=== PATIENT | female | born 1950 | race Asian ===

== ENCOUNTER 2016-05-30 18:19 | Inpatient (IN) | payer OTHER, MEDICAID, MEDICARE ==
[~2016-05-30] VITALS: Ht 149.9 cm; Wt 52.8 kg
[~2016-05-30 18:19] MED LIST: ASPI-147 PO; BUTA1CAP PO; CARI350T20 PO; CELE100C PO; DIAZ10TA PO; FLUO40CA PO; FLUT50SP EACH NARE; LEVA750T PO; LISI-515 PO; LYRI75CA PO; METHI10 PO; METO25TA3 PO; OMEP20TA PO; REME15TA PO; SYMB160A INH; TRAZ100T4 PO; VENTAER INH; ZETI10TA5 PO
[2016-05-30 18:24] VITALS: BP 133/74; PULSE 91; RESP 16; TEMP 98; O2SAT 97
[2016-05-30] MEDS ORDERED: ACETAMINOPHEN 325 MG TAB PO PRN (19:45)
[2016-05-30] MEDS ORDERED: LORazepam 0.5 MG TAB age > 65 yrs PO PRN (19:45)
[2016-05-30] MEDS ORDERED: ALUMINUM/MAGNESIUM/SIMETH 30 ML CUP PO PRN (19:45)
[2016-05-30] MEDS ORDERED: LORazepam 2 MG/ML VIAL - age > 65 yrs IM PRN (19:45)
[2016-05-30] MEDS ORDERED: MAGNESIUM HYDROXIDE SUSP 30 ML CUP PO PRN (19:45)
[2016-05-30 20:00] VITALS: BP 153/98; PULSE 74; RESP 20; TEMP 97.2; O2SAT 96
--- NOTE | 2016-05-30 20:14 | HHI.PYPN ---
Subjective Remarks Patient seen for reevaluation, case was extensively discussed with primary team physician, she was found standing in the middle of the door "On duty, waiting for the president", she says she needs to be vigilant because bad people could come and hurt her. she is visibly paranoid, internally preoccupied, guarded, emotionally disturbed. No aggressive behavior or agitation observed, she denies SI/HI/VH/AH. She is fully oriented X3. No attention deficit, fluctuation of consciousness or gross cognitive impairment observed. Review of Systems Other No significant changes since 05/27/2016 Objective Alert: Yes Semmes: Person, Place, Date, Situation Mood: Angry Affect: Restricted Memory Intact: Immediate, Recent, Remote Hallucinations: Other (She denies) Delusions: Yes Delusion Type: Paranoid Suicidal: Ideation (She denies) Homicidal: Ideation (She denies) Insight/Judgement poor Vitals/IOs Vital Signs Date Time Temp Pulse Resp B/P Pulse Ox O2 Delivery O2 Flow Rate FiO2 05/30/16 20:00 97.2 74 20 153/98 96 Assessment & Plan Problem List: (1) Unspecified psychosis Assessment & Plan: Patient continues to be acutely psychotic, she is now fully medically worked up and clear, she needs psychiatric admission for stabilization. Will increased Olanzapine to 2.5 am and 5 mg pm. ICD Code: F29 Assessment & Plan Estimated LOS: days Justification for Cont. Inpt. Patient is acutely psychosis and needs stabilization and medication adjustment. Rui Camacho MD May 30, 2016 20:14
[2016-05-31 05:44] VITALS: BP 154/82; PULSE 93; RESP 18; TEMP 98.6; O2SAT 99
[2016-05-31] MEDS ORDERED: CARISOPRODOL 350 MG TAB PO PRN (07:30)
[2016-05-31 08:03] LABS: ANION GAP 12 MEQ/L (5-15); BICARBONATE 21.6 MEQ/L (21.0-32.0); BLOOD UREA NITROGEN 20 MG/DL (7-18); CHLORIDE 103 MEQ/L (98-107); GLOMERULAR FILTRATION RATE 58 ML/MIN (>89); SODIUM (NA) 137 MEQ/L (136-145)
[2016-05-31 08:05] LABS: HDL CHOLESTEROL 122.7 MG/DL (40.0-60.0); LDL CHOLESTEROL 100 MG/DL (0-99)
[2016-05-31] MEDS: FLUTICASONE PROPIONATE 50 MCG/ACT 16 GM NASAL SPRAY EACH NARE SCH ×2 (09:00→21:47)
[2016-05-31] MEDS ORDERED: LISINOPRIL 20 MG TAB PO SCH (09:00)
[2016-05-31] MEDS: BUDESONIDE-FORMOTEROL 160/4.5 MCG INHALER INH SCH ×2 (09:00→21:47)
[2016-05-31] MEDS: REMOVE OLD NICOTINE PATCH T-DERMAL SCH (09:00)
--- NOTE | 2016-05-31 10:46 | PD.CONS ---
HPI Service [facility] Consult Requested By Dr Jin psychiatry Reason for Consult medical management Primary Care Physician Kb Miller MD Diagnoses: History of Present Illness 66 year old female with a history of COPD, SLE, RA who presented to the emergency department initially on 05/25/2016 with shortness of breath. Patient was actually discharged from [facility] on 05/24/2016 in the morning after COPD treatments. Prior to discharge, patient was doing very well and walk test did not indicate any need for home O2. Patient denies any fever, chills, chest pain. Denies any changes in bladder or bowel habits. Patient says she has headache and is asking for tylenol. She also feels anxious and tense. No sob, she is sattign well on room air. Says she gets sob at times but thinks is because of anxiety. She also complaints of joint pain and says she has RA. Review of Systems Constitutional: DENIES: Fever, Chills, Change in appetite Endocrine: DENIES: Heat/cold intolerance Eyes: DENIES: Blurred vision, Eye pain Ears, nose, mouth, throat: DENIES: Tinnitus, Hearing loss, Vertigo, Nasal discharge, Oral lesions, Throat pain, Hoarseness, Ear Pain, Running Nose, Epistaxis, Sinus Pain, Toothache, Odynophagia Respiratory: DENIES: Apneas, Cough, Snoring, Wheezing, Hemoptysis, Sputum production, Shortness of breath Cardiovascular: DENIES: Chest pain, Palpitations, Syncope, Dyspnea on Exertion , PND, Lower Extremity Edema, Orthopnea, Claudication Gastrointestinal: DENIES: Abdominal pain, Black stools, Bloody stools, Constipation, Diarrhea, Nausea, Vomiting, Difficulty Swallowing, Anorexia Genitourinary: DENIES: Abnormal vaginal bleeding, Dysmenorrhea, Dyspareunia, Sexual dysfunction, Urinary frequency, Urinary incontinence, Urgency, Hematuria , Dysuria, Nocturia, Vaginal discharge Integumentary: DENIES: Rash Neurologic: DENIES: Abnormal gait, Headache, Localized weakness, Paresthesias, Seizures, Speech Problems, Tremor, Poor Balance Psychiatric: COMPLAINS OF: Mood changes, Delusions Past Family Social History Allergies: Coded Allergies: No Known Allergies (Unverified , 05/24/16) Past Medical History SLE, RA, Fibromyalgia, Hyperlipidemia, COPD. Past Surgical History C. Section Cholecystectomy Reported Medications Reported Meds & Active Scripts Active Methimazole 10 Mg Tab 10 Mg PO DAILY Zetia (Ezetimibe) 10 Mg Tab 10 Mg PO DAILY Remeron (Mirtazapine) 15 Mg Tab 15 Mg PO HS Fioricet (Rldcqhhrdp-Ltxcsxtaxoxvn-Qsfoupvi) 50-300-40 Mg Cap 1-2 Cap PO Q6H PRN Ventolin Hfa 18 GM Inh (Albuterol Sulfate) 90 Mcg/Act Aer 1 Puff INH Q6HR PRN Trazodone (Trazodone HCl) 100 Mg Tab 100 Mg PO HS Lyrica (Pregabalin) 75 Mg Cap 75 Mg PO TID Fluticasone Nasal [place] 50 Mcg/Act Naspr 50 Mcg EACH NARE BID 50 mcg/spray Metoprolol Tartrate 25 Mg Tab 12.5 Mg PO BID Symbicort Inh (Budesonide/Formoterol Fumarate) 160-4.5 Mcg/Act Aero 2 Puff INH Q12HR Fluoxetine (Fluoxetine HCl) 40 Mg Cap 40 Cap PO DAILY Omeprazole 20 Mg Tab 20 Mg PO BID Reported Ecotrin Low Strength (Aspirin) 81 Mg Tabdr 81 Mg PO DAILY Celebrex (Celecoxib) 100 Mg Cap 100 Mg PO DAILY Family History No known family history. Social History Uses E-Cigarettes, drinks occasionally, uses marijuana occasionally as well. Physical Exam Vital Signs Vital Signs Date Time Temp Pulse Resp B/P Pulse Ox O2 Delivery O2 Flow Rate FiO2 05/31/16 05:44 98.6 93 18 154/82 99 05/30/16 20:00 97.2 74 20 153/98 96 05/30/16 18:24 98.0 91 16 133/74 97 Physical Exam GENERAL: This is a well-nourished, well-developed patient, in no apparent distress. SKIN: No rashes, ecchymoses or lesions. Cool and dry. HEAD: Atraumatic. Normocephalic. No temporal or scalp tenderness. EYES: Pupils equal round and reactive. Extraocular motions intact. No scleral icterus. No injection or drainage. ENT: Nose without bleeding, purulent drainage or septal hematoma. Throat without erythema, tonsillar hypertrophy or exudate. Uvula midline. Airway patent. NECK: Trachea midline. No JVD or lymphadenopathy. Supple, nontender, no meningeal signs. CARDIOVASCULAR: Regular rate and rhythm without murmurs, gallops, or rubs. RESPIRATORY: Clear to auscultation. Breath sounds equal bilaterally. No wheezes , rales, or rhonchi. GASTROINTESTINAL: Abdomen soft, non-tender, nondistended. No hepato-splenomegaly , or palpable masses. No guarding. MUSCULOSKELETAL: Extremities without clubbing, cyanosis, or edema. No joint tenderness, effusion, or edema noted. No calf tenderness. Negative Homans sign bilaterally. NEUROLOGICAL: Awake and alert. Cranial nerves II through XII intact. Motor and sensory grossly within normal limits. Five out of 5 muscle strength in all muscle groups. Normal speech. Laboratory Laboratory Tests Test 05/31/16 06:44 Sodium Level 137 Potassium Level 4.0 Chloride Level 103 Carbon Dioxide Level 21.6 Anion Gap 12 Blood Urea Nitrogen 20 Creatinine 0.97 Estimat Glomerular Filtration 58 Rate Random Glucose 82 Calcium Level 9.0 Triglycerides Level 160 Cholesterol Level 255 LDL Cholesterol 100 HDL Cholesterol 122.7 Cholesterol/HDL Ratio 2.07 Result Diagram: 05/31/16 0644 Assessment and Plan Assessment and Plan Aysha Reed returned to the hospital within a few hours of discharge due to shortness of breath. - Acute respiratory distress - resolved. - COPD exacerbation - resolved. Stable on room air. -Continue DuoNeb's when necessary. -Chronic dyspnea - referred to pulmonology by her PCP Dr. Miller. - Hallucinations with paranoid ideation - history of depression - no previous history of psychiatric hospitalizations. I agree with Dr. 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 The patient so far has declined neurologic workup including brain MRI and head CT citing claustrophobia however she agrees to head CT if given Ativan so we will attempt to arrange that this afternoon. AMANDA screen is positive and the titer is pending. RPR is negative. B-12 level is within normal limits. Sedimentation rate is only 4. Neurology consultation requested. - Acute kidney injury - worsening - probably due to poor PO intake and the Lasix that she received in the emergency department- cr increased to 1.8->2.3, will increase normal saline to 125 mL per hour. Will check a renal ultrasound. - Hyponatremia - Na 128. Appears to be a chronic issue, stable. continue NS IVF. - Possible (?) acute CHF exacerbation, diastolic. - Echo from 12/02/2015 shows EF 55-60% but PA pressure was 58. - Pulmonary hypertension is probably playing a role in this patient's dyspnea , which appears to be chronic. -Would avoid any further diuresis given the acute kidney injury and the chronic nature of her dyspnea. She does warrant outpatient pulmonology workup. -Poss Overdose with (Benzodiazepines?) - while hallucinating [employer], patient managed to grab a vial of pills that she had hidden among her belongings and took the pills before the PACKAGE P[employer] couldn't call for help. It was not clear what type of medication they were however the patient told the nurse that it was Xanax. The vial was small could not have more than 10-15 pills. Patient has been observed overnight in the ICU without adverse effect. Poison control had been contacted with no further recommendations. -Hyperthyroidism - cont tapazole 5 mg PO TID (increased from 10 mg daily). TSH still suppressed, but improving since 05/26. DVT px - Lovenox. Discussed with the patient, nurse. Code Status full Discussed Condition With pt, nurse Tiara Powers MD May 31, 2016 10:46
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
[2016-05-31] MEDS: METOPROLOL TARTRATE 25 MG TAB PO SCH ×2 (12:54→21:46)
[2016-05-31] MEDS: NICOTINE 21 MG/24 HR PATCH T-DERMAL SCH (12:54)
[2016-05-31] MEDS: ASPIRIN EC 81 MG TABEC PO SCH (12:55)
[2016-05-31] MEDS: EZETIMIBE 10 MG TAB PO SCH (12:55)
[2016-05-31] MEDS: PANTOPRAZOLE SOD 20 MG DELAYED RELEASE TAB PO SCH ×2 (12:55→21:46)
[2016-05-31] MEDS: PREGABALIN 75 MG CAP PO SCH ×3 (12:55→21:48)
[2016-05-31] MEDS: ACETAMINOPHEN 325 MG TAB PO PRN (12:56)
[2016-05-31 13:00] VITALS: BP 153/84
[2016-05-31 15:38] LABS: HEMOGLOBIN A1a 0.6 %; HEMOGLOBIN Ao 85.1 %; HEMOGLOBIN P3 5.5 %
[2016-05-31] MEDS: CELECOXIB 100 MG CAP PO SCH (18:44)
[2016-05-31] MEDS: METHIMAZOLE 10 MG TAB PO SCH (18:45)
[2016-05-31] MEDS: MIRTAZAPINE 15 MG TAB PO SCH (21:46)
[2016-06-01 06:22] VITALS: BP 136/66; PULSE 71; RESP 17; TEMP 98.9; O2SAT 96
[2016-06-01] MEDS: BUDESONIDE-FORMOTEROL 160/4.5 MCG INHALER INH SCH ×2 (08:38→21:46)
[2016-06-01] MEDS: PREGABALIN 75 MG CAP PO SCH ×3 (08:39→17:45)
[2016-06-01] MEDS: OLANZapine 5 MG TAB PO SCH ×2 (08:39→21:47)
[2016-06-01] MEDS: PANTOPRAZOLE SOD 20 MG DELAYED RELEASE TAB PO SCH ×2 (08:39→21:00)
[2016-06-01] MEDS: FLUTICASONE PROPIONATE 50 MCG/ACT 16 GM NASAL SPRAY EACH NARE SCH ×2 (08:39→21:47)
[2016-06-01] MEDS: CELECOXIB 100 MG CAP PO SCH (08:39)
[2016-06-01] MEDS: ASPIRIN EC 81 MG TABEC PO SCH (08:39)
[2016-06-01] MEDS: EZETIMIBE 10 MG TAB PO SCH (08:39)
[2016-06-01] MEDS: METOPROLOL TARTRATE 25 MG TAB PO SCH ×2 (08:40→21:48)
[2016-06-01] MEDS: METHIMAZOLE 10 MG TAB PO SCH (08:40)
[2016-06-01] MEDS: NICOTINE 21 MG/24 HR PATCH T-DERMAL SCH (09:00)
[2016-06-01] MEDS ORDERED: OLANZapine 5 MG TAB PO SCH (09:00)
[2016-06-01] MEDS: REMOVE OLD NICOTINE PATCH T-DERMAL SCH (09:00)
--- NOTE | 2016-06-01 10:32 | PD.CONS ---
[facility] Service Family Medicine Consult Requested By Psychiatry Reason for Consult Medical Management Primary Care Physician Kb Miller MD History of Present Illness Patient of Dr. Miller This is a 66 year old female with a past medical history significant for COPD, SLE, RA, and hyperthyroidism. She was recently hospitalized on 05/25/16 for shortness of breath due to COPD exacerbation subsequently discharged home. She did not require home oxygen at that time. On 05/31/16 she reports her significant other that she wanted to kill herself and she attempted to overdose on a vial of pills. She reported that she was having visual and auditory hallucinations prior to taking those pills. When evaluated today 06/01/16 she reported no longer having auditory or visual hallucinations. She said that she was feeling back to her baseline. She denied any shortness of breath or chest pain stating that her COPD exacerbation has improved. She feels like she wants to go home at this point, politely informed her that psychiatry will have to determine when she can leave, and that we are being consulted for medical management of her chronic illnesses. Review of Systems Other Endorses: None Denies: Fever, chills, nausea, vomiting, shortness of breath, chest pain, headache, abdominal pain, calf pain, auditory and visual hallucinations Past Family Social History Past Medical History Systemic Lupus Hyperlipidemia Depression COPD Fibromyalgia Genital Herpes Cholelithiasis Hypertension Past Surgical History Caesarian Section x2 Colonoscopy: ordered 05/2012 Mammogram: done 01/2012 (normal) Pap smear: done 05/2012 Pneumonia shot received 2010 Reported Medications Reported Meds & Active Scripts Active Methimazole 10 Mg Tab 10 Mg PO DAILY Zetia (Ezetimibe) 10 Mg Tab 10 Mg PO DAILY Remeron (Mirtazapine) 15 Mg Tab 15 Mg PO HS Fioricet (Nsnhmbdyge-Hgxyufkxgatcl-Auyvsdho) 50-300-40 Mg Cap 1-2 Cap PO Q6H PRN Ventolin Hfa 18 GM Inh (Albuterol Sulfate) 90 Mcg/Act Aer 1 Puff INH Q6HR PRN Trazodone (Trazodone HCl) 100 Mg Tab 100 Mg PO HS Lyrica (Pregabalin) 75 Mg Cap 75 Mg PO TID Fluticasone Nasal [place] 50 Mcg/Act Naspr 50 Mcg EACH NARE BID 50 mcg/spray Metoprolol Tartrate 25 Mg Tab 12.5 Mg PO BID Symbicort Inh (Budesonide/Formoterol Fumarate) 160-4.5 Mcg/Act Aero 2 Puff INH Q12HR Fluoxetine (Fluoxetine HCl) 40 Mg Cap 40 Cap PO DAILY Omeprazole 20 Mg Tab 20 Mg PO BID Reported Ecotrin Low Strength (Aspirin) 81 Mg Tabdr 81 Mg PO DAILY Celebrex (Celecoxib) 100 Mg Cap 100 Mg PO DAILY Allergies: Coded Allergies: No Known Allergies (Unverified , 05/24/16) Active Ordered Medications Current Medications Medications (Trade) Dose Ordered Sig/Indra Route Start Time Stop Time Status Last Admin (Ativan) 0.5 mg Q12H PRN PO 05/30/16 19:45 Hold (Ativan Inj) 0.5 mg Q12H PRN IM 05/30/16 19:45 Hold (Desyrel) 50 mg HS PRN PO 05/30/16 19:45 (Milk Of Magnesia Liq) 30 ml DAILY PRN PO 05/30/16 19:45 (Mag-Al Plus Susp Liq) 30 ml Q6H PRN PO 05/30/16 19:45 (Habitrol 21 Mg Patch.24 Hr) 1 patch DAILY T-DERMAL 05/31/16 09:00 05/31/16 12:54 Miscellaneous Information 1 DAILY T-DERMAL 05/31/16 09:00 (Proair Hfa Inh) 1 puff Q6HR PRN INH 05/31/16 07:30 (Ecotrin Ec) 81 mg DAILY PO 05/31/16 09:00 06/01/16 08:39 (Symbicort 160-4.5 Inh) 2 puff Q12HR INH 05/31/16 09:00 06/01/16 08:38 (CeleBREX) 100 mg DAILY PO 05/31/16 09:00 06/01/16 08:39 (Zetia) 10 mg DAILY PO 05/31/16 09:00 06/01/16 08:39 (Flonase [place]ar Spr) 2 spray BID EACH NARE 05/31/16 09:00 06/01/16 08:39 (Tapazole) 10 mg DAILY PO 05/31/16 09:00 06/01/16 08:40 (Lopressor) 12.5 mg BID PO 05/31/16 09:00 06/01/16 08:40 (Protonix) 20 mg BID PO 05/31/16 09:00 12/24/16 08:39 (Lyrica) 75 mg TID PO 05/31/16 09:00 06/01/16 08:39 (Fioricet 325-50-40) 1 tab Q6H PRN PO 05/31/16 07:45 (Remeron) 15 mg HS PO 05/31/16 21:00 05/31/16 21:46 (ZyPREXA) 5 mg BID PO 06/01/16 09:00 06/01/16 08:39 (Tylenol) 650 mg Q6H PRN PO 05/31/16 12:00 05/31/16 12:56 Family History Father: unknown Mother: unknown Siblings: 4 brothers, 1 sister - unknown health Children: 2 children, both health Social History Marrital Status: single, engaged Living Situation: lives with fiancee Education: high school Work history: disability - lupus, depression, copd Tobacco: 1/2 ppd (60 - 80 pack year history) - former 3 ppd smoker Alcohol: Occasional - 1-2 drinks every 3-4 months Illicit drug use: Marijuana occasionally Physical Exam Vital Signs Vital Signs Date Time Temp Pulse Resp B/P Pulse Ox O2 Delivery O2 Flow Rate FiO2 06/01/16 06:22 98.9 71 17 136/66 96 05/31/16 13:00 153/84 Physical Exam GENERAL: This is a well-nourished, well-developed patient, in no apparent distress. SKIN: No rashes, ecchymoses or lesions. Cool and dry. HEAD: Atraumatic. Normocephalic. No temporal or scalp tenderness. EYES: Pupils equal round and reactive. Extraocular motions intact. No scleral icterus. No injection or drainage. ENT: Nose without bleeding, purulent drainage. Throat without erythema, tonsillar hypertrophy or exudate. Airway patent. NECK: Trachea midline. No JVD or lymphadenopathy. Supple, nontender, no meningeal signs. CARDIOVASCULAR: Regular rate and rhythm without murmurs, gallops, or rubs. RESPIRATORY: Clear to auscultation. Breath sounds equal bilaterally. No wheezes , rales, or rhonchi. GASTROINTESTINAL: Abdomen soft, non-tender, nondistended. No hepato-splenomegaly , or palpable masses. No guarding. MUSCULOSKELETAL: Extremities without clubbing, cyanosis, or edema. No joint tenderness, effusion, or edema noted. No calf tenderness. Negative Homans sign bilaterally. NEUROLOGICAL: Awake, alert and oriented x3. Cranial nerves II through XII intact. Motor and sensory grossly within normal limits. Five out of 5 muscle strength in all muscle groups. Normal speech. Result Diagram: 05/31/16 0644 Assessment and Plan Assessment and Plan This is a 66 year old female with a past medical history significant for COPD, SLE, RA, and hyperthyroidism admitted for psychosis and attempted suicide. Monitoring her chronic illnesses at this time Code Status Full code Discussed Condition With WDW: Dr. Miller Problem List: (1) Psychosis Status: Acute Plan: Patient attempted suicide or taking a pill bottle with multiple pills uncertain as to what she took. Was having auditory and visual hallucinations at time of hospitalization. At this time denies any auditory or visual hallucinations. Psychosis to be worked up by psychiatrist. * Psychiatric recommendations appreciated * Remeron * Olanzapine 5 mg by mouth twice a day (2) Chronic obstructive pulmonary disease Status: Chronic Plan: History of chronic COPD. Recent hospitalization for exacerbation. Currently back to baseline. * Duo nebs as needed * Albuterol every 6 hours when necessary shortness of breath * Symbicort 2 puffs every 12 hours (3) Hyperthyroidism Status: Acute Plan: Family have no thyroid mass. Concern for hyperthyroidism. Most recent workup showed thyroid level to be normal in results of mass workup within normal limits. Spoke with PCP methimazole has been held. * Holding methimazole (4) Lupus (systemic lupus erythematosus) Status: Chronic Plan: Patient has long-standing history of lupus. She is chronically on low- dose steroids. Her steroids were held after tapering for COPD exacerbation. After discussion with PCP he recommended continuing a low dose steroid. Due to concern that the psychosis is caused by steroids will continue to hold at this time. * HOLDING Prednisone 5 mg daily (5) Depression with anxiety Status: Acute Plan: See psychosis plan above (6) History of cerebrovascular accident (CVA) with residual deficit Status: Acute Plan: History of CVA * Continue aspirin 81 mg by mouth daily (7) Overdose of benzodiazepine Status: Acute Plan: Unclear as to what was taken for possible overdose with benzodiazepine while hallucinating. Grabbed a bottle of pills that she had hidden and took them all at once. Unclear what she took though in her psychotic state she claimed it was Xanax. Status post observation for adverse effects, patient did not have any. Poison control was contacted with no further recommendations. Vasile Lindo MD R2 Jun 01, 2016 10:32
--- NOTE | 2016-06-01 16:08 | HHI.PYPN ---
Subjective Remarks Patient seen in [place] with nurse Christina, patient continues to isolate though she denies suicidality and denies auditory hallucinations she appears to be responding to internal stimuli marked delays in her responses. Patient compliant medications Review of Systems Other No somatic complaints today Objective Alert: Yes [place]: Person, Place, Date, Situation Mood: Angry Affect: Restricted Memory Intact: Immediate, Recent, Remote Hallucinations: Other (She denies) Delusions: Yes Delusion Type: Paranoid Suicidal: Ideation (She denies) Homicidal: Ideation (She denies) Insight/Judgement Very poor Vitals/IOs Vital Signs Date Time Temp Pulse Resp B/P Pulse Ox O2 Delivery O2 Flow Rate FiO2 06/01/16 06:22 98.9 71 17 136/66 96 Assessment & Plan Problem List: (1) Unspecified psychosis ICD Code: F29 Assessment & Plan Estimated LOS: days patient continue psychotic quite vigilant, though compliant with medications. For now continue treatment no change Justification for Cont. Inpt. This time patient will decompensate rapidly if placed in a lower level of care Discharge Planning To be determined Jj Ramachandran MD Jun 01, 2016 16:08
[2016-06-01 18:14] LABS: BLOOD, URINE NEG (NEG); COMMENT (UR) CULTURE INDICATED; CULTURE IF INDICATED CULTURE INDICATED; GLUCOSE,URINE NEG (NEG); KETONE, URINE NEG (NEG); NITRITE,URINE NEG (NEG); SQUAMOUS EPITHELIAL CELL URINE 1 /hpf (0-5); URINE COLOR YELLOW (YELLW/STRAW)
[2016-06-01 18:27] VITALS: BP 116/66; PULSE 69; RESP 18; TEMP 98.8; O2SAT 100
[2016-06-01 18:29] LABS: AMPHETAMINE, URINE NEG (NEG); BARBITURATES, URINE NEG (NEG); COCAINE, URINE NEG (NEG)
[2016-06-01] MEDS: MIRTAZAPINE 15 MG TAB PO SCH (21:47)
[2016-06-01] MEDS: ACETAMINOPHEN 325 MG TAB PO PRN (21:48)
[2016-06-02 06:22] VITALS: BP 145/88; PULSE 76; RESP 16; TEMP 98; O2SAT 100
[2016-06-02] MEDS: BUDESONIDE-FORMOTEROL 160/4.5 MCG INHALER INH SCH ×2 (09:00→20:34)
[2016-06-02] MEDS: REMOVE OLD NICOTINE PATCH T-DERMAL SCH (09:00)
[2016-06-02] MEDS ORDERED: predniSONE 5 MG TAB PO SCH (09:00)
[2016-06-02] MEDS: NICOTINE 21 MG/24 HR PATCH T-DERMAL SCH (09:59)
[2016-06-02] MEDS: FLUTICASONE PROPIONATE 50 MCG/ACT 16 GM NASAL SPRAY EACH NARE SCH ×2 (09:59→20:34)
[2016-06-02] MEDS: OLANZapine 5 MG TAB PO SCH ×2 (10:00→20:35)
[2016-06-02] MEDS: EZETIMIBE 10 MG TAB PO SCH (10:00)
[2016-06-02] MEDS: METOPROLOL TARTRATE 25 MG TAB PO SCH ×2 (10:00→20:35)
[2016-06-02] MEDS: PREGABALIN 75 MG CAP PO SCH ×4 (10:00→18:09)
[2016-06-02] MEDS: ASPIRIN EC 81 MG TABEC PO SCH (10:01)
[2016-06-02] MEDS: PANTOPRAZOLE SOD 20 MG DELAYED RELEASE TAB PO SCH ×2 (10:01→20:35)
[2016-06-02] MEDS: CELECOXIB 100 MG CAP PO SCH (10:01)
--- NOTE | 2016-06-02 12:27 | PD.CONS ---
[facility] Service Family Medicine Consult Requested By Primary Care Physician Kb Miller MD History of Present Illness Patient of Dr. Miller Ms Monteiro is a 66 year old female with a past medical history significant for COPD, SLE, RA, and hyperthyroidism. She was recently hospitalized on for shortness of breath due to COPD exacerbation subsequently discharged home. She did not require home oxygen at that time. On 05/31/16 she reports her significant other that she wanted to kill herself and she attempted to overdose on a vial of pills. She reported that she was having visual and auditory hallucinations prior to taking those pills. When evaluated 06/01/[address] Lindo, she reported no longer having auditory or visual hallucinations. She said that she was feeling back to her baseline. She denied any shortness of breath or chest pain stating that her COPD exacerbation has improved. She believes she is here because of her COPD. She feels like she wants to go home at this point, politely informed her that psychiatry will have to determine when she can leave, and that we are being consulted for medical management of her chronic illnesses. She also complains of sinus congestion and "runny nose" but has had her nasal spray earlier today. Review of Systems ROS Limitations: Poor Historian Constitutional: DENIES: Diaphoretic episodes Eyes: DENIES: Blurred vision, Vision loss Ears, nose, mouth, throat: COMPLAINS OF: Nasal discharge, Running Nose, DENIES : Epistaxis, Sinus Pain Respiratory: DENIES: Cough, Hemoptysis, Shortness of breath Cardiovascular: DENIES: Dyspnea on Exertion Gastrointestinal: DENIES: Abdominal pain, Difficulty Swallowing Musculoskeletal: COMPLAINS OF: Muscle aches, Stiffness, DENIES: Joint pain Integumentary: COMPLAINS OF: Rash Hematologic/lymphatic: COMPLAINS OF: Bruising Immunologic/allergic: DENIES: Urticaria Neurologic: DENIES: Abnormal gait, Headache, Localized weakness, Seizures, Speech Problems Psychiatric: COMPLAINS OF: Confusion, Hallucinations, DENIES: Anxiety, Agitation Other Endorses: None Denies: Fever, chills, nausea, vomiting, shortness of breath, chest pain, headache, abdominal pain, calf pain, auditory and visual hallucinations Past Family Social History Past Medical History Systemic Lupus Hyperlipidemia Depression COPD Fibromyalgia Genital Herpes Cholelithiasis Hypertension Past Surgical History Caesarian Section x2 Colonoscopy: ordered 05/2012 Mammogram: done 01/2012 (normal) Pap smear: done 05/2012 Pneumonia shot received 2010 Allergies: Coded Allergies: No Known Allergies (Unverified , 05/24/16) Family History Father: unknown Mother: unknown Siblings: 4 brothers, 1 sister - unknown health she reports being estranged from the family she was born into and has not seen or talked to them since she was 19 years old Children: 2 children, both healthy Social History Marrital Status: single, engaged Living Situation: lives with fiancee Education: high school Work history: disability - lupus, depression, copd Tobacco: 1/2 ppd (60 - 80 pack year history) - former 3 ppd smoker Alcohol: Occasional - 1-2 drinks every 3-4 months Illicit drug use: Marijuana occasionally Physical Exam Vital Signs Vital Signs Date Time Temp Pulse Resp B/P Pulse Ox O2 Delivery O2 Flow Rate FiO2 06/02/16 06:22 98.0 76 16 145/88 100 06/01/16 18:27 98.8 69 18 116/66 100 Physical Exam GENERAL: This is a well-nourished, well-developed patient, in no apparent distress. ambulating well without any problems or SOB. speaking and answering questions well SKIN: few ecchymoses no lesions. Cool and dry. HEAD: Atraumatic. Normocephalic. very slight flattening of nasolabial fold on the left compared to right which pt reports is chronic since she had a CVA EYES: Pupils equal round and reactive. Extraocular motions intact. No scleral icterus. No injection or drainage. ENT: Nose without bleeding, purulent drainage. Throat without erythema, tonsillar hypertrophy or exudate. Airway patent. NECK: Trachea midline. No JVD or lymphadenopathy. Supple, nontender, no meningeal signs. CARDIOVASCULAR: Regular rate and rhythm without murmurs, gallops, or rubs. RESPIRATORY: Clear to auscultation. Breath sounds equal bilaterally. No wheezes , rales, or rhonchi. GASTROINTESTINAL: Abdomen soft, non-tender, nondistended. No hepato-splenomegaly , or palpable masses. No guarding. MUSCULOSKELETAL: Extremities without clubbing, cyanosis, or edema. No joint tenderness, effusion, or edema noted. No calf tenderness. Negative Homans sign bilaterally. NEUROLOGICAL: Awake, alert and oriented x3. Cranial nerves II through XII intact. Motor and sensory grossly within normal limits. Five out of 5 muscle strength in all muscle groups. Normal speech. Laboratory Laboratory Tests Test 06/01/16 17:20 Urine Color YELLOW Urine Turbidity CLEAR Urine pH 6.0 Urine Specific [place] 1.007 Urine Protein NEG Urine Glucose (UA) NEG Urine Ketones NEG Urine Occult Blood NEG Urine Nitrite NEG Urine Bilirubin NEG Urine Urobilinogen LESS THAN 2.0 Urine Leukocyte Esterase MOD Urine RBC 1 Urine WBC 8 Urine Squamous Epithelial 1 Cells Microscopic Urinalysis Comment CULTURE INDICATED Urine Opiates Screen NEG Urine Barbiturates Screen NEG Urine Amphetamines Screen NEG Urine Benzodiazepines Screen POS Urine Cocaine Screen NEG Urine Cannabinoids Screen NEG Date/Time Procedure Status Source Growth 06/01/16 17:20 Urine Culture Received Urine Clean Catch Pending Result Diagram: 05/31/16 0644 Assessment and Plan Assessment and Plan This is a 66 year old female with a past medical history significant for COPD, SLE, RA, and hyperthyroidism admitted for psychosis and attempted suicide. Monitoring her chronic illnesses at this time Problem List: (1) Psychosis Status: Acute Plan: Patient attempted suicide or taking a pill bottle with multiple pills uncertain as to what she took. Was having auditory and visual hallucinations at time of hospitalization. At this time denies any auditory or visual hallucinations. Psychosis to be worked up by psychiatrist. Unsure of etiology but depression with psychosis is not uncommon in the elderly. steroids can cause psychosis or other causes are possible. * Psychiatric recommendations appreciated * Remeron * Olanzapine 5 mg by mouth twice a day (2) Chronic obstructive pulmonary disease Status: Chronic Plan: History of chronic COPD. Recent hospitalization for exacerbation. Currently back to baseline. She is ambulating well without oxygen * Duo nebs as needed * Albuterol every 6 hours when necessary shortness of breath * Symbicort 2 puffs every 12 hours (3) Hyperthyroidism Status: Acute Plan: Family have no thyroid mass. Concern for hyperthyroidism. Most recent workup showed thyroid level to be normal in results of mass workup within normal limits. Dr Lindo spoke with PCP- methimazole has been held. * Holding methimazole (4) Lupus (systemic lupus erythematosus) Status: Chronic Plan: Patient has long-standing history of lupus. She is chronically on low- dose steroids. Her steroids were held after tapering for COPD exacerbation. After discussion with PCP he recommended continuing a low dose steroid. Due to concern that the psychosis is caused by steroids will continue to hold at this time. 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 Per review of D/C from COPD exacerbation as well as clinic notes, it does not appear she was on termite renewal inspector steroids (5) Depression with anxiety Status: Acute Plan: See psychosis plan above (6) History of cerebrovascular accident (CVA) with residual deficit Status: Resolved Plan: History of CVA * Continue aspirin 81 mg by mouth daily (7) Overdose of benzodiazepine Status: Acute Plan: Unclear as to what was taken for possible overdose with benzodiazepine while hallucinating. Grabbed a bottle of pills that she had hidden and took them all at once. Unclear what she took though in her psychotic state she claimed it was Xanax. Status post observation for adverse effects, patient did not have any. Poison control was contacted with no further recommendations. Problem Qualifiers (1) Psychosis: Qualified Code: F29 - Psychosis, unspecified psychosis type (2) Chronic obstructive pulmonary disease: Qualified Code: J44.9 - Chronic obstructive pulmonary disease, unspecified COPD type (3) Lupus (systemic lupus erythematosus): Qualified Code: M32.8 - Other forms of systemic lupus erythematosus, unspecified organ involvement status (4) Overdose of benzodiazepine: Qualified Code: T42.4X2A - Overdose of benzodiazepine, intentional self-harm, initial encounter Meliza Price MD Jun 02, 2016 12:27
--- NOTE | 2016-06-02 15:22 | HHI.PYPN ---
Subjective Remarks Patient was seen and case discussed with nursing. Patient has very poor insight. She does not believe she is in a psychiatric wing of the hospital and refuses to admit that she try to overdose. Largely sits in her room by herself. Denies suicidal ideations thought or plan Objective Alert: Yes [place]: Person, Place, Date, Situation Mood: Angry Affect: Restricted Memory Intact: Immediate, Recent, Remote Hallucinations: Other (She denies) Delusions: Yes Delusion Type: Paranoid Suicidal: Ideation (She denies) Homicidal: Ideation (She denies) Insight/Judgement Poor Labs Test 06/01/16 17:20 Urine Color YELLOW Urine Turbidity CLEAR Urine pH 6.0 Urine Specific [place] 1.007 Urine Protein NEG mg/dL Urine Glucose (UA) NEG mg/dL Urine Ketones NEG mg/dL Urine Occult Blood NEG Urine Nitrite NEG Urine Bilirubin NEG Urine Urobilinogen LESS THAN 2.0 MG/DL Urine Leukocyte Esterase MOD Urine RBC 1 /hpf Urine WBC 8 /hpf Urine Squamous Epithelial 1 /hpf Cells Microscopic Urinalysis Comment CULTURE INDICATED Urine Opiates Screen NEG Urine Barbiturates Screen NEG Urine Amphetamines Screen NEG Urine Benzodiazepines Screen POS Urine Cocaine Screen NEG Urine Cannabinoids Screen NEG Date/Time Procedure Status Source Growth 06/01/16 17:20 Urine Culture - Preliminary Resulted Urine Clean Catch IMMATURE GROWTH - REINCUBATE Vitals/IOs Vital Signs Date Time Temp Pulse Resp B/P Pulse Ox O2 Delivery O2 Flow Rate FiO2 06/02/16 06:22 98.0 76 16 145/88 100 Assessment & Plan Problem List: (1) Unspecified psychosis ICD Code: F29 Assessment & Plan Continue current treatment plan Justification for Cont. Inpt. Patient will decompensate in a less restrictive setting Matheus Pereira DO Jun 02, 2016 15:22
[2016-06-02] MEDS: ALBUTEROL SULFATE 90 MCG/ACT HFA 8 GM INHALER INH PRN ×2 (18:29→18:34)
[2016-06-02] MEDS: MIRTAZAPINE 15 MG TAB PO SCH (20:34)
[2016-06-02] MEDS: traZODone HCL 50 MG TAB PO PRN (21:58)
[2016-06-02 22:25] VITALS: BP 123/62; PULSE 68; RESP 16; TEMP 98.4
[2016-06-03 06:39] VITALS: BP 131/76; PULSE 68; RESP 18; TEMP 97.7; O2SAT 100
[2016-06-03] MEDS: REMOVE OLD NICOTINE PATCH T-DERMAL SCH (09:00)
[2016-06-03] MEDS: FLUTICASONE PROPIONATE 50 MCG/ACT 16 GM NASAL SPRAY EACH NARE SCH ×2 (09:00→21:02)
[2016-06-03] MEDS: BUDESONIDE-FORMOTEROL 160/4.5 MCG INHALER INH SCH ×2 (09:00→21:02)
[2016-06-03] MEDS: METOPROLOL TARTRATE 25 MG TAB PO SCH ×2 (09:00→21:02)
[2016-06-03] MEDS: NICOTINE 21 MG/24 HR PATCH T-DERMAL SCH (09:18)
[2016-06-03] MEDS: OLANZapine 5 MG TAB PO SCH ×2 (09:18→21:02)
[2016-06-03] MEDS: ASPIRIN EC 81 MG TABEC PO SCH (09:18)
[2016-06-03] MEDS: CELECOXIB 100 MG CAP PO SCH (09:18)
[2016-06-03] MEDS: PANTOPRAZOLE SOD 20 MG DELAYED RELEASE TAB PO SCH ×2 (09:18→21:02)
[2016-06-03] MEDS: EZETIMIBE 10 MG TAB PO SCH (09:18)
--- NOTE | 2016-06-03 11:19 | HHI.PYPN ---
Subjective Remarks Patient seen in coverage for Dr. Gonzalez. Patient seen and examined with nurse, Christina. Chart reviewed. Case discussed with nursing staff. I was informed by the probate paralegal for the Department this morning that the patient's [place] act over the weekend without having been addressed. On my examination today, the patient denies any suicidal ideation. Patient maintains that she did not take an overdose of pills but was rather taking a vitamin supplement. She appears to be in fair spirits. No psychotic symptoms in evidence. I have had a mary discussion with her regarding the fact that her [place]man act has . I have emphasized that she is therefore under no obligation to remain on the inpatient psychiatric unit unless she should wish to do so. After a discussion of the risks and benefits of remaining on the unit voluntarily, she has agreed to sign into the hospital voluntarily to continue to work on her issues. She denies side effects from medications. Review of Systems Other Complains of some chronic left shoulder pain. No other physical complaints. Objective Alert: Yes [place]: Person, Place, Date Mood: Calm Affect: Blunted Memory Intact: Comment (intact on clinical exam) Hallucinations: Other (no AVH) Delusions: No Delusion Type: Other (no evident delusions) Suicidal: Ideation (denies SI) Homicidal: Ideation (no HI) Insight/Judgement Fair Remarks Thought process linear. Speech within normal limits for rate, tone and volume. No abnormal motor movements noted. Labs Date/Time Procedure Status Source Growth 06/01/16 17:20 Urine Culture - Preliminary Resulted Urine Clean Catch Gram Negative Andrea Labs reviewed. Vitals/IOs Vital Signs Date Time Temp Pulse Resp B/P Pulse Ox O2 Delivery O2 Flow Rate FiO2 06/03/16 06:39 97.7 68 18 131/76 100 Assessment & Plan Problem List: (1) Unspecified psychosis Assessment & Plan: Possibly delirium, now resolved ICD Code: F29 Assessment & Plan Patient appears to be clear thinking today. I wonder if she had a delirium on the medical floor and this was what was leading to her odd behavior. Her [place]man act over the weekend, but happily she has agreed to remain on the inpatient psychiatric unit for further observation after discussion of the risks and benefits of so doing. Continue current psychotropics as ordered. Appreciate hospitalist instructional consultant input. Continue other medications and care as ordered. Justification for Cont. Inpt. Observation for impairments in safety Discharge Planning Per Dr. Gonzalez Request HC Surrog/Guard Advoc?: No Esa Fagan MD Jun 03, 2016 11:19
--- NOTE | 2016-06-03 11:26 | HHI.FPPN ---
Subjective Remarks Patient seen and examined this morning in psychiatry. Medically, patient has been doing well, and has no complaints. Vitals have been normal and stable. Patient has no questions or concerns today. Objective Vitals Vital Signs Date Time Temp Pulse Resp B/P Pulse Ox O2 Delivery O2 Flow Rate FiO2 06/03/16 06:39 97.7 68 18 131/76 100 06/02/16 22:25 98.4 68 16 123/62 Result Diagram: 05/31/16 0644 Objective Remarks GENERAL: This is a well-nourished, well-developed patient, in no apparent distress. Ambulating well without any problems or SOB. Speaking and answering questions well CARDIOVASCULAR: Regular rate and rhythm without murmurs, gallops, or rubs. RESPIRATORY: Clear to auscultation. GASTROINTESTINAL: Abdomen soft, non-tender, nondistended. MUSCULOSKELETAL: Extremities without clubbing, cyanosis, or edema. NEUROLOGICAL: Awake, alert. Motor and sensory grossly within normal limits. Normal speech. A/P Assessment and Plan This is a 66 year old female with a past medical history significant for COPD, SLE, RA, and hyperthyroidism admitted for psychosis and attempted suicide. Psychosis was suspected to be steroid induced, and have discontinued home steroids. Family Medicine was consulted for medical management of her chronic illnesses Discharge Planning Family medicine will sign off, as patient is stable with regard to her chronic medical conditions. Please re-consult if needed. DW Dr. Price Problem List: (1) Psychosis Status: Acute Plan: Patient attempted suicide or taking a pill bottle with multiple pills uncertain as to what she took. Was having auditory and visual hallucinations at time of hospitalization. At this time denies any auditory or visual hallucinations. Psychosis to be worked up by psychiatrist. Unsure of etiology but depression with psychosis is not uncommon in the elderly. steroids can cause psychosis or other causes are possible. * Psychiatric recommendations appreciated * Remeron * Olanzapine 5 mg by mouth twice a day (2) Abnormal urinalysis Status: Resolved Plan: UA with leukocyte esterase. Urine culture with gram negative rods, 10-50,000, probably contaminant. Patient asymptomatic. -No treatment planned as patient is asymptomatic (3) Chronic obstructive pulmonary disease Status: Chronic Plan: History of chronic COPD. Recent hospitalization for exacerbation. Currently back to baseline. She is ambulating well without oxygen * Duo nebs as needed * Albuterol every 6 hours when necessary shortness of breath * Symbicort 2 puffs every 12 hours (4) Hyperthyroidism Status: Acute Plan: Family have no thyroid mass. Concern for hyperthyroidism. Most recent workup showed thyroid level to be normal in results of mass workup within normal limits. Dr Lindo spoke with PCP- methimazole has been held. * Holding methimazole (5) Lupus (systemic lupus erythematosus) Status: Chronic Plan: Patient has long-standing history of lupus. She is chronically on low-dose steroids. Her steroids were held after tapering for COPD exacerbation. After discussion with PCP he recommended continuing a low dose steroid. Due to concern that the psychosis is caused by steroids will continue to hold at this time. * HOLDING Prednisone 5 mg daily * Unclear if she was on computer terminal operator steroids, if so, there is a chance of low BPs and adrenal insufficiency however she is ambulating normally now. Per review of D/C from COPD exacerbation as well as clinic notes, it does not appear she was on computer terminal operator steroids (6) Depression with anxiety Status: Acute Plan: See psychosis plan above (7) History of cerebrovascular accident (CVA) with residual deficit Status: Resolved Plan: History of CVA * Continue aspirin 81 mg by mouth daily (8) Overdose of benzodiazepine Status: Acute Plan: Unclear as to what was taken for possible overdose with benzodiazepine while hallucinating. Grabbed a bottle of pills that she had hidden and took them all at once. Unclear what she took though in her psychotic state she claimed it was Xanax. Status post observation for adverse effects, patient did not have any. Poison control was contacted with no further recommendations. Problem Qualifiers (1) Psychosis: Qualified Code: F29 - Psychosis, unspecified psychosis type (2) Chronic obstructive pulmonary disease: Qualified Code: J44.9 - Chronic obstructive pulmonary disease, unspecified COPD type (3) Lupus (systemic lupus erythematosus): Qualified Code: M32.8 - Other forms of systemic lupus erythematosus, unspecified organ involvement status (4) Overdose of benzodiazepine: Qualified Code: T42.4X2A - Overdose of benzodiazepine, intentional self-harm, initial encounter Julia Stewart MD Jun 03, 2016 11:26
[2016-06-03] MEDS: PREGABALIN 75 MG CAP PO SCH (18:00)
[2016-06-03 18:27] VITALS: BP 143/84; PULSE 84; RESP 18; TEMP 98.2; O2SAT 98
[2016-06-03] MEDS: MIRTAZAPINE 15 MG TAB PO SCH (21:02)
[2016-06-03] MEDS: traZODone HCL 50 MG TAB PO PRN (21:03)
[2016-06-03] MEDS: ACETAMIN 325 MG/BUTALBITAL 50 MG/CAFFEINE 40 MG TAB PO PRN (21:30)
[2016-06-04 06:32] VITALS: BP 131/65; PULSE 72; RESP 18; TEMP 97.5; O2SAT 98
[2016-06-04] MEDS: BUDESONIDE-FORMOTEROL 160/4.5 MCG INHALER INH SCH ×2 (08:46→21:21)
[2016-06-04] MEDS: FLUTICASONE PROPIONATE 50 MCG/ACT 16 GM NASAL SPRAY EACH NARE SCH ×2 (08:46→21:21)
[2016-06-04] MEDS: OLANZapine 5 MG TAB PO SCH ×2 (08:46→21:21)
[2016-06-04] MEDS: CELECOXIB 100 MG CAP PO SCH (08:47)
[2016-06-04] MEDS: EZETIMIBE 10 MG TAB PO SCH (08:47)
[2016-06-04] MEDS: PANTOPRAZOLE SOD 20 MG DELAYED RELEASE TAB PO SCH ×2 (08:47→21:22)
[2016-06-04] MEDS: METOPROLOL TARTRATE 25 MG TAB PO SCH ×2 (08:47→21:22)
[2016-06-04] MEDS: PREGABALIN 75 MG CAP PO SCH ×3 (08:47→17:32)
[2016-06-04] MEDS: ASPIRIN EC 81 MG TABEC PO SCH (08:47)
[2016-06-04] MEDS: REMOVE OLD NICOTINE PATCH T-DERMAL SCH (09:00)
[2016-06-04] MEDS: NICOTINE 21 MG/24 HR PATCH T-DERMAL SCH (09:00)
[2016-06-04 18:41] VITALS: BP 147/70; PULSE 68; RESP 18; TEMP 98; O2SAT 99
--- NOTE | 2016-06-04 19:08 | HHI.PYPN ---
Subjective Remarks Patient seen, chart reviewed, case discussed with staff Patient has been on phone with her son. When i spoke to the son he reports to me that Karina significant other does not want her to return home and other discharge plans need to be made. Fernandez phone number is [phone] Patients mood is improved. She is up, attending some activities and groups Compliant with care, tolerating meds without side effects, no SI, no AH Review of Systems Psychiatric: COMPLAINS OF: Anxiety, Mood changes, Depression Other otherwise 10 point ROS is negative Objective Alert: Yes [place]: Person, Place, Date Mood: Calm Affect: Blunted Memory Intact: Comment (intact on clinical exam) Hallucinations: Other (no AVH) Delusions: No Delusion Type: Other (no evident delusions) Suicidal: Ideation (denies SI) Homicidal: Ideation (no HI) Insight/Judgement poor Labs Date/Time Procedure Status Source Growth 06/01/16 17:20 Urine Culture - Final Complete Urine Clean Catch Escherichia Coli Vitals/IOs Vital Signs Date Time Temp Pulse Resp B/P Pulse Ox O2 Delivery O2 Flow Rate FiO2 06/04/16 18:41 98.0 68 18 147/70 99 Assessment & Plan Problem List: (1) Major depressive disorder, recurrent, severe with psychotic features Assessment & Plan: patient appears improved, possibly this information from the son, indicating that significant other does not want [place] back partly explains her affect when she arrived. ICD Code: F33.3 Assessment & Plan Estimated LOS: days Justification for Cont. Inpt. risk of deterioration Request HC Surrog/Guard Advoc?: No Melody Gonzalez MD Jun 04, 2016 19:08
[2016-06-04] MEDS: MIRTAZAPINE 15 MG TAB PO SCH (21:21)
[2016-06-04] MEDS: traZODone HCL 50 MG TAB PO PRN (21:47)
[2016-06-05 06:12] VITALS: BP 127/62; PULSE 73; RESP 16; TEMP 97.8; O2SAT 96
[2016-06-05] MEDS: FLUTICASONE PROPIONATE 50 MCG/ACT 16 GM NASAL SPRAY EACH NARE SCH ×2 (08:58→21:17)
[2016-06-05] MEDS: REMOVE OLD NICOTINE PATCH T-DERMAL SCH (09:00)
[2016-06-05] MEDS: BUDESONIDE-FORMOTEROL 160/4.5 MCG INHALER INH SCH ×2 (09:00→21:02)
[2016-06-05] MEDS: NICOTINE 21 MG/24 HR PATCH T-DERMAL SCH (09:00)
[2016-06-05] MEDS: CELECOXIB 100 MG CAP PO SCH (09:02)
[2016-06-05] MEDS: ASPIRIN EC 81 MG TABEC PO SCH (09:03)
[2016-06-05] MEDS: PREGABALIN 75 MG CAP PO SCH ×3 (09:04→18:00)
[2016-06-05] MEDS: EZETIMIBE 10 MG TAB PO SCH (09:05)
[2016-06-05] MEDS: PANTOPRAZOLE SOD 20 MG DELAYED RELEASE TAB PO SCH ×2 (09:07→21:00)
[2016-06-05] MEDS: OLANZapine 5 MG TAB PO SCH ×2 (09:08→21:06)
[2016-06-05] MEDS: METOPROLOL TARTRATE 25 MG TAB PO SCH ×2 (09:36→21:05)
--- NOTE | 2016-06-05 17:29 | HHI.PYPN ---
Subjective Remarks Patient seen, chart reviewed, case discussed with staff Issues have arisen as to whether patient can return to previous living situation at time of discharge. This change is creating some shock and disruption for the patient and discharge planning. Patient has been more withdrawn today, less social, although she has been up for meals. She has been anxious and less verbal, answering questions with a nod or by shaking her head rather than the full description and smile she was giving yesterday. She is not smiling today. The patient continues to be cooperative with care and she is taking her medications. Review of Systems Psychiatric: COMPLAINS OF: Anxiety, Confusion, Depression Other otherwise 10 point ROS is negative Objective Alert: Yes [place]: Person, Place, Date Mood: Anxious Affect: Blunted Memory Intact: Comment (intact on clinical exam) Hallucinations: Other (no AVH) Delusions: No Delusion Type: Other (no evident delusions) Suicidal: Ideation (denies SI) Homicidal: Ideation (no HI) Insight/Judgement poor Remarks Labs Date/Time Procedure Status Source Growth 06/01/16 17:20 Urine Culture - Final Complete Urine Clean Catch Escherichia Coli Vitals/IOs Vital Signs Date Time Temp Pulse Resp B/P Pulse Ox O2 Delivery O2 Flow Rate FiO2 06/05/16 06:12 97.8 73 16 127/62 96 Assessment & Plan Problem List: (1) Major depressive disorder, recurrent, severe with psychotic features Assessment & Plan: The improvement noted yesterday is not evident today, and we will have to work a little harder to bring it back. We are continuing with meds, activities, groups and vigorously with discharge plans to determine if we can work out suitable discharge plans. ICD Code: F33.3 Assessment & Plan Estimated LOS: days Justification for Cont. Inpt. risk of decompensation Request HC Surrog/Guard Advoc?: No Melody Gonzalez MD Jun 05, 2016 17:29
[2016-06-05 19:47] VITALS: BP 135/74; PULSE 66; RESP 16; TEMP 98.2
[2016-06-05] MEDS: MIRTAZAPINE 15 MG TAB PO SCH (21:06)
[2016-06-05] MEDS: ACETAMINOPHEN 325 MG TAB PO PRN (21:22)
[2016-06-06 06:14] VITALS: BP 111/59; PULSE 67; RESP 18; TEMP 98.7
[2016-06-06] MEDS: PREGABALIN 75 MG CAP PO SCH ×3 (08:33→17:06)
[2016-06-06] MEDS: BUDESONIDE-FORMOTEROL 160/4.5 MCG INHALER INH SCH ×2 (08:33→21:37)
[2016-06-06] MEDS: CELECOXIB 100 MG CAP PO SCH (08:33)
[2016-06-06] MEDS: METOPROLOL TARTRATE 25 MG TAB PO SCH ×2 (08:33→21:37)
[2016-06-06] MEDS: ASPIRIN EC 81 MG TABEC PO SCH (08:33)
[2016-06-06] MEDS: FLUTICASONE PROPIONATE 50 MCG/ACT 16 GM NASAL SPRAY EACH NARE SCH ×2 (08:33→21:37)
[2016-06-06] MEDS: PANTOPRAZOLE SOD 20 MG DELAYED RELEASE TAB PO SCH ×2 (08:33→21:37)
[2016-06-06] MEDS: EZETIMIBE 10 MG TAB PO SCH (08:33)
[2016-06-06] MEDS: OLANZapine 5 MG TAB PO SCH ×2 (08:34→21:37)
[2016-06-06] MEDS: NICOTINE 21 MG/24 HR PATCH T-DERMAL SCH (08:34)
[2016-06-06] MEDS: REMOVE OLD NICOTINE PATCH T-DERMAL SCH (08:34)
--- NOTE | 2016-06-06 11:58 | HHI.PYPN ---
Subjective Remarks Patient was seen and discussed with the medical staff coordinator. Patient reported that she has been feeling better. But she was somewhat concerned and worried about her boyfriend spending money and wanted to talk to him. No behavior or management problem reported. Patient claimed that she has been sleeping fairly well compliant in taking medication and feeling back to her normal self. Continue with the same treatment Review of Systems Psychiatric: COMPLAINS OF: Mood changes, Depression Other Review of systems same as that of 05/31/16 Objective Alert: Yes [place]: Person, Place, Date, Situation Mood: Anxious, Other (worried about her money) Affect: Blunted Memory Intact: Comment (intact on clinical exam) Hallucinations: Other (no AVH) Delusions: No Delusion Type: Other (no evident delusions) Suicidal: Ideation (denies SI) Homicidal: Ideation (no HI) Insight/Judgement Fair to limited Labs Date/Time Procedure Status Source Growth 06/01/16 17:20 Urine Culture - Final Complete Urine Clean Catch Escherichia Coli Vitals/IOs Vital Signs Date Time Temp Pulse Resp B/P Pulse Ox O2 Delivery O2 Flow Rate FiO2 06/06/16 06:14 98.7 67 18 111/59 06/05/16 06:12 96 Assessment & Plan Problem List: (1) Major depressive disorder, recurrent, severe with psychotic features ICD Code: F33.3 Assessment & Plan Estimated LOS: days Justification for Cont. Inpt. Monitoring and titrating of the medication to control and stabilize her symptoms Request HC Surrog/Guard Advoc?: No Emmanuel Roach MD Jun 06, 2016 11:58
[2016-06-06 18:20] VITALS: BP 145/80; PULSE 66; RESP 18; TEMP 98.6
[2016-06-06] MEDS: MIRTAZAPINE 15 MG TAB PO SCH (21:37)
[2016-06-06] MEDS: traZODone HCL 50 MG TAB PO PRN (21:38)
[2016-06-07 05:25] VITALS: BP 119/73; PULSE 71; RESP 16; TEMP 98.2; O2SAT 96
[2016-06-07] MEDS: PREGABALIN 75 MG CAP PO SCH ×3 (09:00→18:00)
[2016-06-07] MEDS: CELECOXIB 100 MG CAP PO SCH (09:00)
[2016-06-07] MEDS: FLUTICASONE PROPIONATE 50 MCG/ACT 16 GM NASAL SPRAY EACH NARE SCH (09:00)
[2016-06-07] MEDS: REMOVE OLD NICOTINE PATCH T-DERMAL SCH (09:00)
[2016-06-07] MEDS: EZETIMIBE 10 MG TAB PO SCH (09:37)
[2016-06-07] MEDS: NICOTINE 21 MG/24 HR PATCH T-DERMAL SCH (09:37)
[2016-06-07] MEDS: ASPIRIN EC 81 MG TABEC PO SCH (09:38)
[2016-06-07] MEDS: OLANZapine 5 MG TAB PO SCH ×2 (09:38→21:23)
[2016-06-07] MEDS: BUDESONIDE-FORMOTEROL 160/4.5 MCG INHALER INH SCH ×2 (09:38→21:23)
[2016-06-07] MEDS: METOPROLOL TARTRATE 25 MG TAB PO SCH ×2 (09:38→21:23)
[2016-06-07] MEDS: PANTOPRAZOLE SOD 20 MG DELAYED RELEASE TAB PO SCH ×2 (09:38→21:23)
--- NOTE | 2016-06-07 15:34 | HHI.PYPN ---
Subjective Remarks Pt seen in coverage for Dr. Gonzalez. Chart reviewed. Case d/w RN. On my examination today, pt reports that she is waiting for long-term, hopes to be ready to go by Friday. Reports that she is sleeping well with current psychotropics. Denies SI/HI/AVH. Denies side effects from medications. Does have some somatic complaints as detailed below. Review of Systems Other C/o chronic neck, shoulder pain. C/o L ear pain without drainage or fullness. Some ringing in the L ear. Objective Alert: Yes [place]: Person, Place, Date Mood: Calm Affect: Euthymic Memory Intact: Comment (Intact) Hallucinations: Other (Denies AVH) Delusions: No Delusion Type: Other (No delusions) Suicidal: Ideation (Denies SI) Homicidal: Ideation (Denies HI) Insight/Judgement Fair Remarks No motoric abnormalities noted. TP seems logical, linear. Speech wnl. Labs Labs reviewed. Vitals/IOs Vital Signs Date Time Temp Pulse Resp B/P Pulse Ox O2 Delivery O2 Flow Rate FiO2 06/07/16 05:25 98.2 71 16 119/73 96 Assessment & Plan Problem List: (1) Major depressive disorder, recurrent, severe with psychotic features Assessment & Plan: No psychosis that I can detect at this point. ICD Code: F33.3 Assessment & Plan Continue current medications and care as ordered. I will ask the hospitalists to return to address patient's somatic complaints. Justification for Cont. Inpt. Risk for decompensation Discharge Planning Per Dr. Gonzalez. Request HC Surrog/Guard Advoc?: No Esa Fagan MD Jun 07, 2016 15:34
[2016-06-07 19:34] VITALS: BP 156/74; PULSE 83; RESP 18; TEMP 98; O2SAT 99
--- NOTE | 2016-06-07 20:00 | HHI.FPPN ---
Subjective Remarks 66-year-old female, with a past medical history of systemic lupus erythematous, COPD, fibromyalgia, hypertension, and TIA, she was admitted on 05/30/2016, after having unspecified psychosis with auditory hallucinations. He was initially seen by Dr. Stewart, and Dr. Price. The medical team was re-consulted for left ear pain for the past month. History of present illness: The patient has been having left ear pain for the past month, that is a 0-1/10 dull and achy pain, that feels like someone is "smacking her ear and ringing." She denies any vertigo. She denies any jaw claudication with mastication. She denies visual changes. She also has been having headaches, approximately for "all of her life." She has been experiencing left-sided neck stiffness, and cramping. Sometimes she gets numbness down into her left arm and fingers. This is associated with the left sided ear pain. She denies fevers or chills, ear discharge, hearing loss. Objective Vitals Vital Signs Date Time Temp Pulse Resp B/P Pulse Ox O2 Delivery O2 Flow Rate FiO2 06/07/16 19:34 98.0 83 18 156/74 99 06/07/16 05:25 98.2 71 16 119/73 96 Imaging Vital Signs Date Time Temp Pulse Resp B/P Pulse Ox O2 Delivery O2 Flow Rate FiO2 06/07/16 19:34 98.0 83 18 156/74 99 Objective Remarks GENERAL: This is a well-nourished, well-developed patient, in no apparent distress. Ambulating well without any problems or SOB. Speaking and answering questions well CARDIOVASCULAR: Regular rate and rhythm without murmurs, gallops, or rubs. RESPIRATORY: Clear to auscultation. GASTROINTESTINAL: Abdomen soft, non-tender, nondistended. MUSCULOSKELETAL: Extremities without clubbing, cyanosis, or edema. NEUROLOGICAL: Awake, alert. Motor and sensory grossly within normal limits. Normal speech. A/P Assessment and Plan This is a 66 year old female with a past medical history significant for COPD, SLE, RA, and hyperthyroidism admitted for psychosis and attempted suicide. Family Medicine was consulted for medical management of her chronic illnesses and more specifically left-sided ear pain. Discharge Planning Family medicine will sign off, as patient is stable with regard to her chronic medical conditions. Please re-consult if needed. DW Dr. Price Problem List: (1) Muscle spasm Status: Acute Plan: Patient's left-sided neck pain, and ear pain, is most likely related to a paraspinal muscles strain versus muscle spasm. Her tympanic membranes were clear bilaterally (clear light reflex, no fluid, no erythema, no excessive cerumen). She has not been febrile. There is point tenderness over the mastoid process and neck muscles. In addition her ear pain and fullness, may be related to upper sinus irritation secondary to allergies. Treat as follows: -Nasal corticosteroid spray twice a day -Tylenol 650 mg by mouth every 6 hours when necessary ear/neck pain -Flexeril 5 mg daily at bedtime -Warm compresses, as well as stretching exercises (2) Psychosis Status: Acute Plan: Patient attempted suicide or taking a pill bottle with multiple pills uncertain as to what she took. Was having auditory and visual hallucinations at time of hospitalization. At this time denies any auditory or visual hallucinations. Psychosis to be worked up by psychiatrist. Unsure of etiology but depression with psychosis is not uncommon in the elderly. steroids can cause psychosis or other causes are possible. * Continue with olanzapine 5 mg twice a day, as well as mirtazapine 15 mg at bedtime. (3) Abnormal urinalysis Status: Resolved Plan: UA with leukocyte esterase. Urine culture with gram negative rods, 10-50,000, probably contaminant. Patient denies any symptoms, however underlying mental status changes may be related to underlying UTI. We'll treat with Macrobid 100 mg twice a day for 7 days, sensitivity is < 32 FELIX. (4) Chronic obstructive pulmonary disease Status: Chronic Plan: Hallucinations are clear on exam, she is satting well on oxygen. No respiratory distress. History of chronic COPD. Recent hospitalization for exacerbation. Currently back to baseline. She is ambulating well without oxygen * Duo nebs as needed * Albuterol every 6 hours when necessary shortness of breath * Symbicort 2 puffs every 12 hours (5) Hyperthyroidism Status: Acute Plan: Concern for hyperthyroidism. Most recent workup showed thyroid level to be normal in results of mass workup within normal limits. Dr Lindo spoke with PCP - methimazole has been held. Lab studies: TSH 0.009, free T4 normal at 0.92, free T3 low at 1.79. * Holding methimazole. * Be followed as an outpatient. Likely not contributing to her underlying mental status changes. (6) Lupus (systemic lupus erythematosus) Status: Chronic Plan: Patient has long-standing history of lupus. She is chronically on low-dose steroids. Her steroids were held after tapering for COPD exacerbation. After discussion with PCP he recommended continuing a low dose steroid. Due to concern that the psychosis is caused by steroids will continue to hold at this time. * HOLDING Prednisone 5 mg daily * Unclear if she was on [facility] steroids, if so, there is a chance of low BPs and adrenal insufficiency however she is ambulating normally now. Per review of D/C from COPD exacerbation as well as clinic notes, it does not appear she was on [facility] steroids (7) Depression with anxiety Status: Acute Plan: See psychosis plan above (8) History of cerebrovascular accident (CVA) with residual deficit Status: Resolved Plan: History of CVA * Continue aspirin 81 mg by mouth daily Problem Qualifiers (1) Psychosis: Qualified Code: F29 - Psychosis, unspecified psychosis type (2) Chronic obstructive pulmonary disease: Qualified Code: J44.9 - Chronic obstructive pulmonary disease, unspecified COPD type (3) Lupus (systemic lupus erythematosus): Qualified Code: M32.8 - Other forms of systemic lupus erythematosus, unspecified organ involvement status Bernardino Gillis MD R2 Jun 07, 2016 20:00
[2016-06-07] MEDS ORDERED: PILL SPLITTER OTHER PRN (20:45)
[2016-06-07] MEDS: FLUTICASONE PROPIONATE 50 MCG/ACT 16 GM NASAL SPRAY NASAL SCH (21:00)
[2016-06-07] MEDS: MIRTAZAPINE 15 MG TAB PO SCH (21:23)
[2016-06-07] MEDS: CYCLOBENZAPRINE HCL 10 MG TAB PO SCH (21:40)
[2016-06-07] MEDS: traZODone HCL 50 MG TAB PO PRN (21:40)
[2016-06-08 06:24] VITALS: BP 117/70; PULSE 70; RESP 16; TEMP 98.3; O2SAT 97
[2016-06-08] MEDS: REMOVE OLD NICOTINE PATCH T-DERMAL SCH (09:00)
[2016-06-08] MEDS: FLUTICASONE PROPIONATE 50 MCG/ACT 16 GM NASAL SPRAY NASAL SCH ×2 (09:00→21:00)
[2016-06-08] MEDS: NITROFURANTOIN MONOHYD MACROCR 100 MG CAP PO SCH ×2 (09:00→18:20)
[2016-06-08] MEDS: BUDESONIDE-FORMOTEROL 160/4.5 MCG INHALER INH SCH ×2 (09:11→22:16)
[2016-06-08] MEDS: EZETIMIBE 10 MG TAB PO SCH (09:12)
[2016-06-08] MEDS: ASPIRIN EC 81 MG TABEC PO SCH (09:12)
[2016-06-08] MEDS: CELECOXIB 100 MG CAP PO SCH (09:12)
[2016-06-08] MEDS: PANTOPRAZOLE SOD 20 MG DELAYED RELEASE TAB PO SCH ×2 (09:12→22:22)
[2016-06-08] MEDS: OLANZapine 5 MG TAB PO SCH ×2 (09:12→22:20)
[2016-06-08] MEDS: METOPROLOL TARTRATE 25 MG TAB PO SCH ×2 (09:12→22:22)
[2016-06-08] MEDS: PREGABALIN 75 MG CAP PO SCH ×3 (09:13→18:20)
[2016-06-08] MEDS: NICOTINE 21 MG/24 HR PATCH T-DERMAL SCH (09:13)
[2016-06-08] MEDS: CYCLOBENZAPRINE HCL 10 MG TAB PO SCH (09:13)
--- NOTE | 2016-06-08 11:02 | HHI.FPPN ---
Subjective Remarks Ms Monteiro feels fine today except for some bilateral neck/upper shoulder pain. She has been up and walking around and participating in activities except a brief time of resting today. She reports sleeping well. Her ear pain is minimal and nearly gone today. She took flexeril without problems. No heating pads are available for the patients in Psychiatry as they are prohibited. She has some rhinorrhea but has been getting flonase and is doing much better than the last time I saw her. She has little if any congestion but does have a history of allergies. Objective Vitals Vital Signs Date Time Temp Pulse Resp B/P Pulse Ox O2 Delivery O2 Flow Rate FiO2 06/08/16 06:24 98.3 70 16 117/70 97 06/07/16 19:34 98.0 83 18 156/74 99 Objective Remarks GENERAL: This is a well-nourished, well-developed patient, in no apparent distress. Ambulating well without any problems or SOB. Speaking and answering questions well. ENT: no pain, erythema or edema of her external ears. no pain pushing on tragus or moving her ear. no rhinorrhea apparent today CARDIOVASCULAR: Regular rate and rhythm without murmurs, gallops, or rubs. RESPIRATORY: Clear to auscultation. no wheezes or rhonchi or rales GASTROINTESTINAL: Abdomen soft, non-tender, nondistended. MUSCULOSKELETAL: Extremities without clubbing, cyanosis, or edema. some muscle tightness bilateral shoulders into neck where she points to as the area of her pain NEUROLOGICAL: Awake, alert. Motor and sensory grossly within normal limits. Normal speech. Urinary Catheter: No Vascular Central Line Catheter: No A/P Assessment and Plan This is a 66 year old female with a past medical history significant for COPD, SLE, RA, and hyperthyroidism admitted for psychosis and attempted suicide. Family Medicine was consulted for medical management of her chronic illnesses and more specifically left-sided ear pain at this time. Discharge Planning patient is stable with regard to her chronic medical conditions as her COPD is well controlled. evaluating her for bilateral shoulder/neck pain as well as ear pain on the left Problem List: (1) Muscle spasm Status: Acute Plan: Patient's left-sided neck pain, and ear pain, is most likely related to a paraspinal muscles strain versus muscle spasm. Her tympanic membranes were clear bilaterally (clear light reflex, no fluid, no erythema, no excessive cerumen). She has not been febrile. There is point tenderness over the mastoid process and neck muscles. In addition her ear pain and fullness, may be related to upper sinus irritation secondary to allergies. Treat as follows: -Nasal corticosteroid spray twice a day, has been on flonase 2 sprays daily now is BID, can consider afrin type nasal spray just for a few days if she is not better -Tylenol 650 mg by mouth every 6 hours when necessary ear/neck pain -Flexeril 5 mg daily at bedtime made this prn as she is on many Psych meds, however, her muscle pain is better now. wish she could have a massage -Warm compresses, as well as stretching exercises -allergy med, Claritin prn (2) Psychosis Status: Acute Plan: Patient attempted suicide by taking a pill bottle with multiple pills uncertain as to what she took. Was having auditory and visual hallucinations at time of hospitalization. At this time denies any auditory or visual hallucinations. Psychosis to being evaluated and treated by psychiatrist. Unsure of etiology but depression with psychosis is not uncommon in the elderly. steroids can cause psychosis or other causes are possible. (3) Abnormal urinalysis Status: Resolved Plan: UA with leukocyte esterase. Urine culture with gram negative rods, 10-50,000, probably contaminant. Patient denies any symptoms, however underlying mental status changes may be related to underlying UTI. We'll treat with Macrobid 100 mg twice a day for 7 days, sensitivity is < 32 EFLIX. (4) Chronic obstructive pulmonary disease Status: Chronic Plan: Her lungs are clear on exam, she is satting well on oxygen. No respiratory distress. History of chronic COPD. Recent hospitalization for exacerbation. Currently back to baseline. She is ambulating well without oxygen * Duo nebs as needed * Albuterol every 6 hours when necessary shortness of breath * Symbicort 2 puffs every 12 hours (5) Hyperthyroidism Status: Acute Plan: Concern for hyperthyroidism. Most recent workup showed thyroid level to be normal in results of mass workup within normal limits. Dr Lindo spoke with PCP - methimazole has been held. Lab studies: TSH 0.009, free T4 normal at 0.92, free T3 low at 1.79. * Holding methimazole. * Be followed as an outpatient. Likely not contributing to her underlying mental status changes. (6) Lupus (systemic lupus erythematosus) Status: Chronic Plan: Patient has long-standing history of lupus. She is chronically on low-dose steroids. Her steroids were held after tapering for COPD exacerbation. After discussion with PCP he recommended continuing a low dose steroid. Due to concern that the psychosis is caused by steroids will continue to hold at this time. * HOLDING Prednisone 5 mg daily * Unclear if she was on market development executive steroids, if so, there is a chance of low BPs and adrenal insufficiency however she is ambulating normally now. Per review of D/C from COPD exacerbation as well as clinic notes, it does not appear she was on market development executive steroids * her respiratory status has been great on just inhaled steroids (7) Depression with anxiety Status: Acute Plan: See psychosis plan above (8) History of cerebrovascular accident (CVA) with residual deficit Status: Resolved Plan: History of CVA * Continue aspirin 81 mg by mouth daily * consider a statin residential if indicated Problem Qualifiers (1) Psychosis: Qualified Code: F29 - Psychosis, unspecified psychosis type (2) Chronic obstructive pulmonary disease: Qualified Code: J44.9 - Chronic obstructive pulmonary disease, unspecified COPD type (3) Lupus (systemic lupus erythematosus): Qualified Code: M32.8 - Other forms of systemic lupus erythematosus, unspecified organ involvement status Meliza Price MD Jun 08, 2016 11:02
[2016-06-08] MEDS ORDERED: LORATADINE 10 MG TAB PO PRN (11:15)
--- NOTE | 2016-06-08 13:29 | HHI.PYPN ---
Subjective Remarks Patient seen and examined with nursing staff. Chart reviewed. Case discussed with nursing staff reports patient has been no behavioral problem. On my examination today, patient reports that she is sleeping and eating well. She denies any SI or AVH. She reports that her musculoskeletal pain is decreased somewhat since she was seen in her medications were changed by the hospitalist. Denies side effects from medications. Review of Systems Other Musculoskeletal pain improved. Otherwise no physical complaints today. Objective Alert: Yes [place]: Person, Place, Date Mood: Calm Affect: Euthymic (remains euthymic) Memory Intact: Comment (Intact) Hallucinations: Other (no AVH) Delusions: No Delusion Type: Other (no delusional material) Suicidal: Ideation (Denies SI) Homicidal: Ideation (no HI) Insight/Judgement Fair Remarks No motoric abnormalities noted. Steady gait and station Labs Labs reviewed. No new labs. Vitals/IOs Vital Signs Date Time Temp Pulse Resp B/P Pulse Ox O2 Delivery O2 Flow Rate FiO2 06/08/16 06:24 98.3 70 16 117/70 97 Assessment & Plan Problem List: (1) Major depressive disorder ICD Code: F32.9 Assessment & Plan Continue current psychotropics as ordered. Appreciate hospitalist franchise field consultant input. Continue other medications and care as ordered. Justification for Cont. Inpt. Risk for decompensation Discharge Planning Per Dr. Gonzalez Request HC Surrog/Guard Advoc?: No Problem Qualifiers (1) Major depressive disorder: Qualified Code: F33.41 - Recurrent major depressive disorder, in partial remission Esa Fagan MD Jun 08, 2016 13:29
[2016-06-08] MEDS: CYCLOBENZAPRINE HCL 10 MG TAB PO PRN (13:33)
[2016-06-08] MEDS: ACETAMIN 325 MG/BUTALBITAL 50 MG/CAFFEINE 40 MG TAB PO PRN ×2 (14:25→22:21)
[2016-06-08 18:00] VITALS: BP 113/60; PULSE 77; RESP 16; TEMP 98.4; O2SAT 99
[2016-06-08] MEDS: MIRTAZAPINE 15 MG TAB PO SCH (22:20)
[2016-06-08] MEDS: traZODone HCL 50 MG TAB PO PRN (22:22)
[2016-06-09 06:38] VITALS: BP 124/75; PULSE 74; RESP 17; TEMP 98.1; O2SAT 97
[2016-06-09] MEDS: EZETIMIBE 10 MG TAB PO SCH (08:40)
[2016-06-09] MEDS: BUDESONIDE-FORMOTEROL 160/4.5 MCG INHALER INH SCH ×2 (08:40→21:10)
[2016-06-09] MEDS: PANTOPRAZOLE SOD 20 MG DELAYED RELEASE TAB PO SCH ×2 (08:40→21:11)
[2016-06-09] MEDS: OLANZapine 5 MG TAB PO SCH ×2 (08:41→21:11)
[2016-06-09] MEDS: CELECOXIB 100 MG CAP PO SCH (08:41)
[2016-06-09] MEDS: NITROFURANTOIN MONOHYD MACROCR 100 MG CAP PO SCH ×2 (08:41→17:45)
[2016-06-09] MEDS: ASPIRIN EC 81 MG TABEC PO SCH (08:41)
[2016-06-09] MEDS: PREGABALIN 75 MG CAP PO SCH ×3 (08:41→17:45)
[2016-06-09] MEDS: METOPROLOL TARTRATE 25 MG TAB PO SCH ×2 (08:41→21:12)
[2016-06-09] MEDS: REMOVE OLD NICOTINE PATCH T-DERMAL SCH (08:44)
[2016-06-09] MEDS: NICOTINE 21 MG/24 HR PATCH T-DERMAL SCH (08:45)
[2016-06-09] MEDS: FLUTICASONE PROPIONATE 50 MCG/ACT 16 GM NASAL SPRAY NASAL SCH ×2 (09:00→21:00)
[2016-06-09] MEDS: ACETAMIN 325 MG/BUTALBITAL 50 MG/CAFFEINE 40 MG TAB PO PRN (09:31)
[2016-06-09] MEDS: ACETAMINOPHEN 325 MG TAB PO PRN (15:25)
--- NOTE | 2016-06-09 15:50 | HHI.PYPN ---
Subjective Remarks Patient seen and examined with nursing staff. Chart reviewed. Case discussed with nursing staff. On my examination today, patient is anxious and fretful about discharge. She says "I don't think I should be discharged yet. I still hear things and see things. I had a dream last night the people were going to put me in the electric chair." Denies side effects from medications. Review of Systems Other No physical complaints Objective Alert: Yes [place]: Person, Place, Date Mood: Anxious Affect: Blunted Memory Intact: Comment (Intact) Hallucinations: Other (see above) Delusions: No Delusion Type: Other (no delusions) Suicidal: Ideation (no SI voiced) Homicidal: Ideation (no HI voiced) Insight/Judgement Fair Remarks Patient does not appear internally stimulated. No abnormal motor movements noted. Thought process linear. Labs Labs reviewed. No new labs. Vitals/IOs Vital Signs Date Time Temp Pulse Resp B/P Pulse Ox O2 Delivery O2 Flow Rate FiO2 06/09/16 06:38 98.1 74 17 124/75 97 Assessment & Plan Problem List: (1) Major depressive disorder ICD Code: F32.9 Assessment & Plan I suspect patient's presentation today is more related to anticipatory anxiety about possible transfer to a facility then to [facility] psychiatric symptoms. I think the risk-benefit profile therefore favors no change in medications at this time. Continue current psychotropics as ordered. Continue other medications and care as ordered. Justification for Cont. Inpt. Risk for decompensation Discharge Planning Per Dr. Gonzalez Request HC Surrog/Guard Advoc?: No Problem Qualifiers (1) Major depressive disorder: Qualified Code: F33.41 - Recurrent major depressive disorder, in partial remission Esa Fagan MD Jun 09, 2016 15:50
[2016-06-09] MEDS: CYCLOBENZAPRINE HCL 10 MG TAB PO PRN (21:11)
[2016-06-09] MEDS: traZODone HCL 50 MG TAB PO PRN (21:11)
[2016-06-09] MEDS: MIRTAZAPINE 15 MG TAB PO SCH (21:18)
[2016-06-10 05:35] VITALS: BP 137/71; PULSE 71; RESP 18; TEMP 98.7; O2SAT 98
[2016-06-10] MEDS: FLUTICASONE PROPIONATE 50 MCG/ACT 16 GM NASAL SPRAY NASAL SCH ×2 (09:00→21:00)
[2016-06-10] MEDS: REMOVE OLD NICOTINE PATCH T-DERMAL SCH (09:00)
[2016-06-10] MEDS: CELECOXIB 100 MG CAP PO SCH (09:25)
[2016-06-10] MEDS: ASPIRIN EC 81 MG TABEC PO SCH (09:25)
[2016-06-10] MEDS: PREGABALIN 75 MG CAP PO SCH ×3 (09:26→18:04)
[2016-06-10] MEDS: NITROFURANTOIN MONOHYD MACROCR 100 MG CAP PO SCH ×2 (09:26→18:04)
[2016-06-10] MEDS: EZETIMIBE 10 MG TAB PO SCH (09:26)
[2016-06-10] MEDS: PANTOPRAZOLE SOD 20 MG DELAYED RELEASE TAB PO SCH ×2 (09:26→20:49)
[2016-06-10] MEDS: METOPROLOL TARTRATE 25 MG TAB PO SCH ×2 (09:26→20:51)
[2016-06-10] MEDS: OLANZapine 5 MG TAB PO SCH ×2 (09:26→20:49)
[2016-06-10] MEDS: BUDESONIDE-FORMOTEROL 160/4.5 MCG INHALER INH SCH ×2 (09:27→20:49)
[2016-06-10] MEDS: ALBUTEROL SULFATE 90 MCG/ACT HFA 8 GM INHALER INH PRN (09:27)
[2016-06-10] MEDS: NICOTINE 21 MG/24 HR PATCH T-DERMAL SCH (09:28)
--- NOTE | 2016-06-10 14:41 | HHI.PYPN ---
Subjective Remarks Patient seen, chart reviewed, case discussed with staff Patient reports continuous improvement in mood energy and enjoyment. She is able to discuss discharge planning with social work and is forward thinking. She is up for meals, meds activities and groups. She is responding less to internal stimuli Review of Systems Psychiatric: COMPLAINS OF: Anxiety, Confusion, Mood changes, Depression Objective Alert: Yes [place]: Person, Place, Date Mood: Anxious Affect: Blunted Memory Intact: Comment (Intact) Hallucinations: Other (see above) Delusions: No Delusion Type: Other (no delusions) Suicidal: Ideation (no SI voiced) Homicidal: Ideation (no HI voiced) Insight/Judgement poor Vitals/IOs Vital Signs Date Time Temp Pulse Resp B/P Pulse Ox O2 Delivery O2 Flow Rate FiO2 06/10/16 05:35 98.7 71 18 137/71 98 Assessment & Plan Problem List: (1) Major depressive disorder Assessment & Plan: patient is improving in specific symptoms associated with depression and is able to plan for the future with less fear. ICD Code: F32.9 Assessment & Plan Estimated LOS: days Justification for Cont. Inpt. risk of decompensation Request HC Surrog/Guard Advoc?: No Problem Qualifiers (1) Major depressive disorder: Qualified Code: F33.41 - Recurrent major depressive disorder, in partial remission Melody Gonzalez MD Jun 10, 2016 14:41
[2016-06-10] MEDS: MIRTAZAPINE 15 MG TAB PO SCH (20:49)
[2016-06-10] MEDS: traZODone HCL 50 MG TAB PO PRN (21:04)
[2016-06-10] MEDS: ACETAMINOPHEN 325 MG TAB PO PRN (21:04)
[2016-06-10 21:42] VITALS: BP 138/64; PULSE 71; RESP 18; TEMP 98; O2SAT 95
[2016-06-11 06:05] VITALS: BP 108/67; PULSE 66; RESP 18; TEMP 98.3; O2SAT 99
[2016-06-11] MEDS: ACETAMINOPHEN 325 MG TAB PO PRN ×2 (06:45→14:42)
[2016-06-11] MEDS: PREGABALIN 75 MG CAP PO SCH ×3 (08:38→17:29)
[2016-06-11] MEDS: BUDESONIDE-FORMOTEROL 160/4.5 MCG INHALER INH SCH ×2 (08:38→18:01)
[2016-06-11] MEDS: PANTOPRAZOLE SOD 20 MG DELAYED RELEASE TAB PO SCH ×2 (08:38→20:42)
[2016-06-11] MEDS: EZETIMIBE 10 MG TAB PO SCH (08:38)
[2016-06-11] MEDS: OLANZapine 5 MG TAB PO SCH ×2 (08:38→20:42)
[2016-06-11] MEDS: CELECOXIB 100 MG CAP PO SCH (08:38)
[2016-06-11] MEDS: NITROFURANTOIN MONOHYD MACROCR 100 MG CAP PO SCH ×2 (08:38→17:29)
[2016-06-11] MEDS: ASPIRIN EC 81 MG TABEC PO SCH (08:38)
[2016-06-11] MEDS: NICOTINE 21 MG/24 HR PATCH T-DERMAL SCH (08:39)
[2016-06-11] MEDS: REMOVE OLD NICOTINE PATCH T-DERMAL SCH (08:40)
[2016-06-11] MEDS: METOPROLOL TARTRATE 25 MG TAB PO SCH ×2 (09:00→20:42)
[2016-06-11] MEDS: FLUTICASONE PROPIONATE 50 MCG/ACT 16 GM NASAL SPRAY NASAL SCH ×2 (09:00→20:42)
--- NOTE | 2016-06-11 15:06 | HHI.PYPN ---
Subjective Remarks Patient seen and examined with nursing staff. Chart reviewed. Case discussed with nursing staff as well as with counselor. On my examination today, patient presents with a bright affect. She denies any AVH. No SI or HI. She is more enthusiastic about the possibility of placement. Denies side effects from medications. Review of Systems Other No physical complaints today Objective Alert: Yes [place]: Person, Place, Date Mood: Calm Affect: Euthymic Memory Intact: Comment (remains intact) Hallucinations: Other (no AVH) Delusions: No Delusion Type: Other (no delusional material) Suicidal: Ideation (no SI) Homicidal: Ideation (no HI) Insight/Judgement Poor Remarks No abnormal motor movements noted Labs Labs reviewed. No new labs. Vitals/IOs Vital Signs Date Time Temp Pulse Resp B/P Pulse Ox O2 Delivery O2 Flow Rate FiO2 06/11/16 06:05 98.3 66 18 108/67 99 Assessment & Plan Problem List: (1) Major depressive disorder ICD Code: F32.9 Assessment & Plan Continue current psychotropics as ordered. Continue other medications and care as ordered. Patient seems to be doing well today. I will ask the hospitalist to medically clear the patient for discharge and provide final discharge recommendations. Plan will be for placement, hopefully before the end of the week. Justification for Cont. Inpt. Risk for decompensation Discharge Planning Placement Request HC Surrog/Guard Advoc?: No Problem Qualifiers (1) Major depressive disorder: Qualified Code: F33.41 - Recurrent major depressive disorder, in partial remission Esa Fagan MD Jun 11, 2016 15:06
[2016-06-11] MEDS: ALBUTEROL SULFATE 90 MCG/ACT HFA 8 GM INHALER INH PRN (18:03)
[2016-06-11 20:00] VITALS: BP 160/72; PULSE 78; RESP 18; TEMP 98.5
[2016-06-11] MEDS: traZODone HCL 50 MG TAB PO PRN (20:42)
[2016-06-11] MEDS: MIRTAZAPINE 15 MG TAB PO SCH (20:42)
[2016-06-11] MEDS: CYCLOBENZAPRINE HCL 10 MG TAB PO PRN (21:00)
[2016-06-11] MEDS: oxyCODONE/ACETAMINOPHEN 5 MG/325 MG TAB PO PRN (21:01)
[2016-06-12 05:48] VITALS: BP 116/63; PULSE 70; RESP 16; TEMP 97.9; O2SAT 97
[2016-06-12] MEDS: oxyCODONE/ACETAMINOPHEN 5 MG/325 MG TAB PO PRN (06:21)
[2016-06-12] MEDS: BUDESONIDE-FORMOTEROL 160/4.5 MCG INHALER INH SCH ×2 (08:19→20:36)
[2016-06-12] MEDS: PANTOPRAZOLE SOD 20 MG DELAYED RELEASE TAB PO SCH ×2 (08:20→20:36)
[2016-06-12] MEDS: PREGABALIN 75 MG CAP PO SCH ×3 (08:20→18:58)
[2016-06-12] MEDS: CELECOXIB 100 MG CAP PO SCH (08:20)
[2016-06-12] MEDS: NITROFURANTOIN MONOHYD MACROCR 100 MG CAP PO SCH (08:20)
[2016-06-12] MEDS: EZETIMIBE 10 MG TAB PO SCH (08:20)
[2016-06-12] MEDS: FLUTICASONE PROPIONATE 50 MCG/ACT 16 GM NASAL SPRAY NASAL SCH ×2 (08:20→20:36)
[2016-06-12] MEDS: METOPROLOL TARTRATE 25 MG TAB PO SCH ×2 (08:20→20:36)
[2016-06-12] MEDS: ASPIRIN EC 81 MG TABEC PO SCH (08:21)
[2016-06-12] MEDS: OLANZapine 5 MG TAB PO SCH ×2 (08:21→20:36)
[2016-06-12] MEDS: NICOTINE 21 MG/24 HR PATCH T-DERMAL SCH (08:22)
[2016-06-12] MEDS: REMOVE OLD NICOTINE PATCH T-DERMAL SCH (08:23)
[2016-06-12] MEDS ORDERED: TRAZ50TA12 PO (12:14)
[2016-06-12] MEDS ORDERED: VENTAER INH ×2 (12:14→12:18)
[2016-06-12] MEDS ORDERED: OLAN5TAB PO (12:14)
[2016-06-12] MEDS ORDERED: OXYC1TAB63 PO (12:14)
[2016-06-12] MEDS ORDERED: FLUT50SP EACH NARE ×2 (12:14→12:18)
[2016-06-12] MEDS ORDERED: CYCL1TAB29 PO ×2 (12:14→12:18)
[2016-06-12] MEDS ORDERED: ASPI-147 PO ×2 (12:14→12:18)
[2016-06-12] MEDS ORDERED: SYMB160A INH ×2 (12:14→12:18)
--- NOTE | 2016-06-12 12:37 | HHI.FPPN ---
Objective Vitals Vital Signs Date Time Temp Pulse Resp B/P Pulse Ox O2 Delivery O2 Flow Rate FiO2 06/12/16 05:48 97.9 70 16 116/63 97 06/11/16 20:00 98.5 78 18 160/72 Objective Remarks GENERAL: This is a well-nourished, well-developed patient, in no apparent distress. Ambulating well without any problems or SOB. Speaking and answering questions well. ENT: no pain, erythema or edema of her external ears. no pain pushing on tragus or moving her ear. no rhinorrhea apparent today CARDIOVASCULAR: Regular rate and rhythm without murmurs, gallops, or rubs. RESPIRATORY: Clear to auscultation. no wheezes or rhonchi or rales GASTROINTESTINAL: Abdomen soft, non-tender, nondistended. MUSCULOSKELETAL: Extremities without clubbing, cyanosis, or edema. some muscle tightness bilateral shoulders into neck where she points to as the area of her pain NEUROLOGICAL: Awake, alert. Motor and sensory grossly within normal limits. Normal speech. A/P Assessment and Plan This is a 66 year old female with a past medical history significant for COPD, SLE, RA, and hyperthyroidism admitted for psychosis and attempted suicide. Family Medicine was consulted for medical management of her chronic illnesses and more specifically left-sided ear pain at this time. Discharge Planning patient is stable with regard to her chronic medical conditions as her COPD is well controlled. evaluating her for bilateral shoulder/neck pain as well as ear pain on the left Problem List: (1) Muscle spasm Status: Acute Plan: Patient's left-sided neck pain, and ear pain, is most likely related to a paraspinal muscles strain versus muscle spasm. Her tympanic membranes were clear bilaterally (clear light reflex, no fluid, no erythema, no excessive cerumen). She has not been febrile. There is point tenderness over the mastoid process and neck muscles. In addition her ear pain and fullness, may be related to upper sinus irritation secondary to allergies. Treat as follows: -Nasal corticosteroid spray twice a day, has been on flonase 2 sprays daily now is BID, can consider afrin type nasal spray just for a few days if she is not better -Tylenol 650 mg by mouth every 6 hours when necessary ear/neck pain -Flexeril 5 mg daily at bedtime made this prn as she is on many Psych meds, however, her muscle pain is better now. wish she could have a massage -Warm compresses, as well as stretching exercises -allergy med, Claritin prn (2) Psychosis Status: Acute Plan: Patient attempted suicide by taking a pill bottle with multiple pills uncertain as to what she took. Was having auditory and visual hallucinations at time of hospitalization. At this time denies any auditory or visual hallucinations. Psychosis to being evaluated and treated by psychiatrist. Unsure of etiology but depression with psychosis is not uncommon in the elderly. steroids can cause psychosis or other causes are possible. (3) Abnormal urinalysis Status: Resolved Plan: UA with leukocyte esterase. Urine culture with gram negative rods, 10-50,000, probably contaminant. Patient denies any symptoms, however underlying mental status changes may be related to underlying UTI. We'll treat with Macrobid 100 mg twice a day for 7 days, sensitivity is < 32 FELIX. (4) Chronic obstructive pulmonary disease Status: Chronic Plan: Her lungs are clear on exam, she is satting well on oxygen. No respiratory distress. History of chronic COPD. Recent hospitalization for exacerbation. Currently back to baseline. She is ambulating well without oxygen * Duo nebs as needed * Albuterol every 6 hours when necessary shortness of breath * Symbicort 2 puffs every 12 hours (5) Hyperthyroidism Status: Acute Plan: Concern for hyperthyroidism. Most recent workup showed thyroid level to be normal in results of mass workup within normal limits. Dr Lindo spoke with PCP - methimazole has been held. Lab studies: TSH 0.009, free T4 normal at 0.92, free T3 low at 1.79. * Holding methimazole. * Be followed as an outpatient. Likely not contributing to her underlying mental status changes. (6) Lupus (systemic lupus erythematosus) Status: Chronic Plan: Patient has long-standing history of lupus. She is chronically on low-dose steroids. Her steroids were held after tapering for COPD exacerbation. After discussion with PCP he recommended continuing a low dose steroid. Due to concern that the psychosis is caused by steroids will continue to hold at this time. * HOLDING Prednisone 5 mg daily * Unclear if she was on usp steroids, if so, there is a chance of low BPs and adrenal insufficiency however she is ambulating normally now. Per review of D/C from COPD exacerbation as well as clinic notes, it does not appear she was on usp steroids * her respiratory status has been great on just inhaled steroids (7) Depression with anxiety Status: Acute Plan: See psychosis plan above (8) History of cerebrovascular accident (CVA) with residual deficit Status: Resolved Plan: History of CVA * Continue aspirin 81 mg by mouth daily * consider a statin usp if indicated Problem Qualifiers (1) Psychosis: Qualified Code: F29 - Psychosis, unspecified psychosis type (2) Chronic obstructive pulmonary disease: Qualified Code: J44.9 - Chronic obstructive pulmonary disease, unspecified COPD type (3) Lupus (systemic lupus erythematosus): Qualified Code: M32.8 - Other forms of systemic lupus erythematosus, unspecified organ involvement status Meliza Price MD Jun 12, 2016 12:37
[2016-06-12] MEDS: AMOXICILLIN/CLAVULANATE K 875 MG TAB PO SCH ×2 (12:45→20:39)
[2016-06-12] MEDS ORDERED: AUGM875T PO ×2 (12:48→12:49)
--- NOTE | 2016-06-12 13:26 | HHI.FPPN ---
Subjective Remarks Ms Monteiro has been doing very well and discharge is planned for the next day or so. Her medical problems have been stable. She is doing very well with her nasal sprays and inhalers. Her COPD and allergies have been well controlled. her other medical problems have been fine as well. Objective Vitals Vital Signs Date Time Temp Pulse Resp B/P Pulse Ox O2 Delivery O2 Flow Rate FiO2 06/12/16 05:48 97.9 70 16 116/63 97 06/11/16 20:00 98.5 78 18 160/72 Objective Remarks GENERAL: This is a well-nourished, well-developed patient, in no apparent distress. Ambulating well without any problems or SOB. Speaking and answering questions well. ENT: no pain, erythema or edema of her external ears. no pain pushing on tragus or moving her ear. no rhinorrhea apparent today CARDIOVASCULAR: Regular rate and rhythm without murmurs, gallops, or rubs. RESPIRATORY: Clear to auscultation. no wheezes or rhonchi or rales GASTROINTESTINAL: Abdomen soft, non-tender, nondistended. MUSCULOSKELETAL: Extremities without clubbing, cyanosis, or edema. some muscle tightness bilateral shoulders into neck where she points to as the area of her pain NEUROLOGICAL: Awake, alert. Motor and sensory grossly within normal limits. Normal speech. A/P Assessment and Plan This is a 66 year old female with a past medical history significant for COPD, SLE, RA, and hyperthyroidism admitted for psychosis and attempted suicide. Family Medicine was consulted for medical management of her chronic illnesses and more specifically left-sided ear pain. Discharge Planning patient is stable with regard to her chronic medical conditions as her COPD is well controlled. she will see Dr Miller, her primary Dr, about a week after D/C or sooner if needed her scripts were refilled today in anticipation of her going home soon she is medically clear for discharge Problem List: (1) Chronic obstructive pulmonary disease Status: Chronic Plan: Her lungs are clear on exam, she is sating well on oxygen. No respiratory distress. History of chronic COPD. Recent hospitalization for exacerbation. Currently back to baseline. She is ambulating well without oxygen * Duo nebs as needed * Albuterol every 6 hours when necessary shortness of breath * Symbicort 2 puffs every 12 hours (2) Muscle spasm Status: Acute Plan: Patient's left-sided neck pain, and ear pain, is related to a paraspinal muscles strain versus muscle spasm. Her tympanic membranes were clear bilaterally (clear light reflex, no fluid, no erythema, no excessive cerumen). She has not been febrile. There is point tenderness over the mastoid process and neck muscles. In addition her ear pain and fullness, may be related to upper sinus irritation secondary to allergies. Treat as follows: -Nasal corticosteroid spray twice a day, has been on flonase 2 sprays daily now is BID, can consider afrin type nasal spray just for a few days if she is not better -Tylenol 650 mg by mouth every 6 hours when necessary ear/neck pain -Flexeril 5 mg daily at bedtime made this prn as she is on many Psych meds, however, her muscle pain is better now. she still asks for her "muscle relaxer" though she seems improved since last visit -Warm compresses, as well as stretching exercises -allergy med, Claritin prn (3) Psychosis Status: Acute Plan: Patient attempted suicide by taking a pill bottle with multiple pills uncertain as to what she took. Was having auditory and visual hallucinations at time of hospitalization. At this time denies any auditory or visual hallucinations. Psychosis is being evaluated and treated by psychiatrist. Unsure of etiology but depression with psychosis is not uncommon in the elderly. steroids can cause psychosis or other causes are possible. (4) Abnormal urinalysis Status: Resolved Plan: UA with leukocyte esterase. Urine culture with gram negative rods, 10-50,000, probably contaminant. Patient denies any symptoms, however underlying mental status changes may be related to underlying UTI. We'll treat with Macrobid 100 mg twice a day for 7 days, sensitivity is < 32 FELIX. (5) Hyperthyroidism Status: Acute Plan: Concern for hyperthyroidism. Most recent workup showed thyroid level to be normal in results of mass workup within normal limits. Dr Lindo spoke with PCP - methimazole has been held. Lab studies: TSH 0.009, free T4 normal at 0.92, free T3 low at 1.79. * Holding methimazole. * Be followed as an outpatient. Likely not contributing to her underlying mental status changes. (6) Lupus (systemic lupus erythematosus) Status: Chronic Plan: Patient has long-standing history of lupus. She is chronically on low-dose steroids. Her steroids were held after tapering for COPD exacerbation. After discussion with PCP he recommended continuing a low dose steroid. Due to concern that the psychosis is caused by steroids will continue to hold at this time. On Celebrex chronically. * HOLDING Prednisone 5 mg daily * Unclear if she was on mcc steroids, if so, there is a chance of low BPs and adrenal insufficiency however she is ambulating normally now. Per review of D/C from COPD exacerbation as well as clinic notes, it does not appear she was on mcc steroids * her respiratory status has been great on just inhaled steroids (7) Depression with anxiety Status: Acute Plan: See psychosis plan above (8) History of cerebrovascular accident (CVA) with residual deficit Status: Resolved Plan: History of CVA * Continue aspirin 81 mg by mouth daily * consider a statin tank terminal gauger if indicated Problem Qualifiers (1) Chronic obstructive pulmonary disease: Qualified Code: J44.9 - Chronic obstructive pulmonary disease, unspecified COPD type (2) Psychosis: Qualified Code: F29 - Psychosis, unspecified psychosis type (3) Lupus (systemic lupus erythematosus): Qualified Code: M32.8 - Other forms of systemic lupus erythematosus, unspecified organ involvement status Meliza Price MD Jun 12, 2016 13:26
--- NOTE | 2016-06-12 14:34 | HHI.PYPN ---
Subjective Remarks Patient seen and examined. Chart reviewed. Case discussed with nursing staff. No behavioral issues to report. On my examination today, the patient is in good spirits. No SI, HI or AVH. Denies side effects from medications. Hopeful for discharge to assisted living setting tomorrow. No other issues noted. Review of Systems Other No reported physical complaints Objective Alert: Yes [place]: Person, Place, Date Mood: Calm Affect: Euthymic (remains euthymic) Memory Intact: Comment (intact) Hallucinations: Other (none) Delusions: No Delusion Type: Other (no delusions) Suicidal: Ideation (no SI) Homicidal: Ideation (no HI) Insight/Judgement Poor Remarks No abnormal motor movements noted Labs Labs reviewed Vitals/IOs Vital Signs Date Time Temp Pulse Resp B/P Pulse Ox O2 Delivery O2 Flow Rate FiO2 06/12/16 05:48 97.9 70 16 116/63 97 Assessment & Plan Problem List: (1) Major depressive disorder ICD Code: F32.9 Assessment & Plan Continue current psychotropics as ordered. Continue other medications and care as ordered. Hospitalist consult input noted and appreciated. Patient has been medically cleared by the hospitalist for discharge. Justification for Cont. Inpt. Risk for decompensation Discharge Planning Per counselor, patient will be able to be discharged to facility tomorrow. Request HC Surrog/Guard Advoc?: No Problem Qualifiers (1) Major depressive disorder: Qualified Code: F33.41 - Recurrent major depressive disorder, in partial remission Esa Fagan MD Jun 12, 2016 14:34
[2016-06-12 19:03] VITALS: BP 110/55; PULSE 75; RESP 15; TEMP 98.2; O2SAT 100
[2016-06-12] MEDS: MIRTAZAPINE 15 MG TAB PO SCH (20:36)
[2016-06-13 05:47] VITALS: BP 133/67; PULSE 73; RESP 17; TEMP 98.8; O2SAT 98
--- NOTE | 2016-06-13 08:29 | HHI.PYPN ---
Subjective Remarks Patient seen and examined. Chart reviewed. Case discussed with nursing staff. Case discussed with counselor who reports that the assisted living facility that was supposed to accept the patient today called at the last minute yesterday and canceled the placement for unclear reasons. On my examination today, patient is understandably disappointed but does not verbalize any SI or HI. She denies side effects from medications. She is hopeful that she can be placed at an alternative facility, and the counselor is actively working on this Review of Systems Other No physical complaints today. Objective Alert: Yes [place]: Person, Place, Date Mood: Calm Affect: Other (Full and reactive) Memory Intact: Comment (intact) Hallucinations: Other (No AVH) Delusions: No Delusion Type: Other (No evident delusional material) Suicidal: Ideation (no SI) Homicidal: Ideation (no HI) Insight/Judgement Poor Remarks TP linear Labs Labs reviewed. No new labs. Vitals/IOs Vital Signs Date Time Temp Pulse Resp B/P Pulse Ox O2 Delivery O2 Flow Rate FiO2 06/13/16 05:47 98.8 73 17 133/67 98 Assessment & Plan Problem List: (1) Major depressive disorder ICD Code: F32.9 Assessment & Plan Continue current psychotropics as ordered. Continue other medications and care as ordered. Justification for Cont. Inpt. Risk for decompensation until safe discharge plan can be arranged Discharge Planning Counselor is confident that he can have placement for patient no later than tomorrow, Friday. Request HC Surrog/Guard Advoc?: No Problem Qualifiers (1) Major depressive disorder: Qualified Code: F33.41 - Recurrent major depressive disorder, in partial remission Esa Fagan MD Jun 13, 2016 08:29
[2016-06-13] MEDS: CELECOXIB 100 MG CAP PO SCH (08:47)
[2016-06-13] MEDS: EZETIMIBE 10 MG TAB PO SCH (08:47)
[2016-06-13] MEDS: AMOXICILLIN/CLAVULANATE K 875 MG TAB PO SCH ×2 (08:47→20:37)
[2016-06-13] MEDS: OLANZapine 5 MG TAB PO SCH ×2 (08:47→20:37)
[2016-06-13] MEDS: BUDESONIDE-FORMOTEROL 160/4.5 MCG INHALER INH SCH ×2 (08:47→20:37)
[2016-06-13] MEDS: PANTOPRAZOLE SOD 20 MG DELAYED RELEASE TAB PO SCH ×2 (08:48→20:37)
[2016-06-13] MEDS: ASPIRIN EC 81 MG TABEC PO SCH (08:48)
[2016-06-13] MEDS: PREGABALIN 75 MG CAP PO SCH ×3 (08:48→17:08)
[2016-06-13] MEDS: FLUTICASONE PROPIONATE 50 MCG/ACT 16 GM NASAL SPRAY NASAL SCH ×2 (08:48→20:35)
[2016-06-13] MEDS: METOPROLOL TARTRATE 25 MG TAB PO SCH ×2 (08:48→20:37)
[2016-06-13] MEDS: REMOVE OLD NICOTINE PATCH T-DERMAL SCH (09:00)
[2016-06-13] MEDS: NICOTINE 21 MG/24 HR PATCH T-DERMAL SCH (09:00)
--- NOTE | 2016-06-13 10:29 | HHI.FPPN ---
Subjective Remarks Patient seen and examined this morning. She has no medical complaints. States she feels well today and is looking forward to leaving the hospital. She understands plan for follow-up with her primary care doctor, Dr. Miller, about one week after discharge. Objective Vitals Vital Signs Date Time Temp Pulse Resp B/P Pulse Ox O2 Delivery O2 Flow Rate FiO2 06/13/16 05:47 98.8 73 17 133/67 98 06/12/16 19:03 98.2 75 15 110/55 100 Objective Remarks GENERAL: This is a well-nourished, well-developed patient, in no apparent distress. Ambulating well without any problems or SOB. Speaking and answering questions well. ENT: no pain, erythema or edema of her external ears. no pain pushing on tragus or moving her ear. no rhinorrhea apparent CARDIOVASCULAR: Regular rate and rhythm without murmurs, gallops, or rubs. RESPIRATORY: Clear to auscultation. no wheezes or rhonchi or rales GASTROINTESTINAL: Abdomen soft, non-tender, nondistended. MUSCULOSKELETAL: Extremities without clubbing, cyanosis, or edema. Some muscle tightness bilateral shoulders into neck NEUROLOGICAL: Awake, alert. Motor and sensory grossly within normal limits. Normal speech. A/P Assessment and Plan This is a 66 year old female with a past medical history significant for COPD, SLE, RA, and hyperthyroidism admitted for psychosis and attempted suicide. Family Medicine was consulted for medical management of her chronic illnesses and more specifically left-sided ear pain. Discharge Planning Patient is stable with regard to her chronic medical conditions as her COPD is well controlled. Scripts refilled today in anticipation of her going home soon. Follow up with Dr Miller, her PCP, about a week after D/C or sooner if needed She is medically clear for discharge. Discussed with Dr. Fagan, psychiatrist, today and medicine team will sign off. Plan was for discharge back to her [facility] today, but they did not accepted patient. Discharge is pending placement. Problem List: (1) Chronic obstructive pulmonary disease Status: Chronic Plan: Her lungs are clear on exam, she is sating well on oxygen. No respiratory distress. History of chronic COPD. Recent hospitalization for exacerbation. Currently back to baseline. She is ambulating well without oxygen * Duo nebs as needed * Albuterol every 6 hours when necessary shortness of breath * Symbicort 2 puffs every 12 hours (2) Muscle spasm Status: Acute Plan: Patient's left-sided neck pain, and ear pain, is related to a paraspinal muscles strain versus muscle spasm. Her tympanic membranes were clear bilaterally (clear light reflex, no fluid, no erythema, no excessive cerumen). She has not been febrile. There is point tenderness over the mastoid process and neck muscles. In addition her ear pain and fullness, may be related to upper sinus irritation secondary to allergies. Treat as follows: -Nasal corticosteroid spray twice a day, has been on flonase 2 sprays daily now is BID, can consider afrin type nasal spray just for a few days if she is not better -Tylenol 650 mg by mouth every 6 hours when necessary ear/neck pain -Flexeril 5 mg daily at bedtime made this prn as she is on many Psych meds, however, her muscle pain is better now. she still asks for her "muscle relaxer" though she seems improved since last visit -Warm compresses, as well as stretching exercises -allergy med, Claritin prn (3) Psychosis Status: Acute Plan: Patient attempted suicide by taking a pill bottle with multiple pills uncertain as to what she took. Was having auditory and visual hallucinations at time of hospitalization. At this time denies any auditory or visual hallucinations. Psychosis is being evaluated and treated by psychiatrist. Unsure of etiology but depression with psychosis is not uncommon in the elderly. steroids can cause psychosis or other causes are possible. (4) Abnormal urinalysis Status: Resolved Plan: UA with leukocyte esterase. Urine culture with gram negative rods, 10-50,000, probably contaminant. Patient denies any symptoms, however underlying mental status changes may be related to underlying UTI. We'll treat with Macrobid 100 mg twice a day for 7 days, sensitivity is < 32 FELIX. (5) Hyperthyroidism Status: Acute Plan: Concern for hyperthyroidism. Most recent workup showed thyroid level to be normal in results of mass workup within normal limits. Dr Lindo spoke with PCP - methimazole has been held. Lab studies: TSH 0.009, free T4 normal at 0.92, free T3 low at 1.79. * Holding methimazole. * Be followed as an outpatient. Likely not contributing to her underlying mental status changes. (6) Lupus (systemic lupus erythematosus) Status: Chronic Plan: Patient has long-standing history of lupus. She is chronically on low-dose steroids. Her steroids were held after tapering for COPD exacerbation. After discussion with PCP he recommended continuing a low dose steroid. Due to concern that the psychosis is caused by steroids will continue to hold at this time. On Celebrex chronically. * HOLDING Prednisone 5 mg daily * Unclear if she was on halfway steroids, if so, there is a chance of low BPs and adrenal insufficiency however she is ambulating normally now. Per review of D/C from COPD exacerbation as well as clinic notes, it does not appear she was on halfway steroids * her respiratory status has been great on just inhaled steroids (7) Depression with anxiety Status: Acute Plan: See psychosis plan above (8) History of cerebrovascular accident (CVA) with residual deficit Status: Resolved Plan: History of CVA * Continue aspirin 81 mg by mouth daily * consider a statin halfway if indicated Problem Qualifiers (1) Chronic obstructive pulmonary disease: Qualified Code: J44.9 - Chronic obstructive pulmonary disease, unspecified COPD type (2) Psychosis: Qualified Code: F29 - Psychosis, unspecified psychosis type (3) Lupus (systemic lupus erythematosus): Qualified Code: M32.8 - Other forms of systemic lupus erythematosus, unspecified organ involvement status Julia Stewart MD Jun 13, 2016 10:29
[2016-06-13] MEDS: ACETAMINOPHEN 325 MG TAB PO PRN (12:51)
[2016-06-13 19:46] VITALS: BP 166/71; PULSE 70; RESP 17; TEMP 98.6; O2SAT 99
[2016-06-13] MEDS: MIRTAZAPINE 15 MG TAB PO SCH (20:37)
[2016-06-14 06:16] VITALS: BP 116/62; PULSE 73; RESP 18; TEMP 98.1; O2SAT 94
[2016-06-14] MEDS: NICOTINE 21 MG/24 HR PATCH T-DERMAL SCH (09:00)
[2016-06-14] MEDS: REMOVE OLD NICOTINE PATCH T-DERMAL SCH (09:00)
[2016-06-14] MEDS: FLUTICASONE PROPIONATE 50 MCG/ACT 16 GM NASAL SPRAY NASAL SCH (09:00)
[2016-06-14] MEDS: OLANZapine 5 MG TAB PO SCH (09:19)
[2016-06-14] MEDS: METOPROLOL TARTRATE 25 MG TAB PO SCH (09:19)
[2016-06-14] MEDS: ASPIRIN EC 81 MG TABEC PO SCH (09:19)
[2016-06-14] MEDS: PANTOPRAZOLE SOD 20 MG DELAYED RELEASE TAB PO SCH (09:19)
[2016-06-14] MEDS: PREGABALIN 75 MG CAP PO SCH ×2 (09:19→12:04)
[2016-06-14] MEDS: EZETIMIBE 10 MG TAB PO SCH (09:19)
[2016-06-14] MEDS: CELECOXIB 100 MG CAP PO SCH (09:19)
[2016-06-14] MEDS: AMOXICILLIN/CLAVULANATE K 875 MG TAB PO SCH (09:19)
[2016-06-14] MEDS: BUDESONIDE-FORMOTEROL 160/4.5 MCG INHALER INH SCH (09:20)
[2016-06-14] MEDS ORDERED: MIRTA15 PO (12:07)
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
[2016-07-19] MEDS ORDERED: OMEP20TA PO (15:17)
[2016-07-24] MEDS ORDERED: CELE100C PO (10:07)
[2016-07-24] MEDS ORDERED: DIAZ10TA PO (10:07)
[2016-07-24] MEDS ORDERED: SYMB160A INH (10:07)
[2016-08-08] MEDS ORDERED: ALBU0.08 NEB (16:57)
[2016-08-19] MEDS ORDERED: AZIT500T2 PO (16:59)
[2016-08-20] MEDS ORDERED: REME15TA PO (15:32)
[2016-09-02] MEDS ORDERED: OXYC1TAB63 PO (11:34)
[2016-09-11] MEDS ORDERED: OXYC1TAB63 PO (12:03)
[2016-09-18] MEDS ORDERED: OXYC1TAB63 PO (12:13)
[2016-09-19] MEDS ORDERED: DIAZ10TA PO (11:40)
[2016-10-09] MEDS ORDERED: FLUT50SP EACH NARE (16:13)
[2016-10-10] MEDS ORDERED: FLUT50SP EACH NARE (09:22)
[2016-11-18] MEDS ORDERED: MIRTA15 PO (16:02)
== END 2016-06-14 15:30 | DRG 885 ==
LOC: H260 18:19
PROVIDERS: ADMIT Psychiatry & Neurology Psychiatry; ATTEND Psychiatry & Neurology Psychiatry
DX: F33.3 Major depressive disorder, recurrent, severe with psychotic symptoms (principal); N17.9 Acute kidney failure, unspecified; M32.9 Systemic lupus erythematosus, unspecified; I27.2 Other secondary pulmonary hypertension; E87.1 Hypo-osmolality and hyponatremia; J44.1 Chronic obstructive pulmonary disease with (acute) exacerbation; N39.0 Urinary tract infection, site not specified; F23 Brief psychotic disorder; T42.4X2A Poisoning by benzodiazepines, intentional self-harm, initial encounter; T38.0X5A Adverse effect of glucocorticoids and synthetic analogues, initial encounter; F43.12 Post-traumatic stress disorder, chronic; I69.30 Unspecified sequelae of cerebral infarction; E05.90 Thyrotoxicosis, unspecified without thyrotoxic crisis or storm; F51.5 Nightmare disorder; M06.9 Rheumatoid arthritis, unspecified; M79.7 Fibromyalgia; E78.5 Hyperlipidemia, unspecified; I10 Essential (primary) hypertension; F12.90 Cannabis use, unspecified, uncomplicated; F41.9 Anxiety disorder, unspecified; Z62.810 Personal history of physical and sexual abuse in childhood; Z79.82 Long term (current) use of aspirin; Z87.891 Personal history of nicotine dependence
CPT/HCPCS: 80048; 80061; 80301; 81001; 83036; 87077; 87086; 87186; G0479

== ENCOUNTER 2016-10-22 21:35 | Emergency (ER) | payer MEDICARE, MEDICAID, OTHER ==
[~2016-10-22] VITALS: Ht 149.9 cm; Wt 51.0 kg
[~2016-10-22 21:35] MED LIST changes: +ALBU0.08 NEB; +AZIT500T2 PO; -CARI350T20 PO; -FLUO40CA PO; -LEVA750T PO; -LISI-515 PO; -METHI10 PO; +MIRTA15 PO; +OLAN5TAB PO; +OXYC1TAB63 PO; -TRAZ100T4 PO; +TRAZ50TA12 PO
[2016-10-22 21:40] VITALS: BP 163/82; PULSE 112; RESP 14; TEMP 98.9; O2SAT 98
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
[2016-10-22 22:30] LABS: AUTOMATED NEUTROPHIL # 3.4 TH/MM3 (1.8-7.7); BASOPHIL # 0.1 TH/MM3 (0-0.2); BASOPHIL % 0.9 % (0.0-2.0); EOSINOPHIL # 0.2 TH/MM3 (0-0.4); EOSINOPHIL % 3.7 % (0.0-4.0); HEMATOCRIT 39.6 % (35.0-46.0); HEMO FLAGS DIFF FINAL; LYMPH % 30.1 % (9.0-44.0); LYMPHOCYTE # 1.9 TH/MM3 (1.0-4.8); MEAN CELL VOLUME 78.4 FL (80.0-100.0); MEAN CORPUSCULAR HEMOGLOBIN 26.5 PG (27.0-34.0); MEAN CORPUSCULAR HGB CONC 33.8 % (32.0-36.0); MONO % 10.4 % (0.0-8.0); NEUT % 54.9 % (16.0-70.0); PLATELET COUNT 383 TH/MM3 (150-450); RED BLOOD COUNT 5.05 MIL/MM3 (4.00-5.30); RED CELL DISTRIBUTION WIDTH 14.3 % (11.6-17.2); WHITE BLOOD COUNT 6.2 TH/MM3 (4.0-11.0)
[2016-10-22 22:43] LABS: ALT (GPT) 21 U/L (10-53); ANION GAP 12 MEQ/L (5-15); AST (GOT) 19 U/L (15-37); BICARBONATE 18.7 MEQ/L (21.0-32.0); BLOOD UREA NITROGEN 16 MG/DL (7-18); CHLORIDE 103 MEQ/L (98-107); GLOMERULAR FILTRATION RATE 55 ML/MIN (>89); POTASSIUM 3.8 MEQ/L (3.5-5.1); SODIUM (NA) 134 MEQ/L (136-145)
[2016-10-22 22:45] LABS: ALKALINE PHOSPHATASE 190 U/L (45-117); TOTAL BILIRUBIN ADULT 0.4 MG/DL (0.2-1.0)
[2016-10-23 07:30] VITALS: BP 137/63; PULSE 94; RESP 16; TEMP 98.2; O2SAT 96
[2016-10-23 07:51] LABS: AMPHETAMINE, URINE NEG (NEG); BARBITURATES, URINE NEG (NEG); COCAINE, URINE NEG (NEG)
--- NOTE | 2016-10-23 09:46 | PD ---
History of Present Illness Chief Complaint: Psychiatric Symptoms Time Seen by Provider: 09:30 Travel History International Travel<30 Days: No Contact w/Intl Traveler<30days: No Known affected area: No Legal Status Legal Status: Eastman Act Eastman Act Signed By: Mamadou Hagan History of Present Illness: History of Present Illness HPI Patient is a 66 year old female with past psychiatric history of steroid induced psychosis, depression who presents to ed under a BA after allegedly cutting her neck as a suicide attempt. She attempted to slash her throat. Patient made superficial cuts to her throat in context of having an argument with her boyfriend and feeling that " he was not paying attention to me" as well as in context of alcohol intoxication. She presented with BAL of 194. Monik was monitored in main ED and she did not present any behavioral concerns and no suicidality. Seen. Record reviewed. One previous hospitalization in [facility] in 2016 for treatment of psychosis possibly related to steroids as well as depression. She did not continue with psychiatric treatment after her discharge. Patient is alert, oriented. calm, cooperative and engaging. Speech is clear and logical, goal directed. Clinically sober at this time. No psychosis and no omid. No suicidal or homicidal ideation, intent or plan. Remorseful of her actions. She tells me that she was involved in an argument with her and he was using foul language and he said he was going to leave. " I don';t want to loose him because I love him so much. But then I thought no man is worth it. I am angry with myself for doing that". She denies any suicidal homicidal ideation, intent or plan at this time and is requesting discharge. She denies any significant depression or anxiety at this time or recently. her fiancee will pick her up if she is discharged. PFSH Past Medical History Hx Anticoagulant Therapy: Yes (81 mg asa) Arthritis: Yes Asthma: No Autoimmune Disease: Yes (LUPUS) Blood Disorders: No Anxiety: Yes Depression: Yes Heart Rhythm Problems: Yes Cancer: No Cardiovascular Problems: Yes High Cholesterol: Yes Chemotherapy: No Chest Pain: No Congestive Heart Failure: No COPD: Yes Cerebrovascular Accident: Yes Coronary Artery Disease: No Diabetes: No Diminished Hearing: No Endocrine: No Fibromyalgia: Yes Gastrointestinal Disorders: Yes (LUPUS) GERD: Yes Genitourinary: No Hiatal Hernia: No Hypertension: Yes (but currently no meds needed) Immune Disorder: Yes (lupus) Implanted Vascular Access Dvce: No Kidney Stones: No Musculoskeletal: Yes Neurologic: Yes (HX OF LUPUS) Psychiatric: Yes Reproductive: No Respiratory: Yes Immunizations Current: Yes Migraines: Yes Radiation Therapy: No Renal Failure: No Seizures: No Sleep Apnea: No Ulcer: No Tetanus Vaccination: < 5 Years Influenza Vaccination: Yes ?: Not Menopausal: Yes : 4 Para: 4 Tubal Ligation: Yes Past Surgical History Abdominal Surgery: Yes (christian) AICD: No Arteriovenous Shunt: No Section: Yes (X3) Cholecystectomy: Yes Hysterectomy: Yes Insulin Pump: No Joint Replacement: No Pacemaker: No Psychiatric History Psychiatric History Hx Psychiatric Treatment: [facility] [place] 2016 for psychosis, nos History of Inpatient Treatment: Yes ([facility] [place] ) Guns or firearms in home: No Social History Born in [facility]. Lives with her chris of 16 years. has 4 children She is on disability for multiple medical issues. Hx Alcohol Use: Yes (occ) Hx Tobacco Use: Yes ("vape" DAILY) Hx Substance Use: No (E-CIG) Substance Use Type: Alcohol (She deneis daily alcohol use. ) Other Substances Used: PER MIGHT HAVE HAD A COUPLE OF "SHOTS" Hx of Substance Use Treatment: No Family Psychiatric History Negative Allergies-Medications (Allergen,Severity, Reaction): Coded Allergies: No Known Allergies (Unverified , 10/21/16) Reported Meds & Prescriptions Reported Meds & Active Scripts Active Fluticasone Nasal [place] 50 Mcg/Act Naspr 50 Mcg EACH NARE BID 50 mcg/spray Diazepam 10 Mg Tab 10 Mg PO BID PRN Oxycodone-Acetaminophen 5-325 mg Tab 1 Tab PO DAILY PRN Remeron (Mirtazapine) 15 Mg Tab 15 Mg PO HS Azithromycin 500 Mg Tab 500 Mg PO DAILY Albuterol Neb (Albuterol Sulfate) 2.5 Mg/3 Ml Neb 2.5 Mg NEB TID NEB PRN Symbicort Inh (Budesonide/Formoterol Fumarate) 160-4.5 Mcg/Act Aero 2 Puff INH Q12HR Celebrex (Celecoxib) 100 Mg Cap 100 Mg PO DAILY Omeprazole 20 Mg Tab 20 Mg PO BID Mirtazapine 15 Mg Tab 15 Mg PO HS 15 Days Ventolin Hfa 18 GM Inh (Albuterol Sulfate) 90 Mcg/Act Aer 1 Puff INH Q6HR PRN Ecotrin Low Strength (Aspirin) 81 Mg Tabdr 81 Mg PO DAILY Olanzapine 5 Mg Tab 5 Mg PO BID Trazodone (Trazodone HCl) 50 Mg Tab 50 Mg PO HS PRN Zetia (Ezetimibe) 10 Mg Tab 10 Mg PO DAILY Fioricet (Hqstaiwjpv-Djckujlenzevt-Qntvnqam) 50-300-40 Mg Cap 1-2 Cap PO Q6H PRN Lyrica (Pregabalin) 75 Mg Cap 75 Mg PO TID Metoprolol Tartrate 25 Mg Tab 12.5 Mg PO BID Review of Systems Constitutional: DENIES: Diaphoretic episodes, Fatigue, Fever, Weight gain, Weight loss, Chills, Dizziness, Change in appetite, Night Sweats Endocrine: DENIES: Abnorml menstrual pattern, Heat/cold intolerance, Polydipsia , Polyuria, Polyphagia Eyes: DENIES: Blurred vision, Diplopia, Eye inflammation, Eye pain, Vision loss , Photosensitivity, Double Vision Ears, nose, mouth, throat: DENIES: Tinnitus, Hearing loss, Vertigo, Nasal discharge, Oral lesions, Throat pain, Hoarseness, Ear Pain, Running Nose, Epistaxis, Sinus Pain, Toothache, Odynophagia Respiratory: COMPLAINS OF: Cough, Shortness of breath Cardiovascular: DENIES: Chest pain, Palpitations, Syncope, Dyspnea on Exertion , PND, Lower Extremity Edema, Orthopnea, Claudication Gastrointestinal: DENIES: Abdominal pain, Black stools, Bloody stools, Constipation, Diarrhea, Nausea, Vomiting, Difficulty Swallowing, Anorexia Genitourinary: DENIES: Abnormal vaginal bleeding, Dysmenorrhea, Dyspareunia, Sexual dysfunction, Urinary frequency, Urinary incontinence, Urgency, Hematuria , Dysuria, Nocturia, Vaginal discharge Musculoskeletal: COMPLAINS OF: Stiffness, Back pain Integumentary: DENIES: Abnormal pigmentation, Pruritus, Rash, Nail changes, Breast masses, Breast skin changes, Nipple discharge Hematologic/lymphatic: DENIES: Bruising, Lymphadenopathy Immunologic/allergic: DENIES: Eczema, Urticaria Neurologic: DENIES: Abnormal gait, Headache, Localized weakness, Paresthesias, Seizures, Speech Problems, Tremor, Poor Balance Psychiatric: DENIES: Anxiety, Confusion, Mood changes, Depression, Hallucinations, Agitation, Suicidal Ideation, Homicidal Ideation, Delusions Exam Alert: Yes [place]: Person (ox4) Mood: Calm Affect: Appropriate Speech: Clear, Logical Eye Contact: Normal Memory Intact: Comment (no gross abnormality) Hallucinations: Other (negative) Delusions: No Suicidal: Ideation (denies any) Homicidal: Ideation (deneis any) Insight/Judgement Fair. Not impaired MDM Medical Decision Making Medical Record Reviewed: Yes Assessment/Plan 66 year old female who in context of an argument with her fiancee as well as while under the influence of ETOH she superficially cut her neck as a suicidal gesture. She acknowledges now that she wanted to get his attention since he threatened to leave her. She was monitored here and presented no suicidality and no behavioral problems. Does not meet BA criteria. Lift BA. Counseled on abstinence from ETOH. Orders Complete Blood Count With Diff (10/22/16 21:56) Comprehensive Metabolic Panel (10/22/16 21:56) Psych Screen (10/22/16 21:56) Drug Screen, Random Urine (10/22/16 21:56) Alcohol (Ethanol) (10/22/16 21:56) Diet Regular Basic (10/23/16 Breakfast) Results Vital Signs Date Time Temp Pulse Resp B/P Pulse Ox O2 Delivery O2 Flow Rate FiO2 10/23/16 07:30 98.2 94 16 137/63 96 Room Air 10/22/16 21:40 98.9 112 14 163/82 98 10/22/16 21:35 14 Laboratory Tests Test 10/22/16 10/23/16 21:55 07:20 White Blood Count 6.2 Red Blood Count 5.05 Hemoglobin 13.4 Hematocrit 39.6 Mean Corpuscular Volume 78.4 Mean Corpuscular Hemoglobin 26.5 Mean Corpuscular Hemoglobin 33.8 Concent Red Cell Distribution Width 14.3 Platelet Count 383 Mean Platelet Volume 7.5 Neutrophils (%) (Auto) 54.9 Lymphocytes (%) (Auto) 30.1 Monocytes (%) (Auto) 10.4 Eosinophils (%) (Auto) 3.7 Basophils (%) (Auto) 0.9 Neutrophils # (Auto) 3.4 Lymphocytes # (Auto) 1.9 Monocytes # (Auto) 0.6 Eosinophils # (Auto) 0.2 Basophils # (Auto) 0.1 CBC Comment DIFF FINAL Differential Comment Sodium Level 134 Potassium Level 3.8 Chloride Level 103 Carbon Dioxide Level 18.7 Anion Gap 12 Blood Urea Nitrogen 16 Creatinine 1.01 Estimat Glomerular Filtration 55 Rate Random Glucose 103 Calcium Level 9.4 Total Bilirubin 0.4 Aspartate Amino Transf 19 (AST/SGOT) Alanine Aminotransferase 21 (ALT/SGPT) Alkaline Phosphatase 190 Total Protein 8.5 Albumin 3.9 Ethyl Alcohol Level 194 Urine Opiates Screen NEG Urine Barbiturates Screen NEG Urine Amphetamines Screen NEG Urine Benzodiazepines Screen POS Urine Cocaine Screen NEG Urine Cannabinoids Screen NEG Diagnosis Primary Impression: Laceration of neck Additional Impression: Adjustment disorder Psychiatrically Cleared: Yes Med/ Other Pt Specific Info: No Change to Meds Disposition: 01 DISCHARGE HOME Condition: Stable Problem Qualifiers Primary Impression: Laceration of neck Qualified Code: S11.91XA - Laceration of neck, initial encounter Additional Impression: Adjustment disorder Qualified Code: F43.25 - Adjustment disorder with mixed disturbance of emotions and conduct Claudia Kimball [facility] October 23, 2016 09:46
[2016-10-23] MEDS ORDERED: OMEP20TA PO (15:15)
[2016-11-18] MEDS ORDERED: MIRTA15 PO (16:02)
== END 2016-10-23 10:22 | disposition home or self-care (01) ==
LOC: NEPD 21:35
DX: S11.91XA Laceration without foreign body of unspecified part of neck, initial encounter (principal); F43.25 Adjustment disorder with mixed disturbance of emotions and conduct; M32.9 Systemic lupus erythematosus, unspecified; E78.00 Pure hypercholesterolemia, unspecified; J44.9 Chronic obstructive pulmonary disease, unspecified; M79.7 Fibromyalgia; I10 Essential (primary) hypertension; F17.200 Nicotine dependence, unspecified, uncomplicated; Z86.73 Personal history of transient ischemic attack (TIA), and cerebral infarction without residual deficits; Z79.01 Long term (current) use of anticoagulants; X78.9XXA Intentional self-harm by unspecified sharp object, initial encounter; Y93.9 Activity, unspecified; Y92.9 Unspecified place or not applicable; Y99.8 Other external cause status
CPT/HCPCS: 80053; 80307; 85025; 99284

== ENCOUNTER 2017-04-27 23:04 | Emergency (ER) | payer MEDICARE, MEDICAID ==
[~2017-04-27] VITALS: Ht 124.5 cm; Wt 54.0 kg
[~2017-04-27 23:04] MED LIST changes: +EZET10 PO; -OMEP20TA PO; +OMEP20TA93 PO; -ZETI10TA5 PO
[2017-04-27 23:10] VITALS: BP 144/77; PULSE 105; RESP 32; O2SAT 97
[2017-04-27 23:15] VITALS: O2SAT 95
[2017-04-27 23:20] VITALS: BP 144/77; PULSE 87; RESP 30; TEMP 98.3; O2SAT 97
[2017-04-27 23:22] VITALS: O2SAT 97
[2017-04-27] MEDS ORDERED: PRED10 PO (23:24)
[2017-04-27] MEDS ORDERED: RESP: ALBUTEROL 2.5 MG/IPRATROPIUM 0.5 MG NEB (SCH) INH ONE (23:30)
[2017-04-27] MEDS ORDERED: SODIUM CHLORIDE 0.9% FLUSH 10 ML FLUSH IVF PRN (23:30)
[2017-04-27 23:48] LABS: AUTOMATED NEUTROPHIL # 7.5 TH/MM3 (1.8-7.7); BASOPHIL % 0.4 % (0.0-2.0); EOSINOPHIL # 0.1 TH/MM3 (0-0.4); EOSINOPHIL % 0.7 % (0.0-4.0); HEMATOCRIT 39.2 % (35.0-46.0); LYMPH % 26.1 % (9.0-44.0); LYMPHOCYTE # 3.1 TH/MM3 (1.0-4.8); MEAN CELL VOLUME 90.9 FL (80.0-100.0); MEAN CORPUSCULAR HEMOGLOBIN 31.5 PG (27.0-34.0); MEAN CORPUSCULAR HGB CONC 34.6 % (32.0-36.0); MONO % 10.1 % (0.0-8.0); NEUT % 62.7 % (16.0-70.0); PLATELET COUNT 310 TH/MM3 (150-450); RED BLOOD COUNT 4.31 MIL/MM3 (4.00-5.30); RED CELL DISTRIBUTION WIDTH 16.2 % (11.6-17.2)
[2017-04-27 23:49] LABS: HEMO FLAGS AUTO DIFF
[2017-04-27 23:51] LABS: BICARBONATE 23.8 MEQ/L (21.0-32.0); MAGNESIUM 1.9 MG/DL (1.5-2.5); POTASSIUM 3.9 MEQ/L (3.5-5.1)
--- NOTE | 2017-04-28 00:01 | RADRPT ---
EXAM DATE/TIME: 04/27/2017 23:32 [place] COMPARISON: CHEST SINGLE AP, May 24, 2016, 23:58. INDICATIONS : Short of breath. MEDICAL HISTORY : Chronic obstructive pulmonary disease. Hypertension Fibromyalgia, GERD. SURGICAL HISTORY : Cholecystectomy. Tubal ligation. section. Colectomy, Hysterectomy ENCOUNTER: Initial ACUITY: 1 day PAIN SCORE: 0/10 LOCATION: Bilateral chest FINDINGS: Bibasilar pulmonary infiltrates are present. No large effusion seen. No pneumothorax. Heart size stable, within normal limits. CONCLUSION: Bibasilar pneumonia. Jj Ryder MD on April 27, 2017 at 23:59 Board Certified Radiologist. This report was verified electronically.
[2017-04-28 00:14] LABS: PLATELET ESTIMATE SMEAR NORMAL (NORMAL); PLATELET MORPHOLOGY NORMAL (NORMAL); SCAN/DIFF AUTO DIFF CONFIRMED
[2017-04-28] MEDS ORDERED: AZIT250T3 PO (00:35)
--- NOTE | 2017-04-28 00:35 | PD ---
HPI Chief Complaint: Respiratory Distress Time Seen by Provider: 23:20 Travel History International Travel<30 days: No Contact w/Intl Traveler<30days: No Traveled to known affect area: No History of Present Illness HPI 67-year-old female with a history of COPD he arrives with shortness of breath and wheezing by EMS. EMS gave 3 rounds of nebulizer which improved oxygenation from 50 percent on scene. The patient states she's had shortness of breath for about a week. At home nebulizers helped somewhat and she reports fairly significant improvement upon arrival to the ER. She has no chest pain. She denies fever. She has chronic cough. PFSH Past Medical History Hx Anticoagulant Therapy: Yes (81 mg asa) Arthritis: Yes Asthma: No Autoimmune Disease: Yes (LUPUS) Blood Disorders: No Anxiety: Yes Depression: Yes Heart Rhythm Problems: Yes Cancer: No Cardiovascular Problems: Yes High Cholesterol: Yes Chemotherapy: No Chest Pain: No Congestive Heart Failure: No COPD: Yes Cerebrovascular Accident: Yes Coronary Artery Disease: No Diabetes: No Diminished Hearing: No Endocrine: No Fibromyalgia: Yes Gastrointestinal Disorders: Yes (LUPUS) GERD: Yes Genitourinary: No Hiatal Hernia: No Hypertension: Yes (but currently no meds needed) Immune Disorder: Yes (lupus) Implanted Vascular Access Dvce: No Kidney Stones: No Musculoskeletal: Yes Neurologic: Yes (HX OF LUPUS) Psychiatric: Yes Reproductive: No Respiratory: Yes Immunizations Current: Yes Migraines: Yes Radiation Therapy: No Renal Failure: No Seizures: No Sleep Apnea: No Ulcer: No Menopausal: Yes : 4 Para: 4 Tubal Ligation: Yes Past Surgical History Abdominal Surgery: Yes (christian) AICD: No Arteriovenous Shunt: No Section: Yes (X3) Cholecystectomy: Yes Hysterectomy: Yes Insulin Pump: No Joint Replacement: No Pacemaker: No Social History Alcohol Use: Yes (occ) Tobacco Use: Yes ("vape" DAILY) Substance Use: No (E-CIG) Allergies-Medications (Allergen,Severity, Reaction): Coded Allergies: No Known Allergies (Unverified , 10/21/16) Reported Meds & Prescriptions Reported Meds & Active Scripts Active Prednisone 20 Mg Tab 20 Mg PO DAILY 3 Days Azithromycin 250 Mg Tab 250 Mg PO DAILY 4 Days Omeprazole 20 Mg Tab 20 Mg PO BID Fluticasone Nasal [place] 50 Mcg/Act Naspr 50 Mcg EACH NARE BID 50 mcg/spray Remeron (Mirtazapine) 15 Mg Tab 15 Mg PO HS Albuterol Neb (Albuterol Sulfate) 2.5 Mg/3 Ml Neb 2.5 Mg NEB TID NEB PRN Symbicort Inh (Budesonide/Formoterol Fumarate) 160-4.5 Mcg/Act Aero 2 Puff INH Q12HR Ventolin Hfa 18 GM Inh (Albuterol Sulfate) 90 Mcg/Act Aer 1 Puff INH Q6HR PRN Ecotrin Low Strength (Aspirin) 81 Mg Tabdr 81 Mg PO DAILY Olanzapine 5 Mg Tab 5 Mg PO BID Trazodone (Trazodone HCl) 50 Mg Tab 50 Mg PO HS PRN Metoprolol Tartrate 25 Mg Tab 12.5 Mg PO BID Reported Prednisone 10 Mg Tab 10 Mg PO DAILY Review of Systems Except as stated in HPI: all other systems reviewed are Neg General / Constitutional: No: Fever Respiratory: Positive: Cough, Shortness of Breath Physical Exam Narrative GENERAL: 67-year-old female shortness of breath at rest conversational dyspnea SKIN: Focused skin assessment warm/dry. HEAD: Atraumatic. Normocephalic. EYES: Pupils equal and round. No scleral icterus. No injection or drainage. ENT: No nasal bleeding or discharge. Mucous membranes pink and moist. NECK: Trachea midline. No JVD. CARDIOVASCULAR: Regular rate and rhythm. No murmur appreciated. RESPIRATORY: Wheezing present bilaterally. No significant tachypnea. GASTROINTESTINAL: Abdomen soft, non-tender, nondistended. Hepatic and splenic margins not palpable. MUSCULOSKELETAL: No obvious deformities. No clubbing. No cyanosis. No edema. NEUROLOGICAL: Awake and alert. No obvious cranial nerve deficits. Motor grossly within normal limits. Normal speech. PSYCHIATRIC: Appropriate mood and affect; insight and judgment normal. Data Data Last Documented VS Vital Signs Date Time Temp Pulse Resp B/P (MAP) Pulse Ox O2 Delivery O2 Flow Rate FiO2 04/28/17 00:54 80 16 140/65 (90) 95 04/28/17 00:46 Room Air 04/27/17 23:22 2.00 04/27/17 23:20 98.3 VS reviewed Orders Orders Complete Blood Count With Diff (04/27/17 23:20) Basic Metabolic Panel (Bmp) (04/27/17 23:20) Magnesium (Mg) (04/27/17 23:20) Iv Access Insert/Monitor (04/27/17 23:20) Electrocardiogram (04/27/17 23:20) Ecg Monitoring (04/27/17 23:20) Oximetry (04/27/17 23:20) Oxygen Administration (04/27/17 23:20) Chest, Single Ap (04/27/17 23:20) Sodium Chloride 0.9% Flush (Ns Flush) (04/27/17 23:30) Albuterol-Ipratropium Neb (Duoneb Neb) (04/27/17 23:30) Azithromycin (Zithromax) (04/28/17 01:00) Ed Discharge Order (04/28/17 00:53) Labs Laboratory Tests Test 04/27/17 23:25 White Blood Count 12.0 TH/MM3 Red Blood Count 4.31 MIL/MM3 Hemoglobin 13.6 GM/DL Hematocrit 39.2 % Mean Corpuscular Volume 90.9 FL Mean Corpuscular Hemoglobin 31.5 PG Mean Corpuscular Hemoglobin Concent 34.6 % Red Cell Distribution Width 16.2 % Platelet Count 310 TH/MM3 Mean Platelet Volume 7.4 FL Neutrophils (%) (Auto) 62.7 % Lymphocytes (%) (Auto) 26.1 % Monocytes (%) (Auto) 10.1 % Eosinophils (%) (Auto) 0.7 % Basophils (%) (Auto) 0.4 % Neutrophils # (Auto) 7.5 TH/MM3 Lymphocytes # (Auto) 3.1 TH/MM3 Monocytes # (Auto) 1.2 TH/MM3 Eosinophils # (Auto) 0.1 TH/MM3 Basophils # (Auto) 0.0 TH/MM3 CBC Comment AUTO DIFF Differential Comment AUTO DIFF CONFIRMED Platelet Estimate NORMAL Platelet Morphology Comment NORMAL Red Cell Morphology Comment NORMAL Blood Urea Nitrogen 11 MG/DL Creatinine 0.94 MG/DL Random Glucose 117 MG/DL Calcium Level 8.0 MG/DL Magnesium Level 1.9 MG/DL Sodium Level 129 MEQ/L Potassium Level 3.9 MEQ/L Chloride Level 95 MEQ/L Carbon Dioxide Level 23.8 MEQ/L Anion Gap 10 MEQ/L Estimat Glomerular Filtration Rate 60 ML/MIN MDM Medical Decision Making Medical Screen Exam Complete: Yes Emergency Medical Condition: Yes Medical Record Reviewed: Yes Differential Diagnosis PNA, COPD, anemia, renal failure, asthma Narrative Course CBC & BMP Diagram 04/27/17 23:25 Calcium Level 8.0 L, Magnesium Level 1.9 chest x-ray shows bibasilar pneumonia Patient received albuterol treatments here. Breath sounds improved dramatically Patient ambulated around the ER without difficulty and the O2 saturation on room air was 94%. Azithromycin script with first dose here. Patient ready for discharge Diagnosis Primary Impression: Chronic obstructive pulmonary disease Qualified Codes: J44.9 - Chronic obstructive pulmonary disease, unspecified Additional Impression: Pneumonia Qualified Codes: J18.9 - Pneumonia, unspecified organism Referrals: Primary Care Physician 2 days Med/Other Pt SpecificInfo: Prescription(s) given Scripts Prednisone (Prednisone) 20 Mg Tab 20 MG PO DAILY for 3 Days, #3 TAB 0 Refills Prov: Luis Al MD 04/28/17 Azithromycin (Azithromycin) 250 Mg Tab 250 MG PO DAILY for Infection for 4 Days, #4 TAB 0 Refills Prov: Luis Al MD 04/28/17 Disposition: 01 DISCHARGE HOME Condition: Stable Luis Al MD Apr 28, 2017 00:35
[2017-04-28 00:46] VITALS: RESP 20; O2SAT 92
[2017-04-28] MEDS ORDERED: PRED20 PO (00:52)
[2017-04-28 00:54] VITALS: BP 140/65
[2017-04-28] MEDS ORDERED: AZITHROMYCIN 250 MG TAB PO ONE (01:00)
--- NOTE | 2017-04-28 18:08 | EKG ---
Date Performed: 04/27/2017 Time Performed: 23:12:00 PTAGE: 67 years EKG: Sinus rhythm MODERATE ST DEPRESSION Consider infalateral ischemia and inferior ischemia. Baseline wandering artif act [id number] accuracy of interpretation. ABNORMAL ECG PREVIOUS TRACING : 05/25/2016 00.02 DOCTOR: Kev Beard Interpretating Date/Time 04/28/2017 18:07:26
== END 2017-04-28 01:12 | disposition home or self-care (01) ==
LOC: NEPC 23:04
DX: J44.9 Chronic obstructive pulmonary disease, unspecified (principal); J18.9 Pneumonia, unspecified organism; R94.31 Abnormal electrocardiogram [ECG] [EKG]; M19.90 Unspecified osteoarthritis, unspecified site; M32.9 Systemic lupus erythematosus, unspecified; F41.9 Anxiety disorder, unspecified; I25.10 Atherosclerotic heart disease of native coronary artery without angina pectoris; M79.7 Fibromyalgia; K21.9 Gastro-esophageal reflux disease without esophagitis
CPT/HCPCS: 71010; 80048; 83735; 85025; 93005; 94664; 99285

== ENCOUNTER 2017-05-06 22:45 | Observation (INO) | payer MEDICARE, MEDICAID ==
[~2017-05-06] VITALS: Ht 149.9 cm; Wt 53.2 kg
[~2017-05-06 22:45] MED LIST changes: +AZIT250T3 PO; -AZIT500T2 PO; -BUTA1CAP PO; -CELE100C PO; -DIAZ10TA PO; -EZET10 PO; -LYRI75CA PO; -MIRTA15 PO; -OXYC1TAB63 PO; +PRED10 PO; +PRED20 PO
[2017-05-06 22:51] VITALS: BP 174/84; PULSE 94; RESP 30; O2SAT 91; O2SAT 99
[2017-05-06 23:03] VITALS: PULSE 99; TEMP 98.3; O2SAT 95
[2017-05-06] MEDS ORDERED: SODIUM CHLORID 0.9% 500 ML INJ 500 ML IV ONE (23:15)
[2017-05-06] MEDS ORDERED: SODIUM CHLORIDE 0.9% FLUSH 10 ML FLUSH IVF PRN (23:15)
[2017-05-06 23:22] LABS: AUTOMATED NEUTROPHIL # 5.5 TH/MM3 (1.8-7.7); BASOPHIL # 0.1 TH/MM3 (0-0.2); BASOPHIL % 0.7 % (0.0-2.0); EOSINOPHIL # 0.1 TH/MM3 (0-0.4); EOSINOPHIL % 0.8 % (0.0-4.0); HEMATOCRIT 37.7 % (35.0-46.0); HEMO FLAGS DIFF FINAL; LYMPH % 21.7 % (9.0-44.0); LYMPHOCYTE # 1.7 TH/MM3 (1.0-4.8); MEAN CELL VOLUME 91.2 FL (80.0-100.0); MEAN CORPUSCULAR HEMOGLOBIN 30.4 PG (27.0-34.0); MEAN CORPUSCULAR HGB CONC 33.4 % (32.0-36.0); MONO % 8.9 % (0.0-8.0); NEUT % 67.9 % (16.0-70.0); PLATELET COUNT 298 TH/MM3 (150-450); RED BLOOD COUNT 4.13 MIL/MM3 (4.00-5.30); RED CELL DISTRIBUTION WIDTH 16.4 % (11.6-17.2); WHITE BLOOD COUNT 8.1 TH/MM3 (4.0-11.0)
--- NOTE | 2017-05-06 23:23 | PD ---
HPI Chief Complaint: Respiratory Distress Time Seen by Provider: 23:02 Travel History International Travel<30 days: No Contact w/Intl Traveler<30days: No Traveled to known affect area: No History of Present Illness HPI The patient is a 67 year old female who presents to the [facility] emergency department with a history of shortness of breath that began at approximately 9:30 to 10 PM this evening. The patient reports that she has a history of COPD. Her history recently is significant for being diagnosed with pneumonia on April 27, 2017 and treated with prednisone and azithromycin. She reports that she completed her medication course. She reports that the cough and congestion seem to be improving. She reports that earlier this evening she took 2 puffs off of her 's cigarette and then developed acute shortness of breath. She reports that she tried to use her nebulizer machine 3 times without improvement, then she called ambulance services. The patient's O2 saturation on room air on their arrival was 92%. The patient additionally reports on review of systems that she has had diarrhea over the last month. She reports that she usually has a soft stool 2-3 times per day. She denies having any blood in her stool or black or tarry stools. On review of systems otherwise, she denies having any known recent fevers, neck pain, chest pain, abdominal pain, vomiting, urinary symptoms, or neurologic symptoms. [facility] Past Medical History Narrative Medical The patient's past medical history is significant for systemic lupus erythematosus, hyperlipidemia, depression, COPD, fibromyalgia, genital herpes, history of cholelithiasis, hypertension. Hx Anticoagulant Therapy: Yes (81 mg asa) Arthritis: Yes Asthma: No Autoimmune Disease: Yes (LUPUS) Blood Disorders: No Anxiety: Yes Depression: Yes Heart Rhythm Problems: Yes Cancer: No Cardiovascular Problems: Yes High Cholesterol: Yes Chemotherapy: No Chest Pain: No Congestive Heart Failure: No COPD: Yes Cerebrovascular Accident: Yes Coronary Artery Disease: No Diabetes: No Diminished Hearing: No Endocrine: No Fibromyalgia: Yes Gastrointestinal Disorders: Yes (LUPUS) GERD: Yes Genitourinary: No Hiatal Hernia: No Hypertension: Yes (but currently no meds needed) Immune Disorder: Yes (lupus) Implanted Vascular Access Dvce: No Kidney Stones: No Musculoskeletal: Yes Neurologic: Yes (HX OF LUPUS) Psychiatric: Yes Reproductive: No Respiratory: Yes Immunizations Current: Yes Migraines: Yes Radiation Therapy: No Renal Failure: No Seizures: No Sleep Apnea: No Ulcer: No Menopausal: Yes : 4 Para: 4 Tubal Ligation: Yes Past Surgical History Narrative Surgical The patient's past surgical history is significant for a 2 and a cholecystectomy. Abdominal Surgery: Yes (christian) AICD: No Arteriovenous Shunt: No Section: Yes (X3) Cholecystectomy: Yes Hysterectomy: Yes Insulin Pump: No Joint Replacement: No Pacemaker: No Social History Alcohol Use: Yes (occ) Tobacco Use: Yes ("vape" DAILY) Substance Use: No (E-CIG) Allergies-Medications (Allergen,Severity, Reaction): Coded Allergies: No Known Allergies (Verified Allergy, Unknown, 05/07/17) Reported Meds & Prescriptions Reported Meds & Active Scripts Active Medrol Dosepak (Methylprednisolone) 4 Mg Dspk 4 Mg PO DIRECTED Per Pharmacist direction Levaquin (Levofloxacin) 500 Mg Tablet 500 Mg PO DAILY 7 Days Omeprazole 20 Mg Tab 20 Mg PO BID Fluticasone Nasal [place] 50 Mcg/Act Naspr 50 Mcg EACH NARE BID 50 mcg/spray Remeron (Mirtazapine) 15 Mg Tab 15 Mg PO HS Albuterol Neb (Albuterol Sulfate) 2.5 Mg/3 Ml Neb 2.5 Mg NEB TID NEB PRN Symbicort Inh (Budesonide/Formoterol Fumarate) 160-4.5 Mcg/Act Aero 2 Puff INH Q12HR Ventolin Hfa 18 GM Inh (Albuterol Sulfate) 90 Mcg/Act Aer 1 Puff INH Q6HR PRN Ecotrin Low Strength (Aspirin) 81 Mg Tabdr 81 Mg PO DAILY Olanzapine 5 Mg Tab 5 Mg PO BID Trazodone (Trazodone HCl) 50 Mg Tab 50 Mg PO HS PRN Metoprolol Tartrate 25 Mg Tab 12.5 Mg PO BID Reported Prednisone 10 Mg Tab 10 Mg PO DAILY Review of Systems Except as stated in HPI: all other systems reviewed are Neg General / Constitutional: No: Fever Eyes: No: Visual changes HENT: No: Headaches Cardiovascular: Positive: Dyspnea on exertion, No: Chest Pain or Discomfort Respiratory: Positive: Cough, Shortness of Breath, Wheezing Gastrointestinal: Positive: Diarrhea, No: Nausea, Vomiting, Abdominal Pain Genitourinary: No: Dysuria Musculoskeletal: No: Pain Skin: No Rash Neurologic: No: Weakness, Focal Abnormalities, Change in Mentation, Slurred Speech, Sensory Disturbance Psychiatric: No: Depression Endocrine: No: Polydipsia Hematologic/Lymphatic: No: Easy Bruising Physical Exam Narrative General: The patient is a well-developed well-nourished female, slightly short of breath on arrival with tachypnea and prolonged expiratory phase of breathing. Head and Neck exam: Head is normocephalic atraumatic. Eyes: EOMI, pupils are equal round and reactive to light. Nose: Midline septum with pink mucous membranes Mouth: Dentition unremarkable. Moist mucus membranes. Posterior oropharynx is not erythematous. No tonsillar hypertrophy. Uvula midline. Airway patent. Neck: No palpable lymphadenopathy. No nuchal rigidity. No thyromegaly. Cardiovascular: Sinus tachycardia in the low 100s without murmurs, gallops, or rubs. No pulse deficit to the extremities on simultaneous auscultation and palpation of her radial artery. Lungs: Soft expiratory wheezes are audible. No rhonchi or rales. The patient has tachypnea noted. Mild accessory muscle use noted. No tripoding or paroxysmal abdominal breathing. Abdomen: Soft, without tenderness to palpation in all 4 quadrants of the abdomen. No guarding, rebound, or rigidity. Normal bowel sounds are audible. No tenderness on palpation of McBurney's point. Extremities: No clubbing, cyanosis, or edema. 2+ pulses in all 4 extremities. No calf tenderness on palpation. Back: No spinous process tenderness to palpation. No costovertebral angle tenderness to palpation. Neurologic Exam: Grossly nonfocal. Skin Exam: No rash noted. Intact skin that is warm and dry. Data Data Last Documented VS Vital Signs Date Time Temp Pulse Resp B/P (MAP) Pulse Ox O2 Delivery O2 Flow Rate FiO2 05/06/17 23:35 95 Nasal Cannula 4.00 05/06/17 23:03 98.3 99 05/06/17 22:51 30 174/84 (114) Orders Orders Complete Blood Count With Diff (05/06/17 23:06) Comprehensive Metabolic Panel (05/06/17 23:06) B-Type Natriuretic Peptide (05/06/17 23:06) Act Partial Throm Time (Ptt) (05/06/17 23:06) Prothrombin Time / Inr (Pt) (05/06/17 23:06) Ckmb (Isoenzyme) Profile (05/06/17 23:06) Troponin I (05/06/17 23:06) Blood Culture (05/06/17 23:06) Iv Access Insert/Monitor (05/06/17 23:06) Electrocardiogram (05/06/17 23:06) Ecg Monitoring (05/06/17 23:06) Oximetry (05/06/17 23:06) Oxygen Administration (05/06/17 23:06) Chest, Single Ap (05/06/17 23:06) Sodium Chloride 0.9% Flush (Ns Flush) (05/06/17 23:15) Albuterol-Ipratropium Neb (Duoneb Neb) (05/06/17 23:15) Sodium Chlorid 0.9% 500 Ml Inj (Ns 500 M (05/06/17 23:15) CKMB (05/06/17 23:10) CKMB% (05/06/17 23:10) Levofloxacin 750 Mg Premix Inj (Levaquin (05/07/17 01:00) Admit Order (Ed Use Only) (05/07/17 01:49) Place In Observation (05/07/17 ) Vital Signs (Adult) Q4H (05/07/17 01:53) Activity Bed Rest (05/07/17 01:53) Labs Laboratory Tests Test 05/06/17 23:00 05/06/17 23:10 White Blood Count 8.1 TH/MM3 Red Blood Count 4.13 MIL/MM3 Hemoglobin 12.6 GM/DL Hematocrit 37.7 % Mean Corpuscular Volume 91.2 FL Mean Corpuscular Hemoglobin 30.4 PG Mean Corpuscular Hemoglobin Concent 33.4 % Red Cell Distribution Width 16.4 % Platelet Count 298 TH/MM3 Mean Platelet Volume 6.8 FL Neutrophils (%) (Auto) 67.9 % Lymphocytes (%) (Auto) 21.7 % Monocytes (%) (Auto) 8.9 % Eosinophils (%) (Auto) 0.8 % Basophils (%) (Auto) 0.7 % Neutrophils # (Auto) 5.5 TH/MM3 Lymphocytes # (Auto) 1.7 TH/MM3 Monocytes # (Auto) 0.7 TH/MM3 Eosinophils # (Auto) 0.1 TH/MM3 Basophils # (Auto) 0.1 TH/MM3 CBC Comment DIFF FINAL Differential Comment Prothrombin Time 10.4 SEC Prothromb Time International Ratio 0.9 RATIO Activated Partial Thromboplast Time 24.0 SEC Blood Urea Nitrogen 10 MG/DL Creatinine 0.87 MG/DL Random Glucose 162 MG/DL Total Protein 6.5 GM/DL Albumin 3.3 GM/DL Calcium Level 8.4 MG/DL Alkaline Phosphatase 95 U/L Aspartate Amino Transf (AST/SGOT) 60 U/L Alanine Aminotransferase (ALT/SGPT) 38 U/L Total Bilirubin 0.3 MG/DL Sodium Level 136 MEQ/L Potassium Level 3.6 MEQ/L Chloride Level 102 MEQ/L Carbon Dioxide Level 22.7 MEQ/L Anion Gap 11 MEQ/L Estimat Glomerular Filtration Rate 65 ML/MIN Total Creatine Kinase 555 U/L Creatine Kinase MB 2.1 NG/ML Creatine Kinase MB % 0.4 % Troponin I 0.02 NG/ML B-Type Natriuretic Peptide 302 PG/ML MDM Medical Decision Making Medical Screen Exam Complete: Yes Emergency Medical Condition: Yes Medical Record Reviewed: Yes Interpretation(s) Last Impressions Chest X-Ray 05/06/17 0766 Signed Impressions: Service Date/Time: Saturday, May 06, 2017 23:40 - CONCLUSION: Suspected bibasilar areas of consolidation or atelectasis which appear to be improving. Jj Dubon MD Differential Diagnosis COPD exacerbation, versus pneumonia, versus new-onset congestive heart failure, versus pneumothorax, versus acute coronary syndrome Narrative Course During the course of the patients emergency department visit, the patients history, examination, and differential diagnosis were reviewed with the patient. The patient was placed on a job coach with oximetry and frequent blood pressure monitoring. The patient had IV access obtained and blood work sent for analysis. The patient had an ECG done on arrival. The patient's ECG reveals a sinus rhythm heart rate of 99, no acute ST segment elevation. T waves are inverted in V1 and V2, QRS duration is 95 ms, QTc is 435 ms. The patient was initially provided DuoNeb 2. The patient was given Solu- Medrol 125 mg IV prior to arrival. The patients laboratory studies were reviewed and remarkable for a white count of 8.1, hemoglobin 12.6, platelets 298 with 8.9 monocytes. CMP is remarkable for a glucose of 162, calcium 8.4, AST 60, CPK 555 with an MB percent of 0.4, troponin I is 0.02, BNP is 302. PT 10.4, PTT 24 Radiology studies were reviewed and remarkable for a chest x-ray that shows improving by bibasilar consolidation versus atelectasis. The Patient reported feeling improved. Her supplemental nasal cannula oxygen was discontinued. The patient's O2 saturation went down to 90% while resting in bed, however when she got up to use the bathroom and walked her O2 saturation decreased down to 84%. The patient will be admitted to the hospital for continued evaluation and treatment of pneumonia and a COPD exacerbation. The patients results were discussed with the patient, including the plan of care. I explained that further testing and/ or monitoring is indicated based on the patients history, examination, and/ or laboratory findings. Therefore, I recommended admission for additional evaluation. The patient expressed understanding and was agreeable with this plan. The patient was admitted to the hospital in stable condition and sent to a bed under the care of [facility] service. Physician Communication Physician Communication The patient's case including history, pertinent physical examination findings, and laboratory studies were discussed with the [facility] practice residents who initially accepted the patient for admission, however later they found out that the patient had been discharged from the family practice residency is practice. The patient was then discussed with Dr. Payne. She did agree to admit the patient to the [facility] service. Diagnosis Primary Impression: COPD exacerbation Additional Impression: Pneumonia Qualified Codes: J18.9 - Pneumonia, unspecified organism Admitting Information Admitting Physician Requests: Admit Scripts Methylprednisolone Dosepak (Medrol Dosepak) 4 Mg Dspk 4 MG PO DIRECTED, #1 DSPK 0 Refills Per Pharmacist direction Prov: Farhana Avery MD 05/07/17 Levofloxacin (Levaquin) 500 Mg Tablet 500 MG PO DAILY for Infection for 7 Days, #7 TAB 0 Refills Prov: Farhana Avery MD 05/07/17 Farhana Avery MD May 06, 2017 23:23
[2017-05-06] MEDS: RESP: ALBUTEROL 2.5 MG/IPRATROPIUM 0.5 MG NEB (SCH) INH (23:34)
[2017-05-06 23:35] VITALS: O2SAT 95
[2017-05-06 23:38] LABS: ALT (GPT) 38 U/L (10-53); ANION GAP 11 MEQ/L (5-15); AST (GOT) 60 U/L (15-37); BICARBONATE 22.7 MEQ/L (21.0-32.0); BLOOD UREA NITROGEN 10 MG/DL (7-18); CHLORIDE 102 MEQ/L (98-107); GLOMERULAR FILTRATION RATE 65 ML/MIN (>89); POTASSIUM 3.6 MEQ/L (3.5-5.1); SODIUM (NA) 136 MEQ/L (136-145)
[2017-05-06 23:39] LABS: INTERNATIONAL NORMALIZED RATIO 0.9 RATIO; PROTHROMBIN TIME - PATIENT 10.4 SEC (9.8-11.6)
[2017-05-06 23:43] LABS: ALKALINE PHOSPHATASE 95 U/L (45-117); CREATINE KINASE 555 U/L (26-192); TOTAL BILIRUBIN ADULT 0.3 MG/DL (0.2-1.0)
[2017-05-06 23:55] LABS: CKMB 2.1 NG/ML (0.5-3.6)
[2017-05-07] VITALS (8 sets, daily range): BP systolic 116–145; BP diastolic 67–81; PULSE 88–100; RESP 18–22; TEMP 98.2–99; O2SAT 91–97
--- NOTE | 2017-05-07 | RADRPT ---
EXAM DATE/TIME: 05/06/2017 23:40 [facility] COMPARISON: CHEST SINGLE AP, April 27, 2017, 23:32. INDICATIONS : Shortness of breath. MEDICAL HISTORY : Gastroesophageal reflux disease. Chronic obstructive pulmonary disease. Hypertension Fibromyalgia SURGICAL HISTORY : Hysterectomy. Cholecystectomy. Tubal ligation. section. Colectomy, ENCOUNTER: Initial ACUITY: 1 day PAIN SCORE: 0/10 LOCATION: Bilateral chest FINDINGS: The heart size is normal. There is mild increased density at the bases bilaterally. There is intersti tial prominence in this region. When compared to the prior exam, there appears to be better aeration at the bases. No effusion is seen. CONCLUSION: Suspected bibasilar areas of consolidation or atelectasis which appear to be improving. Jj Dubon MD on May 06, 2017 at 23:57 Board Certified Radiologist. This report was verified electronically.
[2017-05-07] MEDS ORDERED: LEVOFLOXACIN 750 MG PREMIX INJ 150 ML IV ONE (01:00)
[2017-05-07] MEDS ORDERED: LEVA500T33 PO (01:00)
[2017-05-07] MEDS ORDERED: MEDR4PAK PO (01:00)
--- NOTE | 2017-05-07 02:05 | HHI.HP ---
[facility] Service Family Medicine Primary Care Physician Karen Abel MD Admission Diagnosis COPD exacerbation, Pneumonia Diagnoses: International Travel<30 Days: No Contact w/Intl Traveler<30days: No Known Affected Area: No Past Family Social History Allergies: Coded Allergies: No Known Allergies (Verified Adverse Reaction, Unknown, 05/06/17) Physical Exam Vital Signs Vital Signs Date Time Temp Pulse Resp B/P (MAP) Pulse Ox O2 Delivery O2 Flow Rate FiO2 05/06/17 23:35 95 Nasal Cannula 4.00 05/06/17 23:09 95 Nasal Cannula 3.00 05/06/17 23:03 98.3 99 95 Nasal Cannula 3.00 05/06/17 22:51 94 30 174/84 (114) 91 Laboratory Laboratory Tests Test 05/06/17 23:00 05/06/17 23:10 White Blood Count 8.1 Red Blood Count 4.13 Hemoglobin 12.6 Hematocrit 37.7 Mean Corpuscular Volume 91.2 Mean Corpuscular Hemoglobin 30.4 Mean Corpuscular Hemoglobin Concent 33.4 Red Cell Distribution Width 16.4 Platelet Count 298 Mean Platelet Volume 6.8 Neutrophils (%) (Auto) 67.9 Lymphocytes (%) (Auto) 21.7 Monocytes (%) (Auto) 8.9 Eosinophils (%) (Auto) 0.8 Basophils (%) (Auto) 0.7 Neutrophils # (Auto) 5.5 Lymphocytes # (Auto) 1.7 Monocytes # (Auto) 0.7 Eosinophils # (Auto) 0.1 Basophils # (Auto) 0.1 CBC Comment DIFF FINAL Differential Comment Prothrombin Time 10.4 Prothromb Time International Ratio 0.9 Activated Partial Thromboplast Time 24.0 Blood Urea Nitrogen 10 Creatinine 0.87 Random Glucose 162 Total Protein 6.5 Albumin 3.3 Calcium Level 8.4 Alkaline Phosphatase 95 Aspartate Amino Transf (AST/SGOT) 60 Alanine Aminotransferase (ALT/SGPT) 38 Total Bilirubin 0.3 Sodium Level 136 Potassium Level 3.6 Chloride Level 102 Carbon Dioxide Level 22.7 Anion Gap 11 Estimat Glomerular Filtration Rate 65 Total Creatine Kinase 555 Creatine Kinase MB 2.1 Creatine Kinase MB % 0.4 Troponin I 0.02 B-Type Natriuretic Peptide 302 Date/Time Source Procedure Growth Status 05/06/17 23:10 Blood Peripheral Aerobic Blood Culture Pending Received 05/06/17 23:10 Blood Peripheral Anaerobic Blood Culture Pending Received Result Diagram: 05/06/17229905/06/17 2310 Caprini VTE Risk Assessment Caprini Risk Assessment Model Point Value = 1 Point Value = 2 Point Value = 3 Point Value = 5 Age 41-60 Minor surgery BMI > 25 kg/m2 Swollen legs Varicose veins or History of unexplained or recurrent spontaneous Oral contraceptives or hormone replacement Sepsis (< 1 month) Serious lung disease, including pneumonia (< 1 month) Abnormal pulmonary function Acute myocardial infarction Congestive heart failure (< 1 month) History of inflammatory bowel disease Medical patient at bed rest Age 61-74 Arthroscopic surgery Major open surgery (> 45 min) Laparoscopic surgery (> 45 min) Malignancy Confined to bed (> 72 hours) Immobilizing plaster cast Central venous access Age >= 75 History of VTE Family history of VTE Factor V Leiden Prothrombin [id number] Lupus anticoagulant Anticardiolipin antibodies Elevated serum homocysteine Heparin-induced thrombocytopenia Other congenital or acquired thrombophilia Stroke (< 1 month) Elective arthroplasty Hip, pelvis, or leg fracture Acute spinal cord injury (< 1 month) Prophylaxis Regimen Total Risk Factor Score Risk Level Prophylaxis Regimen 0-1 Low Early ambulation 2 Moderate Order ONE of the following: *Sequential Compression Device (SCD) *Heparin 5000 units SQ BID 3-4 Higher Order ONE of the following medications: *Heparin 5000 units SQ TID *Enoxaparin/Lovenox 40 mg SQ daily (WT < 150 kg, CrCl > 30 mL/min) *Enoxaparin/Lovenox 30 mg SQ daily (WT < 150 kg, CrCl > 10-29 mL/min) *Enoxaparin/Lovenox 30 mg SQ BID (WT < 150 kg, CrCl > 30 mL/min) AND/OR *Sequential Compression Device (SCD) 5 or more Highest Order ONE of the following medications: *Heparin 5000 units SQ TID (Preferred with Epidurals) *Enoxaparin/Lovenox 40 mg SQ daily (WT < 150 kg, CrCl > 30 mL/min) *Enoxaparin/Lovenox 30 mg SQ daily (WT < 150 kg, CrCl > 10-29 mL/min) *Enoxaparin/Lovenox 30 mg SQ BID (WT < 150 kg, CrCl > 30 mL/min) AND *Sequential Compression Device (SCD) Physician Certification Order for Inpatient Services The services are ordered in accordance with Medicare regulations or non- Medicare payer requirements, as applicable. In the case of services not specified as inpatient-only, they are appropriately provided as inpatient services in accordance with the 2-midnight benchmark. days is the estimated time the patient will need to remain in the hospital, assuming treatment plan goals are met and no additional complications. Vinicio Terry MD R2 May 07, 2017 02:05
[2017-05-07] MEDS ORDERED: BISACODYL 10 MG SUPP RECTAL PRN (03:15)
[2017-05-07] MEDS ORDERED: SODIUM CHLORIDE 0.9% FLUSH 10 ML FLUSH IV FLUSH PRN (03:15)
[2017-05-07] MEDS ORDERED: SENNOSIDES 8.6 MG TAB PO PRN (03:15)
[2017-05-07] MEDS ORDERED: ACETAMINOPHEN 325 MG TAB PO PRN (03:15)
[2017-05-07] MEDS ORDERED: NALOXONE HCL 0.4 MG/ML AMP IV PUSH PRN (03:15)
[2017-05-07] MEDS ORDERED: ONDANSETRON HCL 4 MG/2 ML VIAL IVP PRN (03:15)
[2017-05-07] MEDS ORDERED: RESP: ALBUTEROL 2.5 MG/IPRATROPIUM 0.5 MG NEB (PRN) NEB (03:15)
[2017-05-07] MEDS: ENOXAPARIN SODIUM 40 MG/0.4 ML SYRINGE SQ SCH (03:15)
[2017-05-07] MEDS: RESP: ALBUTEROL 2.5 MG/IPRATROPIUM 0.5 MG NEB (SCH) NEB ×4 (03:51→22:40)
--- NOTE | 2017-05-07 04:45 | HHI.HP ---
[facility] Service [facility] ([place], [place])ists Primary Care Physician Karen Abel MD Admission Diagnosis COPD exacerbation, Pneumonia Diagnoses: Travel History International Travel<30 Days: No Contact w/Intl Traveler <30 Da: No Traveled to Known Affected Are: No History of Present Illness 67-year-old female with a past medical history significant for SLE, hypertension , COPD, depression with previous suicidal ideation and fibromyalgia presents to the emergency department with shortness of breath that began last night. The patient was seen in the ED on 04/27/17 where she was treated for a COPD exacerbation and pneumonia with azithromycin and prednisone and discharged to home. She reports completion of both medications. The patient reports that her symptoms improved until last night when she took 2 puffs off of her 's cigarette and developed acute shortness of breath. She reports attempting to use her nebulizer machine but was unable to take in any of the medication and she could not breathe. Chest x-ray showed bibasilar areas of consolidation which are improved from 04/27. Patient currently requiring 4 L nasal cannula, is not on oxygen at home. Review of Systems Denies fever or chills Denies blurry vision, otorrhea, rhinorrhea Denies sore throat and cough No chest pain, palpitations, positive shortness of breath No abdominal pain Denies constipation/diarrhea/nausea/vomiting Denies muscle pain/weakness No rashes Past Family Social History Past Medical History SLE Hyperlipidemia Depression COPD Fibromyalgia Hypertension Genital herpes Cervical spinal stenosis TIA Past Surgical History 2 Hysterectomy Tubal ligation Cholecystectomy Reported Medications Reported Meds & Active Scripts Active Medrol Dosepak (Methylprednisolone) 4 Mg Dspk 4 Mg PO DIRECTED Per Pharmacist direction Levaquin (Levofloxacin) 500 Mg Tablet 500 Mg PO DAILY 7 Days Omeprazole 20 Mg Tab 20 Mg PO BID Fluticasone Nasal [place] 50 Mcg/Act Naspr 50 Mcg EACH NARE BID 50 mcg/spray Remeron (Mirtazapine) 15 Mg Tab 15 Mg PO HS Albuterol Neb (Albuterol Sulfate) 2.5 Mg/3 Ml Neb 2.5 Mg NEB TID NEB PRN Symbicort Inh (Budesonide/Formoterol Fumarate) 160-4.5 Mcg/Act Aero 2 Puff INH Q12HR Ventolin Hfa 18 GM Inh (Albuterol Sulfate) 90 Mcg/Act Aer 1 Puff INH Q6HR PRN Ecotrin Low Strength (Aspirin) 81 Mg Tabdr 81 Mg PO DAILY Olanzapine 5 Mg Tab 5 Mg PO BID Trazodone (Trazodone HCl) 50 Mg Tab 50 Mg PO HS PRN Metoprolol Tartrate 25 Mg Tab 12.5 Mg PO BID Reported Prednisone 10 Mg Tab 10 Mg PO DAILY Allergies: Coded Allergies: No Known Allergies (Verified Allergy, Unknown, 05/07/17) Family History No family history of diabetes or CAD Social History Quit smoking approximately 2-3 years ago, [id number] history prior. Occasional alcohol. Denies marijuana or illicit drugs. Physical Exam Vital Signs Vital Signs Date Time Temp Pulse Resp B/P (MAP) Pulse Ox O2 Delivery O2 Flow Rate FiO2 05/07/17 03:09 98.2 100 18 145/81 (102) 96 05/07/17 02:35 99 4.00 05/06/17 23:35 95 Nasal Cannula 4.00 05/06/17 23:09 95 Nasal Cannula 3.00 05/06/17 23:03 98.3 99 95 Nasal Cannula 3.00 05/06/17 22:51 94 30 174/84 (114) 91 Physical Exam GENERAL: Lying in bed SKIN: No rashes, ecchymoses or lesions. Cool and dry. HEAD: Atraumatic. Normocephalic. No temporal or scalp tenderness. EYES: Pupils equal round and reactive. Extraocular motions intact. No scleral icterus. No injection or drainage. ENT: Nose without bleeding, purulent drainage or septal hematoma. Throat without erythema, tonsillar hypertrophy or exudate. Uvula midline. Airway patent. NECK: Trachea midline. No JVD or lymphadenopathy. Supple, nontender, no meningeal signs. CARDIOVASCULAR: Regular rate and rhythm without murmurs, gallops, or rubs. RESPIRATORY: Clear to auscultation. Breath sounds equal bilaterally. No wheezes , rales, or rhonchi. GASTROINTESTINAL: Abdomen soft, non-tender, nondistended. No hepato-splenomegaly , or palpable masses. No guarding. MUSCULOSKELETAL: Extremities without clubbing, cyanosis, or edema. No joint tenderness, effusion, or edema noted. No calf tenderness. Negative Homans sign bilaterally. NEUROLOGICAL: Awake and alert. Cranial nerves II through XII intact. Motor and sensory grossly within normal limits. Normal speech. Laboratory Laboratory Tests Test 05/06/17 23:00 05/06/17 23:10 White Blood Count 8.1 Red Blood Count 4.13 Hemoglobin 12.6 Hematocrit 37.7 Mean Corpuscular Volume 91.2 Mean Corpuscular Hemoglobin 30.4 Mean Corpuscular Hemoglobin Concent 33.4 Red Cell Distribution Width 16.4 Platelet Count 298 Mean Platelet Volume 6.8 Neutrophils (%) (Auto) 67.9 Lymphocytes (%) (Auto) 21.7 Monocytes (%) (Auto) 8.9 Eosinophils (%) (Auto) 0.8 Basophils (%) (Auto) 0.7 Neutrophils # (Auto) 5.5 Lymphocytes # (Auto) 1.7 Monocytes # (Auto) 0.7 Eosinophils # (Auto) 0.1 Basophils # (Auto) 0.1 CBC Comment DIFF FINAL Differential Comment Prothrombin Time 10.4 Prothromb Time International Ratio 0.9 Activated Partial Thromboplast Time 24.0 Blood Urea Nitrogen 10 Creatinine 0.87 Random Glucose 162 Total Protein 6.5 Albumin 3.3 Calcium Level 8.4 Alkaline Phosphatase 95 Aspartate Amino Transf (AST/SGOT) 60 Alanine Aminotransferase (ALT/SGPT) 38 Total Bilirubin 0.3 Sodium Level 136 Potassium Level 3.6 Chloride Level 102 Carbon Dioxide Level 22.7 Anion Gap 11 Estimat Glomerular Filtration Rate 65 Total Creatine Kinase 555 Creatine Kinase MB 2.1 Creatine Kinase MB % 0.4 Troponin I 0.02 B-Type Natriuretic Peptide 302 Date/Time Source Procedure Growth Status 05/06/17 23:10 Blood Peripheral Aerobic Blood Culture Pending Received 05/06/17 23:10 Blood Peripheral Anaerobic Blood Culture Pending Received Result Diagram: 05/06/17 23005/06/17 231 Caprini VTE Risk Assessment Caprini VTE Risk Assessment: Mod/High Risk (score >= 2) Caprini Risk Assessment Model Point Value = 1 Point Value = 2 Point Value = 3 Point Value = 5 Age 41-60 Minor surgery BMI > 25 kg/m2 Swollen legs Varicose veins or History of unexplained or recurrent spontaneous Oral contraceptives or hormone replacement Sepsis (< 1 month) Serious lung disease, including pneumonia (< 1 month) Abnormal pulmonary function Acute myocardial infarction Congestive heart failure (< 1 month) History of inflammatory bowel disease Medical patient at bed rest Age 61-74 Arthroscopic surgery Major open surgery (> 45 min) Laparoscopic surgery (> 45 min) Malignancy Confined to bed (> 72 hours) Immobilizing plaster cast Central venous access Age >= 75 History of VTE Family history of VTE Factor V Leiden Prothrombin [id number] Lupus anticoagulant Anticardiolipin antibodies Elevated serum homocysteine Heparin-induced thrombocytopenia Other congenital or acquired thrombophilia Stroke (< 1 month) Elective arthroplasty Hip, pelvis, or leg fracture Acute spinal cord injury (< 1 month) Prophylaxis Regimen Total Risk Factor Score Risk Level Prophylaxis Regimen 0-1 Low Early ambulation 2 Moderate Order ONE of the following: *Sequential Compression Device (SCD) *Heparin 5000 units SQ BID 3-4 Higher Order ONE of the following medications: *Heparin 5000 units SQ TID *Enoxaparin/Lovenox 40 mg SQ daily (WT < 150 kg, CrCl > 30 mL/min) *Enoxaparin/Lovenox 30 mg SQ daily (WT < 150 kg, CrCl > 10-29 mL/min) *Enoxaparin/Lovenox 30 mg SQ BID (WT < 150 kg, CrCl > 30 mL/min) AND/OR *Sequential Compression Device (SCD) 5 or more Highest Order ONE of the following medications: *Heparin 5000 units SQ TID (Preferred with Epidurals) *Enoxaparin/Lovenox 40 mg SQ daily (WT < 150 kg, CrCl > 30 mL/min) *Enoxaparin/Lovenox 30 mg SQ daily (WT < 150 kg, CrCl > 10-29 mL/min) *Enoxaparin/Lovenox 30 mg SQ BID (WT < 150 kg, CrCl > 30 mL/min) AND *Sequential Compression Device (SCD) Assessment and Plan Assessment and Plan 67-year-old female with a past medical history significant for hypertension, COPD, recent diagnosis of pneumonia, SLE and fibromyalgia presents with acute COPD exacerbation. 1. COPD exacerbation/pneumonia Chest x-ray significant for bibasilar consolidation improved from 04/27, reviewed by me Patient's condition improving although she continues to require oxygen Levaquin IV steroids DuoNebs Home walk test ordered Anticipate discharge later today once patient's clinical condition has improved 2. Hypertension Continue home medications 3. Depression Continue home medications FEN Heart healthy diet Electrolytes: monitor and replete prn Lovenox Case discussed with ER physician the length Amarilys Payne MD May 07, 2017 04:45
[2017-05-07] MEDS ORDERED: traZODone HCL 50 MG TAB PO PRN (05:00)
[2017-05-07] MEDS: methylPREDNISolone SOD SUCC 40 MG/1 ML VIAL IV PUSH SCH ×3 (05:26→17:02)
--- NOTE | 2017-05-07 09:33 | EKG ---
Date Performed: 05/06/2017 Time Performed: 22:53:54 PTAGE: 67 years EKG: Baseline artifact present Sinus rhythm POSSIBLE LEFT ATRIAL ENLARGEMENT BORDERLINE ECG Marked baseline artifact on both EKGs makes comparis on difficult. DOCTOR: Raza Almodovar Interpretating Date/Time 05/07/2017 09:31:32
[2017-05-07] MEDS: OLANZapine 5 MG TAB PO SCH ×2 (10:00→21:36)
[2017-05-07] MEDS: ASPIRIN EC 81 MG TABEC PO SCH (10:00)
[2017-05-07] MEDS: METOPROLOL TARTRATE 25 MG TAB PO SCH ×2 (10:00→21:36)
[2017-05-07] MEDS: BUDESONIDE-FORMOTEROL 160/4.5 MCG INHALER INH SCH ×2 (10:01→21:35)
[2017-05-07] MEDS: SODIUM CHLORIDE 0.9% FLUSH 10 ML FLUSH IV FLUSH SCH ×2 (10:01→21:36)
[2017-05-07] MEDS: PANTOPRAZOLE SOD 20 MG DELAYED RELEASE TAB PO SCH ×2 (10:01→21:36)
[2017-05-07] MEDS: MIRTAZAPINE 15 MG TAB PO SCH (21:36)
[2017-05-08] VITALS (8 sets, daily range): BP systolic 116–152; BP diastolic 64–81; PULSE 78–94; RESP 18–20; TEMP 98.1–98.6; O2SAT 92–98
[2017-05-08] MEDS: methylPREDNISolone SOD SUCC 40 MG/1 ML VIAL IV PUSH SCH ×3 (00:52→22:32)
[2017-05-08] MEDS: LEVOFLOXACIN 750 MG PREMIX INJ 150 ML IV SCH (00:52)
[2017-05-08] MEDS: ENOXAPARIN SODIUM 40 MG/0.4 ML SYRINGE SQ SCH (03:08)
[2017-05-08] MEDS: RESP: ALBUTEROL 2.5 MG/IPRATROPIUM 0.5 MG NEB (SCH) NEB ×4 (03:54→20:47)
[2017-05-08] MEDS: BUDESONIDE-FORMOTEROL 160/4.5 MCG INHALER INH SCH ×2 (09:01→22:31)
[2017-05-08] MEDS: ASPIRIN EC 81 MG TABEC PO SCH (09:01)
[2017-05-08] MEDS: METOPROLOL TARTRATE 25 MG TAB PO SCH ×2 (09:01→22:32)
[2017-05-08] MEDS: PANTOPRAZOLE SOD 20 MG DELAYED RELEASE TAB PO SCH ×2 (09:01→22:32)
[2017-05-08] MEDS: OLANZapine 5 MG TAB PO SCH ×2 (09:01→22:32)
[2017-05-08] MEDS: SODIUM CHLORIDE 0.9% FLUSH 10 ML FLUSH IV FLUSH SCH ×2 (09:01→21:00)
[2017-05-08 10:21] LABS: AUTOMATED NEUTROPHIL # 11.1 TH/MM3 (1.8-7.7); BASOPHIL % 0.1 % (0.0-2.0); HEMATOCRIT 40.7 % (35.0-46.0); HEMO FLAGS DIFF FINAL; LYMPH % 4.8 % (9.0-44.0); LYMPHOCYTE # 0.6 TH/MM3 (1.0-4.8); MEAN CELL VOLUME 91.7 FL (80.0-100.0); MEAN CORPUSCULAR HGB CONC 33.8 % (32.0-36.0); MONO % 2.8 % (0.0-8.0); NEUT % 92.3 % (16.0-70.0); PLATELET COUNT 336 TH/MM3 (150-450); RED BLOOD COUNT 4.44 MIL/MM3 (4.00-5.30); RED CELL DISTRIBUTION WIDTH 16.3 % (11.6-17.2); WHITE BLOOD COUNT 12.1 TH/MM3 (4.0-11.0)
[2017-05-08 10:42] LABS: BICARBONATE 25.2 MEQ/L (21.0-32.0); POTASSIUM 4.3 MEQ/L (3.5-5.1)
[2017-05-08] MEDS ORDERED: OXYGENDME NAS.CANULA ×2 (11:05→16:20)
--- NOTE | 2017-05-08 11:27 | HHI.PR ---
Subjective Remarks Pt feels much better. Denies any CP/n/v. SOB is much improved. Wants to go home. Has an appt w Dr. Capellan on 05/13/17 Objective Vitals Vital Signs Date Time Temp Pulse Resp B/P (MAP) Pulse Ox O2 Delivery O2 Flow Rate FiO2 05/08/17 08:44 98.6 90 18 133/81 (98) 97 05/08/17 03:55 96 Nasal Cannula 4.00 05/08/17 03:36 98.2 84 18 116/68 (84) 98 05/08/17 00:00 98.4 78 20 122/64 (83) 97 05/07/17 22:40 91 Nasal Cannula 4.00 05/07/17 21:46 98.6 96 22 132/74 (93) 93 05/07/17 16:45 94 05/07/17 15:18 98.6 88 18 140/67 (91) 92 05/07/17 11:59 18 I/O 05/07/17 05/07/17 05/07/17 05/08/17 05/08/17 05/08/17 07:00 15:00 23:00 07:00 15:00 23:00 Intake Total 650 ml Balance 650 ml Intake IV Total 650 ml Result Diagram: 05/08/17 0910 05/08/17 0910 Imaging Last Impressions Chest X-Ray 05/06/17 2306 Signed Impressions: Service Date/Time: Saturday, May 06, 2017 23:40 - CONCLUSION: Suspected bibasilar areas of consolidation or atelectasis which appear to be improving. Jj Dubon MD Objective Remarks GENERAL: sitting up in bed ENT: Nose without drainage. Airway patent. NECK: Trachea midline. CARDIOVASCULAR: Regular rate and rhythm without murmurs RESPIRATORY: Clear to auscultation. Breath sounds equal bilaterally. No wheezes GASTROINTESTINAL: Abdomen soft, non-tender, nondistended. No guarding. MUSCULOSKELETAL: Extremities without edema. No calf tenderness. Negative Homans sign bilaterally. NEUROLOGICAL: Awake and alert. Cranial nerves II through XII intact. Motor and sensory grossly within normal limits. Normal speech. A/P Assessment and Plan 67-year-old female with a past medical history significant for hypertension, COPD, recent diagnosis of pneumonia, SLE and fibromyalgia presents with acute COPD exacerbation. 1. COPD exacerbation/pneumonia Chest x-ray significant for bibasilar consolidation improved from 04/27 Patient's condition improving although she continues to require oxygen. Failed walk test and will require home oxygen which has been ordered. continue Levaquin. IS q1hr while awake on IV steroids, decrease to q12hrs continue DuoNebs 2. Hypertension Continue home medications 3. Depression Continue home medications FEN Heart healthy diet Electrolytes: monitor and replete prn Lovenox Discharge Planning Anticipate discharge tomorrow once final blood cx resulted. Discussed w Dr. Meléndez (non official consult), recommends waiting for final blood cx results prior to d/c pt home. Fransisca Chappell MD May 08, 2017 11:27
[2017-05-08] MEDS: MIRTAZAPINE 15 MG TAB PO SCH (22:32)
[2017-05-09] VITALS: BP 143/81; PULSE 96; RESP 20; TEMP 98.9; O2SAT 96
[2017-05-09] MEDS: LEVOFLOXACIN 750 MG PREMIX INJ 150 ML IV SCH (02:42)
[2017-05-09] MEDS: ENOXAPARIN SODIUM 40 MG/0.4 ML SYRINGE SQ SCH (02:43)
[2017-05-09] MEDS: RESP: ALBUTEROL 2.5 MG/IPRATROPIUM 0.5 MG NEB (SCH) NEB ×2 (03:04→09:49)
[2017-05-09 04:00] VITALS: BP 173/87; PULSE 103; RESP 20; TEMP 98.1; O2SAT 95
[2017-05-09 08:34] VITALS: BP 160/83; PULSE 87; RESP 18; TEMP 99.6; O2SAT 95
[2017-05-09] MEDS ORDERED: TIOTROPIUM BROMIDE 18 MCG INH INH SCH (09:00)
[2017-05-09] MEDS ORDERED: AZITHROMYCIN 250 MG TAB PO SCH (09:00)
[2017-05-09 09:50] VITALS: O2SAT 98
[2017-05-09] MEDS ORDERED: SPIRCAP INH (10:28)
[2017-05-09] MEDS ORDERED: SYMB160A INH (10:28)
[2017-05-09] MEDS ORDERED: AZIT250T3 PO (10:28)
[2017-05-09] MEDS ORDERED: VENTAER INH (10:28)
[2017-05-09] MEDS ORDERED: IPRA17I INH (10:28)
[2017-05-09] MEDS ORDERED: MEDR4PAK PO (10:28)
[2017-05-09] MEDS: methylPREDNISolone SOD SUCC 40 MG/1 ML VIAL IV PUSH SCH (10:30)
[2017-05-09] MEDS: METOPROLOL TARTRATE 25 MG TAB PO SCH (10:30)
[2017-05-09] MEDS: PANTOPRAZOLE SOD 20 MG DELAYED RELEASE TAB PO SCH (10:30)
[2017-05-09] MEDS: OLANZapine 5 MG TAB PO SCH (10:31)
[2017-05-09] MEDS: ASPIRIN EC 81 MG TABEC PO SCH (10:31)
[2017-05-09] MEDS ORDERED: DIAZ5TAB PO (10:32)
--- NOTE | 2017-05-09 11:29 | HHI.PR ---
Subjective Remarks Follow-up Follow up COPD exacerbation 05/09/17-patient seen and examined, reports significant shortness of breath, no acute event overnight. Afebrile. Looking for discharge home Objective Vitals Vital Signs Date Time Temp Pulse Resp B/P (MAP) Pulse Ox O2 Delivery O2 Flow Rate FiO2 05/09/17 09:50 98 Nasal Cannula 2.00 05/09/17 08:34 99.6 87 18 160/83 (108) 95 05/09/17 04:00 98.1 103 20 173/87 (115) 95 05/09/17 00:00 98.9 96 20 143/81 (101) 96 05/08/17 20:49 98 Nasal Cannula 2.00 05/08/17 20:00 98.1 92 20 119/72 (88) 98 05/08/17 15:29 98.1 82 18 126/65 (85) 96 05/08/17 11:32 98.4 94 18 152/80 (104) 92 Result Diagram: 05/08/17 0910 05/08/17 0910 Imaging Last Impressions Chest X-Ray 05/06/17 2306 Signed Impressions: Service Date/Time: Saturday, May 06, 2017 23:40 - CONCLUSION: Suspected bibasilar areas of consolidation or atelectasis which appear to be improving. Jj Dubon MD Objective Remarks GENERAL: NAD SKIN: Warm and dry. HEAD: Normocephalic. EYES: No scleral icterus. No injection or drainage. NECK: Supple, trachea midline. No JVD or lymphadenopathy. CARDIOVASCULAR: Regular rate and rhythm without murmurs, gallops, or rubs. RESPIRATORY: Breath sounds equal bilaterally. No accessory muscle use. GASTROINTESTINAL: Abdomen soft, non-tender, nondistended. MUSCULOSKELETAL: No cyanosis, or edema. BACK: Nontender without obvious deformity. No CVA tenderness. A/P Problem List: (1) COPD with respiratory failure, acute ICD Code: J96.00 - Acute respiratory failure, unspecified whether with hypoxia or hypercapnia; J44.9 - Chronic obstructive pulmonary disease, unspecified (2) COPD with exacerbation ICD Code: J44.1 - Chronic obstructive pulmonary disease with (acute) exacerbation Assessment and Plan 67-year-old female with COPD exacerbation COPD respiratory failure,acute Currently improved on Solu-Medrol, IV antibiotics, Scheduled and when necessary DuoNeb, long-acting beta agonist, Spiriva, Symbicort, Mucinex Maintain oxygen saturation above 92%, patient will need home oxygen on discharge Will discharge on PO Steroid 2. Hypertension Continue home medications 3. Depression Continue home medications DVT prophylaxis: B SCDs Discharge Planning Discharge patient to home Condition on discharge: Improved Regular Diet as tolerated Ad Barb activity Rx written:see EMR Follow-up with primary care physician in 1week Howard Torres MD May 09, 2017 11:29
== END 2017-05-09 10:43 | disposition home or self-care (01) ==
LOC: NEPC 22:45 → NEDA 05-07 01:53 → INTOOBSV 05-07 01:53 → NEPHCDU 05-07 02:41
PROVIDERS: ADMIT Hospitalist; ATTEND Hospitalist
DX: J44.1 Chronic obstructive pulmonary disease with (acute) exacerbation (principal); J44.0 Chronic obstructive pulmonary disease with (acute) lower respiratory infection; J96.00 Acute respiratory failure, unspecified whether with hypoxia or hypercapnia; J18.9 Pneumonia, unspecified organism; R19.7 Diarrhea, unspecified; I10 Essential (primary) hypertension; M79.7 Fibromyalgia; M32.9 Systemic lupus erythematosus, unspecified; F32.9 Major depressive disorder, single episode, unspecified; E78.00 Pure hypercholesterolemia, unspecified; K21.9 Gastro-esophageal reflux disease without esophagitis; M48.02 Spinal stenosis, cervical region; F41.9 Anxiety disorder, unspecified; M19.90 Unspecified osteoarthritis, unspecified site; F17.290 Nicotine dependence, other tobacco product, uncomplicated; Z86.73 Personal history of transient ischemic attack (TIA), and cerebral infarction without residual deficits; Z79.899 Other long term (current) drug therapy
CPT/HCPCS: 71010; 80048; 80053; 82550; 82552; 83880; 84484; 85025; 85610; 85730; 87040; 87149; 87186; 87205; 93005; 94620; 94640; 94664; 96361; 96365; 96366; 96372; 96375; 96376; 99285; G0378; J1650; J1956; J2920; J7040

== ENCOUNTER 2017-10-02 07:51 | Inpatient (IN) | payer MEDICARE, MEDICAID ==
[~2017-10-02] VITALS: Ht 152.4 cm; Wt 62.1 kg
[2017-10-02] VITALS (12 sets, daily range): BP systolic 86–125; BP diastolic 38–76; PULSE 81–120; RESP 16–18; TEMP 98–100; O2SAT 94–98
[~2017-10-02 07:51] MED LIST changes: +DIAZ5TAB PO; +IPRA17I INH; +MEDR4PAK PO; +OXYGENDME NAS.CANULA; -PRED10 PO; -PRED20 PO; +SPIRCAP INH
[2017-10-02] MEDS ORDERED: methylPREDNISolone SOD SUCC 125 MG/2 ML VIAL IV PUSH ONE (08:00)
[2017-10-02] MEDS ORDERED: SODIUM CHLORID 0.9% 500 ML INJ 500 ML IV ONE ×2 (08:00→08:45)
[2017-10-02] MEDS ORDERED: METH2.5T PO (08:12)
[2017-10-02] MEDS ORDERED: BACL10TA PO (08:12)
[2017-10-02] MEDS ORDERED: HYDR200T3 PO (08:12)
[2017-10-02] MEDS ORDERED: ALPR0.5T3 PO (08:12)
[2017-10-02] MEDS ORDERED: DULO1CAP2 PO (08:12)
[2017-10-02] MEDS ORDERED: LYRI75CA PO (08:12)
[2017-10-02] MEDS ORDERED: CARI350T25 PO (08:12)
[2017-10-02] MEDS ORDERED: TOPR25TA PO (08:12)
[2017-10-02] MEDS ORDERED: PRED10 PO (08:12)
--- NOTE | 2017-10-02 08:13 | PD ---
HPI Chief Complaint: Abdominal Pain Time Seen by Provider: 08:00 Travel History International Travel<30 days: No Contact w/Intl Traveler<30days: No Traveled to known affect area: No History of Present Illness HPI This 67-year-old female is brought by private vehicle. She has no history of COPD and lupus. She took metoprolol for the first time yesterday. Her says that soon after taking it she started vomiting. He says she has been vomiting throughout the night and has been having some abdominal pain. This morning he noted that she had a temp of 102.6 and she seemed short of breath. She does take Xanax and took some earlier. She says she did not sleep last night because of her persistent vomiting. She has a history of lupus and is on hydroxychloroquine. She is on not on steroids at this time PFS Past Medical History Hx Anticoagulant Therapy: Yes (81 mg asa) Arthritis: Yes Asthma: No Autoimmune Disease: Yes (LUPUS) Blood Disorders: No Anxiety: Yes Depression: No Heart Rhythm Problems: No Cancer: No Cardiovascular Problems: Yes High Cholesterol: Yes Chemotherapy: No Chest Pain: No Congestive Heart Failure: No COPD: Yes Cerebrovascular Accident: Yes Coronary Artery Disease: No Diabetes: No Diminished Hearing: No Endocrine: No Fibromyalgia: Yes Gastrointestinal Disorders: Yes (LUPUS) GERD: Yes Genitourinary: Yes Hiatal Hernia: No Hypertension: Yes (but currently no meds needed) Immune Disorder: Yes (lupus) Implanted Vascular Access Dvce: No Kidney Stones: No Musculoskeletal: Yes Neurologic: No Psychiatric: Yes Reproductive: No Respiratory: Yes Immunizations Current: Yes Migraines: Yes Radiation Therapy: No Renal Failure: No Seizures: No Sleep Apnea: No Ulcer: No Menopausal: Yes : 4 Para: 4 Tubal Ligation: Yes Past Surgical History Abdominal Surgery: Yes (christian) AICD: No Arteriovenous Shunt: No Section: Yes (X3) Cholecystectomy: Yes Hysterectomy: Yes Insulin Pump: No Joint Replacement: No Pacemaker: No Social History Alcohol Use: Yes (occ) Tobacco Use: Yes ("vape" DAILY) Substance Use: No Allergies-Medications (Allergen,Severity, Reaction): Coded Allergies: No Known Allergies (Verified Allergy, Unknown, 10/02/17) Reported Meds & Prescriptions Reported Meds & Active Scripts Active Diazepam 5 Mg Tab 5 Mg PO HS PRN 30 Days Atrovent HFA 12.9 GM Inh (Ipratropium [place]) 17 Mcg/Actuation Aer 2 Puff INH Q6HR PRN Spiriva Handihaler (Tiotropium Inh) 18 Mcg Cap 18 Mcg INH DAILY 1 capsule = 18 mcg Symbicort Inh (Budesonide/Formoterol Fumarate) 160-4.5 Mcg/Act Aero 2 Puff INH Q12HR Ventolin Hfa 18 GM Inh (Albuterol Sulfate) 90 Mcg/Act Aer 1 Puff INH Q6HR PRN Oxygen (O2) Device Liter EUGENIO.CANULA CONTINUOUS Oxygen Concentrator Portable Gaseous 2 L/min via Nasal Canula Continuous For 99 months Omeprazole 20 Mg Tab 20 Mg PO BID Fluticasone Nasal [place] 50 Mcg/Act Naspr 50 Mcg EACH NARE BID 50 mcg/spray Albuterol Neb (Albuterol Sulfate) 2.5 Mg/3 Ml Neb 2.5 Mg NEB TID NEB PRN Ecotrin Low Strength (Aspirin) 81 Mg Tabdr 81 Mg PO DAILY Trazodone (Trazodone HCl) 50 Mg Tab 50 Mg PO HS PRN Reported Baclofen 10 Mg Tab 10 Mg PO BID Methotrexate 2.5 Mg Tab 15 Mg PO Q7D Duloxetine DR (Duloxetine HCl) 30 Mg Capdr 30 Mg PO DAILY Prednisone 10 Mg Tab 10 Mg PO DAILY Carisoprodol 350 Mg Tablet 350 Mg PO Q6HR Toprol XL (Metoprolol Succinate) 25 Mg Tab 25 Mg PO DAILY Hydroxychloroquine (Hydroxychloroquine Sulfate) 200 Mg Tab 200 Mg PO BID Takw with food Lyrica (Pregabalin) 75 Mg Cap 75 Mg PO TID Alprazolam 0.5 Mg Tab 0.5 Mg PO DAILY PRN Review of Systems General / Constitutional: Positive: Fever Eyes: No: Diploplia, Blurred Vision HENT: No: Headaches Cardiovascular: No: Chest Pain or Discomfort, Palpitations Respiratory: Positive: Shortness of Breath Gastrointestinal: Positive: Nausea, Vomiting, Abdominal Pain Genitourinary: No: Urgency, Frequency Skin: No Rash, No Itching Neurologic: Positive: Weakness, Dizziness Endocrine: No: Heat Intolerance Hematologic/Lymphatic: No: Easy Bruising Physical Exam Narrative GENERAL: Well-developed female. She was initially short of breath SKIN: Focused skin assessment warm/dry. HEAD: Atraumatic. Normocephalic. EYES: Pupils equal and round. No scleral icterus. No injection or drainage. ENT: No nasal bleeding or discharge. Mucous membranes dry NECK: Trachea midline. No JVD. CARDIOVASCULAR: Regular rate and rhythm. No murmur appreciated. RESPIRATORY: There is accessory muscle use. There is scattered wheezing GASTROINTESTINAL: Abdomen soft, there is diffuse tenderness without rigidity, nondistended. Hepatic and splenic margins not palpable. Sounds are active MUSCULOSKELETAL: No obvious deformities. No clubbing. No cyanosis. No edema. NEUROLOGICAL: Slightly lethargic but easily awoken no obvious cranial nerve deficits. Motor grossly within normal limits. Normal speech. PSYCHIATRIC: Appropriate mood and affect; insight and judgment normal. Data Data Last Documented VS Vital Signs Date Time Temp Pulse Resp B/P (MAP) Pulse Ox O2 Delivery O2 Flow Rate FiO2 10/02/17 09:54 110 16 123/58 (79) 98 Nasal Cannula 2.00 10/02/17 08:28 98.0 Orders Orders Sepsis Workup Initiated (10/02/17 ) Complete Blood Count With Diff (10/02/17 08:00) Comprehensive Metabolic Panel (10/02/17 08:00) Prothrombin Time / Inr (Pt) (10/02/17 08:00) Act Partial Throm Time (Ptt) (10/02/17 08:00) Lactic Acid Sepsis Protocol (10/02/17 08:00) Magnesium (Mg) (10/02/17 08:00) Troponin I (10/02/17 08:00) Urinalysis - C+S If Indicated (10/02/17 08:00) Blood Culture (10/02/17 08:00) Chest, Single Ap (10/02/17 08:00) Blood Glucose (10/02/17 08:00) Ecg Monitoring (10/02/17 08:00) Iv Access Insert/Monitor (10/02/17 08:00) Oximetry (10/02/17 08:00) Oxygen Administration (10/02/17 08:00) Methylprednisolone So Succ Inj (Solumedr (10/02/17 08:00) Sodium Chlorid 0.9% 500 Ml Inj (Ns 500 M (10/02/17 08:00) Albuterol-Ipratropium Neb (Duoneb Neb) (10/02/17 08:15) Arterial Blood Gas (Abg) (10/02/17 ) Electrocardiogram (10/02/17 ) Ondansetron Inj (Zofran Inj) (10/02/17 08:15) Pantoprazole Inj (Protonix Inj) (10/02/17 08:15) Sodium Chlorid 0.9% 500 Ml Inj (Ns 500 M (10/02/17 08:45) Piperacil-Tazo 4.5 Gm Premix (Zosyn 4.5 (10/02/17 08:44) Ct Abd/Pel W/O Iv Contrast (10/02/17 08:52) Sodium Chlor 0.9% 1000 Ml Inj (Ns 1000 M (10/02/17 09:00) Lipase (10/02/17 08:10) Urinary Catheter Insert/Apply (10/02/17 09:43) Sodium Chlor 0.9% 1000 Ml Inj (Ns 1000 M (10/02/17 09:45) Sodium Chlor 0.9% 1000 Ml Inj (Ns 1000 M (10/02/17 10:00) Admit To Inpatient (10/02/17 ) Vital Signs (Adult) CLARISA.Q4H (10/02/17 10:58) Activity Oob With Assistance (10/02/17 10:58) [place] / Telemetry CLARISA.Q8H (10/02/17 10:58) Inpatient Certification (10/02/17 ) Labs Laboratory Tests Test 10/02/17 08:10 10/02/17 08:20 10/02/17 10:24 White Blood Count 11.2 TH/MM3 Red Blood Count 5.81 MIL/MM3 Hemoglobin 14.5 GM/DL Hematocrit 45.0 % Mean Corpuscular Volume 77.6 FL Mean Corpuscular Hemoglobin 25.0 PG Mean Corpuscular Hemoglobin Concent 32.2 % Red Cell Distribution Width 19.2 % Platelet Count 459 TH/MM3 Mean Platelet Volume 6.5 FL Neutrophils (%) (Auto) 77.8 % Lymphocytes (%) (Auto) 6.4 % Monocytes (%) (Auto) 5.1 % Eosinophils (%) (Auto) 7.6 % Basophils (%) (Auto) 3.1 % Neutrophils # (Auto) 8.7 TH/MM3 Lymphocytes # (Auto) 0.7 TH/MM3 Monocytes # (Auto) 0.6 TH/MM3 Eosinophils # (Auto) 0.9 TH/MM3 Basophils # (Auto) 0.3 TH/MM3 CBC Comment AUTO DIFF Differential Comment AUTO DIFF CONFIRMED Platelet Estimate HIGH Platelet Morphology Comment NORMAL Prothrombin Time 10.0 SEC Prothromb Time International Ratio 1.0 RATIO Activated Partial Thromboplast Time 23.8 SEC Blood Urea Nitrogen 14 MG/DL Creatinine 1.40 MG/DL Random Glucose 99 MG/DL Total Protein 8.5 GM/DL Albumin 4.2 GM/DL Calcium Level 9.5 MG/DL Magnesium Level 1.7 MG/DL Alkaline Phosphatase 88 U/L Aspartate Amino Transf (AST/SGOT) 21 U/L Alanine Aminotransferase (ALT/SGPT) 23 U/L Total Bilirubin 0.3 MG/DL Sodium Level 133 MEQ/L Potassium Level 3.8 MEQ/L Chloride Level 102 MEQ/L Carbon Dioxide Level 21.7 MEQ/L Anion Gap 9 MEQ/L Estimat Glomerular Filtration Rate 38 ML/MIN Lactic Acid Level 3.5 mmol/L Troponin I LESS THAN 0.02 NG/ML Lipase 111 U/L Blood Gas Puncture Site LT RADIAL Blood Gas Patient Temperature 98.6 Blood Gas HCO3 19 mmol/L Blood Gas Base Excess -5.4 mmol/L Blood Gas Oxygen Saturation 94 % Arterial Blood pH 7.38 Arterial Blood Partial Pressure CO2 33 mmHG Arterial Blood Partial Pressure O2 94 mmHG Arterial Blood Oxygen Content 18.4 Vol % Arterial Blood Carboxyhemoglobin 1.5 % Arterial Blood Methemoglobin 1.2 % Blood Gas Hemoglobin 13.9 G/DL Oxygen Delivery Device NASAL CANNULA Blood Gas Liter Flow 2 L/M Urine Collection Type CATH Urine Color YELLOW Urine Turbidity CLEAR Urine pH 5.5 Urine Specific [place] GREATER/EQUAL 1.030 Urine Protein 30 mg/dL Urine Glucose (UA) NEG mg/dL Urine Ketones NEG mg/dL Urine Occult Blood TRACE Urine Nitrite NEG Urine Bilirubin NEG Urine Urobilinogen 0.2 MG/DL Urine Leukocyte Esterase NEG Urine WBC 0-2 /hpf Urine Squamous Epithelial Cells 0-2 /hpf Urine Mucus RARE /lpf Microscopic Urinalysis Comment CULT NOT INDICATED MDM Medical Decision Making Medical Screen Exam Complete: Yes Emergency Medical Condition: Yes Medical Record Reviewed: Yes Differential Diagnosis Differential includes dehydration, sepsis, abdominal pain, COPD exacerbation, CHF Narrative Course Patient has been given saline bolus and her blood pressure has come up to 120/ 60 and her pulse rate has come from 122 about 100. She has been given a dose of Solu-Medrol. Chest x-ray shows bibasilar streakiness without focal infiltrate CT shows no acute abnormality in the abdomen and pelvis it is noted that she has had cholecystectomy and has avascular necrosis of the right femoral head. Hemoglobin is 14.5 with a white count of 11.2. BUN is 14 with creatinine of 1.4. Lactate is 3.5. Initially the patient was treated for possible sepsis with Zosyn. Patient did have a large bowel movement and reports improvement in her abdominal pain after this. Repeat exam shows the abdomen to be fairly soft and nontender. Her breathing has improved. Her blood gas on admission showed pH 7.37 PCO2 33 and PO2 of 94 this was on 2 L nasal cannula Diagnosis Primary Impression: Dehydration Additional Impression: COPD with exacerbation Keaton Blake MD Oct 02, 2017 08:13
[2017-10-02] MEDS ORDERED: RESP: ALBUTEROL 2.5 MG/IPRATROPIUM 0.5 MG NEB (SCH) NEB ONE (08:15)
[2017-10-02] MEDS ORDERED: PANTOPRAZOLE SODIUM 40 MG VIAL IV PUSH ONE (08:15)
[2017-10-02] MEDS ORDERED: ONDANSETRON HCL 4 MG/2 ML VIAL IV PUSH ONE (08:15)
[2017-10-02 08:21] LABS: AUTOMATED NEUTROPHIL # 8.7 TH/MM3 (1.8-7.7); BASOPHIL # 0.3 TH/MM3 (0-0.2); BASOPHIL % 3.1 % (0.0-2.0); EOSINOPHIL # 0.9 TH/MM3 (0-0.4); EOSINOPHIL % 7.6 % (0.0-4.0); HEMOGLOBIN 14.5 GM/DL (11.6-15.3); LYMPH % 6.4 % (9.0-44.0); LYMPHOCYTE # 0.7 TH/MM3 (1.0-4.8); MEAN CELL VOLUME 77.6 FL (80.0-100.0); MEAN CORPUSCULAR HGB CONC 32.2 % (32.0-36.0); MEAN PLATELET VOLUME 6.5 FL (7.0-11.0); MONO % 5.1 % (0.0-8.0); MONOCYTE # 0.6 TH/MM3 (0-0.9); NEUT % 77.8 % (16.0-70.0); PLATELET COUNT 459 TH/MM3 (150-450); RED BLOOD COUNT 5.81 MIL/MM3 (4.00-5.30); RED CELL DISTRIBUTION WIDTH 19.2 % (11.6-17.2); WHITE BLOOD COUNT 11.2 TH/MM3 (4.0-11.0)
[2017-10-02 08:31] LABS: CHLORIDE 102 MEQ/L (98-107); SODIUM (NA) 133 MEQ/L (136-145)
[2017-10-02 08:34] LABS: CALCIUM 9.5 MG/DL (8.5-10.1)
[2017-10-02 08:35] LABS: ALBUMIN 4.2 GM/DL (3.4-5.0); BICARBONATE 21.7 MEQ/L (21.0-32.0); BLOOD UREA NITROGEN 14 MG/DL (7-18); GLUCOSE,RANDOM 99 MG/DL (74-106); MAGNESIUM 1.7 MG/DL (1.5-2.5)
[2017-10-02 08:38] LABS: ALT (GPT) 23 U/L (10-53); AST (GOT) 21 U/L (15-37); GLOMERULAR FILTRATION RATE 38 ML/MIN (>89)
[2017-10-02 08:39] LABS: TOTAL BILIRUBIN ADULT 0.3 MG/DL (0.2-1.0)
[2017-10-02 08:40] LABS: TOTAL PROTEIN 8.5 GM/DL (6.4-8.2)
[2017-10-02 08:41] LABS: ALKALINE PHOSPHATASE 88 U/L (45-117); LACTIC ACID SEPSIS PROTOCOL 3.5 mmol/L (0.4-2.0)
[2017-10-02 08:43] LABS: TROPONIN I LESS THAN 0.02 NG/ML (0.02-0.05)
[2017-10-02] MEDS ORDERED: PIPERACIL-TAZO 4.5 GM PREMIX 100 ML IV STA (08:44)
[2017-10-02] MEDS ORDERED: SODIUM CHLOR 0.9% 1000 ML INJ 1,000 ML IV ONE ×3 (09:00→10:00)
--- NOTE | 2017-10-02 09:16 | RADRPT ---
EXAM DATE/TIME: 10/02/2017 08:28 [facility] COMPARISON: CHEST SINGLE AP, May 06, 2017, 23:40. INDICATIONS : Short of breath, vomiting,abdominal pain, possible reaction to new medication. MEDICAL HISTORY : Hypercholesterolemia. Chronic obstructive pulmonary disease. Gastroesophageal reflux disease. Lup us. Hypertension. Fibromyalgia. Arthritis. CVA. Emphysema. SURGICAL HISTORY : Hysterectomy. Tubal ligation. section. Cholecystectomy.Colectomy. ENCOUNTER: Initial ACUITY: 2 days PAIN SCORE: 6/10 LOCATION: chest FINDINGS: There is been interval improvement of the bibasilar streakiness. No focal infiltrate is noted. The he art is normal. CONCLUSION: Interval improvement of bibasilar streakiness with no focal infiltrate noted. Christopher Camejo MD on October 02, 2017 at 9:12 Board Certified Radiologist. This report was verified electronically.
--- NOTE | 2017-10-02 09:51 | RADRPT ---
EXAM DATE/TIME: 10/02/2017 09:22 [facility] COMPARISON: No previous studies available for comparison. INDICATIONS : Abdominal pain. Fever, nausea, vomiting and diarrhea. ORAL CONTRAST: No oral contrast ingested. RADIATION DOSE: 9.68 CTDIvol (mGy) MEDICAL HISTORY : Chronic obstructive pulmonary disease. Gastroesophageal reflux disease. Cerebrovascular disease.Lupus . Hypertension. SURGICAL HISTORY : section. Tubal ligation.Cholecystectomy.Hysterectomy. Colectomy. ENCOUNTER: Initial ACUITY: 1 day PAIN SCALE: 5/10 LOCATION: Abdomen. TECHNIQUE: Volumetric scanning of the abdomen and pelvis was performed. Using automated exposure control and ad justment of the mA and/or kV according to patient size, radiation dose was kept as low as reasonably achievable to obtain optimal diagnostic quality images. DICOM format image data is available electro nically for review and comparison. FINDINGS: LOWER LUNGS: The visualized lower lungs are clear. LIVER: Homogeneous density without lesion. There is no dilation of the biliary tree. Cholecystectomy. SPLEEN: Normal size without lesion. PANCREAS: Within normal limits. KIDNEYS: Normal in size and shape. There is no mass, stone, or hydronephrosis. ADRENAL GLANDS: Within normal limits. VASCULAR: There is no aortic aneurysm. BOWEL/MESENTERY: The stomach, small bowel, and colon demonstrate no acute abnormality. There is no free intraperitone al air or fluid. ABDOMINAL WALL: Within normal limits. RETROPERITONEUM: There is no lymphadenopathy. BLADDER: No wall thickening or mass. REPRODUCTIVE: Within normal limits. INGUINAL: There is no lymphadenopathy or hernia. MUSCULOSKELETAL: Avascular necrosis the right femoral head.. CONCLUSION: Status post cholecystectomy. Avascular necrosis right femoral head. Abdomen and pelvis are otherwise unremarkable. Tremayne Grijalva MD on October 02, 2017 at 9:47 Board Certified Radiologist. This report was verified electronically.
[2017-10-02 10:28] LABS: BILIRUBIN, URINE NEG (NEG); BLOOD, URINE TRACE (NEG); GLUCOSE,URINE NEG (NEG); KETONE, URINE NEG (NEG); NITRITE,URINE NEG (NEG); PH, URINE 5.5 (5.0-8.5); URINE COLOR YELLOW (YELLW/STRAW); URINE LEUKOCYTE ESTERASE NEG (NEG)
[2017-10-02 11:14] LABS: MUCUS URINE RARE /lpf (OCC); SQUAMOUS EPITHELIAL CELL URINE 0-2 /hpf (0-5); WBC, URINE 0-2 /hpf (0-5)
[2017-10-02] MEDS ORDERED: RESP: ALBUTEROL 2.5 MG/IPRATROPIUM 0.5 MG NEB (PRN) INH (12:45)
[2017-10-02] MEDS ORDERED: SODIUM CHLORIDE 0.9% FLUSH 10 ML FLUSH IV FLUSH PRN (12:45)
[2017-10-02] MEDS: methylPREDNISolone SOD SUCC 125 MG/2 ML VIAL IV PUSH SCH ×2 (13:42→20:54)
[2017-10-02] MEDS: RESP: ALBUTEROL 2.5 MG/IPRATROPIUM 0.5 MG NEB (SCH) INH ×2 (13:57→20:04)
[2017-10-02] MEDS ORDERED: SIMETHICONE 80 MG CHEWABLE TAB CHEW PRN (14:15)
[2017-10-02] MEDS ORDERED: ALPRAZolam 0.5 MG TAB PO PRN (14:15)
[2017-10-02] MEDS ORDERED: DIAZEPAM 5 MG TAB PO PRN (14:15)
--- NOTE | 2017-10-02 15:03 | HHI.HP ---
HPI Service [facility] Primary Care Physician Janeen Guzman D.O. Admission Diagnosis DEHYDRATION, COPD EXACERBATION Diagnoses: Chief Complaint: Shortness of breath/abdominal pain Travel History International Travel<30 Days: No Contact w/Intl Traveler <30 Da: No Traveled to Known Affected Are: No History of Present Illness 67-year-old female being admitted for shortness of breath and abdominal pain. Patient was in her usual state of health until sometime last night she began experiencing nausea vomiting diarrhea. Says that her diarrhea was very watery and nonstop, did notice some black stools. Did not notice any bright red blood. No reports of any coffee-ground emesis. Reports having abdominal pain associated with this. She did also have some shortness of breath that started, thus prompting her to come to the emergency department with the symptoms. Per the emergency room physician records, mikhail had told the staff that the patient did have a fever at home of 102.6. In the ER, no fever was noted. She was noted to be wheezing so she was started on duo nebs and Solu-Medrol. She was given a dose of Zosyn and IV fluids as well. CT scan was performed which showed no acute findings apart from some gaseous distention. Chest x-ray was overall unremarkable as well. Patient reports having colonoscopy many years ago but cannot remember the body component engineer that saw her. Review of Systems Except as stated in HPI: all other systems reviewed are Neg Past Family Social History Past Medical History Lupus COPD Chronic hypoxic respiratory failure Anxiety/depression Allergies: Coded Allergies: No Known Allergies (Verified Allergy, Unknown, 10/02/17) Family History No significant family history per patient Social History Stop smoking and drinking 10 years ago, lives with her cher Physical Exam Vital Signs Vital Signs Date Time Temp Pulse Resp B/P (MAP) Pulse Ox O2 Delivery O2 Flow Rate FiO2 10/02/17 14:00 96 Nasal Cannula 1.50 10/02/17 12:00 100.0 88 18 124/76 (92) 96 10/02/17 11:36 10/02/17 11:19 88 16 105/49 (67) 98 Nasal Cannula 2.00 10/02/17 09:54 110 16 123/58 (79) 98 Nasal Cannula 2.00 10/02/17 08:28 98.0 120 18 86/42 (57) 98 Nasal Cannula 2.00 10/02/17 08:24 98.0 120 16 86/38 (54) 98 10/02/17 08:20 96 Nasal Cannula 2.00 10/02/17 08:17 97 Nasal Cannula 2.00 10/02/17 08:17 98 Nasal Cannula 2.00 Physical Exam VS: afebrile GENERAL: Well-nourished female, lying in bed, no acute distress SKIN: Warm and dry. EYES: No scleral icterus. No injection or drainage. ENT: No nasal bleeding or discharge. Mucous membranes pink and moist. CARDIOVASCULAR: Regular rate and rhythm. no murmurs RESPIRATORY: No accessory muscle use. Mild end expiratory wheezing GASTROINTESTINAL: Abdomen soft, mild to moderate tenderness to palpation diffusely over abdomen, no rebound, nondistended Extremities: No clubbing, cyanosis, or edema. No obvious deformities. MUSCULOSKELETAL: grossly intact ROM with 5/5 strength in upper and lower extremities proximally; adequate muscle bulk and tone for age and habitus NEUROLOGICAL: Awake and alert. No obvious cranial nerve deficits. No facial droop nor slurred speech noted. PSYCHIATRIC: Appropriate mood and affect; insight and judgment normal. Laboratory Laboratory Tests Test 10/02/17 08:10 10/02/17 08:20 10/02/17 10:24 10/02/17 11:02 White Blood Count 11.2 Red Blood Count 5.81 Hemoglobin 14.5 Hematocrit 45.0 Mean Corpuscular Volume 77.6 Mean Corpuscular Hemoglobin 25.0 Mean Corpuscular Hemoglobin Concent 32.2 Red Cell Distribution Width 19.2 Platelet Count 459 Mean Platelet Volume 6.5 Neutrophils (%) (Auto) 77.8 Lymphocytes (%) (Auto) 6.4 Monocytes (%) (Auto) 5.1 Eosinophils (%) (Auto) 7.6 Basophils (%) (Auto) 3.1 Neutrophils # (Auto) 8.7 Lymphocytes # (Auto) 0.7 Monocytes # (Auto) 0.6 Eosinophils # (Auto) 0.9 Basophils # (Auto) 0.3 CBC Comment AUTO DIFF Differential Comment AUTO DIFF CONFIRMED Platelet Estimate HIGH Platelet Morphology Comment NORMAL Prothrombin Time 10.0 Prothromb Time International Ratio 1.0 Activated Partial Thromboplast Time 23.8 Blood Urea Nitrogen 14 Creatinine 1.40 Random Glucose 99 Total Protein 8.5 Albumin 4.2 Calcium Level 9.5 Magnesium Level 1.7 Alkaline Phosphatase 88 Aspartate Amino Transf (AST/SGOT) 21 Alanine Aminotransferase (ALT/SGPT) 23 Total Bilirubin 0.3 Sodium Level 133 Potassium Level 3.8 Chloride Level 102 Carbon Dioxide Level 21.7 Anion Gap 9 Estimat Glomerular Filtration Rate 38 Lactic Acid Level 3.5 3.0 Troponin I LESS THAN 0.02 Lipase 111 Blood Gas Puncture Site LT RADIAL Blood Gas Patient Temperature 98.6 Blood Gas HCO3 19 Blood Gas Base Excess -5.4 Blood Gas Oxygen Saturation 94 Arterial Blood pH 7.38 Arterial Blood Partial Pressure CO2 33 Arterial Blood Partial Pressure O2 94 Arterial Blood Oxygen Content 18.4 Arterial Blood Carboxyhemoglobin 1.5 Arterial Blood Methemoglobin 1.2 Blood Gas Hemoglobin 13.9 Oxygen Delivery Device NASAL CANNULA Blood Gas Liter Flow 2 Urine Collection Type CATH Urine Color YELLOW Urine Turbidity CLEAR Urine pH 5.5 Urine Specific [place] GREATER/EQUAL 1.030 Urine Protein 30 Urine Glucose (UA) NEG Urine Ketones NEG Urine Occult Blood TRACE Urine Nitrite NEG Urine Bilirubin NEG Urine Urobilinogen 0.2 Urine Leukocyte Esterase NEG Urine WBC 0-2 Urine Squamous Epithelial Cells 0-2 Urine Mucus RARE Microscopic Urinalysis Comment CULT NOT INDICATED Date/Time Source Procedure Growth Status 10/02/17 08:14 Blood Peripheral Aerobic Blood Culture Pending Received 10/02/17 08:14 Blood Peripheral Anaerobic Blood Culture Pending Received Result Diagram: 10/02/17 0810 10/02/17 0810 Imaging Last Impressions Abdomen/Pelvis CT 10/02/17 0852 Signed Impressions: Service Date/Time: September 09:22 - CONCLUSION: Status post cholecystectomy. Avascular necrosis right femoral head. Abdomen and pelvis are otherwise unremarkable. Tremayne Grijalva MD Chest X-Ray 10/02/17 0800 Signed Impressions: Service Date/Time: September 08:28 - CONCLUSION: Interval improvement of bibasilar streakiness with no focal infiltrate noted. MD Tom Brown VTE Risk Assessment Caprini VTE Risk Assessment: Mod/High Risk (score >= 2) Caprini Risk Assessment Model Point Value = 1 Point Value = 2 Point Value = 3 Point Value = 5 Age 41-60 Minor surgery BMI > 25 kg/m2 Swollen legs Varicose veins or History of unexplained or recurrent spontaneous Oral contraceptives or hormone replacement Sepsis (< 1 month) Serious lung disease, including pneumonia (< 1 month) Abnormal pulmonary function Acute myocardial infarction Congestive heart failure (< 1 month) History of inflammatory bowel disease Medical patient at bed rest Age 61-74 Arthroscopic surgery Major open surgery (> 45 min) Laparoscopic surgery (> 45 min) Malignancy Confined to bed (> 72 hours) Immobilizing plaster cast Central venous access Age >= 75 History of VTE Family history of VTE Factor V Leiden Prothrombin [id number] Lupus anticoagulant Anticardiolipin antibodies Elevated serum homocysteine Heparin-induced thrombocytopenia Other congenital or acquired thrombophilia Stroke (< 1 month) Elective arthroplasty Hip, pelvis, or leg fracture Acute spinal cord injury (< 1 month) Prophylaxis Regimen Total Risk Factor Score Risk Level Prophylaxis Regimen 0-1 Low Early ambulation 2 Moderate Order ONE of the following: *Sequential Compression Device (SCD) *Heparin 5000 units SQ BID 3-4 Higher Order ONE of the following medications: *Heparin 5000 units SQ TID *Enoxaparin/Lovenox 40 mg SQ daily (WT < 150 kg, CrCl > 30 mL/min) *Enoxaparin/Lovenox 30 mg SQ daily (WT < 150 kg, CrCl > 10-29 mL/min) *Enoxaparin/Lovenox 30 mg SQ BID (WT < 150 kg, CrCl > 30 mL/min) AND/OR *Sequential Compression Device (SCD) 5 or more Highest Order ONE of the following medications: *Heparin 5000 units SQ TID (Preferred with Epidurals) *Enoxaparin/Lovenox 40 mg SQ daily (WT < 150 kg, CrCl > 30 mL/min) *Enoxaparin/Lovenox 30 mg SQ daily (WT < 150 kg, CrCl > 10-29 mL/min) *Enoxaparin/Lovenox 30 mg SQ BID (WT < 150 kg, CrCl > 30 mL/min) AND *Sequential Compression Device (SCD) Assessment and Plan Assessment and Plan 67-year-old female being admitted for COPD exacerbation and intractable diarrhea Shortness of breath -Independently reviewed the chest x-ray and I see no very obvious infiltrates, radiology read indicating mild linear opacities -COPD exacerbation, continue IV steroids and duo nebs -Continue home Symbicort Chronic hypoxic laboratory failure -Continue home 2 L Abdominal pain -Suspect gastroenteritis, independently reviewed the CT scan and see substantial gas retention, starting simethicone -Improved since admission, C. difficile PCR ordered -IVFs ? melena - ordering stool Hemoccult lupus - home hydroxyurea Anxiety/depression -Continue all home medicines except for benzodiazepines lovenox Physician Certification 2 Midnight Certification Type: Admission for Inpatient Services Order for Inpatient Services The services are ordered in accordance with Medicare regulations or non- Medicare payer requirements, as applicable. In the case of services not specified as inpatient-only, they are appropriately provided as inpatient services in accordance with the 2-midnight benchmark. Estimated LOS (days): 2 2 days is the estimated time the patient will need to remain in the hospital, assuming treatment plan goals are met and no additional complications. Post-Hospital Plan: Not yet determined Tyrell Monroe MD Oct 02, 2017 15:03
--- NOTE | 2017-10-02 15:20 | HHI.DCPOC ---
Discharge Care Plan Diagnosis: (1) Melena (2) C. difficile diarrhea (3) COPD with exacerbation Additional Problems NO NSAIDS including but not limited to Advil, ibuprofen, Aleve, naproxen, Naprosyn, Goody powders, BC powders, [place]. Goals to Promote Your Health * To prevent worsening of your condition and complications * To maintain your health at the optimal level Directions to Meet Your Goals Take your medications as prescribed Follow your dietary instruction Follow activity as directed Keep your appointments as scheduled Take your immunizations and boosters as scheduled If your symptoms worsen call your PCP, if no PCP go to Urgent Care Center or Emergency Room Smoking is Dangerous to Your Health. Avoid second hand smoke Call the 24-hour hour crisis hotline for domestic abuse at Tyrell Monroe MD Oct 02, 2017 15:20
[2017-10-02] MEDS ORDERED: ONDANSETRON HCL 4 MG/2 ML VIAL IV PUSH PRN (15:30)
[2017-10-02] MEDS: PREGABALIN 75 MG CAP PO SCH (16:36)
--- NOTE | 2017-10-02 17:59 | EKG ---
Date Performed: 10/02/2017 Time Performed: 08:00:24 PTAGE: 67 years EKG: SINUS TACHYCARDIA BORDERLINE RIGHT AXIS DEVIATION POSSIBLE RIGHT VENTRICULAR CONDUCTION DEL AY ABNORMAL ECG PREVIOUS TRACING : 05/06/2017 22.53 DOCTOR: Kev Beard Interpretating Date/Time 10/02/2017 17:59:02
[2017-10-02] MEDS: BUDESONIDE-FORMOTEROL 160/4.5 MCG INHALER INH SCH (20:56)
[2017-10-02] MEDS: HEPARIN SODIUM - SQ 10,000 UNITS/ML VIAL SQ SCH (20:59)
[2017-10-02] MEDS: SODIUM CHLORIDE 0.9% FLUSH 10 ML FLUSH IV FLUSH SCH (21:00)
[2017-10-02] MEDS ORDERED: traZODone HCL 50 MG TAB PO PRN (21:00)
[2017-10-02] MEDS: HYDROXYCHLOROQUINE SULFATE 200 MG TAB PO SCH (21:00)
[2017-10-02] MEDS: PANTOPRAZOLE SOD 20 MG DELAYED RELEASE TAB PO SCH (21:00)
[2017-10-02] MEDS: SODIUM CHLOR 0.9% 1000 ML INJ 1,000 ML IV SCH (22:15)
[2017-10-03] VITALS: BP 131/69; PULSE 97; RESP 15; TEMP 98.2; O2SAT 89
[2017-10-03] MEDS: methylPREDNISolone SOD SUCC 125 MG/2 ML VIAL IV PUSH SCH ×3 (02:39→13:27)
[2017-10-03 04:00] VITALS: BP 139/77; PULSE 90; RESP 15; TEMP 96; O2SAT 92
[2017-10-03] MEDS: metroNIDAZOLE 500 MG INJ 100 ML IV SCH ×2 (06:13→13:27)
[2017-10-03 06:14] LABS: AUTOMATED NEUTROPHIL # 13.9 TH/MM3 (1.8-7.7); BASOPHIL % 0.1 % (0.0-2.0); EOSINOPHIL % 0.1 % (0.0-4.0); HEMATOCRIT 31.2 % (35.0-46.0); HEMOGLOBIN 10.2 GM/DL (11.6-15.3); LYMPHOCYTE # 0.6 TH/MM3 (1.0-4.8); MEAN CELL VOLUME 77.3 FL (80.0-100.0); MEAN CORPUSCULAR HEMOGLOBIN 25.2 PG (27.0-34.0); MEAN CORPUSCULAR HGB CONC 32.7 % (32.0-36.0); MEAN PLATELET VOLUME 6.5 FL (7.0-11.0); MONO % 1.2 % (0.0-8.0); MONOCYTE # 0.2 TH/MM3 (0-0.9); NEUT % 94.6 % (16.0-70.0); PLATELET COUNT 287 TH/MM3 (150-450); RED BLOOD COUNT 4.04 MIL/MM3 (4.00-5.30); RED CELL DISTRIBUTION WIDTH 19.7 % (11.6-17.2); WHITE BLOOD COUNT 14.7 TH/MM3 (4.0-11.0)
[2017-10-03 06:39] LABS: BICARBONATE 21.6 MEQ/L (21.0-32.0); CALCIUM 8.1 MG/DL (8.5-10.1); CREATININE 0.8 MG/DL (0.50-1.00)
[2017-10-03] MEDS: RESP: ALBUTEROL 2.5 MG/IPRATROPIUM 0.5 MG NEB (SCH) INH ×2 (07:46→11:39)
[2017-10-03 07:51] VITALS: O2SAT 92
[2017-10-03 07:55] VITALS: BP 136/75; PULSE 98; RESP 16; TEMP 99.1; O2SAT 94
[2017-10-03] MEDS: SODIUM CHLOR 0.9% 1000 ML INJ 1,000 ML IV SCH (08:09)
[2017-10-03] MEDS: BUDESONIDE-FORMOTEROL 160/4.5 MCG INHALER INH SCH (08:10)
[2017-10-03] MEDS: HYDROXYCHLOROQUINE SULFATE 200 MG TAB PO SCH (08:11)
[2017-10-03] MEDS: PANTOPRAZOLE SOD 20 MG DELAYED RELEASE TAB PO SCH (08:11)
[2017-10-03] MEDS: HEPARIN SODIUM - SQ 10,000 UNITS/ML VIAL SQ SCH (08:11)
[2017-10-03] MEDS: PREGABALIN 75 MG CAP PO SCH ×2 (08:11→13:27)
[2017-10-03] MEDS: SODIUM CHLORIDE 0.9% FLUSH 10 ML FLUSH IV FLUSH SCH (08:12)
[2017-10-03] MEDS ORDERED: TIOTROPIUM BROMIDE 18 MCG INH INH SCH (09:00)
[2017-10-03] MEDS ORDERED: METOPROLOL SUCCINATE 25 MG EXTENDED RELEASE TAB PO SCH (09:00)
[2017-10-03] MEDS ORDERED: DULoxetine HCl DR 30 MG CAP PO SCH (09:00)
[2017-10-03 12:00] VITALS: BP 157/84; PULSE 98; RESP 20; TEMP 97.8; O2SAT 93
--- NOTE | 2017-10-03 12:03 | HHI.PR ---
Subjective Remarks RN denies any deterioration since last night. Reportedly patient was able to ambulate to the nursing station a few times, had some trouble on the way back to the room and got winded. But the patient says she feels much better with her distress compared to yesterday nonetheless. Says her abdominal pain resolved. Diarrhea is minimal today Objective Vital Signs Date Time Temp Pulse Resp B/P (MAP) Pulse Ox O2 Delivery O2 Flow Rate FiO2 10/03/17 07:55 99.1 98 16 136/75 (95) 94 10/03/17 07:51 92 10/03/17 04:00 96.0 90 15 139/77 (97) 92 10/03/17 00:00 98.2 97 15 131/69 (89) 89 10/02/17 21:00 85 10/02/17 20:04 94 Nasal Cannula 1.50 10/02/17 20:00 98.0 90 16 125/75 (92) 96 10/02/17 16:00 98.9 81 18 101/61 (74) 98 10/02/17 14:00 96 Nasal Cannula 1.50 10/02/17 12:00 100.0 88 18 124/76 (92) 96 I/O 10/02/17 10/02/17 10/02/17 10/03/17 10/03/17 10/03/17 06:59 14:59 22:59 06:59 14:59 22:59 Intake Total 2100 ml 350 ml 1700 ml Output Total 450 ml 202 ml Balance 2100 ml -100 ml 1498 ml Intake Oral 350 ml 1000 ml IV Total 2100 ml 700 ml Output Urine Total 450 ml Stool Total 202 ml # Voids 4 # Bowel Movements 1 Result Diagram: 10/03/17 0558 10/03/17 0558 Objective Remarks Diminished breath sounds in the bases with mild wheezing heard, no conversive dyspnea, no accessory muscle use Abdomen soft, nontender, nondistended A/P Assessment and Plan 67-year-old female being admitted for COPD exacerbation and intractable diarrhea Shortness of breath -COPD exacerbation Continue steroids and duo nebs, improved since admission Chronic hypoxic laboratory failure -Continue home 2 L Abdominal pain -Resolved - likely 2/2 enteritis Diarrhea -Significantly improved - c diff noted. started on Flagyl ? melena -Hemoccult positive. Can follow-up with GI as an outpatient for colonoscopy once C. difficile has cleared. To follow-up PCP to get her blood levels rechecked. lupus - home hydroxyurea Anxiety/depression -Continue all home medicines except for benzodiazepines lovenox Addendum: Patient tolerating p.o. intake well, labored breathing has returned near baseline. Blood counts likely demonstrating hemodilution as opposed to mary bleeding. Nonetheless the concern for melena is significant yet the patient cannot undergo colonoscopy at this time given her active C. difficile. To maintain close follow-up with her primary care provider and investigative shopper over the next week. Patient was counseled extensively to return to the ER should her black stools persist or she develops any signs or symptoms of worsening anemia including lightheadedness, worsening shortness of breath, chest pain. To be discharged on an extensive tapering course of steroids to be adjusted by her line staker as an outpatient. Patient has met maximal benefit from hospitalization is clinically stable for discharge. Tyrell Monroe MD Oct 03, 2017 12:03
[2017-10-03] MEDS ORDERED: METR1TAB76 PO (15:27)
[2017-10-03] MEDS ORDERED: PRED10 PO (15:28)
[2017-10-03] MEDS ORDERED: PRED20 PO (15:28)
[2017-10-03 16:00] VITALS: BP 163/83; PULSE 113; RESP 22; TEMP 99.6; O2SAT 92
== END 2017-10-03 17:02 | disposition home or self-care (01) | DRG 372 ==
LOC: PHED 07:51 → PHEDA 10:59 → PH3A 11:33
PROVIDERS: ADMIT Hospitalist; ATTEND Hospitalist
DX: A04.72 Enterocolitis due to Clostridium difficile, not specified as recurrent (principal); J44.1 Chronic obstructive pulmonary disease with (acute) exacerbation; I10 Essential (primary) hypertension; K92.1 Melena; K52.9 Noninfective gastroenteritis and colitis, unspecified; E86.0 Dehydration; K21.9 Gastro-esophageal reflux disease without esophagitis; M79.7 Fibromyalgia; E78.00 Pure hypercholesterolemia, unspecified; F41.9 Anxiety disorder, unspecified; F32.9 Major depressive disorder, single episode, unspecified; M19.90 Unspecified osteoarthritis, unspecified site; Z72.0 Tobacco use; Z86.73 Personal history of transient ischemic attack (TIA), and cerebral infarction without residual deficits
CPT/HCPCS: 36600; 71045; 74176; 80048; 80053; 81001; 82272; 82805; 83605; 83690; 83735; 84145; 84484; 85025; 85610; 85730; 87040; 87493; 93005; 94150; 94640; 94664; 96361; 96365; 96375; C9113; J1644; J2405; J2543; J2930; J7030; J7040

== ENCOUNTER 2017-10-23 13:47 | Emergency (ER) | payer MEDICARE, MEDICAID ==
[~2017-10-23] VITALS: Ht 149.9 cm; Wt 61.0 kg
[~2017-10-23 13:47] MED LIST changes: +ALPR0.5T3 PO; -AZIT250T3 PO; +BACL10TA PO; +CARI350T25 PO; +DULO1CAP2 PO; +HYDR200T3 PO; +LYRI75CA PO; -MEDR4PAK PO; +METH2.5T PO; -METO25TA3 PO; +METR1TAB76 PO; -OLAN5TAB PO; +PRED10 PO; +PRED20 PO; -REME15TA PO; +TOPR25TA PO
[2017-10-23 13:53] VITALS: BP 161/79; PULSE 84; RESP 16; TEMP 98.6; O2SAT 98
--- NOTE | 2017-10-23 14:04 | PD ---
HPI Chief Complaint: Fall Time Seen by Provider: 13:58 Travel History International Travel<30 days: No Contact w/Intl Traveler<30days: No Traveled to known affect area: No History of Present Illness HPI The patient 67 years old and arrives to the ED after following in a store about 1 hour prior to ER arrival. Patient believes there was water on the ground in the store due to rain leading to her slipping. Patient reports loss of consciousness for an instant following the head contact with ground. She reports generalized cephalgia here in the ED with pain more prominent in the occipital scalp. onset sudden. Timing constant. No vomiting. Patient takes a baby aspirin. She denies anticoagulant use otherwise. PFSH Past Medical History Hx Anticoagulant Therapy: Yes (81 mg asa) Arthritis: Yes Asthma: No Autoimmune Disease: Yes (LUPUS) Blood Disorders: No Anxiety: Yes Depression: No Heart Rhythm Problems: No Cancer: No Cardiovascular Problems: Yes High Cholesterol: Yes Chemotherapy: No Chest Pain: No Congestive Heart Failure: No COPD: Yes Cerebrovascular Accident: Yes Coronary Artery Disease: No Diabetes: No Diminished Hearing: No Endocrine: No Fibromyalgia: Yes Gastrointestinal Disorders: Yes (LUPUS) GERD: Yes Genitourinary: Yes Hiatal Hernia: No Hypertension: Yes (but currently no meds needed) Immune Disorder: Yes (lupus) Implanted Vascular Access Dvce: No Kidney Stones: No Musculoskeletal: Yes Neurologic: No Psychiatric: Yes Reproductive: No Respiratory: Yes Immunizations Current: Yes Migraines: Yes Radiation Therapy: No Renal Failure: No Seizures: No Sleep Apnea: No Ulcer: No Menopausal: Yes : 4 Para: 4 Tubal Ligation: Yes Past Surgical History Abdominal Surgery: Yes (christian) AICD: No Arteriovenous Shunt: No Section: Yes (X3) Cholecystectomy: Yes Hysterectomy: Yes Insulin Pump: No Joint Replacement: No Pacemaker: No Social History Alcohol Use: Yes (occ) Tobacco Use: Yes ("vape" DAILY) Substance Use: No Allergies-Medications (Allergen,Severity, Reaction): Coded Allergies: No Known Allergies (Verified Allergy, Unknown, 10/23/17) Reported Meds & Prescriptions Reported Meds & Active Scripts Active Prednisone 20 Mg Tab 20 Mg PO DIRECTED Take 60 MG daily x 4 days, then 40 MG x 4 days, then 20 MG daily x 4 days. Prednisone 10 Mg Tab 10 Mg PO DIRECTED take one tab daily once completed tapering prednisone regimen Metronidazole 500 Mg Tab 500 Mg PO Q8HR Diazepam 5 Mg Tab 5 Mg PO HS PRN 30 Days Atrovent HFA 12.9 GM Inh (Ipratropium Harrell) 17 Mcg/Actuation Aer 2 Puff INH Q6HR PRN Spiriva Handihaler (Tiotropium Inh) 18 Mcg Cap 18 Mcg INH DAILY 1 capsule = 18 mcg Symbicort Inh (Budesonide/Formoterol Fumarate) 160-4.5 Mcg/Act Aero 2 Puff INH Q12HR Ventolin Hfa 18 GM Inh (Albuterol Sulfate) 90 Mcg/Act Aer 1 Puff INH Q6HR PRN Oxygen (O2) Device Liter EUGENIO.CANULA CONTINUOUS Oxygen Concentrator Portable Gaseous 2 L/min via Nasal Canula Continuous For 99 months Omeprazole 20 Mg Tab 20 Mg PO BID Fluticasone Nasal Rice 50 Mcg/Act Naspr 50 Mcg EACH NARE BID 50 mcg/spray Albuterol Neb (Albuterol Sulfate) 2.5 Mg/3 Ml Neb 2.5 Mg NEB TID NEB PRN Ecotrin Low Strength (Aspirin) 81 Mg Tabdr 81 Mg PO DAILY Trazodone (Trazodone HCl) 50 Mg Tab 50 Mg PO HS PRN Reported Baclofen 10 Mg Tab 10 Mg PO BID Methotrexate 2.5 Mg Tab 15 Mg PO Q7D Duloxetine DR (Duloxetine HCl) 30 Mg Capdr 30 Mg PO DAILY Prednisone 10 Mg Tab 10 Mg PO DAILY Carisoprodol 350 Mg Tablet 350 Mg PO Q6HR Toprol XL (Metoprolol Succinate) 25 Mg Tab 25 Mg PO DAILY Hydroxychloroquine (Hydroxychloroquine Sulfate) 200 Mg Tab 200 Mg PO BID Takw with food Lyrica (Pregabalin) 75 Mg Cap 75 Mg PO TID Alprazolam 0.5 Mg Tab 0.5 Mg PO DAILY PRN Review of Systems Except as stated in HPI: all other systems reviewed are Neg General / Constitutional: No: Fever Physical Exam Narrative GENERAL: 67-year-old female, no acute distress Vital Signs Date Time Temp Pulse Resp B/P (MAP) Pulse Ox O2 Delivery O2 Flow Rate FiO2 10/23/17 14:16 83 16 98 Room Air 10/23/17 13:53 98.6 84 16 161/79 (106) 98 SKIN: Warm and dry. HEAD: Atraumatic. Normocephalic. EYES: Pupils equal and round. No scleral icterus. No injection or drainage. ENT: No nasal bleeding or discharge. Mucous membranes pink and moist. NECK: Trachea midline. No JVD. CARDIOVASCULAR: Regular rate and rhythm. RESPIRATORY: No accessory muscle use. Clear to auscultation. Breath sounds equal bilaterally. GASTROINTESTINAL: Abdomen soft, non-tender, nondistended. Hepatic and splenic margins not palpable. MUSCULOSKELETAL: Extremities without clubbing, cyanosis, or edema. No obvious deformities. NEUROLOGICAL: Awake and alert. No obvious cranial nerve deficits. Motor grossly within normal limits. Five out of 5 muscle strength in the arms and legs. Normal speech. PSYCHIATRIC: Appropriate mood and affect; insight and judgment normal. Data Data Last Documented VS Vital Signs Date Time Temp Pulse Resp B/P (MAP) Pulse Ox O2 Delivery O2 Flow Rate FiO2 10/23/17 14:16 83 16 98 Room Air 10/23/17 13:53 98.6 161/79 (106) Orders Orders Ct Brain W/O Iv Contrast(Rout) (10/23/17 14:05) Ed Discharge Order (10/23/17 14:44) [facility] Medical Decision Making Medical Screen Exam Complete: Yes Emergency Medical Condition: Yes Medical Record Reviewed: Yes Differential Diagnosis Scalp contusion, intracranial hemorrhage, fracture, concussion Narrative Course The patient is not suffering from a concussion. The patient does not have significant intracranial trauma. The patient is suitable for discharge. It was noticed by the RN that the patient is wearing heels here in the ED. While certainly she has entitled to exercise her right to fashion however walking with heels and a cane may predispose her to more falls moving forward. Hospital socks were provided here. Diagnosis Primary Impression: Fall Qualified Codes: W19.XXXA - Unspecified fall, initial encounter Additional Impression: Head trauma Qualified Codes: S09.90XA - Unspecified injury of head, initial encounter Referrals: Primary Care Physician call for appointment Med/Other Pt SpecificInfo: No Change to Meds Disposition: 01 DISCHARGE HOME Condition: Stable Luis Al MD October 23, 2017 14:03
--- NOTE | 2017-10-23 14:42 | RADRPT ---
EXAM DATE/TIME: 10/23/2017 14:26 [facility] COMPARISON: CT BRAIN W/O CONTRAST, May 29, 2016, 17:01. INDICATIONS : Trauma. Slip and fell and hit head. No loss of consciousness. RADIATION DOSE: 47.62 CTDIvol (mGy) MEDICAL HISTORY : Cerebrovascular disease. Chronic obstructive pulmonary disease. Gastroesophageal reflux disease.Cardi ovascular disease. Hypertension. SURGICAL HISTORY : Tubal ligation. section.Cholecystectomy.Colectomy. Hysterectomy. ENCOUNTER: Initial ACUITY: 1 day PAIN SCALE: 8/10 LOCATION: cranial TECHNIQUE: Multiple contiguous axial images were obtained of the head. Using automated exposure control and adj ustment of the mA and/or kV according to patient size, radiation dose was kept as low as reasonably a chievable to obtain optimal diagnostic quality images. DICOM format image data is available electro nically for review and comparison. FINDINGS: CEREBRUM: The ventricles are normal for age. No evidence of midline shift, mass lesion, hemorrhage or acute in farction. No extra-axial fluid collections are seen. POSTERIOR FOSSA: The cerebellum and brainstem are intact. The 4th ventricle is midline. The cerebellopontine angle i s unremarkable. EXTRACRANIAL: The visualized portion of the orbits is intact. SKULL: The calvaria is intact. No evidence of skull fracture. CONCLUSION: Normal examination for a patient of this age. No significant change has occurred. Kb Anaya MD on October 23, 2017 at 14:39 Board Certified Radiologist. This report was verified electronically.
== END 2017-10-23 15:23 | disposition home or self-care (01) ==
LOC: PHED 13:47
DX: S06.9X9A Unspecified intracranial injury with loss of consciousness of unspecified duration, initial encounter (principal); W01.0XXA Fall on same level from slipping, tripping and stumbling without subsequent striking against object, initial encounter; Y92.512 Supermarket, store or market as the place of occurrence of the external cause; M32.9 Systemic lupus erythematosus, unspecified; E78.00 Pure hypercholesterolemia, unspecified; I10 Essential (primary) hypertension; J44.9 Chronic obstructive pulmonary disease, unspecified; Z86.73 Personal history of transient ischemic attack (TIA), and cerebral infarction without residual deficits; F17.290 Nicotine dependence, other tobacco product, uncomplicated
CPT/HCPCS: 70450; 99283

== ENCOUNTER 2017-11-02 11:41 | Emergency (ER) | payer MEDICARE, MEDICAID ==
[~2017-11-02] VITALS: Ht 149.9 cm; Wt 61.0 kg
[~2017-11-02 11:41] MED LIST changes: -ASPI-147 PO; -METR1TAB76 PO; -PRED20 PO
[2017-11-02 11:50] VITALS: BP 168/84; PULSE 111; RESP 16; TEMP 98; O2SAT 94
--- NOTE | 2017-11-02 12:29 | PD ---
HPI Chief Complaint: Injury Time Seen by Provider: 12:04 Travel History International Travel<30 days: No Contact w/Intl Traveler<30days: No Traveled to known affect area: No History of Present Illness HPI 67-year-old female here with multiple complaints after a fall 10 days ago. She is reporting right rib, left knee, left foot pain and headache. Pain has been persistent since the fall. Denies visual changes, neck pain, chest pain, shortness of breath, abdominal pain, paresthesia or weakness of the extremities. She describes headache as generalized with a gradual onset after the fall and persistent since. Similar to prior headaches. Pain is described as aching. Symptom severity is moderate. No alleviating factors. PFSH Past Medical History Hx Anticoagulant Therapy: Yes (81 mg asa) Arthritis: Yes Asthma: No Autoimmune Disease: Yes (LUPUS) Blood Disorders: No Anxiety: Yes Depression: No Heart Rhythm Problems: No Cancer: No Cardiovascular Problems: Yes (htn on meds) High Cholesterol: Yes Chemotherapy: No Chest Pain: No Congestive Heart Failure: No COPD: Yes Cerebrovascular Accident: Yes Coronary Artery Disease: No Diabetes: No Diminished Hearing: No Endocrine: No Fibromyalgia: Yes Gastrointestinal Disorders: Yes (LUPUS) GERD: Yes Genitourinary: Yes Hiatal Hernia: No Hypertension: Yes Immune Disorder: Yes (lupus) Implanted Vascular Access Dvce: No Kidney Stones: No Musculoskeletal: Yes Neurologic: No Psychiatric: Yes Reproductive: No Respiratory: Yes Immunizations Current: Yes Migraines: Yes Radiation Therapy: No Renal Failure: No Seizures: No Sleep Apnea: No Ulcer: No Tetanus Vaccination: < 5 Years Influenza Vaccination: Yes ?: Not Menopausal: Yes : 4 Para: 4 Tubal Ligation: Yes Past Surgical History Abdominal Surgery: Yes (christian) AICD: No Arteriovenous Shunt: No Section: Yes (X3) Cholecystectomy: Yes Hysterectomy: Yes Insulin Pump: No Joint Replacement: No Pacemaker: No Social History Alcohol Use: No Tobacco Use: Yes (1 pk) Substance Use: No Allergies-Medications (Allergen,Severity, Reaction): Coded Allergies: No Known Allergies (Verified Allergy, Unknown, 11/02/17) Reported Meds & Prescriptions Reported Meds & Active Scripts Active Diazepam 5 Mg Tab 5 Mg PO HS PRN 30 Days Atrovent HFA 12.9 GM Inh (Ipratropium Anita) 17 Mcg/Actuation Aer 2 Puff INH Q6HR PRN Spiriva Handihaler (Tiotropium Inh) 18 Mcg Cap 18 Mcg INH DAILY 1 capsule = 18 mcg Symbicort Inh (Budesonide/Formoterol Fumarate) 160-4.5 Mcg/Act Aero 2 Puff INH Q12HR Ventolin Hfa 18 GM Inh (Albuterol Sulfate) 90 Mcg/Act Aer 1 Puff INH Q6HR PRN Oxygen (O2) Device Liter EUGENIO.CANULA CONTINUOUS Oxygen Concentrator Portable Gaseous 2 L/min via Nasal Canula Continuous For 99 months Omeprazole 20 Mg Tab 20 Mg PO BID Fluticasone Nasal [place] 50 Mcg/Act Naspr 50 Mcg EACH NARE BID 50 mcg/spray Albuterol Neb (Albuterol Sulfate) 2.5 Mg/3 Ml Neb 2.5 Mg NEB TID NEB PRN Trazodone (Trazodone HCl) 50 Mg Tab 50 Mg PO HS PRN Reported Baclofen 10 Mg Tab 10 Mg PO BID Methotrexate 2.5 Mg Tab 15 Mg PO Q7D Duloxetine DR (Duloxetine HCl) 30 Mg Capdr 30 Mg PO DAILY Prednisone 10 Mg Tab 10 Mg PO DAILY Carisoprodol 350 Mg Tablet 350 Mg PO Q6HR Toprol XL (Metoprolol Succinate) 25 Mg Tab 25 Mg PO DAILY Hydroxychloroquine (Hydroxychloroquine Sulfate) 200 Mg Tab 200 Mg PO BID Takw with food Lyrica (Pregabalin) 75 Mg Cap 75 Mg PO TID Alprazolam 0.5 Mg Tab 0.5 Mg PO DAILY PRN Physical Exam Narrative GENERAL: Alert and well-appearing 67-year-old female. No distress. SKIN: Warm and dry. HEAD: Atraumatic. Normocephalic. EYES: Pupils equal and round. No injection or drainage. ENT: No nasal bleeding or discharge. Mucous membranes pink and moist. NECK: Trachea midline. No cervical midline tenderness. CARDIOVASCULAR: Regular rate and rhythm. RESPIRATORY: No accessory muscle use. Clear to auscultation. Breath sounds equal bilaterally. +ttp right anterior ribs. No crepitus or palpable fracture. GASTROINTESTINAL: Abdomen soft, non-tender, nondistended. MUSCULOSKELETAL: Extremities without clubbing, cyanosis, or edema. No obvious deformities. LLE: +ttp anterior knee and base of the fifth metatarsal. No obvious deformity. Normal range of motion. Palpable distal pulses. Normal sensation. Brisk cap refill. NEUROLOGICAL: Awake and alert. No obvious cranial nerve deficits. Motor grossly within normal limits. Five out of 5 muscle strength in the arms and legs. Normal speech. PSYCHIATRIC: Appropriate mood and affect; insight and judgment normal. Data Data Last Documented VS Vital Signs Date Time Temp Pulse Resp B/P (MAP) Pulse Ox O2 Delivery O2 Flow Rate FiO2 11/02/17 11:50 98.0 111 16 168/84 (112) [address] Brain W/O Iv Contrast(Rout) (11/02/17 ) Chest, Single Ap (11/02/17 ) Foot, Limited (2vws) (11/02/17 ) Knee, Ltd (1 Or 2vws) (11/02/17 ) MDM Medical Decision Making Medical Screen Exam Complete: Yes Emergency Medical Condition: Yes Differential Diagnosis Tension headache, postconcussion syndrome, ICH, contusion, fracture Narrative Course 67-year-old female complaining of multiple injuries after fall 10 days ago. She was originally evaluated in the ED and had a negative CT of the brain. She has a normal neurologic exam. CT the brain: No intracranial hemorrhage Chest x-ray: No acute disease, no pneumothorax or rib fracture X-ray left knee/left foot: Negative for fracture All findings were discussed with patient and family. She is requesting discharge. Diagnosis Primary Impression: Head injury Qualified Codes: S09.90XA - Unspecified injury of head, initial encounter Additional Impression: Contusion Qualified Codes: S80.12XA - Contusion of left lower leg, initial encounter Referrals: Primary Care Physician Additional Instructions: Tylenol or ibuprofen as needed for pain. Follow-up with your primary doctor. Return if you have new or worsening symptoms Disposition: 01 DISCHARGE HOME Condition: Stable Rochelle Kruse November 02, 2017 12:29
--- NOTE | 2017-11-02 12:49 | RADRPT ---
EXAM DATE: 11/02/2017 12:38 PM EDT AGE/SEX: 67 years / Female INDICATIONS: Fell 10 days ago, has right side chest wall pain CLINICAL DATA: This is the patient's initial encounter. Patient reports that signs and symptoms have been present for 1 week and indicates a pain score of 7/10. MEDICAL/SURGICAL HISTORY: Chronic obstructive pulmonary disease. Lupus. Hypertension. Cholecy stectomy. Hysterectomy. COMPARISON: [facility], CHEST SINGLE AP, 10/02/2017. . FINDINGS: A single AP view of the chest demonstrates the lungs to be symmetrically aerated without evidence of mass, infiltrate or effusion. Some chronic interstitial changes bilaterally which appear to be stable . No evidence of pneumothorax. The cardiomediastinal contours are stable. Osseous structures are int act and stable. CONCLUSION: No acute intrathoracic disease. Stable examination. Electronically signed by: Kb Anaya MD 11/02/2017 12:48 PM EDT
--- NOTE | 2017-11-02 12:50 | RADRPT ---
EXAM DATE: 11/02/2017 12:40 PM EDT AGE/SEX: 67 years / Female INDICATIONS: Fell 19 days ago, has left foot pain CLINICAL DATA: This is the patient's initial encounter. Patient reports that signs and symptoms have been present for 1 week and indicates a pain score of 7/10. MEDICAL/SURGICAL HISTORY: Chronic obstructive pulmonary disease. Lupus. Hypertension. Hystere ctomy. Cholecystectomy. COMPARISON: No prior [facility] exams available for comparison. FINDINGS: Bony structures are intact and in normal alignment. Osseous density is normal. Soft tissues are unre markable. No radiopaque foreign bodies seen. CONCLUSION: No acute fracture or joint dislocation. Electronically signed by: Kb Anaya MD 11/02/2017 12:48 PM EDT
--- NOTE | 2017-11-02 12:50 | RADRPT ---
EXAM DATE: 11/02/2017 12:43 PM EDT AGE/SEX: 67 years / Female INDICATIONS: Fell 10 days ago, has left knee pain CLINICAL DATA: This is the patient's initial encounter. Patient reports that signs and symptoms have been present for 1 week and indicates a pain score of 7/10. MEDICAL/SURGICAL HISTORY: Chronic obstructive pulmonary disease. Lupus. Hypertension. Hystere ctomy. Cholecystectomy. COMPARISON: No prior [facility] exams available for comparison. FINDINGS: Bony structures are intact and in normal alignment. Joints are intact without dislocation or signifi cant arthropathy. Osseous density is normal. Soft tissues are unremarkable. No radiopaque foreign bodies seen. No evidence of joint effusion. CONCLUSION: Unremarkable examination. Electronically signed by: Kb Anaya MD 11/02/2017 12:49 PM EDT
--- NOTE | 2017-11-02 12:56 | RADRPT ---
EXAM DATE: 11/02/2017 12:40 PM EDT AGE/SEX: 67 years / Female INDICATIONS: Fell ten days ago and hit right side of head with no improvement. Pain is worse now. CLINICAL DATA: This is the patient's sequela encounter. Patient reports that signs and symptoms have been present for 1 week and indicates a pain score of 7/10. MEDICAL/SURGICAL HISTORY: Cerebrovascular disease. Hypertension. Chronic obstructive pulmonary di sease. Anticoagulant therapy. Hysterectomy. Cholecystectomy. Tubal ligation. Colectomy. RADIATION DOSE: 47.56 CTDI (mGy) COMPARISON: [facility], CT BRAIN W/O CONTRAST, 10/23/2017. . TECHNIQUE: CT of the head without contrast. Using automated exposure control and adjustment of the mA and/or kV according to patient size, radiation dose was kept as low as reasonably achievable to ob tain optimal diagnostic quality images. FINDINGS: Cerebrum: The ventricles are normal for age. No evidence of midline shift, mass lesion, hemorrhage or acute infarction. No extraaxial fluid collections are seen. Posterior Fossa: The cerebellum and brainstem are intact. The 4th ventricle is midline. The cerebe llopontine angle is unremarkable. Extracranial: The visualized portion of the orbits is intact. Skull: The calvaria is intact. No evidence of skull fracture. Stable examination of the brain compared to the prior examination. CONCLUSION: 1. No focal or acute intracranial hemorrhage. 2. Stable CT scan of the brain compared to the prior study. Electronically signed by: Kb Anaya MD 11/02/2017 12:54 PM EDT
== END 2017-11-02 13:29 | disposition home or self-care (01) ==
LOC: PHEFT 11:41
DX: S09.90XA Unspecified injury of head, initial encounter (principal); S80.12XA Contusion of left lower leg, initial encounter; M32.9 Systemic lupus erythematosus, unspecified; J44.9 Chronic obstructive pulmonary disease, unspecified; I10 Essential (primary) hypertension; M79.7 Fibromyalgia; E78.00 Pure hypercholesterolemia, unspecified; W19.XXXA Unspecified fall, initial encounter; Z86.73 Personal history of transient ischemic attack (TIA), and cerebral infarction without residual deficits
CPT/HCPCS: 70450; 71045; 73560; 73620; 99284

== ENCOUNTER 2017-12-11 18:02 | Inpatient (IN) ==
[2017-12-11] MEDS ORDERED: Morphine Sulfate Inj 2 MG/ML Vial IV.PUSH ONE (18:22)
[2017-12-11] MEDS ORDERED: Sod Chloride 0.9% Inj 1,000 ML IV.SIG ONE (18:22)
[2017-12-11] MEDS ORDERED: Acetaminophen 325 MG Tablet PO ONE (18:22)
[2017-12-11] MEDS ORDERED: Vancomycin Inj 1 GM/200 ML PIGGYBACK IV.SIG ONE (18:24)
[2017-12-11] MEDS ORDERED: Piperacil/Tazo 3.375 GM Premix 50 ML IV.SIG ONE (18:24)
[2017-12-11 18:35] LABS: Baso % (Auto) 0.3 % (0.0-2.0); Eos # (Auto) 0.4 th/mm3 (0.0-0.4); Eos % (Auto) 3.2 % (0.0-4.0); Hematocrit 46.5 % (35.0-46.0); Hemoglobin 15.2 gm/dL (11.6-15.3); Lymph # (Auto) 0.9 th/mm3 (1.0-4.8); Lymph % (Auto) 7.8 % (9.0-44.0); Mean Corpuscular HGB Conc 32.7 % (32.0-36.0); Mean Corpuscular Hemoglobin 27.7 pg (27.0-34.0); Mean Corpuscular Volume 84.6 fL (80.0-100.0); Mean Platelet Volume 7.4 fL (7.0-11.0); Mono # (Auto) 0.6 th/mm3 (0.0-0.9); Mono % (Auto) 5.4 % (0.0-8.0); Neut # (Auto) 9.9 th/mm3 (1.8-7.7); Neut % (Auto) 83.3 % (16.0-70.0); Platelet Count 537 th/mm3 (150-450); Red Blood Count 5.49 mil/mm3 (4.00-5.30); Red Cell Distribution Width 19.3 % (11.6-17.2); White Blood Count 11.8 th/mm3 (4.0-11.0)
[2017-12-11 18:43] LABS: Chloride 102 meq/L (98-107); Potassium 3.4 meq/L (3.5-5.1); Sodium 138 meq/L (136-145)
[2017-12-11 18:48] LABS: Calcium 10.6 mg/dL (8.5-10.1)
[2017-12-11 18:49] LABS: Activated Partial Thrombo Time 23.2 sec (24.3-30.1); Albumin 4.5 g/dL (3.4-5.0); Anion Gap 16 meq/L (5-15); Blood Urea Nitrogen 12 mg/dL (7-18); Carbon Dioxide 19.8 meq/L (21.0-32.0); Glucose,Random 88 mg/dL (74-106); Lipase 152 U/L (73-393)
[2017-12-11 18:51] LABS: Alanine Aminotransferase 23 U/L (10-53)
[2017-12-11 18:52] LABS: Aspartate Aminotransferase 18 U/L (15-37); Glomerular Filtration Rate 22 mL/min (>89)
[2017-12-11 18:53] LABS: Total Protein 9.8 g/dL (6.4-8.2)
[2017-12-11 18:54] LABS: Alkaline Phosphatase 153 U/L (45-117)
[2017-12-11 18:55] LABS: Creatine Kinase 81 U/L (26-192)
[2017-12-11 19:11] LABS: Platelet Morphology Normal (Normal)
--- NOTE | 2017-12-11 19:25 | ECG ---
Date Performed: 12/11/2017 Time Performed: 18:01:32 PTAGE: 67 years EKG: SINUS TACHYCARDIA BORDERLINE RIGHT AXIS DEVIATION ABNORMAL RHYTHM ECG No significant change from prior electrocardiogram. PREVIOUS TRACING : 10/02/2017 08.00 DOCTOR: Raza Almodovar Interpretating Date/Time 12/11/2017 19:24:15
--- NOTE | 2017-12-11 19:45 | ED ---
HPI General Chief complaint: Weakness Stated complaint: weakness Time Seen by Provider: 12/11/17 18:09 Source: patient and family Limitations: no limitations History of Present Illness HPI narrative: Patient is a 67 year old female who comes in complaining of nausea, vomiting, abdominal pain. She says it started earlier today and has defecated on herself. She says she felt a little short of breath earlier, but her significant other says this is normal for her due to her COPD. She says she had some abdominal pain, but this has improved. She denies chest pain. She has not been coughing. Her significant other reports that she took her medication this morning and then started vomiting. Severity is moderate to severe. Onset (ago): hour(s) (12) Treatments prior to arrival: none Related Data Home Medications Medication Instructions Recorded Confirmed albuterol sulfate 2.5 mg INHALATION QID 12/11/17 12/11/17 alprazolam 0.5 mg PO BID PRN 12/11/17 12/11/17 baclofen 10 mg PO TID 12/11/17 12/11/17 carisoprodol 350 mg PO QID 12/11/17 12/11/17 diazepam 0.1 mg/kg PO TID-QID PRN 12/11/17 12/11/17 duloxetine 30 mg PO BID 12/11/17 12/11/17 hydrochlorothiazide 50 mg PO DAILY 12/11/17 12/11/17 ipratropium bromide 1 puff INHALATION Q6H 12/11/17 12/11/17 methotrexate 10 mg/m2 PO QWEEK 12/11/17 12/11/17 metoprolol succinate 25 mg PO DAILY 12/11/17 12/11/17 omeprazole 20 mg PO DAILY 12/11/17 12/11/17 pregabalin 75 mg PO TID 12/11/17 12/11/17 trazodone 50 mg PO DAILY 12/11/17 12/11/17 Allergies Allergy/AdvReac Type Severity Reaction Status Date / Time No Known Allergies Allergy Unknown Altered Uncoded 12/11/17 18:39 Sense of Taste Review of Systems Except as stated in HPI: all other systems reviewed are negative Constitutional Denies headache(s) Cardiovascular Denies chest pain Respiratory Reports dyspnea Gastrointestinal Reports abdominal pain, Reports diarrhea, Reports nausea and Reports vomiting Musculoskeletal Reports myalgias and Reports arthralgias Neurologic Denies focal weakness and Denies numbness [facility] Medical History Medical History Lupus (Acute) Lupus (Acute) Social History Social History Substance History: No History of Abuse Second Hand Smoke Exposure: No Smoking Status: Never smoker Tobacco Type: Cigarettes How Often Do You Have a Drink Containing Alcohol: Monthly or less Recent Travel in [facility] within the Last 8 Weeks: No Recent Out of Country Travel within the Last 8 Weeks: No Immunization History Tetanus Immunization: Unable to Assess Hx Influenza Vaccine This Season: Unable to Assess Exam Narrative Exam Narrative: GENERAL: Awake and alert, obviously uncomfortable. SKIN: Focused skin assessment warm/dry. HEAD: Atraumatic. Normocephalic. EYES: Pupils equal and round. No scleral icterus. EOMI. ENT: No nasal bleeding or discharge. Dry Mucous membranes. NECK: Trachea midline. No JVD. CARDIOVASCULAR: Tachycardia. No murmur appreciated. RESPIRATORY: No accessory muscle use. Decreased breath sounds bilaterally. Breath sounds equal bilaterally. GASTROINTESTINAL: Abdomen with mild distention, mild tenderness to palpation diffusely. MUSCULOSKELETAL: No obvious deformities. No clubbing. No cyanosis. No edema. NEUROLOGICAL: Awake and alert. No obvious cranial nerve deficits. Motor grossly within normal limits. Normal speech. PSYCHIATRIC: Appropriate mood and affect; insight and judgment normal. Course Hospital Course: IV established, labs sent. Given IVF. Given Zosyn, Morphine, Vancomycin Reevaluation(s) Reevaluation #1: Patient's tachycardia improving with fluids. Time: 20:00 Reevaluation #2: @ 7:10 PM accepted in sign out from Dr Sands and placed x 2 20 G peripheral angiocath (RAC and left wrist) Reevaluation #3: At 8:52 PM patient's vital signs have improved mentation has improved lab values identify total white cell count to be mildly elevated 11, 800 with left shift 83% neutrophils patient does have elevated lactic acid of 5.3 patient was also identified to have mild decrease in bicarb of 19.8 with anion gap of 16. Patient also with new renal insufficiency/acute kidney injury creatinine is 2.2 this is increased from last visit patient appears to be hemoconcentrated however as serum calcium is 10.6 and serum protein is 9.8 patient has received 30 cc/kg fluid bolus and repeat lactic acid is being collected at this time coags are grossly within normal limits troponin I is less than 0.02 CK total is 81 and not elevated urinalysis is unremarkable chest x-ray shows no infiltrate and CT is pending. Plan will be to admit the patient for diarrheal illness with dehydration acute kidney injury and meets sepsis criterion based upon heart rate temperature gastroenteritis GI source and lactic acidosis with acute kidney injury. Patient's blood pressure has improved after 30 cc/kg bolus of normal saline. Patient's case will be discussed for admission once CT abdomen pelvis is resulted. Patient is already been treated presumptively with IV Zosyn patient also received a one-time dose of morphine 2 mg IV as well. Additional Reevaluation(s): @ 9:30 patient discussed with and admitted to ICU to Dr English to [facility] @ 9:32 T: 100.6 F administered motrin Initial Documented Vital Signs Temperature 100.2 F H 12/11/17 18:04 Pulse Rate 140 H 12/11/17 18:04 Respiratory Rate 16 12/11/17 18:04 Blood Pressure 109/70 12/11/17 18:04 Pulse Oximetry 98 12/11/17 18:04 Last Documented Vital Signs Temperature 100.6 F H 12/11/17 21:00 Pulse Rate 113 H 12/11/17 21:00 Respiratory Rate 22 12/11/17 21:00 Blood Pressure 112/56 L 12/11/17 21:00 Pulse Oximetry 99 12/11/17 21:00 Critical Care Time Critical Care Time: Yes Total Critical Care Time: 35 Attestation: Aggregate critical care time was 35 minutes. Time to perform other separately billable procedures was not included in the critical care time. My time did not include minutes spent treating any other patients simultaneously or on activities that did not directly contribute to the patient's treatment. The services I provided to this patient were to treat and/or prevent clinically significant deterioration that could result in: septic shock arrhythmia, I provided critical care services requiring my management, as noted below: Chart data review, documentation time, medication orders and management, vital sign assessments/reviewing monitor data, ordering and reviewing lab tests, ordering and interpreting/reviewing x-rays and diagnostic studies, care of the patient and discussion of the patient with the admitting physicians. Sign Out Sign Out Data: Patient Sign Out occurred on 12/11/17 at 19:56. Patient's care was discussed, and care was transferred from Justa Sands MD to Marce Schneider MD. Sign Out Comment: imaging, admit Last updated by Justa Sands MD at 12/11/17 19:14 Medical Decision Making Lab Data Result diagrams: 12/11/17 18:30 12/11/17 18:30 Lab Results 12/11/17 12/11/17 12/11/17 Range/Units 18:30 18:30 18:30 CBC w Diff Slide review pending WBC 11.8 H (4.0-11.0) th/mm3 RBC 5.49 H (4.00-5.30) mil/mm3 Hgb 15.2 (11.6-15.3) gm/dL Hct 46.5 H (35.0-46.0) % MCV 84.6 (80.0-100.0) fL MCH 27.7 (27.0-34.0) pg MCHC 32.7 (32.0-36.0) % RDW 19.3 H (11.6-17.2) % Plt Count 537 H (150-450) th/mm3 MPV 7.4 (7.0-11.0) fL Neut % (Auto) 83.3 H (16.0-70.0) % Lymph % (Auto) 7.8 L (9.0-44.0) % [place] % (Auto) 5.4 (0.0-8.0) % Eos % (Auto) 3.2 (0.0-4.0) % Baso % (Auto) 0.3 (0.0-2.0) % Neut # (Auto) 9.9 H (1.8-7.7) th/mm3 Lymph # (Auto) 0.9 L (1.0-4.8) th/mm3 [place] # (Auto) 0.6 (0.0-0.9) th/mm3 Eos # (Auto) 0.4 (0.0-0.4) th/mm3 Baso # (Auto) 0.0 (0.0-0.2) th/mm3 WBC Differential . Platelet Estimate High H (Normal) Platelet Morphology Normal (Normal) PT 10.0 (9.8-11.6) sec INR 1.0 Ratio APTT 23.2 L (24.3-30.1) sec Sodium 138 (136-145) meq/L Potassium 3.4 L (3.5-5.1) meq/L Chloride 102 (98-107) meq/L Carbon Dioxide 19.8 L (21.0-32.0) meq/L Anion Gap 16 H (5-15) meq/L BUN 12 (7-18) mg/dL Creatinine 2.20 H (0.50-1.00) mg/dL Estimated GFR 22 L (>89) mL/min POC Glucose (68-110) mg/dl Random Glucose 88 (74-106) mg/dL Lactic Acid (0.4-2.0) mmol/L Calcium 10.6 H (8.5-10.1) mg/dL Total Bilirubin 0.4 (0.2-1.0) mg/dL AST 18 (15-37) U/L ALT 23 (10-53) U/L Alkaline Phosphatase 153 H (45-117) U/L Total Creatine Kinase 81 (26-192) U/L Troponin I Less than 0.02 L (0.02-0.05) ng/mL Total Protein 9.8 H (6.4-8.2) g/dL Albumin 4.5 (3.4-5.0) g/dL Lipase 152 (73-393) U/L Urine Color (Yellw/Straw) Urine Clarity (Clear) Urine pH (5.0-8.5) Ur Specific [place] (1.002-1.035) Urine Protein (Neg-Trace) mg/dL Urine Glucose (UA) (Negative) mg/dL Urine Ketones (Negative) mg/dL Urine Occult Blood (Negative) Urine Nitrate (Negative) Urine Bilirubin (Negative) Urine Urobilinogen (Less than 2) mg/dL Ur Leukocyte Esterase (Negative) Urine RBC (0-3) /hpf Urine WBC (0-5) /hpf Ur Squamous Epith Cells (0-5) /hpf Amorphous Sediment (None) /hpf Urine Bacteria (None) /hpf Micro UA Comment Urine Culture Comments 12/11/17 12/11/17 12/11/17 Range/Units 18:30 18:42 19:58 CBC w Diff WBC (4.0-11.0) th/mm3 RBC (4.00-5.30) mil/mm3 Hgb (11.6-15.3) gm/dL Hct (35.0-46.0) % MCV (80.0-100.0) fL MCH (27.0-34.0) pg MCHC (32.0-36.0) % RDW (11.6-17.2) % Plt Count (150-450) th/mm3 MPV (7.0-11.0) fL Neut % (Auto) (16.0-70.0) % Lymph % (Auto) (9.0-44.0) % [place] % (Auto) (0.0-8.0) % Eos % (Auto) (0.0-4.0) % Baso % (Auto) (0.0-2.0) % Neut # (Auto) (1.8-7.7) th/mm3 Lymph # (Auto) (1.0-4.8) th/mm3 [place] # (Auto) (0.0-0.9) th/mm3 Eos # (Auto) (0.0-0.4) th/mm3 Baso # (Auto) (0.0-0.2) th/mm3 WBC Differential Platelet Estimate (Normal) Platelet Morphology (Normal) PT (9.8-11.6) sec INR Ratio APTT (24.3-30.1) sec Sodium (136-145) meq/L Potassium (3.5-5.1) meq/L Chloride (98-107) meq/L Carbon Dioxide (21.0-32.0) meq/L Anion Gap (5-15) meq/L BUN (7-18) mg/dL Creatinine (0.50-1.00) mg/dL Estimated GFR (>89) mL/min POC Glucose 85 (68-110) mg/dl Random Glucose (74-106) mg/dL Lactic Acid 5.3 H* (0.4-2.0) mmol/L Calcium (8.5-10.1) mg/dL Total Bilirubin (0.2-1.0) mg/dL AST (15-37) U/L ALT (10-53) U/L Alkaline Phosphatase (45-117) U/L Total Creatine Kinase (26-192) U/L Troponin I (0.02-0.05) ng/mL Total Protein (6.4-8.2) g/dL Albumin (3.4-5.0) g/dL Lipase (73-393) U/L Urine Color Yellow (Yellw/Straw) Urine Clarity Clear (Clear) Urine pH 6.0 (5.0-8.5) Ur Specific [place] Less/equal 1.005 (1.002-1.035) Urine Protein Negative (Neg-Trace) mg/dL Urine Glucose (UA) Negative (Negative) mg/dL Urine Ketones Negative (Negative) mg/dL Urine Occult Blood Negative (Negative) Urine Nitrate Negative (Negative) Urine Bilirubin Negative (Negative) Urine Urobilinogen 0.2 (Less than 2) mg/dL Ur Leukocyte Esterase Negative (Negative) Urine RBC 0-3 (0-3) /hpf Urine WBC 0-5 (0-5) /hpf Ur Squamous Epith Cells 0-5 (0-5) /hpf Amorphous Sediment Few H (None) /hpf Urine Bacteria Rare H (None) /hpf Micro UA Comment Cath-culture ind Urine Culture Comments Cath-cult indicated Imaging Data Radiologist's impression: ITS Impressions Chest X-Ray 12/11/17 18:22 CONCLUSION: Negative examination. Abdomen/Pelvis CT 12/11/17 19:06 CONCLUSION: No acute CT findings in the abdomen or pelvis. Discharge Plan Discharge Disposition Patient Disposition: 30 Still Patient Discharge Details Discharge Problem: Sepsis, Dehydration, VITALIY (acute kidney injury), Gastroenteritis, Lupus Physicians Team ED Provider: Marce Schneider Primary Care Provider: Janeen Guzman Rxs /Orders / Referrals /Forms Prescriptions: No Action albuterol sulfate 2.5 mg /3 mL (0.083 %) Solution For Nebulization 2.5 mg INHALATION QID RF: 0 alprazolam 0.5 mg Tablet,Disintegrating 0.5 mg PO BID PRN (Reason: Abdominal Pain) RF: 0 carisoprodol 350 mg Tablet 350 mg PO QID RF: 0 trazodone 50 mg Tablet 50 mg PO DAILY RF: 0 hydrochlorothiazide 50 mg Tablet 50 mg PO DAILY RF: 0 baclofen 10 mg Tablet 10 mg PO TID RF: 0 omeprazole 20 mg Capsule,Delayed Release(Dr/Ec) 20 mg PO DAILY RF: 0 metoprolol succinate 25 mg Tablet Extended Release 24 Hr 25 mg PO DAILY RF: 0 diazepam 5 mg Tablet 0.1 mg/kg PO TID-QID PRN (Reason: Agitation) RF: 0 duloxetine 30 mg Capsule,Delayed Release(Dr/Ec) 30 mg PO BID RF: 0 ipratropium bromide 17 mcg/actuation Hfa Aerosol Inhaler 1 puff INHALATION Q6H RF: 0 pregabalin 75 mg Capsule 75 mg PO TID RF: 0 methotrexate 2.5 mg/mL Solution 10 mg/m2 PO QWEEK RF: 0 Status ED Status: With Doctor
[2017-12-11 20:01] LABS: Bilirubin,Urine Negative (Negative); Clarity,Urine Clear (Clear); Color,Urine Yellow (Yellw/Straw); Glucose,Urine (UA) Negative (Negative); Leukocyte Esterase,Urine Negative (Negative); Nitrite,Urine Negative (Negative); Specific Gravity,Urine Less/Equal 1.005 (1.002-1.035); Urobilinogen,Urine 0.2 mg/dL (Less than 2)
[2017-12-11 20:06] LABS: RBC,Urine 0-3 /hpf (0-3); Squamous Epithelial Cell,Urine 0-5 /hpf (0-5); WBC,Urine 0-5 /hpf (0-5)
[2017-12-11 20:07] LABS: Amorphous Sediment,Urine Few /hpf; Bacteria,Urine Rare /hpf
--- NOTE | 2017-12-11 20:48 | XR ---
EXAM DATE: 12/11/2017 8:46 PM EDT AGE/SEX: 67 years / Female INDICATIONS: Short of breath CLINICAL DATA: This is the patient's initial encounter. Patient reports that signs and symptoms have been present for 1 month and indicates a pain score of 0/10. MEDICAL/SURGICAL HISTORY: Chronic obstructive pulmonary disease. None. COMPARISON: [facility], CHEST SINGLE AP, 11/02/2017. . FINDINGS: A single AP view of the chest demonstrates the lungs to be symmetrically aerated without evidence of mass, infiltrate or effusion. The cardiomediastinal contours are unremarkable. Osseous structures a re intact. CONCLUSION: Negative examination. Electronically signed by: Jj Noriega MD 12/11/2017 8:46 PM EDT
--- NOTE | 2017-12-11 20:59 | CT ---
EXAM DATE: 12/11/2017 8:49 PM EDT AGE/SEX: 67 years / Female INDICATIONS: Abdomen pain with weakness. CLINICAL DATA: This is the patient's initial encounter. Patient reports that signs and symptoms have been present for 1 day and indicates a pain score of 5/10. MEDICAL/SURGICAL HISTORY: Lupus. None. RADIATION DOSE: 7.22 CTDI (mGy) COMPARISON: [facility], CT ABDOMEN & PELVIS W/O CONTRAST, 10/02/2017. . TECHNIQUE: Multiple contiguous axial images were obtained through the abdomen. Images were obtained using multiple row detector helical technique. Using automated exposure control and adjustment of the mA and/or kV according to patient size, radiation dose was kept as low as reasonably achievable to o btain optimal diagnostic quality images. DICOM format image data is available electronically for rev iew and comparison. FINDINGS: Lower Lungs: The visualized lower lungs are clear. Liver: The liver has a homogeneous density without space-occupying lesion. There is no dilation of th e biliary tree. Spleen: Homogeneous density without enlargement. Pancreas: Unremarkable without mass or calcification. Kidneys: Normal in size and shape. No evidence of mass or hydronephrosis. Adrenal Glands: Unremarkable. Aorta: The aorta and proximal iliac vessels are grossly unremarkable without aneurysmal dilation. Bowel/Mesentery: The bowel loops are grossly unremarkable. The cecum and sigmoid colon have a normal configuration. Abdominal Wall: Intact. Retroperitoneum: No evidence of adenopathy in the retrocrural, para-aortic, or deep pelvic regions. Bladder: Contours are smooth. Reproductive Organs: No abnormal masses or calcifications seen. Inguinal: The inguinal region is unremarkable without evidence of adenopathy. Bony Structures: Unremarkable. CONCLUSION: No acute CT findings in the abdomen or pelvis. Electronically signed by: Jj Noriega MD 12/11/2017 8:58 PM EDT
[2017-12-11] MEDS ORDERED: Ibuprofen 600 MG Tablet PO ONE (21:28)
[2017-12-11] MEDS ORDERED: Bisacodyl 10 MG Supp RECTAL PRN (23:10)
[2017-12-11] MEDS ORDERED: Morphine Sulfate Inj 2 MG/ML Vial IV.PUSH PRN (23:10)
[2017-12-11] MEDS ORDERED: Temazepam 15 MG Capsule PO PRN (23:10)
[2017-12-11] MEDS ORDERED: ALPRAZolam 0.5 MG Tablet PO PRN (23:14)
[2017-12-11] MEDS ORDERED: METHOTREXATE PO SCH (23:15)
[2017-12-12] MEDS: Heparin - SQ 10,000 UNITS/ML Vial SQ SCH ×3 (00:13→18:23)
[2017-12-12] MEDS: Sod Chloride 0.9% Inj 1,000 ML IV.CONT SCH ×2 (00:14→11:35)
[2017-12-12] MEDS ORDERED: Norepinephrine Inj 4 MG/4 ML Ampul ONE (00:43)
[2017-12-12] MEDS ORDERED: Chlorhexidine Gluconate 2% 1 Pack (2 Cloths) TOPICAL PRN (04:00)
[2017-12-12 04:25] LABS: Baso # (Auto) 0.1 th/mm3 (0.0-0.2); Baso % (Auto) 0.4 % (0.0-2.0); Eos # (Auto) 0.5 th/mm3 (0.0-0.4); Eos % (Auto) 2.6 % (0.0-4.0); Hematocrit 35.7 % (35.0-46.0); Hemoglobin 11.6 gm/dL (11.6-15.3); Lymph # (Auto) 0.5 th/mm3 (1.0-4.8); Lymph % (Auto) 2.4 % (9.0-44.0); Mean Corpuscular HGB Conc 32.6 % (32.0-36.0); Mean Corpuscular Hemoglobin 27.8 pg (27.0-34.0); Mean Corpuscular Volume 85.2 fL (80.0-100.0); Mean Platelet Volume 7.1 fL (7.0-11.0); Mono # (Auto) 0.3 th/mm3 (0.0-0.9); Mono % (Auto) 1.3 % (0.0-8.0); Neut # (Auto) 17.9 th/mm3 (1.8-7.7); Neut % (Auto) 93.3 % (16.0-70.0); Platelet Count 339 th/mm3 (150-450); Red Blood Count 4.19 mil/mm3 (4.00-5.30); White Blood Count 19.3 th/mm3 (4.0-11.0)
[2017-12-12 04:34] LABS: Chloride 109 meq/L (98-107); Potassium 3.9 meq/L (3.5-5.1); Sodium 143 meq/L (136-145)
[2017-12-12 04:55] LABS: Alanine Aminotransferase 21 U/L (10-53); Albumin 2.7 g/dL (3.4-5.0); Alkaline Phosphatase 92 U/L (45-117); Anion Gap 15 meq/L (5-15); Aspartate Aminotransferase 31 U/L (15-37); Blood Urea Nitrogen 17 mg/dL (7-18); Calcium 7.9 mg/dL (8.5-10.1); Carbon Dioxide 19.1 meq/L (21.0-32.0); Glomerular Filtration Rate 24 mL/min (>89); Glucose,Random 75 mg/dL (74-106); Magnesium 1.4 mg/dL (1.5-2.5); Phosphorus 4.3 mg/dL (2.5-4.9); Total Protein 5.9 g/dL (6.4-8.2)
[2017-12-12 05:07] LABS: Prothrombin Time 10.9 sec (9.8-11.6)
[2017-12-12 05:08] LABS: Activated Partial Thrombo Time 28.9 sec (24.3-30.1); INR 1.1 Ratio
--- NOTE | 2017-12-12 06:50 | ECG ---
Date Performed: 12/12/2017 Time Performed: 01:02:21 PTAGE: 67 years EKG: SINUS TACHYCARDIA BORDERLINE RIGHT AXIS DEVIATION ABNORMAL RHYTHM ECG Compared to prior arnol ctrocardiogram, rate has decreased . DOCTOR: Raza Almodovar Interpretating Date/Time 12/12/2017 06:49:46
[2017-12-12] MEDS ORDERED: Vancomycin Inj 1,000 MG in Sodium Chlor 0.9% Inj 250 ML IV.SIG ONE (07:34)
--- NOTE | 2017-12-12 07:51 | P.HPCC ---
History of Present Illness Service: Critical care medicine Primary Care Physician: Janeen Guzman DO Chief Complaint: diarrhea History of Present Illness: 67yF presented to the ER with n/v abdominal pain which started yesterday. denies blood in stool or dark tarry stools. states she has had some improvements in abdominal pain and diarrhea. in the ER, was severely hypotensive with elevated lactate. received ivf boluses and started on vasopressors. remains on vasopressors on my evaluation. somewhat somnolent but arousable. of note, has a history of lupus and takes daily steroids: prednisone 10mg daily. remainder of ROS is negative. Inpatient Certification: I certify that the inpatient services were ordered in accordance with Medicare regulations governing the order. This includes certification that hospital inpatient services are reasonable and necessary and in the case of services not specified as inpatient-only under 42 CFR 419.22(n), that they are appropriately provided as inpatient services in accordance to with the 2-midnight benchmark under 43 CFR 412.3(e) Estimated Total Length of Stay (Days): 5 Plans for Post Hospital Care: Not yet determined Review of Systems All other systems reviewed negative except as stated in HPI PMFSH - History History Provided By: Patient - Medical History Medical History: Medical History (Last Reviewed 12/12/17 @ 07:41 by Abel German MD) Lupus Lupus - Tobacco History Second Hand Smoke Exposure: No Tobacco Use In Past 30 Days: No Smoking Status: Former smoker Tobacco Type: Cigarettes - Alcohol History How Often Do You Have a Drink Containing Alcohol: Monthly or less - Substance Use History Substance History: No History of Abuse - Travel History Recent Travel in the [place] Within the Last 8 Weeks: No Recent Travel Out of the Country Within the Last 8 Weeks: No - Immunization History Tetanus Immunization: Unable to Assess Hx Influenza Vaccine This Season: Unable to Assess Medications and Allergies Active Medications: Active Medications Acetaminophen (Tylenol) 650 mg PO Q6H PRN PRN Reason: PAIN 1-10 AND/OR FEVER >101F Al Hydroxide/Mg Hydroxide (Milk Of Magnesia Liq) 30 ml PO Q12H PRN PRN Reason: Mild Constipation Albuterol (Duoneb Neb (Indra)) 1 ampul NEB Q6HR NEB INDRA Last Admin: 12/12/17 03:34 Dose: 1 ampul Albuterol (Duoneb Neb (Prn)) 1 ampul NEB Q2HR NEB PRN PRN Reason: WHEEZING Alprazolam (Xanax) 0.5 mg PO BID PRN PRN Reason: Abdominal Pain Baclofen (Lioresal) 10 mg PO TID [facility] Bisacodyl (Dulcolax Supp) 10 mg RECTAL DAILY PRN PRN Reason: SEVERE CONSITIPATION Carisoprodol (Soma) 350 mg PO QID [facility] Chlorhexidine Gluconate (Chlorhexidine 2% Cloth) 3 pack TOPICAL DAILY@0400 INDRA Stop: 12/17/17 03:59 Chlorhexidine Gluconate (Chlorhexidine 2% Cloth) 3 pack TOPICAL DAILY@0400 PRN PRN Reason: Extra cloth needed Stop: 12/17/17 03:59 Famotidine (Pepcid Pf Inj) 20 mg IV.PUSH Q12HR [facility] Heparin Sodium (Porcine) (Heparin Inj) 5,000 units SQ Q8H [facility] Last Admin: 12/12/17 00:13 Dose: 5,000 units Hydrocortisone Sodium Succinate (Solucortef Inj) 50 mg IV.PUSH Q6H@,,, [facility] Sodium Chloride (Ns Inj) 1,000 mls @ 200 mls/hr IV.CONT .Q5H [facility] Last Admin: 12/12/17 00:14 Dose: 200 mls/hr Norepinephrine Bitartrate (Levophed-Dextrose 4 Mg/250 Ml Drip) 4 mg in 250 mls @ 7.5 mls/hr IV.SIG TITRATE PRN; Protocol PRN Reason: See protocol Last Titration: 12/12/17 02:52 Dose: 11 mcg/min, 41.25 mls/hr Ciprofloxacin/Dextrose (Cipro 400 Mg/200 Ml Inj) 400 mg in 200 mls @ 200 mls/ hr IV.SIG Q12H [facility] Metronidazole/Sodium Chloride (Flagyl 500 Mg Inj) 100 mls @ 100 mls/hr IV.SIG Q6H [facility] Pharmacy Profile Note (Vancomycin Consult Pharmacy) 0 mls @ 0 mls/hr OTHER UNSCH [facility] Vancomycin HCl 1,000 mg/ (Sodium Chloride) 250 mls @ 250 mls/hr IV.SIG ONCE ONE Stop: 12/12/17 08:33 Lactulose (Lactulose Liq) 30 ml PO DAILY PRN PRN Reason: SEVERE CONSITIPATION Morphine Sulfate (Morphine Inj) 2 mg IV.PUSH Q2H PRN PRN Reason: PAIN SCALE 6 TO 10 Non-Formulary Medication (Methotrexate [Methotrexate]) 10 mg/m2 PO QWEEK [facility] Ondansetron HCl (Zofran Inj) 4 mg IV.PUSH Q6H PRN PRN Reason: NAUSEA OR VOMITING Pregabalin (Lyrica) 75 mg PO TID [facility] Senna/Docusate Sodium (Valentina-Colace) 1 tab PO BID [facility] Sennosides (Senokot) 17.2 mg PO Q12H PRN PRN Reason: Moderate Constipation Sodium Chloride (Ns Flush) 2 ml IV.FLUSH BID [facility] Sodium Chloride (Ns Flush) 2 ml IV.FLUSH PRN PRN PRN Reason: FLUSH AFTER USING IV ACCESS Temazepam (Restoril) 15 mg PO HS PRN PRN Reason: INSOMNIA Trazodone HCl (Desyrel) 50 mg PO DAILY [facility] Allergies Allergy/AdvReac Type Severity Reaction Status Date / Time No Known Allergies Allergy Unknown Altered Uncoded 12/11/17 18:39 Sense of Taste Home Medications Medication Instructions Recorded Confirmed Type albuterol sulfate 2.5 mg INHALATION QID 12/11/17 12/11/17 History alprazolam 0.5 mg PO BID PRN 12/11/17 12/11/17 History baclofen 10 mg PO TID 12/11/17 12/11/17 History carisoprodol 350 mg PO QID 12/11/17 12/11/17 History diazepam 0.1 mg/kg PO TID-QID PRN 12/11/17 12/11/17 History duloxetine 30 mg PO BID 12/11/17 12/11/17 History hydrochlorothiazide 50 mg PO DAILY 12/11/17 12/11/17 History ipratropium bromide 1 puff INHALATION Q6H 12/11/17 12/11/17 History methotrexate 10 mg/m2 PO QWEEK 12/11/17 12/11/17 History metoprolol succinate 25 mg PO DAILY 12/11/17 12/11/17 History omeprazole 20 mg PO DAILY 12/11/17 12/11/17 History pregabalin 75 mg PO TID 12/11/17 12/11/17 History trazodone 50 mg PO DAILY 12/11/17 12/11/17 History Results - Labs CBC & Chem 7: 12/12/17 04:15 12/12/17 04:15 Labs: Short CBC 12/11/17 12/12/17 Range/Units 18:30 04:15 WBC 11.8 H 19.3 H D (4.0-11.0) th/mm3 Hgb 15.2 11.6 D (11.6-15.3) gm/dL Hct 46.5 H 35.7 (35.0-46.0) % Plt Count 537 H 339 D (150-450) th/mm3 BMP 12/11/17 12/12/17 18:30 04:15 Sodium 138 143 Potassium 3.4 L 3.9 Chloride 102 109 H Carbon Dioxide 19.8 L 19.1 L BUN 12 17 Creatinine 2.20 H 2.10 H Calcium 10.6 H 7.9 L D Cardiac Enzymes 12/11/17 12/12/17 12/12/17 Range/Units 18:30 00:56 04:15 Total Creatine Kinase 81 (26-192) U/L Troponin I Less than 0.02 L 0.03 0.02 (0.02-0.05) ng/mL Liver Function 12/11/17 12/12/17 Range/Units 18:30 04:15 Total Bilirubin 0.4 0.9 (0.2-1.0) mg/dL AST 18 31 (15-37) U/L ALT 23 21 (10-53) U/L Alkaline Phosphatase 153 H 92 (45-117) U/L Albumin 4.5 2.7 L D (3.4-5.0) g/dL Urine 12/11/17 Range/Units 19:58 Urine Color Yellow (Yellw/Straw) Urine Clarity Clear (Clear) Urine pH 6.0 (5.0-8.5) Ur Specific [place] Less/equal 1.005 (1.002-1.035) Urine Protein Negative (Neg-Trace) mg/dL Urine Glucose (UA) Negative (Negative) mg/dL - Imaging Impressions Chest X-Ray 12/11/17 18:22 CONCLUSION: Negative examination. Abdomen/Pelvis CT 12/11/17 19:06 CONCLUSION: No acute CT findings in the abdomen or pelvis. Exam Vital signs: Vital Signs 12/11/17 18:04 12/11/17 18:22 12/11/17 19:28 Temperature 37.9 C H 37.6 C Pulse Rate 140 H 120 H 108 H Respiratory Rate 16 18 Blood Pressure 109/70 85/53 L Pulse Oximetry 98 97 12/11/17 20:00 12/11/17 20:23 12/11/17 21:00 Temperature 37.2 C 38.1 C H Pulse Rate 108 H 113 H Respiratory Rate 16 22 Blood Pressure 116/68 112/56 L Pulse Oximetry 100 99 99 12/11/17 22:33 12/11/17 23:10 12/12/17 00:00 Temperature 37.8 C H 37.7 C H Pulse Rate 112 H 105 H 105 H Respiratory Rate 24 22 24 Blood Pressure 98/58 L 81/54 L 72/40 L Pulse Oximetry 12/12/17 01:00 12/12/17 01:20 12/12/17 01:49 Temperature 37.7 C H Pulse Rate 112 H 102 H Respiratory Rate 24 22 Blood Pressure 102/58 L Pulse Oximetry 98 100 12/12/17 02:00 12/12/17 02:38 12/12/17 02:51 Temperature 36.3 C L Pulse Rate 97 H 94 H 95 H Respiratory Rate 22 19 20 Blood Pressure 98/48 L 95/46 L 95/46 L Pulse Oximetry 96 100 96 12/12/17 02:53 12/12/17 03:00 12/12/17 03:08 Temperature Pulse Rate 94 H 96 H 96 H Respiratory Rate 19 19 20 Blood Pressure 86/44 L 95/50 L Pulse Oximetry 100 99 100 12/12/17 03:23 12/12/17 03:34 12/12/17 03:53 Temperature Pulse Rate 96 H 96 H 96 H Respiratory Rate 19 18 18 Blood Pressure 97/47 L 99/49 L Pulse Oximetry 99 99 12/12/17 04:08 12/12/17 04:23 12/12/17 05:08 Temperature 36.3 C L Pulse Rate 100 H 98 H 96 H Respiratory Rate 20 21 20 Blood Pressure 108/52 L 91/54 L 100/51 L Pulse Oximetry 96 96 96 12/12/17 05:23 12/12/17 05:38 12/12/17 05:53 Temperature Pulse Rate 94 H 94 H 98 H Respiratory Rate 22 19 24 Blood Pressure 107/48 L 113/54 L 111/66 Pulse Oximetry 95 96 94 L 12/12/17 06:08 Temperature Pulse Rate 92 H Respiratory Rate 20 Blood Pressure 105/58 L Pulse Oximetry 95 Intake & Output 12/11/17 12/12/17 12/12/17 18:59 06:59 18:59 Intake Total 1250 / 1250 Output Total 200 / 200 Balance 1050 / 1050 Weight 56 kg 57.5 kg Intake: IV 1250 / 1250 Zosyn 3.375 GM Premix 50 ML @ 50 / 50 100 mls/hr IV.SIG ONCE ONE Rx#: [id number] NS Inj 1,000 ML @ Wide Open IV. 1000 / 1000 SIG BOLUS ONE Rx#:[id number] Vancomycin Inj 1 gm In 200 ml @ 200 / 200 200 mls/hr IV.SIG ONCE ONE Rx# :[id number] Output: Urine Amount (Catheter) 200 / 200 Indwelling Urethral Catheter 200 / 200 Other: Date of Last Bowel Movement 12/12/17 Weight On Admission 57.5 kg Narrative: gen: middle-aged female, lying in bed, somnolent but arousable. heent: nc. at. perrl. mmm. neck: trachea midline. no jvd. chest: equal chest rise. nc o2. cv: normal rate of 92, regular rhythm. sinus. on norepinephrine at 11 mcg/min. abd: soft, very mildly diffusely tender to palpation, nondistended. no guarding. extr: no edema. distal pulses 2+. neuro: RASS -1. follows commands. Septic Shock Reassessment Septic shock perfusion: reassessment completed Caprini VTE Risk Assessment Caprini VTE Risk Assessment: Moderate/High Risk (score >= 2) Caprini Risk Assessment Model: Point Value = 1 Point Value = 2 Point Value = 3 Point Value = 5 Age 41-60 Minor surgery BMI > 25 kg/m2 Swollen legs Varicose veins or History of unexplained or recurrent spontaneous Oral contraceptives or hormone replacement Sepsis (< 1 month) Serious lung disease, including pneumonia (< 1 month) Abnormal pulmonary function Acute myocardial infarction Congestive heart failure (< 1 month) History of inflammatory bowel disease Medical patient at bed rest Age 61-74 Arthroscopic surgery Major open surgery (> 45 min) Laparoscopic surgery (> 45 min) Malignancy Confined to bed (> 72 hours) Immobilizing plaster cast Central venous access Age >= 75 History of VTE Family history of VTE Factor V Leiden Prothrombin [id number] Lupus anticoagulant Anticardiolipin antibodies Elevated serum homocysteine Heparin-induced thrombocytopenia Other congenital or acquired thrombophilia Stroke (< 1 month) Elective arthroplasty Hip, pelvis, or leg fracture Acute spinal cord injury (< 1 month) Prophylaxis Regimen: Total Risk Factor Score Risk Level Prophylaxis Regimen 0-1 Low Early ambulation 2 Moderate Order ONE of the following: *Sequential Compression Device (SCD) *Heparin 5000 units SQ BID 3-4 Higher Order ONE of the following medications: *Heparin 5000 units SQ TID *Enoxaparin/Lovenox 40 mg SQ daily (WT < 150 kg, CrCl > 30 mL/min) *Enoxaparin/Lovenox 30 mg SQ daily (WT < 150 kg, CrCl > 10-29 mL/min) *Enoxaparin/Lovenox 30 mg SQ BID (WT < 150 kg, CrCl > 30 mL/min) AND/OR *Sequential Compression Device (SCD) 5 or more Highest Order ONE of the following medications: *Heparin 5000 units SQ TID (Preferred with Epidurals) *Enoxaparin/Lovenox 40 mg SQ daily (WT < 150 kg, CrCl > 30 mL/min) *Enoxaparin/Lovenox 30 mg SQ daily (WT < 150 kg, CrCl > 10-29 mL/min) *Enoxaparin/Lovenox 30 mg SQ BID (WT < 150 kg, CrCl > 30 mL/min) AND *Sequential Compression Device (SCD) Assessment and Plan - Assessment and Plan Plan: Assessment: 67yF with new-onset diarrhea which appears to be infectious in etiology with associated septic shock. continue antibiotics, vasopressors and ivf. will add stress-dose steroids given history of chronic steroid use. Septic Shock - norepinephrine for goal map > 65 mmHg - abx - ivf @ 200 cc/hr. Gastroenteritis Infectious Diarrhea - cipro, flagyl, vanc - ova & parasites - stool wbc - c. diff. presumed adrenal insufficiency - start hydrocortisone 50mg iv q6h Acute kidney injury - secondary to shock - trend bmp. Acute intravascular volume depletion severe dehydration - mivf @ 200cc/hr Lupus - continue home meds SCDs Lovenox advance diet as tolerated. Lines: - 12/11 femoral CVL: must keep today given vasopressors - /5 Verduzco: must keep given dehydration and brissa Dispo: remain in ICU. critically ill in shock. Critical care time: 31 minutes, exclusive of separately billable procedures H&P: Quality - VTE Deep Vein Thrombosis/Pulmonary Embolism Present on Admission: No
[2017-12-12] MEDS ORDERED: Vancomycin Consult Pharmacy 1 EACH OTHER SCH (08:00)
[2017-12-12] MEDS: Ciprofloxacin 400 MG/200 ML 400 MG/200 ML PIGGYBACK IV.SIG SCH ×2 (08:39→21:27)
[2017-12-12] MEDS: Senna/Docusate Sodium 8.6/50 MG Tablet PO SCH ×2 (08:48→23:46)
[2017-12-12] MEDS ORDERED: Pharmacy Ordered Lab Info OTHER ONE (09:00)
[2017-12-12] MEDS ORDERED: Famotidine PF Inj 20 MG/2 ML Vial IV.PUSH SCH (09:00)
[2017-12-12] MEDS: Baclofen 10 MG Tablet PO SCH ×2 (09:35→12:59)
[2017-12-12] MEDS: traZODone 50 MG Tablet PO SCH (09:35)
[2017-12-12] MEDS: Carisoprodol 350 MG Tablet PO SCH ×2 (09:36→13:00)
[2017-12-12] MEDS: Pregabalin 75 MG Capsule PO SCH ×2 (09:36→13:00)
[2017-12-12] MEDS ORDERED: Magnesium Sulfate Inj 4 GM in Sodium Chlor 0.9% Inj 92 ML IV.SIG ONE (12:21)
[2017-12-12] MEDS: Hydrocortisone Sod Succinate 100 MG Vial IV.PUSH SCH ×2 (13:21→18:26)
--- NOTE | 2017-12-12 14:07 | ECG ---
Date Performed: 12/12/2017 Time Performed: 05:30:14 PTAGE: 67 years EKG: Sinus rhythm RSR prime in lead V1. BORDERLINE ECG No significant change from prior electrocardiogram. PREVIOUS TRACING : 12/12/2017 01.02 DOCTOR: Raza Almodovar Interpretating Date/Time 12/12/2017 14:06:03
[2017-12-12] MEDS: Famotidine PF Inj 20 MG/2 ML Vial IV.PUSH SCH (21:27)
[2017-12-13] MEDS: Sod Chloride 0.9% Inj 1,000 ML IV.CONT SCH ×2 (01:06→11:06)
[2017-12-13] MEDS: Heparin - SQ 10,000 UNITS/ML Vial SQ SCH ×3 (01:09→16:17)
[2017-12-13] MEDS: Hydrocortisone Sod Succinate 100 MG Vial IV.PUSH SCH ×3 (02:02→16:15)
[2017-12-13] MEDS: Chlorhexidine Gluconate 2% 1 Pack (2 Cloths) TOPICAL SCH (05:59)
[2017-12-13] MEDS ORDERED: Vancomycin Inj 1 GM/200 ML PIGGYBACK IV.SIG SCH (06:00)
--- NOTE | 2017-12-13 06:48 | CT ---
EXAM DATE: 12/13/2017 6:38 AM EDT AGE/SEX: 67 years / Female INDICATIONS: Fell out of bed hitting forehead. CLINICAL DATA: This is the patient's initial encounter. Patient reports that signs and symptoms have been present for 1 day and indicates a pain score of 3/10. MEDICAL/SURGICAL HISTORY: Lupus. None. RADIATION DOSE: 50.07 CTDI (mGy) COMPARISON: No prior exams available for comparison. TECHNIQUE: CT of the head without contrast. Using automated exposure control and adjustment of the mA and/or kV according to patient size, radiation dose was kept as low as reasonably achievable to ob tain optimal diagnostic quality images. DICOM format image data is available electronically for revi ew and comparison. FINDINGS: Cerebrum: Prominence of the sylvian fissures bilaterally indicates symmetric temporal lobe atrophy. The ventricles are normal for age. No evidence of midline shift, mass lesion, hemorrhage or acute in farction. No extraaxial fluid collections are seen. Posterior Fossa: The cerebellum and brainstem are intact. The 4th ventricle is midline. The cerebe llopontine angle is unremarkable. Extracranial: The visualized portion of the orbits is intact. Skull: The calvaria is intact. No evidence of skull fracture. CONCLUSION: 1. No acute intracranial findings. 2. Bilateral temporal lobe atrophy noted. Electronically signed by: Farooq Doyle MD 12/13/2017 6:47 AM EDT
[2017-12-13 07:45] LABS: Hematocrit 27.7 % (35.0-46.0); Hemoglobin 9.1 gm/dL (11.6-15.3); Mean Corpuscular Volume 85.1 fL (80.0-100.0); Mean Platelet Volume 7.2 fL (7.0-11.0); Platelet Count 233 th/mm3 (150-450); Red Blood Count 3.25 mil/mm3 (4.00-5.30); Red Cell Distribution Width 19.8 % (11.6-17.2)
[2017-12-13 08:09] LABS: Potassium 3.5 meq/L (3.5-5.1)
[2017-12-13 08:15] LABS: Calcium 7.4 mg/dL (8.5-10.1); Carbon Dioxide 17.2 meq/L (21.0-32.0)
[2017-12-13] MEDS: azaTHIOprine 50 MG Tablet PO SCH ×2 (08:41→21:29)
[2017-12-13] MEDS: Senna/Docusate Sodium 8.6/50 MG Tablet PO SCH ×3 (08:42→21:29)
[2017-12-13] MEDS: Pregabalin 75 MG Capsule PO SCH (08:42)
[2017-12-13] MEDS: traZODone 50 MG Tablet PO SCH (08:43)
[2017-12-13] MEDS: Famotidine PF Inj 20 MG/2 ML Vial IV.PUSH SCH ×2 (08:44→21:29)
[2017-12-13] MEDS: Sertraline 100 MG Tablet PO SCH (08:45)
[2017-12-13 08:48] LABS: Total Protein 5.5 g/dL (6.4-8.2)
[2017-12-13] MEDS ORDERED: Haloperidol Inj 5 MG/ML Ampul IV.PUSH ONE (10:45)
[2017-12-13] MEDS: Ciprofloxacin 400 MG/200 ML 400 MG/200 ML PIGGYBACK IV.SIG SCH ×2 (11:02→21:28)
--- NOTE | 2017-12-13 15:26 | P.PNCC ---
Subjective Subjective Remarks/Hospital Course: 12/12: 67yF presented to the ER with n/v abdominal pain which started yesterday. denies blood in stool or dark tarry stools. states she has had some improvements in abdominal pain and diarrhea. in the ER, was severely hypotensive with elevated lactate. received ivf boluses and started on vasopressors. remains on vasopressors on my evaluation. somewhat somnolent but arousable. of note, has a history of lupus and takes daily steroids: prednisone 10mg daily. remainder of ROS is negative. 12/13: Resting comfortably. Attempting to get out of bed and fell this morning. Head CT negative for bleed. Off pressors since yesterday. Making urine. Objective Vital Signs / I&O: Vital Signs 12/12/17 15:26 12/12/17 15:30 12/12/17 16:00 Temperature 98.5 F Pulse Rate 90 94 H 92 H Respiratory Rate 29 H 22 28 H Blood Pressure 118/64 128/86 Pulse Oximetry 93 L 94 L 97 12/12/17 16:06 12/12/17 16:15 12/12/17 16:30 Temperature Pulse Rate 94 H 92 H 88 Respiratory Rate 27 H 30 H 25 H Blood Pressure 115/67 108/57 L 115/63 Pulse Oximetry 87 L 97 12/12/17 16:45 12/12/17 17:00 12/12/17 17:34 Temperature Pulse Rate 88 86 86 Respiratory Rate 22 28 H 30 H Blood Pressure 125/58 L 105/72 103/46 L Pulse Oximetry 97 95 12/12/17 18:00 12/12/17 19:00 12/12/17 20:00 Temperature Pulse Rate 88 88 97 H Respiratory Rate 30 H 28 H Blood Pressure 118/62 Pulse Oximetry 96 12/12/17 20:20 12/12/17 21:00 12/12/17 22:00 Temperature 97.6 F Pulse Rate 94 H 98 H 98 H Respiratory Rate 30 H 28 H 26 H Blood Pressure 96/59 L 133/59 L 130/50 L Pulse Oximetry 12/12/17 22:15 12/12/17 23:00 12/13/17 00:00 Temperature 98.2 F Pulse Rate 95 H 104 H 100 H Respiratory Rate 22 26 H 45 H Blood Pressure 138/62 138/62 Pulse Oximetry 97 97 96 12/13/17 01:02 12/13/17 02:00 12/13/17 03:00 Temperature 97.3 F L Pulse Rate 108 H 102 H 96 H Respiratory Rate 26 H 23 20 Blood Pressure 98/47 L 101/50 L 107/66 Pulse Oximetry 97 96 96 12/13/17 03:29 12/13/17 04:00 12/13/17 05:14 Temperature 98.1 F Pulse Rate 103 H 106 H 110 H Respiratory Rate 22 33 H 39 H Blood Pressure 116/60 112/60 Pulse Oximetry 98 98 12/13/17 05:21 12/13/17 06:00 12/13/17 06:15 Temperature 98.1 F Pulse Rate 104 H 100 H Respiratory Rate 20 35 H Blood Pressure 112/60 118/65 117/58 L Pulse Oximetry 98 97 12/13/17 06:21 12/13/17 06:46 12/13/17 07:00 Temperature 98.2 F Pulse Rate 106 H 102 H 100 H Respiratory Rate 22 27 H 25 H Blood Pressure 126/62 Pulse Oximetry 96 12/13/17 07:16 12/13/17 10:56 12/13/17 14:46 Temperature Pulse Rate 100 H 106 H 109 H Respiratory Rate 29 H 28 H 24 Blood Pressure 109/60 Pulse Oximetry 100 Intake & Output 12/12/17 12/13/17 12/13/17 18:59 06:59 18:59 Intake Total 1900 / 1900 1100 / 1100 500 / 500 Output Total 1425 / 1425 1999 / 1999 Balance 475 / 475 -900 / -900 500 / 500 Weight 57.5 kg Intake: IV 1900 / 1900 1100 / 1100 500 / 500 NS Inj 1,000 ML @ 200 mls/hr IV 1000 / 1000 1000 / 1000 .CONT .Q5H [facility] Rx#:[id number] Cipro 400 MG/200 ML Inj 400 mg 200 / 200 200 / 200 In 200 ml @ 200 mls/hr IV.SIG Q12HR [facility] Rx#:[id number] Levophed-Dextrose 4 mg/250 ml 500 / 500 Drip 4 mg In 250 ml @ 2 MCG/MIN 7.5 mls/hr IV.SIG TITRATE PRN Rx#:[id number] Vancomycin Inj 1 gm In 200 ml @ 200 / 200 200 mls/hr IV.SIG Q36H [facility] Rx# :[id number] Flagyl 500 MG Inj 100 ML @ 100 200 / 200 100 / 100 100 / 100 mls/hr IV.SIG Q6H [facility] Rx#: [id number] Output: Urine Amount (Catheter) 1425 / 1425 1999 Indwelling Urethral Catheter 142 / 1425 1999 Other: Date of Last Bowel Movement 12/12/17 12/12/17 # Bowel Movements 1 1 Result Diagrams: 12/13/17 07:20 12/13/17 07:20 Other Results: Laboratory Results - last 24 hr 12/12/17 12/13/17 12/13/17 21:41 07:20 07:20 WBC 12.0 H RBC 3.25 L Hgb 9.1 L D Hct 27.7 L MCV 85.1 MCH 28.0 MCHC 33.0 RDW 19.8 H Plt Count 233 D MPV 7.2 Sodium 141 Potassium 3.5 Chloride 114 H Carbon Dioxide 17.2 L Anion Gap 10 BUN 10 Creatinine 1.10 H Estimated GFR 50 L POC Glucose 109 Random Glucose 119 H Calcium 7.4 L* Prot Corrected Calcium 8.3 L Total Protein 5.5 L 12/13/17 08:17 WBC RBC Hgb Hct MCV MCH MCHC RDW Plt Count MPV Sodium Potassium Chloride Carbon Dioxide Anion Gap BUN Creatinine Estimated GFR POC Glucose 118 H Random Glucose Calcium Prot Corrected Calcium Total Protein Imaging: ITS Impressions Chest X-Ray 12/11/17 18:22 CONCLUSION: Negative examination. Abdomen/Pelvis CT 12/11/17 19:06 CONCLUSION: No acute CT findings in the abdomen or pelvis. Head CT 12/13/17 00:00 CONCLUSION: 1. No acute intracranial findings. 2. Bilateral temporal lobe atrophy noted. Objective Remarks: gen: middle-aged female, lying in bed, somnolent but arousable. heent: nc. at. perrl. mmm. neck: trachea midline. no jvd. chest: equal chest rise. nc o2. cv: normal rate of 92, regular rhythm. sinus. on norepinephrine at 11 mcg/min. abd: soft, very mildly diffusely tender to palpation, nondistended. no guarding. extr: no edema. distal pulses 2+. neuro: RASS -1. follows commands. Assessment and Plan - Assessment and Plan Plan: Assessment: 67yF with new-onset diarrhea which appears to be infectious in etiology with associated septic shock. continue antibiotics, vasopressors and ivf. will add stress-dose steroids given history of chronic steroid use. Septic Shock - norepinephrine for goal map > 65 mmHg. Off pressors since yesterday - abx -Change normal saline to D5 LR at 100 cc an hour. Gastroenteritis Infectious Diarrhea - cipro, flagyl, vanc - ova & parasites - stool wbc - c. diff negative presumed adrenal insufficiency - start hydrocortisone 50mg iv q6h Acute kidney injury - secondary to shock - trend bmp. Acute intravascular volume depletion severe dehydration - mivf @ 200cc/hr Lupus - continue home meds SCDs Lovenox advance diet as tolerated. Lines: - /5 femoral CVL: must keep today given vasopressors - /5 Verduzco: must keep given dehydration and brissa Consult and transfer to hospitalist service for further medical management. Critical care will be signing off.
[2017-12-13] MEDS: Dextrose 5%/Lactated Ringer's 1,000 ML IV.CONT SCH (16:16)
[2017-12-14 07:41] LABS: Hematocrit 28.1 % (35.0-46.0); Hemoglobin 9.5 gm/dL (11.6-15.3); Mean Corpuscular HGB Conc 33.8 % (32.0-36.0); Mean Corpuscular Hemoglobin 27.9 pg (27.0-34.0); Mean Corpuscular Volume 82.6 fL (80.0-100.0); Mean Platelet Volume 7.1 fL (7.0-11.0); Platelet Count 245 th/mm3 (150-450); Red Cell Distribution Width 20.2 % (11.6-17.2); White Blood Count 12.4 th/mm3 (4.0-11.0)
[2017-12-14 08:29] LABS: Calcium 8.3 mg/dL (8.5-10.1); Carbon Dioxide 21.3 meq/L (21.0-32.0)
[2017-12-14] MEDS: Ciprofloxacin 400 MG/200 ML 400 MG/200 ML PIGGYBACK IV.SIG SCH ×2 (08:31→20:57)
[2017-12-14] MEDS: traZODone 50 MG Tablet PO SCH (08:32)
[2017-12-14] MEDS: Senna/Docusate Sodium 8.6/50 MG Tablet PO SCH ×2 (08:32→20:58)
[2017-12-14] MEDS: azaTHIOprine 50 MG Tablet PO SCH ×2 (08:32→20:56)
[2017-12-14] MEDS: Heparin - SQ 10,000 UNITS/ML Vial SQ SCH ×4 (08:32→23:32)
[2017-12-14] MEDS: Famotidine PF Inj 20 MG/2 ML Vial IV.PUSH SCH ×2 (08:32→20:56)
[2017-12-14] MEDS: Pregabalin 75 MG Capsule PO SCH (08:32)
[2017-12-14 08:34] LABS: Potassium 2.8 meq/L (3.5-5.1)
[2017-12-14] MEDS: Hydrocortisone Sod Succinate 100 MG Vial IV.PUSH SCH ×3 (08:35→23:30)
--- NOTE | 2017-12-14 09:17 | P.PN ---
Subjective Interval history: f/u; gastroenteritis/ septic shock patient is somewhat lethargic but easily arousable. she's tachypneic and tachycardic. has mild pain to the lower abdomen. no fever. d/w the RN. Physical Exam Vital signs: Vital Signs 12/13/17 09:55 12/13/17 10:56 12/13/17 11:34 Temperature Pulse Rate 106 H 106 H 112 H Respiratory Rate 35 H 28 H 33 H Blood Pressure 160/72 H 107/84 Pulse Oximetry 100 12/13/17 12:16 12/13/17 13:16 12/13/17 14:16 Temperature 98.2 F Pulse Rate 108 H 110 H 116 H Respiratory Rate 28 H 28 H 26 H Blood Pressure 132/65 163/83 H 172/130 H Pulse Oximetry 12/13/17 14:46 12/13/17 15:16 12/13/17 16:16 Temperature 98.3 F Pulse Rate 109 H 110 H 112 H Respiratory Rate 24 29 H 31 H Blood Pressure 167/99 H 148/72 H Pulse Oximetry 12/13/17 17:16 12/13/17 18:00 12/13/17 18:53 Temperature Pulse Rate 118 H 108 H 112 H Respiratory Rate 29 H 20 35 H Blood Pressure 155/70 H 172/70 H 187/77 H Pulse Oximetry 92 L 12/13/17 18:54 12/13/17 19:00 12/13/17 20:00 Temperature 98.4 F Pulse Rate 108 H 108 H 108 H Respiratory Rate 29 H 32 H 22 Blood Pressure 172/70 H 172/70 H Pulse Oximetry 100 12/13/17 21:00 12/13/17 21:48 12/13/17 22:00 Temperature Pulse Rate 100 H 110 H 110 H Respiratory Rate 23 22 24 Blood Pressure 154/69 H Pulse Oximetry 99 100 12/13/17 22:06 12/13/17 23:00 12/14/17 00:00 Temperature 98.6 F Pulse Rate 114 H 108 H 104 H Respiratory Rate 27 H 22 25 H Blood Pressure 154/69 H 109/45 L 142/65 H Pulse Oximetry 99 92 L 12/14/17 01:00 12/14/17 02:00 12/14/17 03:00 Temperature Pulse Rate 101 H 122 H 122 H Respiratory Rate 25 H 24 24 Blood Pressure 142/65 H 177/83 H 177/83 H Pulse Oximetry 94 L 95 94 L 12/14/17 03:46 12/14/17 04:00 12/14/17 05:00 Temperature 98.7 F Pulse Rate 121 H 108 H 116 H Respiratory Rate 20 23 23 Blood Pressure 179/84 H 166/90 H Pulse Oximetry 94 L 94 L 12/14/17 06:00 Temperature Pulse Rate 126 H Respiratory Rate 23 Blood Pressure 140/89 Pulse Oximetry 95 Intake & Output 12/13/17 12/14/17 12/14/17 18:59 06:59 18:59 Intake Total 1579 / 1579 400 / 400 Output Total 700 / 700 Balance 879 / 879 400 / 400 Weight 58.9 kg Intake: IV 1329 / 1329 400 / 400 NS Inj 1,000 ML @ 200 mls/hr IV 729 / 729 .CONT .Q5H [facility] Rx#:[id number] Cipro 400 MG/200 ML Inj 400 mg 200 / 200 200 / 200 In 200 ml @ 200 mls/hr IV.SIG Q12HR VALERIE Rx#:[id number] Vancomycin Inj 1 gm In 200 ml @ 200 / 200 200 mls/hr IV.SIG Q36H [facility]IE Rx# :[id number] Flagyl 500 MG Inj 100 ML @ 100 200 / 200 200 / 200 mls/hr IV.SIG Q6H AVLERIE Rx#: [id number] Oral 250 / 250 Output: Urine 700 / 700 Other: # Urine Diapers 2 Date of Last Bowel Movement 12/13/17 12/13/17 # Bowel Movements 2 - Constitutional moderate distress - Routine Respiratory Exam Present: prolonged expiratory phase - Routine Cardiovascular Exam Present: tachycardia - Routine Abdominal Exam Present: soft, tenderness (mild lower abdominal tenderness.) - Routine Extremities Exam Comments: no pedal edema. - Routine Neurological Exam Present: altered mental status - Urinary Catheter Management Indwelling Urethral Catheter Cath placed during this visit: yes Reason for continuing: Other continuation reason Insertion date: 12/12/17 Insertion time: 00:45 Results - Labs CBC & Chem 7: 12/14/17 07:30 12/14/17 07:30 Laboratory Results - last 24 hr 12/14/17 12/14/17 07:30 07:30 WBC 12.4 H RBC 3.40 L Hgb 9.5 L Hct 28.1 L MCV 82.6 MCH 27.9 MCHC 33.8 RDW 20.2 H Plt Count 245 MPV 7.1 Sodium 146 H Potassium 2.8 L* Chloride 115 H Carbon Dioxide 21.3 Anion Gap 10 BUN 6 L Creatinine 0.99 Estimated GFR 56 L Random Glucose 107 H Calcium 8.3 L D Microbiology 12/11/17 19:58 Catheterized Urine Urine Culture - Final No growth in 48 hours 12/11/17 18:25 Blood - Peripheral Aerobic Blood Culture - Preliminary No growth in 2 days 12/11/17 18:25 Blood - Peripheral Anaerobic Blood Culture - Preliminary No growth in 2 days 12/11/17 18:20 Blood - Peripheral Aerobic Blood Culture - Preliminary No growth in 2 days 12/11/17 18:20 Blood - Peripheral Anaerobic Blood Culture - Preliminary No growth in 2 days Assessment and Plan - Assessment (1) Septic shock Code(s): A41.9 - Sepsis, unspecified organism; R65.21 - Severe sepsis with septic shock Status: Acute Plan: has resolved- off vasopressors- will start to taper down IV steroids slowly- continue to monitor. (2) Wheezing Code(s): R06.2 - Wheezing Status: Acute Plan: patient is tachycardic and tachypneic- will check CXR, ABG and EKG. start on neb treatments. continue to monitor closely. (3) Gastroenteritis Code(s): K52.9 - Noninfective gastroenteritis and colitis, unspecified Status : Acute Plan: on Cipro and Flagyl- follow the stool studies. (4) Hypokalemia Code(s): E87.6 - Hypokalemia Status: Acute Plan: will replace and monitor. (5) Lupus Code(s): L93.0 - Discoid lupus erythematosus Status: Chronic Plan: continue home meds. - Plan DVT prophylaxis with subq Heparin. will keep in ICU today for close monitoring. 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
--- NOTE | 2017-12-14 09:32 | XR ---
EXAM DATE: 12/14/2017 9:27 AM EDT AGE/SEX: 67 years / Female INDICATIONS: Short of breath. CLINICAL DATA: This is the patient's subsequent encounter. Patient reports that signs and symptoms h ave been present for 3 days and indicates a pain score of 0/10. MEDICAL/SURGICAL HISTORY: Chronic obstructive pulmonary disease. Lupus. None. COMPARISON: HPO, CHEST 1V SINGLE AP, 12/11/2017. . FINDINGS: A single AP view of the chest demonstrates bibasilar airspace disease greater left lower lobe. Heart mildly enlarged. The cardiomediastinal contours are unremarkable. Osseous structures are intact. CONCLUSION: Bibasilar consolidation greater left lower lobe Electronically signed by: Howard Redman MD 12/14/2017 9:31 AM EDT
[2017-12-14 09:45] LABS: ABG Base Excess -5.3 mmol/L (-2-2); ABG PCO2 29 mmHg (38-42); ABG PO2 49 mmHg (61-120)
[2017-12-14] MEDS: Potassium Chlor 20 mEq Premix 20 MEQ/100 ML PIGGYBACK IV.SIG SCH ×2 (11:00→12:38)
--- NOTE | 2017-12-14 11:07 | ECG ---
Date Performed: 12/14/2017 Time Performed: 09:29:08 PTAGE: 67 years EKG: SINUS TACHYCARDIA NONSPECIFIC ST & T-WAVE ABNORMALITY ABNORMAL RHYTHM ECG PREVIOUS TRACING : 12/12/2017 05.30 Compared to previous tracing, heart rate has increased. DOCTOR: Luis Calhoun Interpretating Date/Time 12/14/2017 11:06:33
[2017-12-14] MEDS ORDERED: Vancomycin Inj 1 GM/200 ML PIGGYBACK IV.SIG SCH (12:00)
[2017-12-14] MEDS: Sertraline 100 MG Tablet PO SCH (12:19)
[2017-12-14] MEDS ORDERED: Hydrocortisone Sod Succinate 100 MG Vial IV.PUSH SCH (14:00)
[2017-12-14] MEDS: Dextrose 5%/Lactated Ringer's 1,000 ML IV.CONT SCH (14:00)
[2017-12-14] MEDS: Metoprolol Tartrate 25 MG Tablet PO SCH (17:08)
[2017-12-15 00:20] LABS: Calcium 7.3 mg/dL (8.5-10.1); Carbon Dioxide 18.8 meq/L (21.0-32.0); Potassium 4.2 meq/L (3.5-5.1)
[2017-12-15] MEDS ORDERED: Metoprolol Tartrate 25 MG Tablet PO ONE (01:09)
[2017-12-15] MEDS: Chlorhexidine Gluconate 2% 1 Pack (2 Cloths) TOPICAL SCH (04:35)
[2017-12-15 05:17] LABS: Hematocrit 26.1 % (35.0-46.0); Hemoglobin 8.9 gm/dL (11.6-15.3); Mean Corpuscular Hemoglobin 27.7 pg (27.0-34.0); Mean Corpuscular Volume 81.3 fL (80.0-100.0); Mean Platelet Volume 7.5 fL (7.0-11.0); Platelet Count 175 th/mm3 (150-450); Red Blood Count 3.21 mil/mm3 (4.00-5.30); Red Cell Distribution Width 20.6 % (11.6-17.2); White Blood Count 4.2 th/mm3 (4.0-11.0)
[2017-12-15] MEDS: Vancomycin Inj 1 GM/200 ML PIGGYBACK IV.SIG SCH (05:23)
[2017-12-15] MEDS: Hydrocortisone Sod Succinate 100 MG Vial IV.PUSH SCH ×3 (05:23→21:23)
[2017-12-15 05:35] LABS: Calcium 7.5 mg/dL (8.5-10.1); Carbon Dioxide 20.7 meq/L (21.0-32.0); Potassium 3.4 meq/L (3.5-5.1)
[2017-12-15] MEDS: Heparin - SQ 10,000 UNITS/ML Vial SQ SCH ×2 (09:04→15:09)
[2017-12-15] MEDS: Famotidine PF Inj 20 MG/2 ML Vial IV.PUSH SCH ×2 (09:05→21:22)
[2017-12-15] MEDS: Senna/Docusate Sodium 8.6/50 MG Tablet PO SCH ×2 (09:06→21:14)
[2017-12-15] MEDS: Pregabalin 75 MG Capsule PO SCH (09:06)
[2017-12-15] MEDS: Metoprolol Tartrate 25 MG Tablet PO SCH (09:07)
[2017-12-15] MEDS: traZODone 50 MG Tablet PO SCH (09:07)
[2017-12-15] MEDS: azaTHIOprine 50 MG Tablet PO SCH ×2 (09:07→21:22)
[2017-12-15] MEDS: Ciprofloxacin 400 MG/200 ML 400 MG/200 ML PIGGYBACK IV.SIG SCH ×2 (09:08→21:24)
[2017-12-15] MEDS: Sertraline 100 MG Tablet PO SCH (09:10)
--- NOTE | 2017-12-15 09:25 | P.PN ---
Subjective Interval history: in no acute distress. looks better today. is more awake and alert. has mild abdominal pain with some diarrhea. no fever. d/w the RN. Physical Exam Vital signs: Vital Signs 12/14/17 09:58 12/14/17 09:59 12/14/17 10:00 Temperature Pulse Rate 130 H 130 H Respiratory Rate Blood Pressure 143/84 H Pulse Oximetry 99 12/14/17 10:59 12/14/17 11:00 12/14/17 11:59 Temperature Pulse Rate 130 H 130 H 130 H Respiratory Rate Blood Pressure 146/76 H 135/63 Pulse Oximetry 12/14/17 12:00 12/14/17 13:00 12/14/17 13:59 Temperature Pulse Rate 130 H 138 H 124 H Respiratory Rate 18 Blood Pressure 135/63 101/74 Pulse Oximetry 12/14/17 14:00 12/14/17 14:57 12/14/17 14:59 Temperature Pulse Rate 122 H 116 H Respiratory Rate Blood Pressure 98/60 L Pulse Oximetry 100 100 12/14/17 15:00 12/14/17 15:59 12/14/17 16:00 Temperature Pulse Rate 120 H 118 H 118 H Respiratory Rate Blood Pressure 107/61 Pulse Oximetry 100 99 99 12/14/17 16:05 12/14/17 16:59 12/14/17 17:00 Temperature 98.2 F Pulse Rate 118 H 118 H 118 H Respiratory Rate Blood Pressure 107/61 116/73 Pulse Oximetry 98 98 12/14/17 17:59 12/14/17 18:00 12/14/17 18:59 Temperature Pulse Rate 114 H 114 H 112 H Respiratory Rate Blood Pressure 114/65 112/68 Pulse Oximetry 99 98 98 12/14/17 19:00 12/14/17 19:59 12/14/17 20:00 Temperature 98.0 F 97.3 F L Pulse Rate 112 H 116 H 116 H Respiratory Rate 22 Blood Pressure 122/80 122/80 122/80 Pulse Oximetry 98 98 99 12/14/17 21:00 12/14/17 21:06 12/14/17 22:00 Temperature Pulse Rate 118 H 120 H 124 H Respiratory Rate 22 20 24 Blood Pressure 127/78 125/86 Pulse Oximetry 100 97 99 12/14/17 23:00 12/15/17 00:00 12/15/17 01:00 Temperature 97.0 F L Pulse Rate 128 H 128 H 136 H Respiratory Rate Blood Pressure 114/87 143/84 H 151/75 H Pulse Oximetry 98 98 97 12/15/17 01:20 12/15/17 02:00 12/15/17 03:00 Temperature Pulse Rate 125 H 118 H 118 H Respiratory Rate 20 27 H 27 H Blood Pressure 115/79 112/75 Pulse Oximetry 96 96 12/15/17 03:27 12/15/17 04:00 12/15/17 05:00 Temperature 97.9 F Pulse Rate 108 H 101 H 98 H Respiratory Rate 20 26 H 23 Blood Pressure 97/66 L 94/69 L Pulse Oximetry 97 99 12/15/17 06:00 12/15/17 06:11 12/15/17 07:00 Temperature Pulse Rate 100 H 96 H 98 H Respiratory Rate 21 21 22 Blood Pressure 89/68 L 97/59 L 93/57 L Pulse Oximetry 98 99 Intake & Output 12/14/17 12/15/17 12/15/17 18:59 06:59 18:59 Intake Total 800 / 800 400 / 400 Output Total 300 / 300 Balance 800 / 800 100 / 100 Weight 65.9 kg Intake: IV 500 / 500 400 / 400 Cipro 400 MG/200 ML Inj 400 mg 200 / 200 200 / 200 In 200 ml @ 200 mls/hr IV.SIG Q12HR [facility] Rx#:[id number] KCl 20 mEq Premix Inj 20 meq In 100 / 100 100 ml @ 50 mls/hr IV.SIG Q2H [facility]IE Rx#:[id number] Flagyl 500 MG Inj 100 ML @ 100 200 / 200 200 / 200 mls/hr IV.SIG Q6H [facility]IE Rx#: [id number] Oral 300 / 300 Output: Urine 300 / 300 Other: Date of Last Bowel Movement 12/13/17 12/14/17 - Constitutional no acute distress - Routine Respiratory Exam Present: CTA bilaterally - Routine Cardiovascular Exam Present: tachycardia - Routine Abdominal Exam Present: soft - Routine Extremities Exam Comments: no pedal edema. - Routine Neurological Exam Present: alert (more awake and alert today.) - Urinary Catheter Management Indwelling Urethral Catheter Cath placed during this visit: yes Reason for continuing: Other continuation reason Insertion date: 12/12/17 Insertion time: 00:45 Results - Labs CBC & Chem 7: 12/15/17 04:48 12/15/17 04:48 Laboratory Results - last 24 hr 12/14/17 12/14/17 12/14/17 07:30 09:37 23:44 WBC RBC Hgb Hct MCV MCH MCHC RDW Plt Count MPV Puncture Site Right radial Patient Temperature 98.6 O2 Saturation 85 L* ABG pH 7.42 ABG pCO2 29 L ABG pO2 49 L* ABG HCO3 18 L ABG O2 Content 11.2 L ABG Base Excess -5.3 L ABG Methemoglobin 0.5 Tyshawn Test Present Hemoglobin 9.4 L Carboxyhemoglobin 1.4 O2 Delivery Device Ra Inspired O2 21 Critical Value Yes Sodium 142 Potassium 4.2 D Chloride 114 H Carbon Dioxide 18.8 L Anion Gap 9 BUN 6 L Creatinine 0.94 Estimated GFR 60 L Random Glucose 187 H Calcium 7.3 L* D Prot Corrected Calcium 8.5 Magnesium 1.7 Total Protein 5.0 L 12/15/17 12/15/17 04:48 04:48 WBC 4.2 D RBC 3.21 L Hgb 8.9 L Hct 26.1 L MCV 81.3 MCH 27.7 MCHC 34.0 RDW 20.6 H Plt Count 175 MPV 7.5 Puncture Site Patient Temperature O2 Saturation ABG pH ABG pCO2 ABG pO2 ABG HCO3 ABG O2 Content ABG Base Excess ABG Methemoglobin Tyshawn Test Hemoglobin Carboxyhemoglobin O2 Delivery Device Inspired O2 Critical Value Sodium 143 Potassium 3.4 L D Chloride 113 H Carbon Dioxide 20.7 L Anion Gap 9 BUN 6 L Creatinine 0.91 Estimated GFR 62 L Random Glucose 156 H Calcium 7.5 L Prot Corrected Calcium Magnesium Total Protein Microbiology 12/11/17 18:25 Blood - Peripheral Aerobic Blood Culture - Preliminary No growth in 3 days 12/11/17 18:25 Blood - Peripheral Anaerobic Blood Culture - Preliminary No growth in 3 days 12/11/17 18:20 Blood - Peripheral Aerobic Blood Culture - Preliminary No growth in 3 days 12/11/17 18:20 Blood - Peripheral Anaerobic Blood Culture - Preliminary No growth in 3 days - Imaging Impressions Chest X-Ray 12/14/17 00:00 CONCLUSION: Bibasilar consolidation greater left lower lobe Assessment and Plan - Assessment (1) Septic shock Code(s): A41.9 - Sepsis, unspecified organism; R65.21 - Severe sepsis with septic shock Status: Acute Plan: has resolved- continue to taper down IV steroids slowly- continue to monitor. (2) Wheezing Code(s): R06.2 - Wheezing Status: Acute Plan: improved- continue with neb treatment and monitor. (3) Gastroenteritis Code(s): K52.9 - Noninfective gastroenteritis and colitis, unspecified Status : Acute Plan: on Cipro and Flagyl- follow the stool studies. (4) Hypokalemia Code(s): E87.6 - Hypokalemia Status: Acute Plan: replaced. (5) Lupus Code(s): L93.0 - Discoid lupus erythematosus Status: Chronic Plan: continue home meds. - Plan DVT prophylaxis with subq Heparin. will keep in ICU today and transfer to floor tomorrow if stable. consult PT. Discharge Planning: pending further clinical improvement and PT evaluation.
[2017-12-16] MEDS: Vancomycin Inj 1 GM/200 ML PIGGYBACK IV.SIG SCH (02:48)
[2017-12-16] MEDS: Heparin - SQ 10,000 UNITS/ML Vial SQ SCH ×3 (02:48→18:31)
[2017-12-16] MEDS: Chlorhexidine Gluconate 2% 1 Pack (2 Cloths) TOPICAL SCH (03:08)
[2017-12-16] MEDS: Hydrocortisone Sod Succinate 100 MG Vial IV.PUSH SCH ×3 (05:41→21:44)
[2017-12-16 05:42] LABS: Hematocrit 29.4 % (35.0-46.0); Hemoglobin 9.4 gm/dL (11.6-15.3); Mean Corpuscular HGB Conc 31.9 % (32.0-36.0); Mean Corpuscular Hemoglobin 26.8 pg (27.0-34.0); Mean Platelet Volume 7.4 fL (7.0-11.0); Platelet Count 238 th/mm3 (150-450); Red Cell Distribution Width 20.7 % (11.6-17.2); White Blood Count 7.9 th/mm3 (4.0-11.0)
[2017-12-16] MEDS ORDERED: Pharmacy Ordered Lab Info OTHER ONE (05:45)
[2017-12-16 05:50] LABS: Potassium 3.8 meq/L (3.5-5.1)
[2017-12-16 05:52] LABS: Calcium 7.7 mg/dL (8.5-10.1)
[2017-12-16 05:53] LABS: Carbon Dioxide 19.2 meq/L (21.0-32.0)
--- NOTE | 2017-12-16 10:28 | P.PN ---
Subjective Interval history: in no acute distress. but not as awake as yesterday. had low urine output yesterday. remains afebrile- d/w the RN. Physical Exam Vital signs: Vital Signs 12/15/17 11:00 12/15/17 12:00 12/15/17 13:00 Temperature Pulse Rate 102 H 100 H 104 H Respiratory Rate 51 H 31 H 28 H Blood Pressure 108/73 105/69 106/78 Pulse Oximetry 100 97 98 12/15/17 14:00 12/15/17 14:34 12/15/17 14:44 Temperature Pulse Rate 102 H 110 H Respiratory Rate 27 H 32 H Blood Pressure 98/72 L 120/80 Pulse Oximetry 100 98 12/15/17 15:00 12/15/17 16:00 12/15/17 16:04 Temperature Pulse Rate 104 H 106 H 108 H Respiratory Rate 28 H 33 H 30 H Blood Pressure 110/74 Pulse Oximetry 97 94 L 12/15/17 17:00 12/15/17 18:00 12/15/17 19:00 Temperature Pulse Rate 110 H 108 H 106 H Respiratory Rate 31 H 35 H 32 H Blood Pressure 126/68 110/70 Pulse Oximetry 95 94 L 12/15/17 19:35 12/15/17 19:37 12/15/17 20:00 Temperature 98.2 F Pulse Rate 106 H 104 H Respiratory Rate 28 H 31 H Blood Pressure 164/85 H Pulse Oximetry 97 98 12/15/17 21:00 12/15/17 22:00 12/15/17 23:00 Temperature Pulse Rate 102 H 96 H 96 H Respiratory Rate 30 H 25 H 25 H Blood Pressure 164/85 H 104/65 93/69 L Pulse Oximetry 96 100 100 12/15/17 23:10 12/16/17 00:20 12/16/17 01:00 Temperature 98.2 F Pulse Rate 98 H 98 H 94 H Respiratory Rate 24 30 H 28 H Blood Pressure 102/79 108/70 Pulse Oximetry 93 L 91 L 12/16/17 02:00 12/16/17 03:01 12/16/17 04:00 Temperature 97.4 F L Pulse Rate 100 H 100 H 94 H Respiratory Rate 30 H 30 H 27 H Blood Pressure 112/74 114/77 114/77 Pulse Oximetry 99 99 97 12/16/17 05:28 12/16/17 06:12 12/16/17 07:49 Temperature Pulse Rate 96 H 96 H Respiratory Rate 23 26 H Blood Pressure 119/76 112/81 122/79 Pulse Oximetry 97 97 12/16/17 08:00 12/16/17 10:00 Temperature 98.3 F Pulse Rate 98 H 96 H Respiratory Rate 26 H 22 Blood Pressure Pulse Oximetry 94 L 100 Intake & Output 12/15/17 12/16/17 12/16/17 18:59 06:59 18:59 Intake Total 700 / 700 100 / 100 Output Total 300 / 300 Balance 700 / 700 -200 / -200 Weight 67.3 kg Intake: IV 400 / 400 100 / 100 Cipro 400 MG/200 ML Inj 400 mg 200 / 200 In 200 ml @ 200 mls/hr IV.SIG Q12HR [facility] Rx#:[id number] Flagyl 500 MG Inj 100 ML @ 100 200 / 200 100 / 100 mls/hr IV.SIG Q6H [facility] Rx#: [id number] Oral 300 / 300 Output: Urine 300 / 300 Other: # Voids 1 # Urine Diapers 2 Date of Last Bowel Movement 12/14/17 12/15/17 12/15/17 # Bowel Movements 2 - Constitutional no acute distress - Routine Respiratory Exam Present: wheezes - Routine Cardiovascular Exam Present: RRR - Routine Abdominal Exam Present: soft - Routine Neurological Exam Present: alert - Urinary Catheter Management Indwelling Urethral Catheter Cath placed during this visit: yes Reason for continuing: Other continuation reason Insertion date: 12/12/17 Insertion time: 00:45 Results - Labs CBC & Chem 7: 12/16/17 05:30 12/16/17 05:30 Laboratory Results - last 24 hr 12/16/17 12/16/17 05:30 05:30 WBC 7.9 RBC 3.50 L Hgb 9.4 L Hct 29.4 L MCV 84.0 MCH 26.8 L MCHC 31.9 L RDW 20.7 H Plt Count 238 D MPV 7.4 Sodium 141 Potassium 3.8 Chloride 112 H Carbon Dioxide 19.2 L Anion Gap 10 BUN 20 H Creatinine 2.20 H Estimated GFR 22 L Random Glucose 128 H Calcium 7.7 L Microbiology 12/12/17 09:25 Stool Cryptosporidium Antigen - Final Negative - No Cryptosporicium antigen detected In selected cases of patients with a history of immunosuppression or foreign travel, a full ova and parasites examination may be desired. Contact the microbiology lab if full workup is indicated and subit another specimen for testing. 12/12/17 09:25 Stool Giardia Antigen ([facility]ELIX) - Final Negative - No Giardia Antigen detected In selected cases of patients with a history of immunosuppression or foreign travel, a full ova and parasites examination may be desired. Contact the microbiology lab if full workup is indicated and subit another specimen for testing. 12/11/17 18:25 Blood - Peripheral Aerobic Blood Culture - Preliminary No growth in 4 days 12/11/17 18:25 Blood - Peripheral Anaerobic Blood Culture - Preliminary No growth in 4 days 12/11/17 18:20 Blood - Peripheral Aerobic Blood Culture - Preliminary No growth in 4 days 12/11/17 18:20 Blood - Peripheral Anaerobic Blood Culture - Preliminary No growth in 4 days Assessment and Plan - Assessment (1) Septic shock Code(s): A41.9 - Sepsis, unspecified organism; R65.21 - Severe sepsis with septic shock Status: Acute Plan: has resolved- continue to taper down IV steroids slowly- continue to monitor. (2) Wheezing Code(s): R06.2 - Wheezing Status: Acute Plan: continue with neb treatment, steroid and monitor. (3) Gastroenteritis Code(s): K52.9 - Noninfective gastroenteritis and colitis, unspecified Status : Acute Plan: stool negative for giardia/cryptosporidium/ blood cultures negative-c- diff negative.will dc antibiotics. (4) Hypokalemia Code(s): E87.6 - Hypokalemia Status: Acute Plan: replaced. (5) Lupus Code(s): L93.0 - Discoid lupus erythematosus Status: Chronic Plan: continue home meds. (6) Acute kidney injury Code(s): N17.9 - Acute kidney failure, unspecified Status: Acute Plan: continue with gentle IV fluid- will do bladder scan and will consider machado cath placement- monitor the renal function closely. - Plan DVT prophylaxis with subq Heparin. transfer to telemetry within the next 24 hrs if stable. consulted PT. Discharge Planning: pending further clinical improvement and PT evaluation.
[2017-12-16] MEDS: Famotidine PF Inj 20 MG/2 ML Vial IV.PUSH SCH ×2 (10:53→21:43)
[2017-12-16] MEDS: Metoprolol Tartrate 25 MG Tablet PO SCH (10:55)
[2017-12-16] MEDS: traZODone 50 MG Tablet PO SCH (10:55)
[2017-12-16] MEDS: Sertraline 100 MG Tablet PO SCH (10:56)
[2017-12-16] MEDS: Pregabalin 75 MG Capsule PO SCH (10:56)
[2017-12-16] MEDS: azaTHIOprine 50 MG Tablet PO SCH ×2 (10:56→21:47)
[2017-12-16] MEDS: Senna/Docusate Sodium 8.6/50 MG Tablet PO SCH ×2 (11:04→21:46)
[2017-12-16 11:09] LABS: ABG Base Excess -9.5 mmol/L (-2-2); ABG PCO2 24 mmHg (38-42); ABG PO2 67 mmHg (61-120)
[2017-12-16] MEDS: Sod Chloride 0.9% Inj 1,000 ML IV.CONT SCH (11:56)
--- NOTE | 2017-12-16 12:57 | XR ---
EXAM DATE: 12/16/2017 12:50 PM EDT AGE/SEX: 67 years / Female INDICATIONS: Short of breath. CLINICAL DATA: This is the patient's subsequent encounter. Patient reports that signs and symptoms h ave been present for 4 - 6 days and indicates a pain score of 0/10. MEDICAL/SURGICAL HISTORY: Chronic obstructive pulmonary disease. Lupus. None. COMPARISON: HPO, CHEST 1V SINGLE AP, 12/14/2017. . FINDINGS: A single AP view of the chest demonstrates improving aeration in the lung bases, particularly on the left. Heart size is borderline prominent but well compensated. Osseous structures are intact. CONCLUSION: 1. Improving aeration the lung bases, particularly on the left. 2. Heart size is borderline prominent but well compensated Electronically signed by: Jonathan Pinto MD 12/16/2017 12:56 PM EDT
[2017-12-16] MEDS ORDERED: VANCOMYCIN TROUGH OTHER ONE (17:45)
[2017-12-17] MEDS: Heparin - SQ 10,000 UNITS/ML Vial SQ SCH ×5 (02:24→23:48)
[2017-12-17 05:04] LABS: Hematocrit 28.2 % (35.0-46.0); Hemoglobin 9.1 gm/dL (11.6-15.3); Mean Corpuscular HGB Conc 32.2 % (32.0-36.0); Mean Corpuscular Hemoglobin 26.9 pg (27.0-34.0); Mean Corpuscular Volume 83.6 fL (80.0-100.0); Mean Platelet Volume 8.1 fL (7.0-11.0); Platelet Count 221 th/mm3 (150-450); Red Blood Count 3.37 mil/mm3 (4.00-5.30); Red Cell Distribution Width 21.2 % (11.6-17.2); White Blood Count 7.8 th/mm3 (4.0-11.0)
[2017-12-17 05:14] LABS: Potassium 3.7 meq/L (3.5-5.1)
[2017-12-17 05:16] LABS: Calcium 7.5 mg/dL (8.5-10.1); Carbon Dioxide 16.4 meq/L (21.0-32.0)
[2017-12-17] MEDS: Hydrocortisone Sod Succinate 100 MG Vial IV.PUSH SCH ×2 (06:23→21:09)
[2017-12-17] MEDS: Sod Chloride 0.9% Inj 1,000 ML IV.CONT SCH (09:53)
[2017-12-17] MEDS: Metoprolol Tartrate 25 MG Tablet PO SCH (09:54)
[2017-12-17] MEDS: Famotidine PF Inj 20 MG/2 ML Vial IV.PUSH SCH ×2 (09:55→21:11)
[2017-12-17] MEDS: Senna/Docusate Sodium 8.6/50 MG Tablet PO SCH ×2 (09:58→21:11)
--- NOTE | 2017-12-17 11:09 | P.PN ---
Subjective Interval history: in no acute distress.is more awake and alert today.denies pain and afebrile. urine output is borderline low.d/w the RN. Physical Exam Vital signs: Vital Signs 12/16/17 12:16 12/16/17 15:22 12/16/17 15:39 Temperature 98.4 F 98.4 F Pulse Rate 92 H 95 H 94 H Respiratory Rate 23 25 H 32 H Blood Pressure 111/66 117/74 Pulse Oximetry 94 L 92 L 12/16/17 16:00 12/16/17 17:00 12/16/17 18:00 Temperature Pulse Rate 96 H 98 H 94 H Respiratory Rate 23 25 H 23 Blood Pressure Pulse Oximetry 97 95 95 12/16/17 18:39 12/16/17 18:50 12/16/17 19:36 Temperature Pulse Rate 96 H 98 H 96 H Respiratory Rate 23 25 H 20 Blood Pressure 138/105 H 129/82 Pulse Oximetry 95 96 97 12/16/17 20:00 12/17/17 00:00 12/17/17 00:15 Temperature 98.6 F 98.1 F Pulse Rate 102 H 96 H 99 H Respiratory Rate 27 H 19 19 Blood Pressure 115/75 128/81 Pulse Oximetry 96 93 L 12/17/17 03:19 12/17/17 03:51 12/17/17 04:00 Temperature 98.9 F Pulse Rate 94 H 96 H 102 H Respiratory Rate 19 19 20 Blood Pressure 126/74 126/74 Pulse Oximetry 96 12/17/17 05:00 12/17/17 07:22 12/17/17 08:00 Temperature Pulse Rate 100 H 99 H 100 H Respiratory Rate 20 20 19 Blood Pressure Pulse Oximetry 93 L 94 L 12/17/17 09:52 Temperature 97.9 F Pulse Rate 94 H Respiratory Rate 18 Blood Pressure 113/74 Pulse Oximetry Intake & Output 12/16/17 12/17/17 12/17/17 18:59 06:59 18:59 Intake Total 3710 / 3710 100 / 100 1000 / 1000 Output Total 625 / 625 150 / 150 Balance 3085 / 3085 -50 / -50 1000 / 1000 Weight 68.3 kg Intake: IV 3230 / 3230 1000 / 1000 LR 1000 mL Inj 1,000 ML @ 100 730 / 730 mls/hr IV.CONT .Q10H [facility] Rx#: [id number] NS Inj 1,000 ML @ 50 mls/hr IV. 1000 / 1000 CONT .Q20H [facility]IE Rx#:[id number] Cipro 400 MG/200 ML Inj 400 mg 200 / 200 In 200 ml @ 200 mls/hr IV.SIG Q12HR [facility] Rx#:[id number] LR 1000 mL Inj 1,000 ML @ Wide 1000 / 1000 Open IV.SIG BOLUS ONE Rx#: [id number] Flagyl 500 MG Inj 100 ML @ 100 100 / 100 mls/hr IV.SIG Q6H [facility] Rx#: [id number] Oral 480 / 480 100 / 100 Output: Urine Amount (Catheter) 625 / 625 150 / 150 Indwelling Urethral Catheter 625 / 625 150 / 150 Other: Date of Last Bowel Movement 12/16/17 12/16/17 12/16/17 - Constitutional no acute distress - Routine Respiratory Exam Present: CTA bilaterally - Routine Cardiovascular Exam Present: RRR - Routine Abdominal Exam Present: soft - Routine Neurological Exam Present: alert (is more alert today.) - Urinary Catheter Management Indwelling Urethral Catheter Cath placed during this visit: yes Reason for continuing: Acute urinary retention Insertion date: 12/16/17 Insertion time: 12:15 Results - Labs CBC & Chem 7: 12/17/17 04:36 12/17/17 04:36 Laboratory Results - last 24 hr 12/16/17 12/16/17 12/17/17 11:02 17:35 04:36 WBC RBC Hgb Hct MCV MCH MCHC RDW Plt Count MPV Puncture Site Right radial Patient Temperature 98.6 O2 Saturation 90 ABG pH 7.39 ABG pCO2 24 L* ABG pO2 67 ABG HCO3 14 L* ABG O2 Content 11.7 L ABG Base Excess -9.5 L ABG Methemoglobin 0.5 Tyshawn Test Present Hemoglobin 9.2 L Carboxyhemoglobin 1.2 O2 Delivery Device Room air Inspired O2 21 Critical Value No Sodium 144 Potassium 3.7 Chloride 114 H Carbon Dioxide 16.4 L Anion Gap 14 BUN 38 H Creatinine 2.80 H Estimated GFR 17 L Random Glucose 134 H Calcium 7.5 L Vancomycin Trough 28.8 H 12/17/17 04:36 WBC 7.8 RBC 3.37 L Hgb 9.1 L Hct 28.2 L MCV 83.6 MCH 26.9 L MCHC 32.2 RDW 21.2 H Plt Count 221 MPV 8.1 Puncture Site Patient Temperature O2 Saturation ABG pH ABG pCO2 ABG pO2 ABG HCO3 ABG O2 Content ABG Base Excess ABG Methemoglobin Tyshawn Test Hemoglobin Carboxyhemoglobin O2 Delivery Device Inspired O2 Critical Value Sodium Potassium Chloride Carbon Dioxide Anion Gap BUN Creatinine Estimated GFR Random Glucose Calcium Vancomycin Trough Microbiology 12/11/17 18:25 Blood - Peripheral Aerobic Blood Culture - Final No growth in 5 days 12/11/17 18:25 Blood - Peripheral Anaerobic Blood Culture - Final No growth in 5 days 12/11/17 18:20 Blood - Peripheral Aerobic Blood Culture - Final No growth in 5 days 12/11/17 18:20 Blood - Peripheral Anaerobic Blood Culture - Final No growth in 5 days - Imaging Impressions Chest X-Ray 12/16/17 00:00 CONCLUSION: 1. Improving aeration the lung bases, particularly on the left. 2. Heart size is borderline prominent but well compensated Assessment and Plan - Assessment (1) Septic shock Code(s): A41.9 - Sepsis, unspecified organism; R65.21 - Severe sepsis with septic shock Status: Acute Plan: has resolved- continue to taper down IV steroids slowly- continue to monitor. (2) Wheezing Code(s): R06.2 - Wheezing Status: Acute Plan: likely due to fluid overload- resolved- repeated CXR better. will monitor. (3) Gastroenteritis Code(s): K52.9 - Noninfective gastroenteritis and colitis, unspecified Status : Acute Plan: stool negative for giardia/cryptosporidium/ blood cultures negative-c- diff negative.off antibiotics. (4) Hypokalemia Code(s): E87.6 - Hypokalemia Status: Acute Plan: replaced. (5) Lupus Code(s): L93.0 - Discoid lupus erythematosus Status: Chronic Plan: continue home meds.d/w the pharmacy- the dose of Imuran will be adjusted for renal function-pharmacy consulted. (6) Acute kidney injury Code(s): N17.9 - Acute kidney failure, unspecified Status: Acute Plan: creatinine trending up-continue with gentle IV fluid- check US kidney and consult nephrology- continue with machado cath for now to measure the urine output - repeat BMP tomorrow. - Plan DVT prophylaxis with subq Heparin. transfer to telemetry today. consulted PT. Discharge Planning: not ready for discharge yet.
[2017-12-17] MEDS: traZODone 50 MG Tablet PO SCH (11:16)
[2017-12-17] MEDS: Pregabalin 75 MG Capsule PO SCH (11:39)
[2017-12-17] MEDS: Sertraline 100 MG Tablet PO SCH (11:40)
[2017-12-17] MEDS ORDERED: Custom Consult Pharmacy 1 EACH OTHER SCH (12:00)
--- NOTE | 2017-12-17 12:26 | US ---
EXAM DATE: 12/17/2017 12:21 PM EDT AGE/SEX: 67 years / Female INDICATIONS: Increased lab values. CLINICAL DATA: This is the patient's initial encounter. Patient reports that signs and symptoms have been present for 1 day and indicates a pain score of 0/10. MEDICAL/SURGICAL HISTORY: . Lupus. None. COMPARISON: No prior exams available for comparison. MEASUREMENTS: Right Kidney:__9.4 x 4.2 x 5.1 cm Left Kidney:__9.9 x 4.0 x 5.3 cm FINDINGS: Right Kidney: Increased echotexture. No mass or hydronephrosis. Left Kidney: Increased echotexture. No mass or hydronephrosis. Bladder: Verduzco catheter is present. Bladder decompressed. Other: None. CONCLUSION: 1. Increased renal echogenicity characteristic of medical renal disease. Small left renal cyst measu ring about 1.4 cm in diameter. Electronically signed by: Manuel Pascual MD 12/17/2017 12:25 PM EDT
[2017-12-17] MEDS ORDERED: Chlorothiazide Inj 500 MG Vial IV.PUSH ONE (17:27)
--- NOTE | 2017-12-17 17:45 | P.CONNP ---
History of Present Illness Consult date: 12/17/17 Reason for Consult: Acute on chronic renal insufficiency Primary Care Provider: Janeen Guzman DO Family Provider: Janeen Guzman DO Chief Complaint: diarrhea History of Present Illness: 67-year-old [place] female apparently originally from [place] who according to the records has a history of SLE as well as fibromyalgia. According to the patient she has seen Dr. Witt as an outpatient but those records are not available to me presently. Denies any previous knowledge of renal insufficiency although renal ultrasound showing increased echogenicity suggesting chronic kidney disease. Patient's creatinine level has fluctuated prior to this admission but it was a value of 0.8 back in September 2017. Patient presented with complaints of diarrhea and was hypotensive on presentation requiring inotropic therapy initially but her status improved and this was discontinued. Critical care has signed off. Creatinine at time of admission 2.1 subsequently improving to 0.91 but now worsening again. Patient also said to be dyspneic with increasing edema. Patient is somewhat poor historian. Review of Systems All other systems reviewed negative except as stated in HPI, other (Poor historian.) [facility] - History History Provided By: Patient - Medical History Medical History: Medical History (Last Updated 12/17/17 @ 17:37 by Berry Francis MD) COPD (chronic obstructive pulmonary disease) Fibromyalgia Hypertension Lupus Lupus Posttraumatic stress disorder - Tobacco History Second Hand Smoke Exposure: No Tobacco Use In Past 30 Days: No Smoking Status: Former smoker Tobacco Type: Cigarettes - Alcohol History How Often Do You Have a Drink Containing Alcohol: Monthly or less - Substance Use History Substance History: No History of Abuse - Travel History Recent Travel in the [place] Within the Last 8 Weeks: No Recent Travel Out of the Country Within the Last 8 Weeks: No - Immunization History Tetanus Immunization: Unable to Assess Hx Influenza Vaccine This Season: Unable to Assess Medications and Allergies Active Medications: Active Medications Acetaminophen (Tylenol) 650 mg PO Q6H PRN PRN Reason: PAIN 1-10 AND/OR FEVER >101F Al Hydroxide/Mg Hydroxide (Milk Of Magndarwin Liq) 30 ml PO Q12H PRN PRN Reason: Mild Constipation Albuterol (Duoneb Neb (Prn)) 1 ampul NEB Q2HR NEB PRN PRN Reason: WHEEZING Last Admin: 12/17/17 13:30 Dose: 1 ampul Alprazolam (Xanax) 0.5 mg PO BID PRN PRN Reason: Abdominal Pain Azathioprine (Imuran) 25 mg PO BID [facility] Baclofen (Lioresal) 10 mg PO TID [facility] Last Admin: 12/12/17 12:59 Dose: Not Given Bisacodyl (Dulcolax Supp) 10 mg RECTAL DAILY PRN PRN Reason: SEVERE CONSITIPATION Chlorothiazide Sodium (Diuril Inj) 500 mg IV.PUSH ONCE ONE Stop: 12/17/17 17:28 Duloxetine HCl (Cymbalta) 30 mg PO DAILY [facility] Last Admin: 12/17/17 11:39 Dose: 30 mg Famotidine (Pepcid Pf Inj) 10 mg IV.PUSH Q12HR [facility] Furosemide (Lasix Inj) 40 mg IV.PUSH BID@0900,1800 [facility] Heparin Sodium (Porcine) (Heparin Inj) 5,000 units SQ Q8H [facility] Last Admin: 12/17/17 16:42 Dose: 5,000 units Hydrocortisone Sodium Succinate (Solucortef Inj) 50 mg IV.PUSH Q12HR [facility] Norepinephrine Bitartrate (Levophed-Dextrose 4 Mg/250 Ml Drip) 4 mg in 250 mls @ 7.5 mls/hr IV.SIG TITRATE PRN; Protocol PRN Reason: See protocol Last Titration: 12/12/17 18:55 Dose: 0 mcg/min, 0 mls/hr Sodium Chloride (Ns Inj) 1,000 mls @ 50 mls/hr IV.CONT .Q20H [facility] Last Admin: 12/17/17 09:53 Dose: 50 mls/hr Pharmacy Profile Note ([facility]) 0 mls @ 0 mls/hr OTHER UNSCH [facility] Lactulose (Lactulose Liq) 30 ml PO DAILY PRN PRN Reason: SEVERE CONSITIPATION Lorazepam (Ativan Inj) 2 mg IV.PUSH Q4H PRN PRN Reason: ANXIETY AND/OR AGITATION Last Admin: 12/14/17 01:39 Dose: 2 mg Metoprolol Tartrate (Lopressor) 12.5 mg PO DAILY [facility] Last Admin: 12/17/17 09:54 Dose: 12.5 mg Miscellaneous (Pill Splitter) 1 each OTHER UNSCH PRN PRN Reason: SEE LABEL COMMENTS Morphine Sulfate (Morphine Inj) 2 mg IV.PUSH Q2H PRN PRN Reason: PAIN SCALE 6 TO 10 Ondansetron HCl (Zofran Inj) 4 mg IV.PUSH Q6H PRN PRN Reason: NAUSEA OR VOMITING Pregabalin (Lyrica) 75 mg PO DAILY [facility] Last Admin: 12/17/17 11:39 Dose: 75 mg Senna/Docusate Sodium (Valentina-Colace) 1 tab PO BID [facility] Last Admin: 12/17/17 09:58 Dose: Not Given Sennosides (Senokot) 17.2 mg PO Q12H PRN PRN Reason: Moderate Constipation Sertraline HCl (Zoloft) 100 mg PO DAILY [facility] Last Admin: 12/17/17 11:40 Dose: 100 mg Sodium Chloride (Ns Flush) 2 ml IV.FLUSH BID [facility] Last Admin: 12/17/17 09:58 Dose: 2 ml Sodium Chloride (Ns Flush) 2 ml IV.FLUSH PRN PRN PRN Reason: FLUSH AFTER USING IV ACCESS Temazepam (Restoril) 15 mg PO HS PRN PRN Reason: INSOMNIA Last Admin: 12/12/17 21:26 Dose: 15 mg Trazodone HCl (Desyrel) 50 mg PO DAILY [facility] Last Admin: 12/17/17 11:16 Dose: Not Given Allergies Allergy/AdvReac Type Severity Reaction Status Date / Time No Known Allergies Allergy Unknown Altered Uncoded 12/11/17 18:39 Sense of Taste Home Medications Medication Instructions Recorded Confirmed Type albuterol sulfate 2.5 mg INHALATION QID 12/11/17 12/11/17 History alprazolam 0.5 mg PO BID PRN 12/11/17 12/11/17 History baclofen 10 mg PO DAILY 12/11/17 12/12/17 History carisoprodol 350 mg PO QID 12/11/17 12/11/17 History diazepam 0.1 mg/kg PO TID-QID PRN 12/11/17 12/11/17 History hydrochlorothiazide 50 mg PO DAILY 12/11/17 12/11/17 History ipratropium bromide 1 puff INHALATION Q6H 12/11/17 12/11/17 History metoprolol succinate 25 mg PO DAILY 12/11/17 12/11/17 History omeprazole 20 mg PO DAILY 12/11/17 12/11/17 History pregabalin 75 mg PO TID 12/11/17 12/11/17 History trazodone 50 mg PO DAILY 12/11/17 12/11/17 History amoxicillin 500 mg PO Q6H 12/12/17 12/12/17 History azathioprine [Imuran] 50 mg PO BID 12/12/17 12/12/17 History duloxetine [Cymbalta] 30 mg PO DAILY 12/12/17 12/12/17 History hydrocodone-acetaminophen [[place]] 1 tab PO Q4-6H PRN 12/12/17 12/12/17 History ipratropium bromide [Atrovent HFA] 1 puff INHALATION QID 12/12/17 12/12/17 History methotrexate sodium 15 mg PO QWEEK 12/12/17 12/12/17 History metoprolol tartrate 25 mg PO DAILY 12/12/17 12/12/17 History omeprazole 20 mg PO DAILY 12/12/17 12/12/17 History prednisone 5 mg PO DAILY 12/12/17 12/12/17 History sertraline [Zoloft] 100 mg PO DAILY 12/12/17 12/12/17 History Exam Vital signs: Vital Signs 12/16/17 18:00 12/16/17 18:39 12/16/17 18:50 Temperature Pulse Rate 94 H 96 H 98 H Respiratory Rate 23 23 25 H Blood Pressure 138/105 H 129/82 Pulse Oximetry 95 95 96 12/16/17 19:36 12/16/17 20:00 12/17/17 00:00 Temperature 98.6 F 98.1 F Pulse Rate 96 H 102 H 96 H Respiratory Rate 20 27 H 19 Blood Pressure 115/75 128/81 Pulse Oximetry 97 96 93 L 12/17/17 00:15 12/17/17 03:19 12/17/17 03:51 Temperature Pulse Rate 99 H 94 H 96 H Respiratory Rate 19 19 19 Blood Pressure 126/74 Pulse Oximetry 12/17/17 04:00 12/17/17 05:00 12/17/17 07:22 Temperature 98.9 F Pulse Rate 102 H 100 H 99 H Respiratory Rate 20 20 20 Blood Pressure 126/74 Pulse Oximetry 96 93 L 12/17/17 08:00 12/17/17 09:52 12/17/17 12:00 Temperature 97.9 F Pulse Rate 100 H 94 H Respiratory Rate 19 18 19 Blood Pressure 113/74 Pulse Oximetry 94 L 12/17/17 13:31 12/17/17 14:00 12/17/17 14:28 Temperature 98 F Pulse Rate 97 H 98 H 100 H Respiratory Rate 20 22 22 Blood Pressure 125/76 Pulse Oximetry 94 L Intake & Output 12/16/17 12/17/17 12/17/17 18:59 06:59 18:59 Intake Total 3710 / 3710 100 / 100 1000 / 1000 Output Total 625 / 625 150 / 150 Balance 3085 / 3085 -50 / -50 1000 / 1000 Weight 68.3 kg Intake: IV 3230 / 3230 1000 / 1000 LR 1000 mL Inj 1,000 ML @ 100 730 / 730 mls/hr IV.CONT .Q10H [facility] Rx#: [id number] NS Inj 1,000 ML @ 50 mls/hr IV. 1000 / 1000 CONT .Q20H [facility] Rx#:[id number] Cipro 400 MG/200 ML Inj 400 mg 200 / 200 In 200 ml @ 200 mls/hr IV.SIG Q12HR [facility] Rx#:[id number] LR 1000 mL Inj 1,000 ML @ Wide 1000 / 1000 Open IV.SIG BOLUS ONE Rx#: [id number] Flagyl 500 MG Inj 100 ML @ 100 100 / 100 mls/hr IV.SIG Q6H [facility] Rx#: [id number] Oral 480 / 480 100 / 100 Output: Urine Amount (Catheter) 625 / 625 150 / 150 Indwelling Urethral Catheter 625 / 625 150 / 150 Other: Date of Last Bowel Movement 12/16/17 12/16/17 12/16/17 Narrative: GENERAL: [place] female who does appear to be debilitated in appearance. She does appear to also have mild dyspnea. SKIN: Warm and dry. HEAD: Normocephalic. EYES: No scleral icterus. No injection or drainage. NECK: Supple, trachea midline. No JVD or lymphadenopathy. CARDIOVASCULAR: Regular rate and rhythm without murmurs, gallops, or rubs. 2+ pitting edema extending from feet to knees. 1+ pitting edema extending from knees to lower torso. RESPIRATORY: Breath sounds equal bilaterally. Few bibasilar rales. GASTROINTESTINAL: Abdomen soft, non-tender, nondistended. MUSCULOSKELETAL: No cyanosis, edema as above. Results - Lab Results 12/17/17 04:36 12/17/17 04:36 Most recent lab results ABG pH 7.39 (7.380-7.420) 12/16/17 11:02 ABG pCO2 24 mmHg (38-42) L* 12/16/17 11:02 ABG pO2 67 mmHg (61-120) 12/16/17 11:02 ABG HCO3 14 mmol/L (22-26) L* 12/16/17 11:02 Calcium 7.5 mg/dL (8.5-10.1) L 12/17/17 04:36 Phosphorus 4.3 mg/dL (2.5-4.9) 12/12/17 04:15 Magnesium 1.7 mg/dL (1.5-2.5) 12/14/17 07:30 - Image Kidney/bladder ultrasound: report reviewed (Increased echogenicity bilaterally. Consistent with medical renal disease.) Assessment and Plan - Assessment (1) VITALIY (acute kidney injury) Code(s): N17.9 - Acute kidney failure, unspecified Status: Acute Plan: Patient may have developed acute renal insufficiency secondary to acute tubular necrosis related to recent bout of sepsis and hypotension. She also has a history of lupus but unsure if this is playing any role in her acute renal insufficiency currently. 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 Serological studies as ordered. If azotemia continues to worsen we may have to consider renal replacement therapy i.e. dialysis. The patient requiring increased intensity of care may consider transferring to [facility]. Medications should be adjusted for the patient's estimated GFR if clinically indicated. Avoid agents with significant potential for nephrotoxicity possible including NSAIDs for analgesia, iodine contrast agents. Gadolinium is contraindicated if the GFR is below 30. (2) Chronic kidney disease Code(s): N18.9 - Chronic kidney disease, unspecified Status: Chronic Plan: Suggested by renal ultrasound. May be related to hypertensive nephrosclerosis. Records are required from rheumatology to determine if there is any history of previous renal involvement as far as the lupus is concerned. (3) Congestive heart failure Code(s): I50.9 - Heart failure, unspecified Status: Acute Plan: Patient is clinically fluid overloaded at this time. Will obtain 2D echocardiogram to clarify myocardial function. Diuresis is necessary and furosemide as well as Diuril has been ordered for today. Reevaluate urine output and volume status tomorrow. (4) Edema extremities Code(s): R60.0 - Localized edema Status: Acute Plan: Secondary to fluid overload.
[2017-12-17 18:46] LABS: Albumin 2.4 g/dL (3.4-5.0); Calcium 7.6 mg/dL (8.5-10.1); Carbon Dioxide 15.3 meq/L (21.0-32.0); Phosphorus 3.6 mg/dL (2.5-4.9); Potassium 3.7 meq/L (3.5-5.1)
[2017-12-17] MEDS: azaTHIOprine 50 MG Tablet PO SCH (21:11)
[2017-12-18 01:01] LABS: Bilirubin,Urine Negative (Negative); Clarity,Urine Slightly Cloudy (Clear); Color,Urine Yellow (Yellw/Straw); Glucose,Urine (UA) Negative (Negative); Leukocyte Esterase,Urine Small (Negative); Nitrite,Urine Negative (Negative); Specific Gravity,Urine Less/Equal 1.005 (1.002-1.035); Urobilinogen,Urine 0.2 mg/dL (Less than 2)
[2017-12-18 01:15] LABS: Squamous Epithelial Cell,Urine 0-5 /hpf (0-5)
[2017-12-18] MEDS: Sod Chloride 0.9% Inj 1,000 ML IV.CONT SCH ×2 (04:10→04:49)
[2017-12-18] MEDS ORDERED: Cathflo Activase Inj 2 MG Vial I-CATHETER ONE ×2 (06:30)
--- NOTE | 2017-12-18 08:13 | P.PNIM ---
Subjective Interval history: Follow-up sepsis. Patient seen and examined lying in bed comfortably no apparent distress. Supposedly patient was combative last evening requiring restraints. Axox3 at this time but this seems to be intermittent with confusion. Some reports of hallucinations overnight. Physical Exam Vital signs: Vital Signs 12/17/17 09:52 12/17/17 12:00 12/17/17 13:31 Temperature 97.9 F Pulse Rate 94 H 97 H Respiratory Rate 18 19 20 Blood Pressure 113/74 Pulse Oximetry 12/17/17 14:00 12/17/17 14:28 12/17/17 16:47 Temperature 98 F 97.9 F Pulse Rate 98 H 100 H 98 H Respiratory Rate 22 22 18 Blood Pressure 125/76 133/71 Pulse Oximetry 94 L 12/17/17 20:00 12/17/17 20:45 12/18/17 00:00 Temperature 97.7 F 97.3 F L Pulse Rate 99 H 107 H 103 H Respiratory Rate 18 20 18 Blood Pressure 126/79 123/83 Pulse Oximetry 93 L 92 L 94 L 12/18/17 00:53 12/18/17 04:00 Temperature 97.8 F Pulse Rate 99 H 98 H Respiratory Rate 18 Blood Pressure 131/84 Pulse Oximetry 93 L Intake & Output 12/17/17 12/18/17 12/18/17 18:59 06:59 18:59 Intake Total 1480 / 1480 1000 / 1000 Output Total 2400 / 2400 Balance 1480 / 1480 -1400 / -1400 Weight 68.4 kg Intake: IV 1000 / 1000 1000 / 1000 NS Inj 1,000 ML @ 50 mls/hr IV. 1000 / 1000 1000 / 1000 CONT .Q20H [facility] Rx#:[id number] Oral 480 / 480 Output: Urine 2400 / 2400 Other: Date of Last Bowel Movement 12/17/17 # Incontinent Bowel Movements 1 Narrative: GENERAL: Well-developed, well-nourished patient in NAD. SKIN: Warm and dry. No rash. HEAD: Normocephalic. Atraumatic. EYES: Pupils equal and round. No scleral icterus. No injection or drainage. ENT: No nasal bleeding or discharge. Mucous membranes pink and moist. NECK: Supple. Trachea midline. CARDIOVASCULAR: Regular rate and rhythm. S1, S2 noted. No murmur appreciated. RESPIRATORY: No accessory muscle use. Clear to auscultation. Breath sounds equal bilaterally. GASTROINTESTINAL: Abdomen soft, non-tender, nondistended. Normoactive bowel sounds x4. MUSCULOSKELETAL: No obvious deformities. Extremities without clubbing, cyanosis , or edema. NEUROLOGICAL: Awake and alert. No obvious cranial nerve deficits. Motor grossly within normal limits. 5/5 muscle strength in bilateral upper and lower extremities. Normal speech. PSYCHIATRIC: Appropriate mood and affect; insight and judgment normal. - Constitutional no acute distress - Routine HEENT Exam Head: Present: normocephalic Eye: Present: EOMI, PERRL - Urinary Catheter Management Indwelling Urethral Catheter Cath placed during this visit: yes Reason for continuing: Other continuation reason Insertion date: 12/16/17 Insertion time: 12:15 Results - Labs CBC & Chem 7: 12/17/17 04:36 12/17/17 04:36 Laboratory Results - last 24 hr 12/17/17 12/18/17 12/18/17 04:36 00:42 00:42 Sodium 143 Potassium 3.7 Chloride 113 H Carbon Dioxide 15.3 L Anion Gap 15 BUN 40 H Creatinine 2.80 H Estimated GFR 17 L Random Glucose 124 H Calcium 7.6 L Phosphorus 3.6 Albumin 2.4 L Urine Color Yellow Urine Clarity Slightly cloudy Urine pH 5.0 Ur Specific [place] Less/equal 1.005 Urine Protein Negative Urine Glucose (UA) Negative Urine Ketones Negative Urine Occult Blood Negative Urine Nitrate Negative Urine Bilirubin Negative Urine Urobilinogen 0.2 Ur Leukocyte Esterase Small H Urine WBC 5-8 H Urine WBC Clumps Few H Ur Squamous Epith Cells 0-5 Urine Yeast Moderate H Ur Yeast w Hyphae Moderate H Urine Eosinophils None seen - Imaging Impressions Abdomen/Bladder Ultrasound 12/17/17 00:00 CONCLUSION: 1. Increased renal echogenicity characteristic of medical renal disease. Small left renal cyst measuring about 1.4 cm in diameter. Assessment and Plan - Assessment (1) Septic shock Code(s): A41.9 - Sepsis, unspecified organism; R65.21 - Severe sepsis with septic shock Status: Acute Plan: has resolved- continue to taper down IV steroids slowly- continue to monitor. (2) Wheezing Code(s): R06.2 - Wheezing Status: Acute Plan: likely due to fluid overload- resolved- repeated CXR better. will monitor. (3) Gastroenteritis Code(s): K52.9 - Noninfective gastroenteritis and colitis, unspecified Status : Acute Plan: stool negative for giardia/cryptosporidium/ blood cultures negative-c- diff negative.off antibiotics. (4) Hypokalemia Code(s): E87.6 - Hypokalemia Status: Acute Plan: replaced. (5) Lupus Code(s): L93.0 - Discoid lupus erythematosus Status: Chronic Plan: continue home meds.d/w the pharmacy- the dose of Imuran will be adjusted for renal function-pharmacy consulted. (6) Acute kidney injury Code(s): N17.9 - Acute kidney failure, unspecified Status: Acute Plan: creatinine trending up-continue with gentle IV fluid Nephrology is seen patient, appreciate input recommendations. Patient may have developed acute renal insufficiency secondary to acute tubular necrosis related to recent bout of sepsis and hypotension. Ultrasound of kidneys reviewed, possible chronic kidney disease. Continue with [place]ado cath for now to measure the urine output. Avoid nephrotoxins.
[2017-12-18 08:31] LABS: Hematocrit 28.4 % (35.0-46.0); Hemoglobin 9.1 gm/dL (11.6-15.3); Mean Corpuscular HGB Conc 32.1 % (32.0-36.0); Mean Corpuscular Hemoglobin 26.6 pg (27.0-34.0); Mean Platelet Volume 8.1 fL (7.0-11.0); Platelet Count 254 th/mm3 (150-450); Potassium 3.2 meq/L (3.5-5.1); Red Blood Count 3.42 mil/mm3 (4.00-5.30); Red Cell Distribution Width 21.6 % (11.6-17.2); White Blood Count 8.1 th/mm3 (4.0-11.0)
[2017-12-18 08:33] LABS: Calcium 7.5 mg/dL (8.5-10.1)
[2017-12-18] MEDS: Metoprolol Tartrate 25 MG Tablet PO SCH (08:43)
[2017-12-18] MEDS: Sertraline 100 MG Tablet PO SCH (08:44)
[2017-12-18] MEDS: azaTHIOprine 50 MG Tablet PO SCH ×2 (08:45→20:56)
[2017-12-18] MEDS: Hydrocortisone Sod Succinate 100 MG Vial IV.PUSH SCH ×2 (08:46→20:57)
[2017-12-18] MEDS: Pregabalin 75 MG Capsule PO SCH (08:46)
[2017-12-18] MEDS: Senna/Docusate Sodium 8.6/50 MG Tablet PO SCH ×2 (08:46→20:56)
[2017-12-18] MEDS: Famotidine PF Inj 20 MG/2 ML Vial IV.PUSH SCH ×2 (08:48→20:55)
[2017-12-18] MEDS: Heparin - SQ 10,000 UNITS/ML Vial SQ SCH ×2 (08:48→16:40)
[2017-12-18 11:35] LABS: Hepatitits B Surface Antigen Nonreactive (Nonreactive)
--- NOTE | 2017-12-18 15:53 | P.PNNP ---
Subjective Interval history: 67-year-old [place] female apparently originally from [facility] who according to the records has a history of SLE as well as fibromyalgia. According to the patient she has seen Dr. Witt as an outpatient but those records are not available to me presently. Denies any previous knowledge of renal insufficiency although renal ultrasound showing increased echogenicity suggesting chronic kidney disease. Patient's creatinine level has fluctuated prior to this admission but it was a value of 0.8 back in September 2017. Patient presented with complaints of diarrhea and was hypotensive on presentation requiring inotropic therapy initially but her status improved and this was discontinued. Critical care has signed off. Creatinine at time of admission 2.1 subsequently improving to 0.91 but now worsening again. Patient also said to be dyspneic with increasing edema. Patient is somewhat poor historian. Patient's urinary output has improved significantly with furosemide although her creatinine level has deteriorated. Patient still appears to be somewhat confused. Physical Exam Vital signs: Vital Signs 12/17/17 16:47 12/17/17 20:00 12/17/17 20:45 Temperature 97.9 F 97.7 F Pulse Rate 98 H 99 H 107 H Respiratory Rate 18 18 20 Blood Pressure 133/71 126/79 Pulse Oximetry 93 L 92 L 12/18/17 00:00 12/18/17 00:53 12/18/17 04:00 Temperature 97.3 F L 97.8 F Pulse Rate 103 H 99 H 98 H Respiratory Rate 18 18 Blood Pressure 123/83 131/84 Pulse Oximetry 94 L 93 L 12/18/17 08:49 12/18/17 11:15 12/18/17 15:03 Temperature 96.0 F L 97.1 F L 97.4 F L Pulse Rate 95 H 102 H 100 H Respiratory Rate 18 20 20 Blood Pressure 139/84 135/86 130/82 Pulse Oximetry 92 L 92 L 93 L Intake & Output 12/17/17 12/18/17 12/18/17 18:59 06:59 18:59 Intake Total 1480 / 1480 1000 / 1000 Output Total 2400 / 2400 450 / 450 Balance 1480 / 1480 -1400 / -1400 -450 / -450 Weight 68.4 kg Intake: IV 1000 / 1000 1000 / 1000 NS Inj 1,000 ML @ 50 mls/hr IV. 1000 / 1000 1000 / 1000 CONT .Q20H [facility] Rx#:[id number] Oral 480 / 480 Output: Urine 2400 / 2400 Urine Amount (Catheter) 450 / 450 Indwelling Urethral Catheter 450 / 450 Other: Date of Last Bowel Movement 12/17/17 12/17/17 # Incontinent Bowel Movements 1 Narrative: GENERAL: Patient lying in bed not in respiratory distress. Patient appears to be somewhat confused. SKIN: Warm and dry. HEAD: Normocephalic. EYES: No scleral icterus. No injection or drainage. NECK: Supple, trachea midline. No JVD or lymphadenopathy. CARDIOVASCULAR: Regular rate and rhythm without murmurs, gallops, or rubs. RESPIRATORY: Breath sounds equal bilaterally. No accessory muscle use. GASTROINTESTINAL: Abdomen soft, non-tender, nondistended. MUSCULOSKELETAL: No cyanosis, 2+ pitting edema extending from the feet to the hips. Improved from yesterday however.. . - Urinary Catheter Management Indwelling Urethral Catheter Cath placed during this visit: yes Reason for continuing: Other continuation reason Insertion date: 12/16/17 Insertion time: 12:15 Assessment and Plan - Assessment (1) VITALIY (acute kidney injury) Code(s): N17.9 - Acute kidney failure, unspecified Status: Acute Plan: Patient may have developed acute renal insufficiency secondary to acute tubular necrosis related to recent bout of sepsis and hypotension. She also has a history of lupus but unsure if this is playing any role in her acute renal insufficiency currently. The patient's paper control clerk is per her significant other. Patient's urine output is improving with furosemide but her renal indices have deteriorated. Still has significant fluid retention. Continue IV furosemide. Repeat renal indices tomorrow. Urinalysis is bland. Await serological studies. Patient's condition discussed with her significant other by telephone. If consent for dialysis is required and patient cannot provide consent we will need to contact his son. If azotemia continues to worsen we may have to consider renal replacement therapy i.e. dialysis. The patient requiring increased intensity of care may consider transferring to [facility]. Medications should be adjusted for the patient's estimated GFR if clinically indicated. Avoid agents with significant potential for nephrotoxicity possible including NSAIDs for analgesia, iodine contrast agents. Gadolinium is contraindicated if the GFR is below 30. (2) Chronic kidney disease Code(s): N18.9 - Chronic kidney disease, unspecified Status: Chronic Plan: Suggested by renal ultrasound. May be related to hypertensive nephrosclerosis. Records are required from rheumatology to determine if there is any history of previous renal involvement as far as the lupus is concerned. (3) Congestive heart failure Code(s): I50.9 - Heart failure, unspecified Status: Acute Qualifiers: Heart failure chronicity: acute Plan: Patient is clinically fluid overloaded at this time. Await official 2D echocardiogram report.. Diuresis is necessary and furosemide as well as Diuril has been ordered for today. At this point in time would recommend consultation with cardiology. (4) Edema extremities Code(s): R60.0 - Localized edema Status: Acute Plan: Secondary to fluid overload.
--- NOTE | 2017-12-18 17:06 | ECHRPT ---
Indication: HEART FAILURE CONCLUSIONS Normal left ventricular size. Wall thickness is normal. The left ventricular systolic function is aebnjwmn-[id number]-lfkqfuc reduced with an estimated ejection fra ction in the range of 35-40%. The left atrial size is upper limits of normal. The right atrial size is mildly dilated. No atrial level shunt is demonstrated by color flow Doppler interrogation. The aortic root and proximal ascending aorta are not well visualized. Mild thickening of the mitral valve leaflets. Severe mitral valve regurgitation. Aortic valve sclerosis is present. Mild aortic valve regurgitation. There is btkm-ql-mjniqytm tricuspid valve regurgitation. The estimated pulmonary arterial pressure is 65.1 mmHg. Moderate pulmonary valve regurgitation. Trace pericardial effusion. BP: / HR: Rhythm: Sinus MEASUREMENTS (Male / Female) Normal Values Technical Quality:Fair 2D ECHO LV Diastolic Diameter PLAX 5.3 cm 4.2 - 5.9 / 3.9 - 5.3 cm LV Systolic Diameter PLAX 3.5 cm IVS Diastolic Thickness 0.8 cm 0.6 - 1.0 / 0.6 - 0.9 cm LVPW Diastolic Thickness 0.8 cm 0.6 - 1.0 / 0.6 - 0.9 cm LV Relative Wall Thickness 0.3 RV Internal Dim ED PLAX 3.5 cm LVOT Diameter 1.9 cm Aortic Root Diameter 2.9 cm LA Systolic Diameter LX 4.3 cm 3.0 - 4.0 / 2.7 - 3.8 cm DOPPLER AV Peak Velocity 140.0 cm/s AV Peak Gradient 7.8 mmHg AV Mean Gradient 3.0 mmHg AV Velocity Time Integral 20.4 cm AI Peak Velocity 495.0 cm/s AI Peak Gradient 98.0 mmHg AI Pressure Half Time 461.0 ms LVOT Peak Velocity 62.0 cm/s LVOT Peak Gradient 1.5 mmHg LVOT Velocity Time Integral 10.3 cm AV Area Cont Eq vti 1.4 cm AV Area Cont Eq pk 1.3 cm Mitral E Point Velocity 162.0 cm/s Mitral A Point Velocity 125.0 cm/s Mitral E to A Ratio 1.3 LV E' Lateral Velocity 8.6 cm/s Mitral E to LV E' Lateral Ratio 18.9 LV E' Septal Velocity 11.7 cm/s Mitral E to LV E' Septal Ratio 13.8 TR Peak Velocity 371.0 cm/s TR Peak Gradient 55.1 mmHg Right Atrial Pressure 10.0 mmHg Pulmonary Artery Systolic Pressu 65.1 mmHg Right Ventricular Systolic Press 65.1 mmHg PV Peak Velocity 39.1 cm/s PV Peak Gradient 0.6 mmHg FINDINGS LEFT VENTRICLE Normal left ventricular size. Wall thickness is normal. The left ventricular systolic function is zkurqvxx-nc-wewiwxi reduced with an estimated ejection fra ction in the range of 35-40%. RIGHT VENTRICLE Normal right ventricular size and systolic function. LEFT [facility] The left atrial size is upper limits of normal. RIGHT [facility] The right atrial size is mildly dilated. ATRIAL SEPTUM No atrial level shunt is demonstrated by color flow Doppler interrogation. AORTA The aortic root and proximal ascending aorta are not well visualized. MITRAL VALVE Mild thickening of the mitral valve leaflets. Severe mitral valve regurgitation. AORTIC VALVE Aortic valve sclerosis is present. Mild aortic valve regurgitation. TRICUSPID VALVE There is oxku-qm-wbjgmjwx tricuspid valve regurgitation. The estimated pulmonary arterial pressure is 65.1 mmHg. PULMONARY VALVE Moderate pulmonary valve regurgitation. VESSELS The inferior vena cava is normal in size. PERICARDIUM Trace pericardial effusion. Tremayne Thomas MD, FACC (Electronically Signed) Final Date:18 December 2017 17:05
[2017-12-19] MEDS: Heparin - SQ 10,000 UNITS/ML Vial SQ SCH ×2 (00:19→08:24)
[2017-12-19] MEDS: Sod Chloride 0.9% Inj 1,000 ML IV.CONT SCH (00:20)
[2017-12-19 06:08] LABS: Hematocrit 27.6 % (35.0-46.0); Hemoglobin 9.2 gm/dL (11.6-15.3); Mean Corpuscular HGB Conc 33.3 % (32.0-36.0); Mean Corpuscular Hemoglobin 27.3 pg (27.0-34.0); Mean Corpuscular Volume 81.8 fL (80.0-100.0); Mean Platelet Volume 8.7 fL (7.0-11.0); Platelet Count 268 th/mm3 (150-450); Red Blood Count 3.38 mil/mm3 (4.00-5.30); Red Cell Distribution Width 21.6 % (11.6-17.2); White Blood Count 10.2 th/mm3 (4.0-11.0)
[2017-12-19 06:23] LABS: Potassium 3.4 meq/L (3.5-5.1)
[2017-12-19 06:30] LABS: Calcium 7.9 mg/dL (8.5-10.1); Carbon Dioxide 21.1 meq/L (21.0-32.0)
--- NOTE | 2017-12-19 08:04 | P.CONCA ---
<Robbin Lewis - Last Filed: 12/19/17 07:43> History of Present Illness Primary Care Provider: Janeen Guzman DO Family Provider: Janeen Guzman DO Chief Complaint: diarrhea History of Present Illness: 67-year-old female with a past medical history of COPD, lupus, fibromyalgia, HTN , PTSD. Patient initially presented 12/11 for nausea, vomiting, abdominal pain, diarrhea with septic shock requiring pressors. The patient is not a great historian and much of the history is obtained from the medical record. The patient is has had issues with renal failure during admission, creatinine 2.2-> 0.91->3, reportedly nephrology is considering initiating dialysis. The patient was having issues with fluid retention and had an echocardiogram done which showed EF 3540% which is a new finding and severe MR which is an old finding. Echocardiogram previously done 12/02/15 showed EF 5560% and moderate-severe MR. Patient denies any chest pain or shortness of breath. She is currently lying in bed flat on room air. Review of Systems All other systems reviewed negative except as stated in HPI PMFSH - History History Provided By: Patient, Medical Record - Medical History Medical History: Medical History (Last Updated 12/17/17 @ 17:37 by Berry Francis MD) COPD (chronic obstructive pulmonary disease) Fibromyalgia Hypertension Lupus Lupus Posttraumatic stress disorder - Tobacco History Second Hand Smoke Exposure: No Tobacco Use In Past 30 Days: No Smoking Status: Current some day smoker Tobacco Type: E-Cigarettes - Alcohol History How Often Do You Have a Drink Containing Alcohol: Monthly or less - Substance Use History Substance History: No History of Abuse - Travel History Recent Travel in the [place] Within the Last 8 Weeks: No Recent Travel Out of the Country Within the Last 8 Weeks: No - Immunization History Tetanus Immunization: Unable to Assess Hx Influenza Vaccine This Season: Unable to Assess Medications and Allergies Allergies Allergy/AdvReac Type Severity Reaction Status Date / Time No Known Allergies Allergy Unknown Altered Uncoded 12/11/17 18:39 Sense of Taste Home Medications Medication Instructions Recorded Confirmed Type albuterol sulfate 2.5 mg INHALATION QID 12/11/17 12/11/17 History alprazolam 0.5 mg PO BID PRN 12/11/17 12/11/17 History baclofen 10 mg PO DAILY 12/11/17 12/12/17 History carisoprodol 350 mg PO QID 12/11/17 12/11/17 History diazepam 0.1 mg/kg PO TID-QID PRN 12/11/17 12/11/17 History hydrochlorothiazide 50 mg PO DAILY 12/11/17 12/11/17 History ipratropium bromide 1 puff INHALATION Q6H 12/11/17 12/11/17 History metoprolol succinate 25 mg PO DAILY 12/11/17 12/11/17 History omeprazole 20 mg PO DAILY 12/11/17 12/11/17 History pregabalin 75 mg PO TID 12/11/17 12/11/17 History trazodone 50 mg PO DAILY 12/11/17 12/11/17 History amoxicillin 500 mg PO Q6H 12/12/17 12/12/17 History azathioprine [Imuran] 50 mg PO BID 12/12/17 12/12/17 History duloxetine [Cymbalta] 30 mg PO DAILY 12/12/17 12/12/17 History hydrocodone-acetaminophen [[place]] 1 tab PO Q4-6H PRN 12/12/17 12/12/17 History ipratropium bromide [Atrovent HFA] 1 puff INHALATION QID 12/12/17 12/12/17 History methotrexate sodium 15 mg PO QWEEK 12/12/17 12/12/17 History metoprolol tartrate 25 mg PO DAILY 12/12/17 12/12/17 History omeprazole 20 mg PO DAILY 12/12/17 12/12/17 History prednisone 5 mg PO DAILY 12/12/17 12/12/17 History sertraline [Zoloft] 100 mg PO DAILY 12/12/17 12/12/17 History Active Medications: Active Medications Acetaminophen (Tylenol) 650 mg PO Q6H PRN PRN Reason: PAIN 1-10 AND/OR FEVER >101F Al Hydroxide/Mg Hydroxide (Milk Of Magnesia Liq) 30 ml PO Q12H PRN PRN Reason: Mild Constipation Albuterol (Duoneb Neb (Prn)) 1 ampul NEB Q2HR NEB PRN PRN Reason: WHEEZING Last Admin: 12/18/17 19:30 Dose: 1 ampul Alprazolam (Xanax) 0.5 mg PO BID PRN PRN Reason: Abdominal Pain Azathioprine (Imuran) 25 mg PO BID [facility] Last Admin: 12/18/17 20:56 Dose: 25 mg Baclofen (Lioresal) 10 mg PO TID [facility] Last Admin: 12/12/17 12:59 Dose: Not Given Bisacodyl (Dulcolax Supp) 10 mg RECTAL DAILY PRN PRN Reason: SEVERE CONSITIPATION Duloxetine HCl (Cymbalta) 30 mg PO DAILY [facility] Last Admin: 12/18/17 09:40 Dose: 30 mg Famotidine (Pepcid Pf Inj) 10 mg IV.PUSH Q12HR [facility] Last Admin: 12/18/17 20:55 Dose: 10 mg Furosemide (Lasix Inj) 40 mg IV.PUSH BID@0900,1800 [facility] Last Admin: 12/18/17 17:11 Dose: 40 mg Heparin Sodium (Porcine) (Heparin Inj) 5,000 units SQ Q8H [facility] Last Admin: 12/19/17 00:19 Dose: 5,000 units Hydrocortisone Sodium Succinate (Solucortef Inj) 50 mg IV.PUSH Q12HR [facility] Last Admin: 12/18/17 20:57 Dose: 50 mg Sodium Chloride (Ns Inj) 1,000 mls @ 50 mls/hr IV.CONT .Q20H [facility] Last Admin: 12/19/17 00:20 Dose: 50 mls/hr Pharmacy Profile Note (Custom Consult Pharmacy) 0 mls @ 0 mls/hr OTHER UNSCH [facility] Lactulose (Lactulose Liq) 30 ml PO DAILY PRN PRN Reason: SEVERE CONSITIPATION Lorazepam (Ativan Inj) 2 mg IV.PUSH Q4H PRN PRN Reason: ANXIETY AND/OR AGITATION Last Admin: 12/14/17 01:39 Dose: 2 mg Metoprolol Tartrate (Lopressor) 12.5 mg PO DAILY [facility] Last Admin: 12/18/17 08:43 Dose: 12.5 mg Miscellaneous (Pill Splitter) 1 each OTHER UNSCH PRN PRN Reason: SEE LABEL COMMENTS Morphine Sulfate (Morphine Inj) 2 mg IV.PUSH Q2H PRN PRN Reason: PAIN SCALE 6 TO 10 Ondansetron HCl (Zofran Inj) 4 mg IV.PUSH Q6H PRN PRN Reason: NAUSEA OR VOMITING Pregabalin (Lyrica) 75 mg PO DAILY [facility] Last Admin: 12/18/17 08:46 Dose: 75 mg Senna/Docusate Sodium (Valentina-Colace) 1 tab PO BID [facility] Last Admin: 12/18/17 20:56 Dose: 1 tab Sennosides (Senokot) 17.2 mg PO Q12H PRN PRN Reason: Moderate Constipation Sertraline HCl (Zoloft) 100 mg PO DAILY [facility] Last Admin: 12/18/17 08:44 Dose: 100 mg Sodium Chloride (Ns Flush) 2 ml IV.FLUSH BID [facility] Last Admin: 12/18/17 20:56 Dose: 2 ml Sodium Chloride (Ns Flush) 2 ml IV.FLUSH PRN PRN PRN Reason: FLUSH AFTER USING IV ACCESS Temazepam (Restoril) 15 mg PO HS PRN PRN Reason: INSOMNIA Last Admin: 12/12/17 21:26 Dose: 15 mg Trazodone HCl (Desyrel) 50 mg PO DAILY [facility] Last Admin: 12/17/17 11:16 Dose: Not Given Exam Vital signs: Vital Signs 12/18/17 08:49 12/18/17 11:15 12/18/17 15:03 Temperature 96.0 F L 97.1 F L 97.4 F L Pulse Rate 95 H 102 H 100 H Respiratory Rate 18 20 20 Blood Pressure 139/84 135/86 130/82 Pulse Oximetry 92 L 92 L 93 L 12/18/17 20:00 12/19/17 00:00 12/19/17 04:00 Temperature 97.5 F L 97.2 F L 97.7 F Pulse Rate 95 H 94 H 94 H Respiratory Rate 20 18 18 Blood Pressure 132/85 141/79 H 131/75 Pulse Oximetry 92 L 92 L 92 L Intake & Output 12/18/17 12/19/17 12/19/17 18:59 06:59 18:59 Intake Total 580 / 580 1060 / 1060 Output Total 2099 1800 / 1800 Balance -1520 / -1520 -740 / -740 Weight 142 lb 3.17 oz Intake: IV 1000 / 1000 NS Inj 1,000 ML @ 50 mls/hr IV. 1000 / 1000 CONT .Q20H [facility] Rx#:[id number] Oral 580 / 580 60 / 60 Output: Urine 1800 / 1800 Urine Amount (Catheter) 2099 Indwelling Urethral Catheter 2099 Other: Date of Last Bowel Movement 12/17/17 # Bowel Movements 1 1 Narrative: GENERAL: Well-developed well-nourished. Lying flat in bed on room air and appears in no acute distress. NECK: No carotid bruits. No JVD. CARDIOVASCULAR: Regular rate and rhythm. 1/6 systolic murmur appreciated. RESPIRATORY: No accessory muscle use. Clear to auscultation. Breath sounds equal bilaterally. MUSCULOSKELETAL: No clubbing or cyanosis. Trace ankle edema. NEUROLOGICAL: Awake and alert. Normal speech. Results 12/19/17 04:22 12/19/17 04:21 CBC 12/18/17 12/19/17 Range/Units 08:00 04:22 WBC 8.1 10.2 (4.0-11.0) th/mm3 RBC 3.42 L 3.38 L (4.00-5.30) mil/mm3 Hgb 9.1 L 9.2 L (11.6-15.3) gm/dL Hct 28.4 L 27.6 L (35.0-46.0) % Plt Count 254 268 (150-450) th/mm3 Comprehensive Metabolic Panel 12/18/17 12/19/17 Range/Units 08:00 04:21 Sodium 146 H 149 H (136-145) meq/L Potassium 3.2 L 3.4 L (3.5-5.1) meq/L Chloride 114 H 113 H (98-107) meq/L Carbon Dioxide 19.0 L 21.1 (21.0-32.0) meq/L BUN 54 H 67 H (7-18) mg/dL Creatinine 3.00 H 3.00 H (0.50-1.00) mg/dL Calcium 7.5 L 7.9 L (8.5-10.1) mg/dL Intake and Output 12/18/17 12/19/17 12/19/17 22:59 06:59 14:59 Intake Total 580 / 580 1060 / 1060 Output Total 1650 / 1650 1800 / 1800 Balance -1070 / -1070 -740 / -740 Intake: IV 1000 / 1000 NS Inj 1,000 ML @ 50 mls/hr IV. 1000 / 1000 CONT .Q20H [facility] Rx#:[id number] Oral 580 / 580 60 / 60 Output: Urine 1800 / 1800 Urine Amount (Catheter) 1650 / 1650 Indwelling Urethral Catheter 1649 Other: # Bowel Movements 1 1 Weight 142 lb 3.17 oz Assessment and Plan - Plan 67-year-old female with a past medical history of COPD, lupus, fibromyalgia, HTN , PTSD. Patient initially presented 12/11 for nausea, vomiting, abdominal pain, diarrhea with septic shock requiring pressors. The patient is not a great historian and much of the history is obtained from the medical record. The patient is has had issues with renal failure during admission, creatinine 2.2-> 0.91->3, reportedly nephrology is considering initiating dialysis. The patient was having issues with fluid retention and had an echocardiogram done which showed EF 3540% which is a new finding and severe MR which is an old finding. Echocardiogram previously done 12/02/15 showed EF 5560% and moderate-severe MR. Patient denies any chest pain or shortness of breath. She is currently lying in bed flat on room air. New onset cardiomyopathy: Nephrology has patient on IV Lasix 40 mg twice daily and patient currently appears fairly well compensated. Would need to consider ischemic workup depending on renal plan (dialysis?). Severe mitral regurgitation: N.p.o. for DARYN today. Acute renal failure: Diuretics per nephrology. Discussed Condition With: Patient, RN, hospitalist, Dr. Thomas <Tremayne Thomas - Last Filed: 12/19/17 15:47> History of Present Illness Primary Care Provider: Janeen Guzman DO Family Provider: Janeen Guzman DO [facility] - Medical History Medical History: Medical History (Last Updated 12/19/17 @ 08:00 by OMI Edwards) COPD (chronic obstructive pulmonary disease) Fibromyalgia Hypertension Lupus Posttraumatic stress disorder Medications and Allergies Active Medications: Active Medications Acetaminophen (Tylenol) 650 mg PO Q6H PRN PRN Reason: PAIN 1-10 AND/OR FEVER >101F Al Hydroxide/Mg Hydroxide (Milk Of Magnesia Liq) 30 ml PO Q12H PRN PRN Reason: Mild Constipation Albuterol (Duoneb Neb (Prn)) 1 ampul NEB Q2HR NEB PRN PRN Reason: WHEEZING Last Admin: 12/18/17 19:30 Dose: 1 ampul Alprazolam (Xanax) 0.5 mg PO BID PRN PRN Reason: Abdominal Pain Azathioprine (Imuran) 25 mg PO BID [facility] Last Admin: 12/19/17 08:27 Dose: 25 mg Baclofen (Lioresal) 10 mg PO TID [facility] Last Admin: 12/12/17 12:59 Dose: Not Given Bisacodyl (Dulcolax Supp) 10 mg RECTAL DAILY PRN PRN Reason: SEVERE CONSITIPATION Chlorhexidine Gluconate (Chlorhexidine 2% Cloth) 3 pack TOPICAL RICE DRIER [facility] Stop: 12/22/17 13:43 Duloxetine HCl (Cymbalta) 30 mg PO DAILY [facility] Last Admin: 12/19/17 08:26 Dose: 30 mg Famotidine (Pepcid Pf Inj) 10 mg IV.PUSH Q12HR [facility] Last Admin: 12/19/17 08:25 Dose: 10 mg Furosemide (Lasix) 40 mg PO DAILY [facility] Heparin Sodium (Porcine) (Heparin Inj) 5,000 units SQ Q8H [facility] Last Admin: 12/19/17 08:24 Dose: 5,000 units Hydrocortisone Sodium Succinate (Solucortef Inj) 25 mg IV.PUSH Q12HR [facility] Sodium Chloride (Ns Inj) 1,000 mls @ 50 mls/hr IV.CONT .Q20H [facility] Last Admin: 12/19/17 00:20 Dose: 50 mls/hr Pharmacy Profile Note (Custom Consult Pharmacy) 0 mls @ 0 mls/hr OTHER UNSCH [facility] Lactated Ringer's (Lr 1000 Ml Inj) 1,000 mls @ 30 mls/hr IV.SIG .Q24H [facility] Stop: 12/22/17 13:43 Sodium Chloride (Ns Inj) 500 mls @ 30 mls/hr IV.SIG .Q10H [facility] Stop: 12/22/17 13:43 Lactulose (Lactulose Liq) 30 ml PO DAILY PRN PRN Reason: SEVERE CONSITIPATION Lorazepam (Ativan Inj) 2 mg IV.PUSH Q4H PRN PRN Reason: ANXIETY AND/OR AGITATION Last Admin: 12/14/17 01:39 Dose: 2 mg Metoprolol Tartrate (Lopressor) 12.5 mg PO DAILY [facility] Last Admin: 12/19/17 08:28 Dose: 12.5 mg Metoprolol Tartrate (Lopressor) 25 mg PO RICE DRIER [facility] Stop: 12/22/17 13:43 Miscellaneous (Pill Splitter) 1 each OTHER UNSCH PRN PRN Reason: SEE LABEL COMMENTS Morphine Sulfate (Morphine Inj) 2 mg IV.PUSH Q2H PRN PRN Reason: PAIN SCALE 6 TO 10 Ondansetron HCl (Zofran Inj) 4 mg IV.PUSH Q6H PRN PRN Reason: NAUSEA OR VOMITING Povidone Iodine (Betadine 5% Antisepsis Kit) 1 applicatio EACH NARE RICE DRIER [facility] Stop: 12/22/17 13:43 Pregabalin (Lyrica) 75 mg PO DAILY [facility] Last Admin: 12/19/17 08:27 Dose: 75 mg Senna/Docusate Sodium (Valentina-Colace) 1 tab PO BID [facility] Last Admin: 12/19/17 08:28 Dose: 1 tab Sennosides (Senokot) 17.2 mg PO Q12H PRN PRN Reason: Moderate Constipation Sertraline HCl (Zoloft) 100 mg PO DAILY [facility] Last Admin: 12/19/17 08:29 Dose: 100 mg Sodium Chloride (Ns Flush) 2 ml IV.FLUSH BID [facility] Last Admin: 12/18/17 20:56 Dose: 2 ml Sodium Chloride (Ns Flush) 2 ml IV.FLUSH PRN PRN PRN Reason: FLUSH AFTER USING IV ACCESS Temazepam (Restoril) 15 mg PO HS PRN PRN Reason: INSOMNIA Last Admin: 12/12/17 21:26 Dose: 15 mg Trazodone HCl (Desyrel) 50 mg PO DAILY [facility] Last Admin: 12/17/17 11:16 Dose: Not Given Exam Vital signs: Vital Signs 12/18/17 20:00 12/19/17 00:00 12/19/17 04:00 Temperature 97.5 F L 97.2 F L 97.7 F Pulse Rate 95 H 94 H 94 H Respiratory Rate 20 18 18 Blood Pressure 132/85 141/79 H 131/75 Pulse Oximetry 92 L 92 L 92 L 12/19/17 08:00 Temperature 96.2 F L Pulse Rate 96 H Respiratory Rate 18 Blood Pressure 147/82 H Pulse Oximetry 95 Intake & Output 12/18/17 12/19/17 12/19/17 18:59 06:59 18:59 Intake Total 580 / 580 1060 / 1060 Output Total 2100 / 2100 1800 / 1800 Balance -1520 / -1520 -740 / -740 Weight 64.5 kg Intake: IV 1000 / 1000 NS Inj 1,000 ML @ 50 mls/hr IV. 1000 / 1000 CONT .Q20H [facility] Rx#:[id number] Oral 580 / 580 60 / 60 Output: Urine 1800 / 1800 Urine Amount (Catheter) 2099 Indwelling Urethral Catheter 2099 Other: Date of Last Bowel Movement 12/17/17 # Bowel Movements 1 1 Results 12/19/17 04:22 12/19/17 04:21 CBC 12/19/17 Range/Units 04:22 WBC 10.2 (4.0-11.0) th/mm3 RBC 3.38 L (4.00-5.30) mil/mm3 Hgb 9.2 L (11.6-15.3) gm/dL Hct 27.6 L (35.0-46.0) % Plt Count 268 (150-450) th/mm3 Comprehensive Metabolic Panel 12/19/17 Range/Units 04:21 Sodium 149 H (136-145) meq/L Potassium 3.4 L (3.5-5.1) meq/L Chloride 113 H (98-107) meq/L Carbon Dioxide 21.1 (21.0-32.0) meq/L BUN 67 H (7-18) mg/dL Creatinine 3.00 H (0.50-1.00) mg/dL Calcium 7.9 L (8.5-10.1) mg/dL Intake and Output 12/19/17 12/19/17 12/19/17 06:59 14:59 22:59 Intake Total 1060 / 1060 Output Total 1800 / 1800 Balance -740 / -740 Intake: IV 1000 / 1000 NS Inj 1,000 ML @ 50 mls/hr IV. 1000 / 1000 CONT .Q20H [facility] Rx#:[id number] Oral 60 / 60 Output: Urine 1800 / 1800 Other: # Bowel Movements 1 Weight 64.5 kg Assessment and Plan - Attending Attestation DARYN - difficult study. MR only appeared at worst to be moderate. Review of TTE yesterday, mitral regurgitation was severe. Change in severity of MR may be due to volume status and filling. + right heart failure continue diuresis guideline directed medical therapy May consider repeat limited TTE for comparison prior to DC when volume status improved nephrology following
--- NOTE | 2017-12-19 08:18 | P.PNIM ---
Subjective Interval history: Follow-up septic shock, cardiomyopathy and severe mitral regurg and acute renal failure. Patient seen and examined, lying in bed in no apparent distress, was only confused. Follows commands appropriately. Eating well no nausea or vomiting or diarrhea. Denies any chest pain or shortness of breath. Patient will be transferred to [facility] to undergo DARYN today. Cardiology following. Vital signs stable. Afebrile. Physical Exam Vital signs: Vital Signs 12/18/17 08:49 12/18/17 11:15 12/18/17 15:03 Temperature 96.0 F L 97.1 F L 97.4 F L Pulse Rate 95 H 102 H 100 H Respiratory Rate 18 20 20 Blood Pressure 139/84 135/86 130/82 Pulse Oximetry 92 L 92 L 93 L 12/18/17 20:00 12/19/17 00:00 12/19/17 04:00 Temperature 97.5 F L 97.2 F L 97.7 F Pulse Rate 95 H 94 H 94 H Respiratory Rate 20 18 18 Blood Pressure 132/85 141/79 H 131/75 Pulse Oximetry 92 L 92 L 92 L Intake & Output 12/18/17 12/19/17 12/19/17 18:59 06:59 18:59 Intake Total 580 / 580 1060 / 1060 Output Total 2099 1800 / 1800 Balance -1520 / -1520 -740 / -740 Weight 64.5 kg Intake: IV 1000 / 1000 NS Inj 1,000 ML @ 50 mls/hr IV. 1000 / 1000 CONT .Q20H [facility] Rx#:[id number] Oral 580 / 580 60 / 60 Output: Urine 1800 / 1800 Urine Amount (Catheter) 2099 Indwelling Urethral Catheter 2099 Other: Date of Last Bowel Movement 12/17/17 # Bowel Movements 1 1 Narrative: GENERAL: Patient lying in bed not in respiratory distress. Patient appears to be somewhat confused. SKIN: Warm and dry. HEAD: Normocephalic. EYES: No scleral icterus. No injection or drainage. NECK: Supple, trachea midline. No JVD or lymphadenopathy. CARDIOVASCULAR: Regular rate and rhythm without murmurs, gallops, or rubs. RESPIRATORY: Breath sounds equal bilaterally. No accessory muscle use. GASTROINTESTINAL: Abdomen soft, non-tender, nondistended. MUSCULOSKELETAL: No cyanosis, 1+ pitting edema extending from the feet to the hips. - Urinary Catheter Management Indwelling Urethral Catheter Cath placed during this visit: yes Reason for continuing: Other continuation reason Insertion date: 12/16/17 Insertion time: 12:15 Results - Labs CBC & Chem 7: 12/19/17 04:22 12/19/17 04:21 Laboratory Results - last 24 hr 12/18/17 12/18/17 12/18/17 08:00 08:00 08:00 WBC 8.1 RBC 3.42 L Hgb 9.1 L Hct 28.4 L MCV 83.0 MCH 26.6 L MCHC 32.1 RDW 21.6 H Plt Count 254 MPV 8.1 Sodium 146 H Potassium 3.2 L Chloride 114 H Carbon Dioxide 19.0 L Anion Gap 13 BUN 54 H Creatinine 3.00 H Estimated GFR 16 L Random Glucose 117 H Calcium 7.5 L Vitamin D 25-Hydroxy 10.2 L Ur 24 Hour Volume Ur Total Protein 24 Hr Complement C3 41 L Complement C4 11 Hep Bs Antigen Hep C IgG Ab 12/18/17 12/18/17 12/19/17 08:00 18:50 04:21 WBC RBC Hgb Hct MCV MCH MCHC RDW Plt Count MPV Sodium 149 H Potassium 3.4 L Chloride 113 H Carbon Dioxide 21.1 Anion Gap 15 BUN 67 H Creatinine 3.00 H Estimated GFR 16 L Random Glucose 115 H Calcium 7.9 L Vitamin D 25-Hydroxy Ur 24 Hour Volume 5000 Ur Total Protein 24 Hr 505 H Complement C3 Complement C4 Hep Bs Antigen Nonreactive Hep C IgG Ab Nonreactive 12/19/17 04:22 WBC 10.2 RBC 3.38 L Hgb 9.2 L Hct 27.6 L MCV 81.8 MCH 27.3 MCHC 33.3 RDW 21.6 H Plt Count 268 MPV 8.7 Sodium Potassium Chloride Carbon Dioxide Anion Gap BUN Creatinine Estimated GFR Random Glucose Calcium Vitamin D 25-Hydroxy Ur 24 Hour Volume Ur Total Protein 24 Hr Complement C3 Complement C4 Hep Bs Antigen Hep C IgG Ab Assessment and Plan - Assessment (1) Septic shock Code(s): A41.9 - Sepsis, unspecified organism; R65.21 - Severe sepsis with septic shock Status: Acute Plan: Resolved. Continue to taper down IV steroids slowly. Continue to monitor. (2) Wheezing Code(s): R06.2 - Wheezing Status: Acute Plan: Resolved. Likely due to fluid overload. Repeated CXR, improved. Continue to monitor. (3) Gastroenteritis Code(s): K52.9 - Noninfective gastroenteritis and colitis, unspecified Status : Acute Plan: Resolved. Stool negative for giardia/cryptosporidium/c diff. Blood cultures negative to date. Antibiotics Dcd. (4) Hypokalemia Code(s): E87.6 - Hypokalemia Status: Acute Plan: Status post replacement. K 3.4 today. Replaced. Hypernatremia. Nephrology following. Continuing gentle hydration. (5) Lupus Code(s): L93.0 - Discoid lupus erythematosus Status: Chronic Plan: Continue home meds. Dose of Imuran will be adjusted for renal function. Pharmacy consulted. (6) Acute kidney injury Code(s): N17.9 - Acute kidney failure, unspecified Status: Acute Plan: Creatinine trending up. Nephrology following. May need HD. Continue with gentle IV fluid. Monitor intake and output. Nephrology is seen patient, appreciate input recommendations. Patient may have developed acute renal insufficiency secondary to acute tubular necrosis related to recent bout of sepsis and hypotension. Ultrasound of kidneys reviewed, possible chronic kidney disease. Please discontinue Verduzco cath. Monitor output. Avoid nephrotoxins. - Plan Discharge Planning: Patient is transferring to the main for DARYN. Nephrology continuing to follow creatinine, may need HD. Awaiting clinical improvement. Patient still sick.
[2017-12-19] MEDS: Hydrocortisone Sod Succinate 100 MG Vial IV.PUSH SCH ×4 (08:23→22:29)
[2017-12-19] MEDS: Famotidine PF Inj 20 MG/2 ML Vial IV.PUSH SCH ×3 (08:25→22:28)
[2017-12-19] MEDS: Pregabalin 75 MG Capsule PO SCH (08:27)
[2017-12-19] MEDS: azaTHIOprine 50 MG Tablet PO SCH ×2 (08:27→23:21)
[2017-12-19] MEDS: Senna/Docusate Sodium 8.6/50 MG Tablet PO SCH ×3 (08:28→22:28)
[2017-12-19] MEDS: Metoprolol Tartrate 25 MG Tablet PO SCH (08:28)
[2017-12-19] MEDS: Sertraline 100 MG Tablet PO SCH (08:29)
--- NOTE | 2017-12-19 12:17 | P.PNNP ---
Subjective Interval history: Pt seen at [facility]. Was transferred here temporarily for DARYN per cardiology. Plans for transfer back after procedure. Confused. <Kayla Razo - Last Filed: 12/19/17 12:02> Physical Exam Vital signs: Vital Signs 12/18/17 15:03 12/18/17 20:00 12/19/17 00:00 Temperature 97.4 F L 97.5 F L 97.2 F L Pulse Rate 100 H 95 H 94 H Respiratory Rate 20 20 18 Blood Pressure 130/82 132/85 141/79 H Pulse Oximetry 93 L 92 L 92 L 12/19/17 04:00 12/19/17 08:00 Temperature 97.7 F 96.2 F L Pulse Rate 94 H 96 H Respiratory Rate 18 18 Blood Pressure 131/75 147/82 H Pulse Oximetry 92 L 95 Intake & Output 12/18/17 12/19/17 12/19/17 18:59 06:59 18:59 Intake Total 580 / 580 1060 / 1060 Output Total 2099 / 2099 1800 / 1800 Balance -1520 / -1520 -740 / -740 Weight 64.5 kg Intake: IV 1000 / 1000 NS Inj 1,000 ML @ 50 mls/hr IV. 1000 / 1000 CONT .Q20H VALERIE Rx#:[id number] Oral 580 / 580 60 / 60 Output: Urine 1800 / 1800 Urine Amount (Catheter) 2099 Indwelling Urethral Catheter 2099 Other: Date of Last Bowel Movement 12/17/17 # Bowel Movements 1 1 - Constitutional no acute distress - Routine HEENT Exam Head: Present: normocephalic, atraumatic - Routine Neck Exam Present: supple - Routine Respiratory Exam Present: CTA bilaterally - Routine Cardiovascular Exam Present: RRR, murmur (3/6) - Routine Abdominal Exam Present: soft, normoactive bowel sounds - Routine Extremities Exam Present: edema (1+ pitting BLE to hips.) - Routine Skin Exam Present: intact - Routine Neurological Exam Present: altered mental status - Detailed Neurological Exam: Coma Scale Eye Opening: Spontaneous Verbal Response: Confused - Urinary Catheter Management Indwelling Urethral Catheter Cath placed during this visit: yes Reason for continuing: Other continuation reason Insertion date: 12/16/17 Insertion time: 12:15 <Kayla Razo - Last Filed: 07/13/18 12:02> Vital signs: Vital Signs 12/20/17 16:00 12/20/17 20:21 12/21/17 00:00 Temperature 98 F 98.2 F 97.8 F Pulse Rate 89 89 94 H Respiratory Rate 18 17 18 Blood Pressure 152/94 H 152/92 H 145/86 H Pulse Oximetry 97 95 94 L 12/21/17 04:00 12/21/17 10:40 12/21/17 11:50 Temperature 98.1 F 98 F 97.6 F Pulse Rate 73 92 H 82 Respiratory Rate 16 18 18 Blood Pressure 148/78 H 167/97 H 137/84 Pulse Oximetry 96 98 98 12/21/17 12:10 Temperature Pulse Rate 81 Respiratory Rate 16 Blood Pressure Pulse Oximetry 98 Intake & Output 12/20/17 12/21/17 12/21/17 18:59 06:59 18:59 Intake Total 780 / 780 630 / 630 300 / 300 Output Total 850 / 850 1400 / 1400 Balance -70 / -70 -770 / -770 300 / 300 Weight 61.1 kg Intake: IV 60 / 60 300 / 300 LR 1000 mL Inj 1,000 ML @ 30 60 / 60 mls/hr IV.SIG .Q24H VALERIE Rx#: [id number] KCl 10 mEq Premix Inj 10 meq In 100 / 100 100 ml @ 100 mls/hr IV.SIG ONCE ONE Rx#:[id number] KCl 20 mEq Premix Inj 20 meq In 100 / 100 100 ml @ 50 mls/hr IV.SIG Q2H VALERIE Rx#:[id number] Rocephin Inj 1,000 MG In NS Inj 100 / 100 100 ML @ 200 mls/hr IV.SIG Q24H VALERIE Rx#:[id number] Oral 720 / 720 630 / 630 Output: Urine 850 / 850 Urine Amount (Catheter) 1400 / 1400 Female External 1400 / 1400 Other: Date of Last Bowel Movement 12/21/17 # Bowel Movements 2 - Urinary Catheter Management Indwelling Urethral Catheter Cath placed during this visit: yes, but has since been removed by the nurse Reason for continuing: Not indwelling catheter Insertion date: 12/16/17 Insertion time: 12:15 Removal date: 12/19/17 Removal time: 20:00 Female External Cath placed during this visit: yes Reason for continuing: Not indwelling catheter Insertion date: 12/21/17 Insertion time: 04:00 <Berry Francis - Last Filed: 12/21/17 14:26> Assessment and Plan - Assessment (1) VITALIY (acute kidney injury) Code(s): N17.9 - Acute kidney failure, unspecified Status: Acute Plan: Patient may have developed acute renal insufficiency secondary to acute tubular necrosis related to recent bout of sepsis and hypotension. She also has a history of lupus but unsure if this is playing any role in her acute renal insufficiency currently. Renal functions have remained stable overnight. UOP has improved as well as edema and acidosis. No emergent need for dialysis at the present, but uncertain if this can be avoided during admission. She does have hypernatremia that is related to free water deficit. Would recommend increasing po water intake. To continue on Lasix through the weekend if needed. Will follow in the periphery over weekend and see her again on Friday. Please call if needed. Medications should be adjusted for the patient's estimated GFR if clinically indicated. Avoid agents with significant potential for nephrotoxicity possible including NSAIDs for analgesia, iodine contrast agents. Gadolinium is contraindicated if the GFR is below 30. (2) Chronic kidney disease Code(s): N18.9 - Chronic kidney disease, unspecified Status: Chronic Plan: Suggested by renal ultrasound. May be related to hypertensive nephrosclerosis. Records are required from rheumatology to determine if there is any history of previous renal involvement as far as the lupus is concerned. (3) Congestive heart failure Code(s): I50.9 - Heart failure, unspecified Status: Acute Qualifiers: Heart failure chronicity: acute Plan: Cardiology on board Pending DARYN today. TT Echocardiogram 12/18/17 showed EF 35-40% with severe MVR. Volume status has improved, but still present. (4) Edema extremities Code(s): R60.0 - Localized edema Status: Acute Plan: Secondary to fluid overload. <Kayla Razo - Last Filed: 12/19/17 12:02> - Assessment (1) VITALIY (acute kidney injury) Code(s): N17.9 - Acute kidney failure, unspecified Status: Acute (2) Chronic kidney disease Code(s): N18.9 - Chronic kidney disease, unspecified Status: Chronic (3) Congestive heart failure Code(s): I50.9 - Heart failure, unspecified Status: Acute Qualifiers: Heart failure chronicity: acute (4) Edema extremities Code(s): R60.0 - Localized edema Status: Acute - Attending Attestation The exam, history, and the medical decision-making described in the above note were completed with the assistance of the ESTEBAN. I reviewed and agree with the findings presented. <Berry Francis - Last Filed: 12/21/17 14:26>
[2017-12-19] MEDS ORDERED: Metoprolol Tartrate 25 MG Tablet PO SCH (13:45)
[2017-12-19] MEDS ORDERED: Chlorhexidine Gluconate 2% 1 Pack (2 Cloths) TOPICAL SCH (13:45)
[2017-12-19] MEDS ORDERED: Sodium Chlor 0.9% Inj 500 ML IV.SIG SCH (14:00)
--- NOTE | 2017-12-19 15:52 | ECHRPT ---
Indication: MR CONCLUSIONS Normal left ventricular size. Mild concentric left ventricular hypertrophy. The left ventricular systolic function is ofcgojgy-li-wzjpctf reduced with an estimated ejection fra ction in the range of 35-40%. The right ventricle is moderately dilated. The right ventricular systoilc function is severely decreased. The left atrial size is moderately dilated. The right atrial size is ihtboure-uu-pbthnagu dilated. The interatrial septum bowed from right to left, consistent with increased right atrial pressure. Mild thickening of the mitral valve leaflets. Moderate mitral valve regurgitation. Trileaflet aortic valve. Mild thickening of the aortic valve leaflets. Mild aortic valve regurgitation. No aortic valve stenosis. Structurally normal tricuspid valve. There is moderate to severe tricuspid valve regurgitation. Ther e is estimated moderate pulmonary hypertension present (range 50-60 mmHg). BP: / HR: Rhythm: Technical Quality: Medications Complications Proc. Components FINDINGS LEFT VENTRICLE Normal left ventricular size. Mild concentric left ventricular hypertrophy. The left ventricular systolic function is drdmwwks-xr-hudckvf reduced with an estimated ejection fra ction in the range of 35-40%. RIGHT VENTRICLE The right ventricle is moderately dilated. The right ventricular systoilc function is severely decreased. LEFT ATRIUM The left atrial size is moderately dilated. RIGHT ATRIUM The right atrial size is kjvwxogh-hz-nmbpdkfq dilated. ATRIAL APPENDAGES Left atrial appendage not well visualized. Normal left atrial appendage size with no evidence of thrombus formation. ATRIAL SEPTUM Normal atrial septal thickness. The interatrial septum bowed from right to left, consistent with increased right atrial pressure. No atrial level shunt is demonstrated by color flow Doppler interrogation. AORTA The aortic root and proximal ascending aorta are normal in size on limited imaging. MITRAL VALVE Mild thickening of the mitral valve leaflets. Moderate mitral valve regurgitation. AORTIC VALVE Trileaflet aortic valve. Mild thickening of the aortic valve leaflets. Mild aortic valve regurgitation. No aortic valve stenosis. TRICUSPID VALVE Structurally normal tricuspid valve. There is moderate to severe tricuspid valve regurgitation. Ther e is estimated moderate pulmonary hypertension present (range 50-60 mmHg). VESSELS The inferior vena cava is normal in size. PULMONARY VALVE Mild pulmonary valve regurgitation. PERICADIUM No pericardial effusion. Tremayne Thomas MD, FACC (Electronically Signed) Final Date:19 December 2017 15:51
[2017-12-19] MEDS: Furosemide 40 MG Tablet PO SCH (18:10)
[2017-12-20] MEDS: Heparin - SQ 10,000 UNITS/ML Vial SQ SCH ×3 (00:39→19:07)
[2017-12-20 06:02] LABS: Baso % (Auto) 0.2 % (0.0-2.0); Hematocrit 28.3 % (35.0-46.0); Hemoglobin 9.1 gm/dL (11.6-15.3); Lymph # (Auto) 1.1 th/mm3 (1.0-4.8); Mean Corpuscular HGB Conc 32.3 % (32.0-36.0); Mean Corpuscular Hemoglobin 26.6 pg (27.0-34.0); Mean Corpuscular Volume 82.2 fL (80.0-100.0); Mono # (Auto) 0.9 th/mm3 (0.0-0.9); Mono % (Auto) 8.1 % (0.0-8.0); Neut % (Auto) 81.7 % (16.0-70.0); Platelet Count 301 th/mm3 (150-450); Red Blood Count 3.44 mil/mm3 (4.00-5.30)
[2017-12-20 07:30] LABS: Albumin 2.3 g/dL (3.4-5.0); Calcium 8.2 mg/dL (8.5-10.1); Carbon Dioxide 21.9 meq/L (21.0-32.0); Phosphorus 4.7 mg/dL (2.5-4.9); Potassium 3.1 meq/L (3.5-5.1)
--- NOTE | 2017-12-20 08:10 | P.PNCA ---
<Robbin Lewis - Last Filed: 12/20/17 08:50> Subjective Interval history: The patient denies any chest pain or shortness of breath. Good urine output documented overnight. Physical Exam Vital signs: Vital Signs 12/19/17 16:02 12/19/17 20:00 12/20/17 00:00 Temperature 97.9 F 98 F Pulse Rate 94 H 77 93 H Respiratory Rate 20 16 16 Blood Pressure 131/71 146/91 H Pulse Oximetry 95 95 91 L 12/20/17 04:00 Temperature 98 F Pulse Rate 84 Respiratory Rate 18 Blood Pressure 154/96 H Pulse Oximetry Intake & Output 12/19/17 12/20/17 12/20/17 18:59 06:59 18:59 Intake Total 50 / 50 240 / 240 Output Total 1000 / 1000 600 / 600 Balance -950 / -950 -360 / -360 Weight 134 lb 14.766 oz Intake: Oral 50 / 50 240 / 240 Output: Urine Amount (Catheter) 1000 / 1000 600 / 600 Indwelling Urethral Catheter 1000 / 1000 600 / 600 Narrative: GENERAL: Well-developed well-nourished. In no acute distress. NECK: No carotid bruits. No JVD. CARDIOVASCULAR: Regular rate and rhythm. 1/6 holosystolic murmur appreciated at the apex. RESPIRATORY: No accessory muscle use. Clear to auscultation. Breath sounds equal bilaterally. MUSCULOSKELETAL: No clubbing or cyanosis. No edema. NEUROLOGICAL: Awake and alert. Normal speech. - Urinary Catheter Management Indwelling Urethral Catheter Cath placed during this visit: yes, but has since been removed by the nurse Reason for continuing: Not indwelling catheter Insertion date: 12/16/17 Insertion time: 12:15 Removal date: 12/19/17 Removal time: 20:00 Assessment and Plan - Plan 67-year-old female with a past medical history of COPD, lupus, fibromyalgia, HTN , PTSD. Patient initially presented 12/11 for nausea, vomiting, abdominal pain, diarrhea with septic shock requiring pressors. The patient is not a great historian and much of the history is obtained from the medical record. The patient is has had issues with renal failure during admission, creatinine 2.2-> 0.91->3, reportedly nephrology is considering initiating dialysis. The patient was having issues with fluid retention and had an echocardiogram done which showed EF 3540% which is a new finding and severe MR which is an old finding. Echocardiogram previously done 12/02/15 showed EF 5560% and moderate-severe MR. Patient denies any chest pain or shortness of breath. She is currently lying in bed flat on room air. New onset cardiomyopathy: Biventricular failure. Currently appears fairly well compensated on current diuretic regiment continue diuresis. Would need to consider ischemic workup depending on renal plan (dialysis?). Discontinue metoprolol and add carvedilol 6.25 mg. Digoxin for inotropic support, 0.25 mg today, 0.125 mg tomorrow, digoxin level in 2 days. May require right heart cath early next week. Maintain potassium greater than 4. Would recommend low- dose COLTEN inhibitor if okay with nephrology. Severe mitral regurgitation: DARYN done 12/19 which showed only moderate MR worse, and signs of significant right heart failure. Diuresis recommended and may consider repeat limited transthoracic echo when volume status improved. Acute renal failure: Likely due to ATN. Lasix decreased to daily per nephrology , creatinine improved to 2.75 today. Diuretics per nephrology. Discussed Condition With: Patient, RN, Dr. Ribeiro <Brendon Ribeiro - Last Filed: 12/20/17 08:55> Physical Exam Vital signs: Vital Signs 12/19/17 16:02 12/19/17 20:00 12/20/17 00:00 Temperature 97.9 F 98 F Pulse Rate 94 H 77 93 H Respiratory Rate 20 16 16 Blood Pressure 131/71 146/91 H Pulse Oximetry 95 95 91 L 12/20/17 04:00 12/20/17 08:00 Temperature 98 F 98 F Pulse Rate 84 81 Respiratory Rate 18 17 Blood Pressure 154/96 H 134/78 Pulse Oximetry 97 Intake & Output 12/19/17 12/20/17 12/20/17 18:59 06:59 18:59 Intake Total 50 / 50 240 / 240 Output Total 1000 / 1000 600 / 600 Balance -950 / -950 -360 / -360 Weight 61.2 kg Intake: Oral 50 / 50 240 / 240 Output: Urine Amount (Catheter) 1000 / 1000 600 / 600 Indwelling Urethral Catheter 1000 / 1000 600 / 600 - Urinary Catheter Management Indwelling Urethral Catheter Cath placed during this visit: no Assessment and Plan - Attending Attestation Agree with above.
[2017-12-20] MEDS: Senna/Docusate Sodium 8.6/50 MG Tablet PO SCH ×2 (08:34→20:36)
[2017-12-20] MEDS: Pregabalin 75 MG Capsule PO SCH (08:34)
[2017-12-20] MEDS: Furosemide 40 MG Tablet PO SCH (08:34)
[2017-12-20] MEDS: Sertraline 100 MG Tablet PO SCH (08:34)
[2017-12-20] MEDS: azaTHIOprine 50 MG Tablet PO SCH ×2 (08:34→20:35)
[2017-12-20] MEDS: Hydrocortisone Sod Succinate 100 MG Vial IV.PUSH SCH ×2 (08:36→20:37)
[2017-12-20] MEDS: Famotidine PF Inj 20 MG/2 ML Vial IV.PUSH SCH (08:36)
[2017-12-20] MEDS: Metoprolol Tartrate 25 MG Tablet PO SCH (08:37)
[2017-12-20] MEDS ORDERED: Digoxin Inj 500 MCG/2 ML Ampul IV.PUSH ONE (08:50)
[2017-12-20 10:57] LABS: Acanthocytes 1+; Burr Cells 1+; Lymphocytes 1 % (9-44); Metamyelocytes 1 % (0-1); Monocytes 5 % (0-8); Ovalocytes 1+; Tallied Nucleated RBC 5 (0-0); Toxic Granulation 2+
[2017-12-20 10:58] LABS: Platelet Estimate Normal (Normal); Platelet Morphology Normal (Normal)
--- NOTE | 2017-12-20 11:56 | P.PNNP ---
Subjective Interval history: Pt reports she is feeling OK today. <Kayla Razo R - Last Filed: 12/20/17 11:51> Physical Exam Vital signs: Vital Signs 12/19/17 16:02 12/19/17 20:00 12/20/17 00:00 Temperature 97.9 F 98 F Pulse Rate 94 H 77 93 H Respiratory Rate 20 16 16 Blood Pressure 131/71 146/91 H Pulse Oximetry 95 95 91 L 12/20/17 04:00 12/20/17 08:00 Temperature 98 F 98 F Pulse Rate 84 81 Respiratory Rate 18 17 Blood Pressure 154/96 H 134/78 Pulse Oximetry 97 Intake & Output 12/19/17 12/20/17 12/20/17 18:59 06:59 18:59 Intake Total 50 / 50 240 / 240 Output Total 1000 / 1000 600 / 600 Balance -950 / -950 -360 / -360 Weight 61.2 kg Intake: Oral 50 / 50 240 / 240 Output: Urine Amount (Catheter) 1000 / 1000 600 / 600 Indwelling Urethral Catheter 1000 / 1000 600 / 600 - Constitutional no acute distress - Routine HEENT Exam Head: Present: normocephalic, atraumatic - Routine Neck Exam Present: supple - Routine Respiratory Exam Present: decreased breath sounds - Routine Cardiovascular Exam Present: RRR, S1, S2, murmur - Routine Abdominal Exam Present: soft, normoactive bowel sounds - Routine Extremities Exam Present: edema (1+ pitting to hips) - Routine Skin Exam Present: intact - Routine Neurological Exam Present: alert - Urinary Catheter Management Indwelling Urethral Catheter Cath placed during this visit: yes, but has since been removed by the nurse Reason for continuing: Not indwelling catheter Insertion date: 12/16/17 Insertion time: 12:15 Removal date: 12/19/17 Removal time: 20:00 <Kayla Razo R - Last Filed: 12/20/17 11:51> Vital signs: Vital Signs 12/20/17 20:21 12/21/17 00:00 12/21/17 04:00 Temperature 98.2 F 97.8 F 98.1 F Pulse Rate 89 94 H 73 Respiratory Rate 17 18 16 Blood Pressure 152/92 H 145/86 H 148/78 H Pulse Oximetry 95 94 L 96 12/21/17 10:40 12/21/17 11:50 12/21/17 12:10 Temperature 98 F 97.6 F Pulse Rate 92 H 82 81 Respiratory Rate 18 18 16 Blood Pressure 167/97 H 137/84 Pulse Oximetry 98 98 98 Intake & Output 12/20/17 12/21/17 12/21/17 18:59 06:59 18:59 Intake Total 780 / 780 630 / 630 300 / 300 Output Total 850 / 850 1400 / 1400 Balance -70 / -70 -770 / -770 300 / 300 Weight 61.1 kg Intake: IV 60 / 60 300 / 300 LR 1000 mL Inj 1,000 ML @ 30 60 / 60 mls/hr IV.SIG .Q24H VALERIE Rx#: [id number] KCl 10 mEq Premix Inj 10 meq In 100 / 100 100 ml @ 100 mls/hr IV.SIG ONCE ONE Rx#:[id number] KCl 20 mEq Premix Inj 20 meq In 100 / 100 100 ml @ 50 mls/hr IV.SIG Q2H VALERIE Rx#:[id number] Rocephin Inj 1,000 MG In NS Inj 100 / 100 100 ML @ 200 mls/hr IV.SIG Q24H VALERIE Rx#:[id number] Oral 720 / 720 630 / 630 Output: Urine 850 / 850 Urine Amount (Catheter) 1400 / 1400 Female External 1400 / 1400 Other: Date of Last Bowel Movement 12/21/17 # Bowel Movements 2 - Urinary Catheter Management Indwelling Urethral Catheter Cath placed during this visit: yes, but has since been removed by the nurse Reason for continuing: Not indwelling catheter Insertion date: 12/16/17 Insertion time: 12:15 Removal date: 12/19/17 Removal time: 20:00 Female External Cath placed during this visit: yes Reason for continuing: Not indwelling catheter Insertion date: 12/21/17 Insertion time: 04:00 <Berry Francis - Last Filed: 12/21/17 16:44> Assessment and Plan - Assessment (1) VITALIY (acute kidney injury) Code(s): N17.9 - Acute kidney failure, unspecified Status: Acute Plan: Patient may have developed acute renal insufficiency secondary to acute tubular necrosis related to recent bout of sepsis and hypotension. She also has a history of lupus but unsure if this is playing any role in her acute renal insufficiency currently. Renal functions have improved slightly and UOP picked up. Continue on po Lasix as she does still have some edema. KCl ordered. Will continue to monitor. Encouraged continued po free water intake---hypernatremia improved. Medications should be adjusted for the patient's estimated GFR if clinically indicated. Avoid agents with significant potential for nephrotoxicity possible including NSAIDs for analgesia, iodine contrast agents. Gadolinium is contraindicated if the GFR is below 30. (2) Chronic kidney disease Code(s): N18.9 - Chronic kidney disease, unspecified Status: Chronic Plan: Suggested by renal ultrasound. May be related to hypertensive nephrosclerosis. Records are required from rheumatology to determine if there is any history of previous renal involvement as far as the lupus is concerned. (3) Congestive heart failure Code(s): I50.9 - Heart failure, unspecified Status: Acute Qualifiers: Heart failure chronicity: acute Plan: DARYN done 12/19 which show moderate mitral valve disease with right sided heart failure. Cardiology on board recommending diuresis and consideration of repeat limited transthoracic echo when volume status improved. (4) Edema extremities Code(s): R60.0 - Localized edema Status: Acute Plan: Secondary to fluid overload. <Kayla Razo - Last Filed: 12/20/17 11:51> - Assessment (1) VITALIY (acute kidney injury) Code(s): N17.9 - Acute kidney failure, unspecified Status: Acute (2) Chronic kidney disease Code(s): N18.9 - Chronic kidney disease, unspecified Status: Chronic (3) Congestive heart failure Code(s): I50.9 - Heart failure, unspecified Status: Acute Qualifiers: Heart failure chronicity: acute (4) Edema extremities Code(s): R60.0 - Localized edema Status: Acute - Attending Attestation Improving acute renal insufficiency. Volume status is much improved. At this point in time will reduce furosemide from 40 mg daily to 20 mg daily. The exam, history, and the medical decision-making described in the above note were completed with the assistance of the PASunni. I reviewed and agree with the findings presented. I attest that I had a [id number] encounter with the patient on the same day, and personally performed and documented my assessment and findings in the medical record. <Berry Francis - Last Filed: 12/21/17 16:44>
--- NOTE | 2017-12-20 12:09 | P.PNFP ---
Subjective Interval history: Pt seen and examined. AFVSS. No acute events overnight. Pt is a poor historian but denies any complaints. No CP, SOB. Coughing throughout encounter. Results - Labs Result diagrams: 12/20/17 05:34 12/20/17 05:34 Abnormal lab results 12/20/17 12/20/17 Range/Units 05:34 05:34 RBC 3.44 L (4.00-5.30) mil/mm3 Hgb 9.1 L (11.6-15.3) gm/dL Hct 28.3 L (35.0-46.0) % MCH 26.6 L (27.0-34.0) pg RDW 22.0 H (11.6-17.2) % Neut % (Auto) 81.7 H (16.0-70.0) % Ste[place] % (Auto) 8.1 H (0.0-8.0) % Neut # (Auto) 9.0 H (1.8-7.7) th/mm3 Seg Neuts % (Manual) 89 H (16-70) % Lymphocytes % (Manual) 1 L (9-44) % Abs Neuts (Manual) 10.3 H (1.8-7.7) th/mm3 Nucleated RBCs/100 WBC 5 H (0-0) /100 WBC Toxic Granulation 2+ H (None) Ovalocytes 1+ H (None) [place] Cells 1+ H (None) Acanthocytes (Spur) 1+ H (None) Keratocytes Occ H (None) Sodium 147 H (136-145) meq/L Potassium 3.1 L (3.5-5.1) meq/L Chloride 110 H (98-107) meq/L BUN 76 H (7-18) mg/dL Creatinine 2.75 H (0.50-1.00) mg/dL Estimated GFR 17 L (>89) mL/min Random Glucose 115 H (74-106) mg/dL Calcium 8.2 L (8.5-10.1) mg/dL Albumin 2.3 L (3.4-5.0) g/dL Short CBC 12/20/17 Range/Units 05:34 WBC 11.0 (4.0-11.0) th/mm3 Hgb 9.1 L (11.6-15.3) gm/dL Hct 28.3 L (35.0-46.0) % Plt Count 301 (150-450) th/mm3 BMP 12/20/17 12/20/17 05:34 05:34 Sodium 147 H Potassium 3.1 L Chloride 110 H Carbon Dioxide 21.9 BUN 76 H Creatinine Cancelled 2.75 H Calcium 8.2 L Liver Function 12/20/17 Range/Units 05:34 Albumin 2.3 L (3.4-5.0) g/dL Physical Exam Vital signs: Vital Signs 12/19/17 16:02 12/19/17 20:00 12/20/17 00:00 Temperature 97.9 F 98 F Pulse Rate 94 H 77 93 H Respiratory Rate 20 16 16 Blood Pressure 131/71 146/91 H Pulse Oximetry 95 95 91 L 12/20/17 04:00 12/20/17 08:00 Temperature 98 F 98 F Pulse Rate 84 81 Respiratory Rate 18 17 Blood Pressure 154/96 H 134/78 Pulse Oximetry 97 Intake & Output 12/19/17 12/20/17 12/20/17 18:59 06:59 18:59 Intake Total 50 / 50 240 / 240 Output Total 1000 / 1000 600 / 600 Balance -950 / -950 -360 / -360 Weight 61.2 kg Intake: Oral 50 / 50 240 / 240 Output: Urine Amount (Catheter) 1000 / 1000 600 / 600 Indwelling Urethral Catheter 1000 / 1000 600 / 600 Narrative: GENERAL: WN, WD female resting in bed in NAD. SKIN: Warm and dry. HEENT: AT/NC. Pupils equal and round. MMM. NECK: Supple no tender LAD or JVD. HEART: RRR no m/r/g. LUNGS: CTAB without wheezes or crackles. ABDOMEN: +BS, soft, NT, ND. EXTREMITIES: No LE edema. NEURO: Awake and alert. - Urinary Catheter Management Indwelling Urethral Catheter Cath placed during this visit: yes, but has since been removed by the nurse Reason for continuing: Not indwelling catheter Insertion date: 12/16/17 Insertion time: 12:15 Removal date: 12/19/17 Removal time: 20:00 Assessment and Plan - Assessment and Plan 67 YOWF with HTN, COPD, and lupus admitted 12/11 with gastroenteritis and septic shock requiring ICU admission and vasopressors. Septic shock - Resolved - Afebrile, no leukocytosis - Tapering IV steroids slowly VITALIY - Creatinine slightly down to 2.75 from 3.0 yesterday - Nephrology following - Renal U/S suggestive of medical renal disease - Avoid nephrotoxic agents and renally dose meds - LR at 30 ml/hr Cardiomyopathy - TTE done on 12/18 showed moderate to severely reduced LV systolic function with EF 35-40% and severe mitral valve regurg - Cardiology was consulted and patient transferred to [facility] 12/19 to undergo DARYN - DARYN done 12/19 showing moderate mitral valve disease with right sided heart failure - Cardiology following; recommend medical management and to consider repeat TTE when volume status improves - Continue Lasix, Carvedilol - Started on Digoxin, monitor dig levels Gastroenteritis - Resolved - Stool studies returned negative - Antibiotics discontinued Lupus/adrenal insufficiency - Continue home meds - Tapering IV steroids slowly, decrease IV Solucortef to 25 mg daily - Monitor renal function Anemia - Likely anemia of chronic disease given lupus and possible CKD - Hemodynamically stable - Continue to monitor Fibromyalgia - Continue home Cymbalta and Lyrica Hypokalemia - K low at 3.1 - Repleted with KCl - Continue monitor Vitamin D deficiency - Vit D3 2000 units daily DVT prophylaxis: Heparin Discharge Planning: When cleared by cardiology and nephrology, possibly in next few days
[2017-12-20] MEDS: Carvedilol 6.25 MG Tablet PO SCH ×2 (12:59→20:36)
[2017-12-20] MEDS: Sod Chloride 0.9% Inj 1,000 ML IV.CONT SCH (19:01)
[2017-12-20] MEDS: Famotidine 20 MG Tablet PO SCH (20:35)
[2017-12-20 23:52] LABS: Free Kappa/Lambda Light Chain 1.18 (0.26-1.65)
[2017-12-21] MEDS: Heparin - SQ 10,000 UNITS/ML Vial SQ SCH ×4 (03:16→17:07)
[2017-12-21 05:27] LABS: Baso % (Auto) 0.3 % (0.0-2.0); Eos % (Auto) 0.3 % (0.0-4.0); Hematocrit 30.5 % (35.0-46.0); Hemoglobin 9.7 gm/dL (11.6-15.3); Mean Corpuscular HGB Conc 31.7 % (32.0-36.0); Mean Platelet Volume 8.5 fL (7.0-11.0); Mono # (Auto) 0.7 th/mm3 (0.0-0.9); Mono % (Auto) 4.6 % (0.0-8.0); Neut # (Auto) 12.5 th/mm3 (1.8-7.7); Neut % (Auto) 87.8 % (16.0-70.0); Platelet Count 317 th/mm3 (150-450); Red Blood Count 3.72 mil/mm3 (4.00-5.30); Red Cell Distribution Width 22.3 % (11.6-17.2); White Blood Count 14.3 th/mm3 (4.0-11.0)
[2017-12-21 05:54] LABS: Albumin 2.4 g/dL (3.4-5.0); Calcium 7.9 mg/dL (8.5-10.1); Carbon Dioxide 28.2 meq/L (21.0-32.0); Phosphorus 4.3 mg/dL (2.5-4.9)
[2017-12-21 06:03] LABS: Potassium 2.9 meq/L (3.5-5.1)
[2017-12-21] MEDS ORDERED: Potassium Chloride 25 MEQ Effervescent Tablet PO ONE (06:09)
[2017-12-21] MEDS ORDERED: Potassium Chlor 10 mEq Premix 10 MEQ/100 ML PIGGYBACK IV.SIG ONE (06:10)
[2017-12-21] MEDS ORDERED: Digoxin Inj 500 MCG/2 ML Ampul IV.PUSH ONE (08:43)
--- NOTE | 2017-12-21 08:46 | P.PNCA ---
<Brendon Ribeiro - Last Filed: 12/21/17 09:04> Physical Exam Vital signs: Vital Signs 12/20/17 12:00 12/20/17 16:00 12/20/17 20:21 Temperature 97.8 F 98 F 98.2 F Pulse Rate 83 89 89 Respiratory Rate 17 18 17 Blood Pressure 149/85 H 152/94 H 152/92 H Pulse Oximetry 97 97 95 12/21/17 00:00 12/21/17 04:00 Temperature 97.8 F 98.1 F Pulse Rate 94 H 73 Respiratory Rate 18 16 Blood Pressure 145/86 H 148/78 H Pulse Oximetry 94 L 96 Intake & Output 12/20/17 12/21/17 12/21/17 18:59 06:59 18:59 Intake Total 780 / 780 630 / 630 Output Total 850 / 850 1400 / 1400 Balance -70 / -70 -770 / -770 Weight 61.1 kg Intake: IV 60 / 60 LR 1000 mL Inj 1,000 ML @ 30 60 / 60 mls/hr IV.SIG .Q24H [facility] Rx#: [id number] Oral 720 / 720 630 / 630 Output: Urine 850 / 850 Urine Amount (Catheter) 1400 / 1400 Female External 1400 / 1400 Other: # Bowel Movements 2 - Urinary Catheter Management Indwelling Urethral Catheter Cath placed during this visit: no Female External Cath placed during this visit: no Assessment and Plan - Plan agree with above. She is net negative Uo -1300cc and renal function is improving with changes made. HTN still uncontrolled. Start amlodipine. WBC elevating with cough and persistent dyspnea ? PNA? will order CXR and ask primary team to pursue infectious work up. <Robbin Lewis - Last Filed: 12/21/17 09:10> Subjective Interval history: Complaining of coughing today, feels like she cannot cough up phlegm. Denies any shortness of breath or chest pain. Potassium low today, IV potassium replacement ordered by primary. Physical Exam Vital signs: Vital Signs 12/20/17 12:00 12/20/17 16:00 12/20/17 20:21 Temperature 97.8 F 98 F 98.2 F Pulse Rate 83 89 89 Respiratory Rate 17 18 17 Blood Pressure 149/85 H 152/94 H 152/92 H Pulse Oximetry 97 97 95 12/21/17 00:00 12/21/17 04:00 Temperature 97.8 F 98.1 F Pulse Rate 94 H 73 Respiratory Rate 18 16 Blood Pressure 145/86 H 148/78 H Pulse Oximetry 94 L 96 Intake & Output 12/20/17 12/21/17 12/21/17 18:59 06:59 18:59 Intake Total 780 / 780 630 / 630 Output Total 850 / 850 1400 / 1400 Balance -70 / -70 -770 / -770 Weight 134 lb 11.239 oz Intake: IV 60 / 60 LR 1000 mL Inj 1,000 ML @ 30 60 / 60 mls/hr IV.SIG .Q24H [facility] Rx#: [id number] Oral 720 / 720 630 / 630 Output: Urine 850 / 850 Urine Amount (Catheter) 1400 / 1400 Female External 1400 / 1400 Other: # Bowel Movements 2 Narrative: GENERAL: Well-developed well-nourished. In no acute distress. NECK: No carotid bruits. No JVD. CARDIOVASCULAR: Regular rate and rhythm. 1/6 systolic murmur at the apex. RESPIRATORY: No accessory muscle use. Clear to auscultation. Breath sounds equal bilaterally. MUSCULOSKELETAL: No clubbing or cyanosis. No edema. NEUROLOGICAL: Awake and alert. Normal speech. - Urinary Catheter Management Indwelling Urethral Catheter Cath placed during this visit: yes, but has since been removed by the nurse Reason for continuing: Not indwelling catheter Insertion date: 12/16/17 Insertion time: 12:15 Removal date: 12/19/17 Removal time: 20:00 Female External Cath placed during this visit: yes Reason for continuing: Not indwelling catheter Insertion date: 12/21/17 Insertion time: 04:00 Assessment and Plan - Plan 67-year-old female with a past medical history of COPD, lupus, fibromyalgia, HTN , PTSD. Patient initially presented 12/11 for nausea, vomiting, abdominal pain, diarrhea with septic shock requiring pressors. The patient is not a great historian and much of the history is obtained from the medical record. The patient is has had issues with renal failure during admission, creatinine 2.2-> 0.91->3. The patient was having issues with fluid retention and had an echocardiogram done which showed EF 3540% which is a new finding and severe MR which is an old finding. Echocardiogram previously done 12/02/15 showed EF 5560 % and moderate-severe MR. New onset cardiomyopathy: Biventricular failure. Currently appears fairly well compensated on current diuretic regiment continue diuresis. Would need to consider ischemic workup depending on renal plan (dialysis?). Discontinued metoprolol and added carvedilol 6.25 mg. Digoxin for inotropic support, 0.25 mg yesterday, 0.125 mg today, digoxin level tomorrow. May require right heart cath early next week. Maintain potassium greater than 4. Would recommend low- dose COLTEN inhibitor if okay with nephrology. Severe mitral regurgitation: DARYN done 12/19 which showed only moderate MR worse, and signs of significant right heart failure. Diuresis recommended and may consider repeat limited transthoracic echo when volume status improved. Acute renal failure: Likely due to ATN. Creatinine trending down. Lasix daily per nephrology, diuretics per nephrology. Cough: WBC elevated today. Check CXR. Consider infectious workup, will defer to primary team. Hypertension: Not well controlled. Add amlodipine 5 mg. Discussed Condition With: Patient, hospitalist, Dr. Ribeiro
[2017-12-21] MEDS ORDERED: amLODIPine 5 MG Tablet PO SCH (09:00)
--- NOTE | 2017-12-21 09:42 | XR ---
EXAM DATE: 12/21/2017 9:24 AM EDT AGE/SEX: 67 years / Female INDICATIONS: Cough and shortness of breath. CLINICAL DATA: This is the patient's initial encounter. Patient reports that signs and symptoms have been present for 1 day and indicates a pain score of 0/10. MEDICAL/SURGICAL HISTORY: None. None. COMPARISON: HPO, CHEST 1V SINGLE AP, 12/16/2017. . FINDINGS: AP portable upright view of the chest demonstrates mild bilateral right greater than left basilar air space opacities, stable from prior exam. Heart size appears normal. Pulmonary vasculature is normal i n caliber. CONCLUSION: Stable bilateral basilar airspace disease which appears grossly stable from prior exam. Aeration of t he upper lungs has improved. The pulmonary vascular caliber has improved. Electronically signed by: Rosa Canada MD 12/21/2017 9:41 AM EDT
[2017-12-21] MEDS: Hydrocortisone Sod Succinate 100 MG Vial IV.PUSH SCH (10:24)
[2017-12-21] MEDS: Sertraline 100 MG Tablet PO SCH (10:25)
[2017-12-21] MEDS: Furosemide 40 MG Tablet PO SCH (10:25)
[2017-12-21] MEDS: azaTHIOprine 50 MG Tablet PO SCH ×2 (10:26→21:56)
[2017-12-21] MEDS: Pregabalin 75 MG Capsule PO SCH (10:26)
[2017-12-21] MEDS: Carvedilol 6.25 MG Tablet PO SCH ×2 (10:26→21:56)
[2017-12-21] MEDS: Potassium Chlor 20 mEq Premix 20 MEQ/100 ML PIGGYBACK IV.SIG SCH ×2 (10:27→13:00)
[2017-12-21] MEDS: Senna/Docusate Sodium 8.6/50 MG Tablet PO SCH ×2 (10:28→22:03)
--- NOTE | 2017-12-21 11:12 | P.PNFP ---
Subjective Interval history: Pt seen and examined. AFVSS except for mildly elevated BPs. Does not provide much history. Per nursing, patient more confused today. She has wet sounding cough. Denies CP or SOB. Per nursing, patient desaturating into the 70s off of O2. Results - Labs Result diagrams: 12/21/17 04:28 12/21/17 04:28 Abnormal lab results 12/18/17 12/21/17 12/21/17 Range/Units 08:00 04:28 04:28 WBC 14.3 H (4.0-11.0) th/mm3 RBC 3.72 L (4.00-5.30) mil/mm3 Hgb 9.7 L (11.6-15.3) gm/dL Hct 30.5 L (35.0-46.0) % MCH 26.0 L (27.0-34.0) pg MCHC 31.7 L (32.0-36.0) % RDW 22.3 H (11.6-17.2) % Neut % (Auto) 87.8 H (16.0-70.0) % Lymph % (Auto) 7.0 L (9.0-44.0) % Neut # (Auto) 12.5 H (1.8-7.7) th/mm3 Potassium 2.9 L* (3.5-5.1) meq/L BUN 68 H (7-18) mg/dL Creatinine 2.13 H (0.50-1.00) mg/dL Estimated GFR 23 L (>89) mL/min Random Glucose 124 H (74-106) mg/dL Calcium 7.9 L (8.5-10.1) mg/dL Albumin 2.4 L (3.4-5.0) g/dL Free [place] Light Chains 52.70 H (3.3-19.4) mg/L Free [place] Light Chain 44.50 H (5.7-26.3) mg/L Short CBC 12/21/17 Range/Units 04:28 WBC 14.3 H (4.0-11.0) th/mm3 Hgb 9.7 L (11.6-15.3) gm/dL Hct 30.5 L (35.0-46.0) % Plt Count 317 (150-450) th/mm3 BMP 12/20/17 12/21/17 12/21/17 05:34 04:28 04:28 Sodium 145 Potassium 2.9 L* Chloride 104 Carbon Dioxide 28.2 BUN 68 H Creatinine Cancelled Cancelled 2.13 H Calcium 7.9 L Liver Function 12/21/17 Range/Units 04:28 Albumin 2.4 L (3.4-5.0) g/dL - Imaging Impressions Chest X-Ray 12/21/17 00:00 CONCLUSION: Stable bilateral basilar airspace disease which appears grossly stable from prior exam. Aeration of the upper lungs has improved. The pulmonary vascular caliber has improved. Physical Exam Vital signs: Vital Signs 12/20/17 12:00 12/20/17 16:00 12/20/17 20:21 Temperature 97.8 F 98 F 98.2 F Pulse Rate 83 89 89 Respiratory Rate 17 18 17 Blood Pressure 149/85 H 152/94 H 152/92 H Pulse Oximetry 97 97 95 12/21/17 00:00 12/21/17 04:00 Temperature 97.8 F 98.1 F Pulse Rate 94 H 73 Respiratory Rate 18 16 Blood Pressure 145/86 H 148/78 H Pulse Oximetry 94 L 96 Intake & Output 12/20/17 12/21/17 12/21/17 18:59 06:59 18:59 Intake Total 780 / 780 630 / 630 100 / 100 Output Total 850 / 850 1400 / 1400 Balance -70 / -70 -770 / -770 100 / 100 Weight 61.1 kg Intake: IV 60 / 60 100 / 100 LR 1000 mL Inj 1,000 ML @ 30 60 / 60 mls/hr IV.SIG .Q24H [facility] Rx#: [id number] KCl 10 mEq Premix Inj 10 meq In 100 / 100 100 ml @ 100 mls/hr IV.SIG ONCE ONE Rx#:[id number] Oral 720 / 720 630 / 630 Output: Urine 850 / 850 Urine Amount (Catheter) 1400 / 1400 Female External 1400 / 1400 Other: # Bowel Movements 2 Narrative: GENERAL: WN, WD female resting in bed in NAD. SKIN: Warm and dry. HEENT: AT/NC. Pupils equal and round. MMM. NECK: Supple no tender LAD or JVD. HEART: RRR no m/r/g. LUNGS: Diminished breath sounds with bibasilar crackles and diffuse scattered wheezing. ABDOMEN: +BS, soft, NT, ND. EXTREMITIES: No LE edema. Central line R groin. NEURO: Confused. - Urinary Catheter Management Indwelling Urethral Catheter Cath placed during this visit: yes, but has since been removed by the nurse Reason for continuing: Not indwelling catheter Insertion date: 12/16/17 Insertion time: 12:15 Removal date: 12/19/17 Removal time: 20:00 Female External Cath placed during this visit: yes Reason for continuing: Not indwelling catheter Insertion date: 12/21/17 Insertion time: 04:00 Assessment and Plan - Assessment (1) Pneumonia Code(s): J18.9 - Pneumonia, unspecified organism Status: Acute (2) VITALIY (acute kidney injury) Code(s): N17.9 - Acute kidney failure, unspecified Status: Acute - Assessment and Plan 67 YOWF with HTN, COPD, and lupus admitted 12/11 with gastroenteritis and septic shock requiring ICU admission and vasopressors. She was initially hospitalized in the [facility] but was transferred to [facility] for DARYN. Septic shock - Resolved - Afebrile - Blood cultures and urine cultures no growth - Tapering IV steroids slowly VITALIY - Creatinine continues to trend down - Nephrology following - Renal U/S suggestive of medical renal disease - Avoid nephrotoxic agents and renally dose meds - LR at 30 ml/hr PNA, hypoxia - Patient with cough, bibasilar crackles, O2 desaturation, and elevated white count this morning - CXR showing bibasilar airspace disease - Check urine legionella and pneumococcal Ag - Check sputum culture - Start Rocephin and Azithromycin - Supplemental O2 - DuoNeb Q6H scheduled Cardiomyopathy, HTN - TTE done on 12/18 showed moderate to severely reduced LV systolic function with EF 35-40% and severe mitral valve regurg - Cardiology was consulted and patient transferred to [facility] 12/19 to undergo DARYN - DARYN done 12/19 showing moderate mitral valve disease with right sided heart failure - Cardiology following; recommend medical management and to consider repeat TTE when volume status improves - Continue Lasix, Carvedilol - Added Amlodipine for better HTN control - Started on Digoxin, monitor dig levels Gastroenteritis - Resolved - Stool studies returned negative - Antibiotics discontinued Lupus/adrenal insufficiency - Continue home meds - Tapering IV steroids slowly, decreased IV Solucortef to 25 mg daily - Monitor renal function Anemia - Likely anemia of chronic disease given lupus and possible CKD - Hemodynamically stable - Continue to monitor Fibromyalgia - Continue home Cymbalta and Lyrica Hypokalemia - K continues to be low - Repleted with KCl IV - Recheck at 1600 - Continue monitor Vitamin D deficiency - Vit D3 2000 units daily DVT prophylaxis: Heparin Discharge Planning: Treating patient for PNA and VITALIY. Can be discharged when clinically improved and once clearance from nephrology and cardiology. (1) Pneumonia Qualifiers: Laterality: bilateral Lung location: lower lobe of lung
[2017-12-21] MEDS: Azithromycin 250 MG Tablet PO SCH (11:48)
[2017-12-21] MEDS: amLODIPine 5 MG Tablet PO SCH ×2 (11:49→21:56)
[2017-12-21] MEDS ORDERED: Furosemide 20 MG Tablet PO SCH (16:45)
[2017-12-21] MEDS: Sod Chloride 0.9% Inj 1,000 ML IV.CONT SCH (17:08)
[2017-12-21 18:30] LABS: Bacteria,Urine Occasional /hpf; Bilirubin,Urine Negative (Negative); Clarity,Urine Clear (Clear); Color,Urine Yellow (Yellw/Straw); Glucose,Urine (UA) Negative (Negative); Leukocyte Esterase,Urine Moderate (Negative); Nitrite,Urine Positive (Negative); Specific Gravity,Urine 1.006 (1.002-1.035); Squamous Epithelial Cell,Urine <1 /hpf (0-5)
[2017-12-21] MEDS: Famotidine 20 MG Tablet PO SCH (21:57)
[2017-12-22] MEDS: Heparin - SQ 10,000 UNITS/ML Vial SQ SCH ×3 (01:16→15:12)
[2017-12-22 06:35] LABS: Baso % (Auto) 0.1 % (0.0-2.0); Eos # (Auto) 0.4 th/mm3 (0.0-0.4); Eos % (Auto) 2.8 % (0.0-4.0); Hematocrit 34.5 % (35.0-46.0); Hemoglobin 10.9 gm/dL (11.6-15.3); Lymph # (Auto) 0.9 th/mm3 (1.0-4.8); Lymph % (Auto) 7.1 % (9.0-44.0); Mean Corpuscular HGB Conc 31.7 % (32.0-36.0); Mean Corpuscular Hemoglobin 25.8 pg (27.0-34.0); Mean Corpuscular Volume 81.3 fL (80.0-100.0); Mean Platelet Volume 8.7 fL (7.0-11.0); Mono # (Auto) 0.7 th/mm3 (0.0-0.9); Mono % (Auto) 5.2 % (0.0-8.0); Neut # (Auto) 11.2 th/mm3 (1.8-7.7); Neut % (Auto) 84.8 % (16.0-70.0); Platelet Count 302 th/mm3 (150-450); Red Blood Count 4.24 mil/mm3 (4.00-5.30); Red Cell Distribution Width 21.2 % (11.6-17.2); White Blood Count 13.2 th/mm3 (4.0-11.0)
[2017-12-22 07:31] LABS: Albumin 2.3 g/dL (3.4-5.0); Calcium 8.1 mg/dL (8.5-10.1); Digoxin 0.7 ng/mL (0.8-2.0); Phosphorus 3.1 mg/dL (2.5-4.9); Potassium 3.3 meq/L (3.5-5.1)
--- NOTE | 2017-12-22 07:44 | P.PNCA ---
<Robbin Lewis - Last Filed: 12/22/17 07:48> Subjective Interval history: RN at bedside. Still with cough today, patient feels it may be a bit worse, associated shortness of breath. Physical Exam Vital signs: Vital Signs 12/21/17 10:40 12/21/17 11:50 12/21/17 12:10 Temperature 98 F 97.6 F Pulse Rate 92 H 82 81 Respiratory Rate 18 18 16 Blood Pressure 167/97 H 137/84 Pulse Oximetry 98 98 98 12/21/17 16:00 12/21/17 19:24 12/21/17 20:00 Temperature 98.1 F 97.6 F Pulse Rate 72 82 70 Respiratory Rate 18 18 16 Blood Pressure 131/72 143/74 H Pulse Oximetry 94 L 95 97 12/22/17 00:00 12/22/17 04:00 12/22/17 07:26 Temperature 99.1 F Pulse Rate 85 71 73 Respiratory Rate 20 16 16 Blood Pressure 148/73 H 147/69 H 140/69 Pulse Oximetry 93 L 96 97 Intake & Output 12/21/17 12/22/17 12/22/17 18:59 06:59 18:59 Intake Total 1880 / 1880 240 / 240 Output Total 850 / 850 600 / 600 Balance 1030 / 1030 -360 / -360 Weight 127 lb 3.307 oz Intake: IV 1400 / 1400 NS Inj 1,000 ML @ 50 mls/hr IV. 1000 / 1000 CONT .Q20H [facility] Rx#:[id number] KCl 10 mEq Premix Inj 10 meq In 100 / 100 100 ml @ 100 mls/hr IV.SIG ONCE ONE Rx#:[id number] KCl 20 mEq Premix Inj 20 meq In 200 / 200 100 ml @ 50 mls/hr IV.SIG Q2H [facility] Rx#:[id number] Rocephin Inj 1,000 MG In NS Inj 100 / 100 100 ML @ 200 mls/hr IV.SIG Q24H [facility] Rx#:[id number] Oral 480 / 480 240 / 240 Output: Urine Amount (Catheter) 850 / 850 600 / 600 Female External 850 / 850 600 / 600 Other: Date of Last Bowel Movement 12/21/17 12/21/17 # Bowel Movements 0 Narrative: GENERAL: Well-developed well-nourished. In no acute distress. NECK: No carotid bruits. No JVD. CARDIOVASCULAR: Regular rate and rhythm. /6 systolic murmur at the apex. RESPIRATORY: Right basilar crackles noted. MUSCULOSKELETAL: No clubbing or cyanosis. No edema. NEUROLOGICAL: Awake and alert. Normal speech. - Urinary Catheter Management Indwelling Urethral Catheter Cath placed during this visit: yes, but has since been removed by the nurse Reason for continuing: Not indwelling catheter Insertion date: 12/16/17 Insertion time: 12:15 Removal date: 12/19/17 Removal time: 20:00 Female External Cath placed during this visit: yes Reason for continuing: Not indwelling catheter Insertion date: 12/21/17 Insertion time: 04:00 Assessment and Plan - Plan 67-year-old female with a past medical history of COPD, lupus, fibromyalgia, HTN , PTSD. Patient initially presented 12/11 for nausea, vomiting, abdominal pain, diarrhea with septic shock requiring pressors. The patient is not a great historian and much of the history is obtained from the medical record. The patient is has had issues with renal failure during admission, creatinine 2.2-> 0.91->3. The patient was having issues with fluid retention and had an echocardiogram done which showed EF 3540% which is a new finding and severe MR which is an old finding. Echocardiogram previously done 12/02/15 showed EF 5560 % and moderate-severe MR. New onset cardiomyopathy: Biventricular failure. Currently appears fairly well compensated on current diuretic regiment continue diuresis. Would need to consider ischemic workup depending on renal plan (dialysis?). Discontinued metoprolol and added carvedilol 6.25 mg. Given digoxin for inotropic support, IV loading of the last 2 days, digoxin level 0.7 today. May require right heart cath. Maintain potassium greater than 4. Would recommend low-dose COLTEN inhibitor if okay with nephrology. Severe mitral regurgitation: DARYN done 12/19 which showed only moderate MR worse, and signs of significant right heart failure. Diuresis recommended and may consider repeat limited transthoracic echo when volume status improved. Acute renal failure: Likely due to ATN. Creatinine trending down. Lasix daily per nephrology. Pneumonia: Antibiotics per primary team. Hypertension: Fair control. Nephrology increased amlodipine to twice daily. <Minor,Tremayne - Last Filed: 12/22/17 11:19> Physical Exam Vital signs: Vital Signs 12/21/17 11:50 12/21/17 12:10 12/21/17 16:00 Temperature 97.6 F 98.1 F Pulse Rate 82 81 72 Respiratory Rate 18 16 18 Blood Pressure 137/84 131/72 Pulse Oximetry 98 98 94 L 12/21/17 19:24 12/21/17 20:00 12/22/17 00:00 Temperature 97.6 F Pulse Rate 82 70 85 Respiratory Rate 18 16 20 Blood Pressure 143/74 H 148/73 H Pulse Oximetry 95 97 93 L 12/22/17 04:00 12/22/17 07:26 12/22/17 08:01 Temperature 99.1 F Pulse Rate 71 73 77 Respiratory Rate 16 16 16 Blood Pressure 147/69 H 140/69 Pulse Oximetry 96 97 99 Intake & Output 12/21/17 12/22/17 12/22/17 18:59 06:59 18:59 Intake Total 1880 / 1880 240 / 240 Output Total 850 / 850 600 / 600 Balance 1030 / 1030 -360 / -360 Weight 57.7 kg 57.7 kg Intake: IV 1400 / 1400 NS Inj 1,000 ML @ 50 mls/hr IV. 1000 / 1000 CONT .Q20H [facility] Rx#:[id number] KCl 10 mEq Premix Inj 10 meq In 100 / 100 100 ml @ 100 mls/hr IV.SIG ONCE ONE Rx#:[id number] KCl 20 mEq Premix Inj 20 meq In 200 / 200 100 ml @ 50 mls/hr IV.SIG Q2H [facility] Rx#:[id number] Rocephin Inj 1,000 MG In NS Inj 100 / 100 100 ML @ 200 mls/hr IV.SIG Q24H [facility] Rx#:[id number] Oral 480 / 480 240 / 240 Output: Urine Amount (Catheter) 850 / 850 600 / 600 Female External 850 / 850 600 / 600 Other: Date of Last Bowel Movement 12/21/17 12/21/17 # Bowel Movements 0 - Urinary Catheter Management Indwelling Urethral Catheter Cath placed during this visit: no Female External Cath placed during this visit: no Assessment and Plan - Attending Attestation agree with above
[2017-12-22] MEDS: amLODIPine 5 MG Tablet PO SCH ×2 (08:56→20:45)
[2017-12-22] MEDS: Pregabalin 75 MG Capsule PO SCH (08:57)
[2017-12-22] MEDS: Carvedilol 6.25 MG Tablet PO SCH ×2 (08:58→20:44)
[2017-12-22] MEDS: Hydrocortisone Sod Succinate 100 MG Vial IV.PUSH SCH (08:59)
[2017-12-22] MEDS: Sertraline 100 MG Tablet PO SCH (08:59)
[2017-12-22] MEDS: Acetaminophen 325 MG Tablet PO PRN (09:00)
[2017-12-22] MEDS: azaTHIOprine 50 MG Tablet PO SCH ×2 (09:21→20:44)
[2017-12-22] MEDS: Azithromycin 250 MG Tablet PO SCH (09:21)
[2017-12-22] MEDS: Senna/Docusate Sodium 8.6/50 MG Tablet PO SCH ×2 (09:29→20:47)
[2017-12-22] MEDS: Sod Chloride 0.9% Inj 1,000 ML IV.CONT SCH (14:49)
--- NOTE | 2017-12-22 15:51 | P.PNFP ---
Subjective Interval history: Late entry note. Patient seen earlier today. Still confused per RN. Continues to have a wet sounding cough. Very weak when trying to get out of bed. Patient denies any complaints. When asked if she wanted me to speak to any family members she declined. Denies CP, SOB, abdominal pain, N/V. Endorses decreased appetite. Results - Labs Result diagrams: 12/22/17 05:20 12/22/17 05:20 Abnormal lab results 12/21/17 12/22/17 12/22/17 Range/Units 17:07 05:20 05:20 WBC 13.2 H (4.0-11.0) th/mm3 Hgb 10.9 L (11.6-15.3) gm/dL Hct 34.5 L (35.0-46.0) % MCH 25.8 L (27.0-34.0) pg MCHC 31.7 L (32.0-36.0) % RDW 21.2 H (11.6-17.2) % Neut % (Auto) 84.8 H (16.0-70.0) % Lymph % (Auto) 7.1 L (9.0-44.0) % Neut # (Auto) 11.2 H (1.8-7.7) th/mm3 Lymph # (Auto) 0.9 L (1.0-4.8) th/mm3 Potassium 3.3 L (3.5-5.1) meq/L Carbon Dioxide 33.0 H (21.0-32.0) meq/L BUN 50 H (7-18) mg/dL Creatinine 1.63 H (0.50-1.00) mg/dL Estimated GFR 32 L (>89) mL/min Calcium 8.1 L (8.5-10.1) mg/dL Albumin 2.3 L (3.4-5.0) g/dL Urine Occult Blood Small H (Negative) Urine Nitrate Positive H (Negative) Ur Leukocyte Esterase Moderate H (Negative) Urine WBC 6 H (0-5) /hpf Urine Bacteria Occasional H (None) /hpf Digoxin 0.7 L (0.8-2.0) ng/mL Short CBC 12/22/17 Range/Units 05:20 WBC 13.2 H (4.0-11.0) th/mm3 Hgb 10.9 L (11.6-15.3) gm/dL Hct 34.5 L (35.0-46.0) % Plt Count 302 (150-450) th/mm3 BMP 12/21/17 12/22/17 18:57 05:20 Sodium 145 Potassium 3.7 D 3.3 L Chloride 104 Carbon Dioxide 33.0 H BUN 50 H Creatinine 1.63 H Calcium 8.1 L Liver Function 12/22/17 Range/Units 05:20 Albumin 2.3 L (3.4-5.0) g/dL Urine 12/21/17 Range/Units 17:07 Urine Color Yellow (Yellw/Straw) Urine Clarity Clear (Clear) Urine pH 5.0 (5.0-8.5) Ur Specific [place] 1.006 (1.002-1.035) Urine Protein Negative (Neg-Trace) mg/dL Urine Glucose (UA) Negative (Negative) mg/dL Physical Exam Vital signs: Vital Signs 12/21/17 16:00 12/21/17 19:24 12/21/17 20:00 Temperature 98.1 F 97.6 F Pulse Rate 72 82 70 Respiratory Rate 18 18 16 Blood Pressure 131/72 143/74 H Pulse Oximetry 94 L 95 97 12/22/17 00:00 12/22/17 04:00 12/22/17 07:26 Temperature 99.1 F Pulse Rate 85 71 73 Respiratory Rate 20 16 16 Blood Pressure 148/73 H 147/69 H 140/69 Pulse Oximetry 93 L 96 97 12/22/17 08:01 12/22/17 11:44 12/22/17 13:36 Temperature 99.9 F H Pulse Rate 77 67 71 Respiratory Rate 16 16 16 Blood Pressure 125/72 Pulse Oximetry 99 12/22/17 15:20 Temperature 98.1 F Pulse Rate 69 Respiratory Rate 16 Blood Pressure 123/57 L Pulse Oximetry 91 L Intake & Output 12/21/17 12/22/17 12/22/17 18:59 06:59 18:59 Intake Total 1880 / 1880 240 / 240 1052 / 1052 Output Total 850 / 850 600 / 600 Balance 1030 / 1030 -360 / -360 1052 / 1052 Weight 57.7 kg 57.7 kg Intake: IV 1400 / 1400 1052 / 1052 NS Inj 1,000 ML @ 50 mls/hr IV. 1000 / 1000 1052 / 1052 CONT .Q20H [facility] Rx#:[id number] KCl 10 mEq Premix Inj 10 meq In 100 / 100 100 ml @ 100 mls/hr IV.SIG ONCE ONE Rx#:[id number] KCl 20 mEq Premix Inj 20 meq In 200 / 200 100 ml @ 50 mls/hr IV.SIG Q2H [facility] Rx#:[id number] Rocephin Inj 1,000 MG In NS Inj 100 / 100 100 ML @ 200 mls/hr IV.SIG Q24H [facility] Rx#:[id number] Oral 480 / 480 240 / 240 Output: Urine Amount (Catheter) 850 / 850 600 / 600 Female External 850 / 850 600 / 600 Other: Date of Last Bowel Movement 12/21/17 12/21/17 # Bowel Movements 0 Narrative: GENERAL: WN, WD female resting in bed in NAD. SKIN: Warm and dry. HEART: RRR with 1/6 RADHA. LUNGS: Diminished breath sounds with bibasilar crackles. ABDOMEN: +BS, soft, NT, ND. EXTREMITIES: No LE edema. NEURO: Confused. - Urinary Catheter Management Indwelling Urethral Catheter Cath placed during this visit: yes, but has since been removed by the nurse Reason for continuing: Not indwelling catheter Insertion date: 12/16/17 Insertion time: 12:15 Removal date: 12/19/17 Removal time: 20:00 Female External Cath placed during this visit: yes Reason for continuing: Not indwelling catheter Insertion date: 12/21/17 Insertion time: 04:00 Assessment and Plan - Assessment and Plan 67 YOWF with HTN, COPD, and lupus admitted 12/11 with gastroenteritis and septic shock requiring ICU admission and vasopressors. She was initially hospitalized in the [facility] but was transferred to [facility] for DARYN. Septic shock - Resolved - Afebrile - Blood cultures and urine cultures no growth - Tapering IV steroids slowly VITALIY - Creatinine continues to trend down; down to 1.63 this AM from 2.13 - Nephrology following - Renal U/S suggestive of medical renal disease - Avoid nephrotoxic agents and renally dose meds - LR at 30 ml/hr PNA, hypoxia - Patient with cough, bibasilar crackles, O2 desaturation, and elevated white count though trending down - CXR showing bibasilar airspace disease - Negative urine legionella and pneumococcal Ag - Check sputum culture - Continue Rocephin and Azithromycin - Supplemental O2 - DuoNeb Q6H scheduled Cardiomyopathy, HTN - TTE done on 12/18 showed moderate to severely reduced LV systolic function with EF 35-40% and severe mitral valve regurg - Cardiology was consulted and patient transferred to [facility] 12/19 to undergo DARYN - DARYN done 12/19 showing moderate mitral valve disease with right sided heart failure - Cardiology following; recommend medical management and to consider repeat TTE when volume status improves - Continue Lasix, Carvedilol, Digoxin, Amlodipine - May have R heart cath done this admission Gastroenteritis - Resolved - Stool studies returned negative - Antibiotics discontinued Lupus/adrenal insufficiency - Continue home meds - Tapering IV steroids slowly, IV Solucortef 25 mg daily - Monitor renal function Anemia - Likely anemia of chronic disease given lupus and possible CKD - Hemodynamically stable - Continue to monitor Fibromyalgia - Continue home Cymbalta and Lyrica Hypokalemia - K continues to be low though improved - Start KCl 20 daily - Continue monitor Vitamin D deficiency - Vit D3 2000 units daily DVT prophylaxis: Heparin Discharge Planning: Treating patient for PNA and VITALIY. Can be discharged when clinically improved and once clearance from nephrology and cardiology.
[2017-12-22] MEDS: Famotidine 20 MG Tablet PO SCH (20:46)
[2017-12-23] MEDS: Heparin - SQ 10,000 UNITS/ML Vial SQ SCH ×4 (00:42→23:00)
--- NOTE | 2017-12-23 07:46 | XR ---
EXAM DATE: 12/23/2017 7:39 AM EDT AGE/SEX: 67 years / Female INDICATIONS: . Respiratory distress. CLINICAL DATA: This is the patient's initial encounter. Patient reports that signs and symptoms have been present for 1 day and indicates a pain score of Nonresponsive. MEDICAL/SURGICAL HISTORY: None. None. COMPARISON: [facility] – [place]ST 1V SINGLE AP, 12/21/2017. . FINDINGS: A single AP view of the chest demonstrates slight interval increase in bibasilar opacities. Prominent interstitial markings in the upper-midlungs. Stable cardiomediastinal silhouette. Osseous structures are grossly intact. CONCLUSION: Slight interval increase in bibasilar opacities. Prominent interstitial markings bilaterally. Electronically signed by: Clara Vogt MD 12/23/2017 7:45 AM EDT
--- NOTE | 2017-12-23 07:54 | P.PNCA ---
<Brendon Ribeiro - Last Filed: 12/23/17 08:19> Physical Exam Vital signs: Vital Signs 12/22/17 11:44 12/22/17 13:36 12/22/17 15:20 Temperature 99.9 F H 98.1 F Pulse Rate 67 71 69 Respiratory Rate 16 16 16 Blood Pressure 125/72 123/57 L Pulse Oximetry 91 L 12/22/17 19:52 12/22/17 20:00 12/23/17 00:00 Temperature 97.9 F 97.9 F Pulse Rate 70 65 68 Respiratory Rate 16 16 16 Blood Pressure 135/64 126/62 Pulse Oximetry 97 97 100 12/23/17 04:00 12/23/17 07:00 12/23/17 07:52 Temperature 98.2 F Pulse Rate 73 81 Respiratory Rate 16 23 Blood Pressure 125/69 Pulse Oximetry 96 98 100 12/23/17 08:16 Temperature Pulse Rate Respiratory Rate Blood Pressure Pulse Oximetry 99 Intake & Output 12/22/17 12/23/17 12/23/17 18:59 06:59 18:59 Intake Total 1572 / 1572 480 / 480 Output Total 500 / 500 400 / 400 Balance 1072 / 1072 80 / 80 Weight 57.7 kg 57.5 kg Intake: IV 1052 / 1052 NS Inj 1,000 ML @ 50 mls/hr IV. 1052 / 1052 CONT .Q20H [facility] Rx#:[id number] Oral 520 / 520 480 / 480 Output: Urine 400 / 400 Urine Amount (Catheter) 500 / 500 Female External 500 / 500 Other: # Incontinent Voids 2 Date of Last Bowel Movement 12/22/17 12/23/17 # Incontinent Bowel Movements 1 - Urinary Catheter Management Indwelling Urethral Catheter Cath placed during this visit: no Female External Cath placed during this visit: no Assessment and Plan - Plan -------- agree with above. Respiratory status decompensated early hours. got ivp lasix 60mg with foly cath placed and > 1500cc Uo. Clearly with urinary retention. Continue to diurese. f/u labs pending and if Cr stable/downtrending would give another 40ivp lasix later today. Continue digoxin 125mcg today. check digoxin level. <Robbin Lewis - Last Filed: 12/23/17 08:24> Subjective Interval history: Nursing at bedside. Decompensation this a.m. with hypoxia requiring BiPAP and probable pulmonary edema. Also noted to have urinary retention with 1500 mL urine output after Verduzco placed. Physical Exam Vital signs: Vital Signs 12/22/17 08:01 12/22/17 11:44 12/22/17 13:36 Temperature 99.9 F H Pulse Rate 77 67 71 Respiratory Rate 16 16 16 Blood Pressure 125/72 Pulse Oximetry 99 12/22/17 15:20 12/22/17 19:52 12/22/17 20:00 Temperature 98.1 F 97.9 F Pulse Rate 69 70 65 Respiratory Rate 16 16 16 Blood Pressure 123/57 L 135/64 Pulse Oximetry 91 L 97 97 12/23/17 00:00 12/23/17 04:00 12/23/17 07:00 Temperature 97.9 F 98.2 F Pulse Rate 68 73 Respiratory Rate 16 16 Blood Pressure 126/62 125/69 Pulse Oximetry 100 96 98 Intake & Output 12/22/17 12/23/17 12/23/17 18:59 06:59 18:59 Intake Total 1572 / 1572 480 / 480 Output Total 500 / 500 400 / 400 Balance 1072 / 1072 80 / 80 Weight 127 lb 3.307 oz 126 lb 12.253 oz Intake: IV 1052 / 1052 NS Inj 1,000 ML @ 50 mls/hr IV. 1052 / 1052 CONT .Q20H [facility] Rx#:[id number] Oral 520 / 520 480 / 480 Output: Urine 400 / 400 Urine Amount (Catheter) 500 / 500 Female External 500 / 500 Other: # Incontinent Voids 2 Date of Last Bowel Movement 12/22/17 # Incontinent Bowel Movements 1 Narrative: GENERAL: Well-developed well-nourished. In moderate respiratory distress. NECK: No carotid bruits. No JVD. CARDIOVASCULAR: Regular rate and rhythm. No murmur appreciated. RESPIRATORY: Coarse crackles present in all lung cort[place]. MUSCULOSKELETAL: No clubbing or cyanosis. No edema. NEUROLOGICAL: Responds to stimuli. - Urinary Catheter Management Indwelling Urethral Catheter Cath placed during this visit: yes, but has since been removed by the nurse Reason for continuing: Not indwelling catheter Insertion date: 12/16/17 Insertion time: 12:15 Removal date: 12/19/17 Removal time: 20:00 Female External Cath placed during this visit: yes Reason for continuing: Not indwelling catheter Insertion date: 12/21/17 Insertion time: 04:00 Assessment and Plan - Plan 67-year-old female with a past medical history of COPD, lupus, fibromyalgia, HTN , PTSD. Patient initially presented 12/11 for nausea, vomiting, abdominal pain, diarrhea with septic shock requiring pressors. The patient is not a great historian and much of the history is obtained from the medical record. The patient is has had issues with renal failure during admission, creatinine 2.2-> 0.91->3. The patient was having issues with fluid retention and had an echocardiogram done which showed EF 3540% which is a new finding and severe MR which is an old finding. Echocardiogram previously done 12/02/15 showed EF 5560 % and moderate-severe MR. New onset cardiomyopathy: Biventricular failure. Would need to consider ischemic workup depending on renal plan (dialysis?). Added carvedilol 6.25 mg. Given IV digoxin loading for inotropic support, continue 0.125 mg daily. May require right heart cath. Maintain potassium greater than 4. Would recommend low-dose COLTEN inhibitor if okay with nephrology. Severe mitral regurgitation: DARYN done 12/19 which showed only moderate MR worse, and signs of significant right heart failure. Diuresis recommended and may consider repeat limited transthoracic echo when volume status improved. Acute renal failure: Likely due to ATN. Creatinine has been trending down. Nephrology on board. Respiratory distress: Chest x-ray with increase in bibasilar opacities and interstitial markings. Supplemental O2 as needed. IV Lasix 60 mg given. Stat labs pending. Continue diuresis. Monitor I's and O's. Possibly exacerbated by severe urinary retention. Pneumonia: Antibiotics per primary team. Discussed Condition With: Patient, RN, Dr. Ribeiro
[2017-12-23 08:07] LABS: Baso % (Auto) 0.1 % (0.0-2.0); Eos # (Auto) 0.3 th/mm3 (0.0-0.4); Eos % (Auto) 1.7 % (0.0-4.0); Hematocrit 37.7 % (35.0-46.0); Hemoglobin 11.8 gm/dL (11.6-15.3); Lymph # (Auto) 1.2 th/mm3 (1.0-4.8); Lymph % (Auto) 7.6 % (9.0-44.0); Mean Corpuscular HGB Conc 31.2 % (32.0-36.0); Mean Corpuscular Hemoglobin 25.6 pg (27.0-34.0); Mean Corpuscular Volume 82.1 fL (80.0-100.0); Mean Platelet Volume 8.5 fL (7.0-11.0); Mono # (Auto) 0.5 th/mm3 (0.0-0.9); Neut # (Auto) 13.5 th/mm3 (1.8-7.7); Neut % (Auto) 87.6 % (16.0-70.0); Platelet Count 253 th/mm3 (150-450); Red Blood Count 4.59 mil/mm3 (4.00-5.30); Red Cell Distribution Width 22.1 % (11.6-17.2); White Blood Count 15.4 th/mm3 (4.0-11.0)
[2017-12-23 08:10] LABS: ABG Base Excess 7.9 mmol/L (-2-2); ABG PCO2 44 mmHg (38-42); ABG PO2 64 mmHG (61-120)
[2017-12-23 08:30] LABS: Alanine Aminotransferase 58 U/L (10-53); Albumin 2.9 g/dL (3.4-5.0); Alkaline Phosphatase 115 U/L (45-117); Anion Gap 9 meq/L (5-15); Aspartate Aminotransferase 51 U/L (15-37); Blood Urea Nitrogen 30 mg/dL (7-18); Calcium 7.8 mg/dL (8.5-10.1); Carbon Dioxide 34.1 meq/L (21.0-32.0); Chloride 101 meq/L (98-107); Glomerular Filtration Rate 37 mL/min (>89); Glucose,Random 130 mg/dL (74-106); Sodium 144 meq/L (136-145); Total Protein 7.4 g/dL (6.4-8.2)
[2017-12-23 08:34] LABS: Potassium 2.9 meq/L (3.5-5.1)
--- NOTE | 2017-12-23 08:49 | P.PN ---
Physical Exam Vital signs: Vital Signs 12/22/17 11:44 12/22/17 13:36 12/22/17 15:20 Temperature 99.9 F H 98.1 F Pulse Rate 67 71 69 Respiratory Rate 16 16 16 Blood Pressure 125/72 123/57 L Pulse Oximetry 91 L 12/22/17 19:52 12/22/17 20:00 12/23/17 00:00 Temperature 97.9 F 97.9 F Pulse Rate 70 65 68 Respiratory Rate 16 16 16 Blood Pressure 135/64 126/62 Pulse Oximetry 97 97 100 12/23/17 04:00 12/23/17 07:00 12/23/17 07:52 Temperature 98.2 F Pulse Rate 73 81 Respiratory Rate 16 23 Blood Pressure 125/69 Pulse Oximetry 96 98 100 12/23/17 08:16 Temperature Pulse Rate Respiratory Rate Blood Pressure Pulse Oximetry 99 Intake & Output 12/22/17 12/23/17 12/23/17 18:59 06:59 18:59 Intake Total 1572 / 1572 480 / 480 Output Total 500 / 500 400 / 400 Balance 1072 / 1072 80 / 80 Weight 57.7 kg 57.5 kg Intake: IV 1052 / 1052 NS Inj 1,000 ML @ 50 mls/hr IV. 1052 / 1052 CONT .Q20H [facility] Rx#:[id number] Oral 520 / 520 480 / 480 Output: Urine 400 / 400 Urine Amount (Catheter) 500 / 500 Female External 500 / 500 Other: # Incontinent Voids 2 Date of Last Bowel Movement 12/22/17 12/23/17 # Incontinent Bowel Movements 1 Narrative: Subjective Interval history: Platelet count was called in the morning as the patient with shortness of breath , desaturating and she was placed on BiPAP. Patient with fluid overload. She was not able to urinate either, Verduzco was placed with 1 L urine output. Continue Verduzco. Continue Lasix. She is currently weaned off BiPAP and she is saturating well on 2 L by nasal cannula. Denies any chest pain. She feels very tired. She is pleasantly confused. No nausea or vomiting. Says she is. Has decreased appetite. Physical Exam GENERAL: WN, WD female resting in bed in NAD. SKIN: Warm and dry. HEART: RRR with 1/6 RADHA. LUNGS: Diminished breath sounds with bibasilar crackles. ABDOMEN: +BS, soft, NT, ND. EXTREMITIES: No LE edema. NEURO: Confused. Assessment and Plan 67 YOWF with HTN, COPD, and lupus admitted 12/11 with gastroenteritis and septic shock requiring ICU admission and vasopressors. She was initially hospitalized in the [facility] [place] but was transferred to [facility] for DARYN. Septic shock- Resolved - Afebrile - Blood cultures and urine cultures no growth - Tapering IV steroids slowly VITALIY -Patient may have developed acute renal insufficiency secondary to acute tubular necrosis related to recent bout of sepsis and hypotension. - She also has a history of lupus that might contribute to her acute renal insufficiency currently. -Renal functions improving and apparently some urinary retention today. - Continue Verduzco for the present. - Creatinine continues to trend down - Nephrology following - Renal U/S suggestive of medical renal disease - Avoid nephrotoxic agents and renally dose meds - PNA, hypoxia - Patient with cough, bibasilar crackles, O2 desaturation, and elevated white count though trending down - CXR showing bibasilar airspace disease - Negative urine legionella and pneumococcal Ag - Check sputum culture - Continue Rocephin and Azithromycin - Supplemental O2 - DuoNeb Q6H scheduled Cardiomyopathy, HTN - TTE done on 12/18 showed moderate to severely reduced LV systolic function with EF 35-40% and severe mitral valve regurg - Cardiology was consulted and patient transferred to [facility] hospital 12/19 to undergo DARYN - DARYN done 12/19 showing moderate mitral valve disease with right sided heart failure - Cardiology following; recommend medical management and to consider repeat TTE when volume status improves - Continue Lasix, Carvedilol, Digoxin, Amlodipine - May have R heart cath done this admission - ACEI when cleared by nephro Gastroenteritis - Resolved - Stool studies returned negative - Antibiotics discontinued Lupus/adrenal insufficiency - Continue home meds - Tapering IV steroids slowly, IV Solucortef 25 mg daily - Monitor renal function Anemia - Likely anemia of chronic disease given lupus and possible CKD - Hemodynamically stable - Continue to monitor Fibromyalgia - Continue home Cymbalta and Lyrica Hypokalemia - K continues to be low though improved - Start KCl 20 daily - Continue monitor Vitamin D deficiency - Vit D3 2000 units daily DVT prophylaxis: Heparin Discharge Planning: Pending improvement. Treating patient for PNA and VITALIY. Can be discharged when clinically improved and once clearance from nephrology and cardiology. - Urinary Catheter Management Indwelling Urethral Catheter Cath placed during this visit: yes, but has since been removed by the nurse Reason for continuing: Not indwelling catheter Insertion date: 12/16/17 Insertion time: 12:15 Removal date: 12/19/17 Removal time: 20:00 Female External Cath placed during this visit: yes Reason for continuing: Not indwelling catheter Insertion date: 12/21/17 Insertion time: 04:00 Results - Labs CBC & Chem 7: 12/23/17 07:52 12/23/17 07:52 Laboratory Results - last 24 hr 12/23/17 12/23/17 12/23/17 06:59 07:52 07:52 WBC 15.4 H RBC 4.59 Hgb 11.8 Hct 37.7 MCV 82.1 MCH 25.6 L MCHC 31.2 L RDW 22.1 H Plt Count 253 MPV 8.5 Neut % (Auto) 87.6 H Lymph % (Auto) 7.6 L [place] % (Auto) 3.0 Eos % (Auto) 1.7 Baso % (Auto) 0.1 Neut # (Auto) 13.5 H Lymph # (Auto) 1.2 [place] # (Auto) 0.5 Eos # (Auto) 0.3 Baso # (Auto) 0.0 WBC Differential . Differential Comment Auto diff final Puncture Site Patient Temperature O2 Saturation ABG pH ABG pCO2 ABG pO2 ABG HCO3 ABG O2 Content ABG Base Excess ABG Methemoglobin Tyshawn Test Hemoglobin Carboxyhemoglobin O2 Delivery Device Liter Flow Critical Value Sodium 144 Potassium 2.9 L* Chloride 101 Carbon Dioxide 34.1 H Anion Gap 9 BUN 30 H Creatinine 1.42 H Estimated GFR 37 L POC Glucose 131 H Random Glucose 130 H Calcium 7.8 L Total Bilirubin 0.7 AST 51 H ALT 58 H Alkaline Phosphatase 115 Total Protein 7.4 Albumin 2.9 L D 12/23/17 07:55 WBC RBC Hgb Hct MCV MCH MCHC RDW Plt Count MPV Neut % (Auto) Lymph % (Auto) [place] % (Auto) Eos % (Auto) Baso % (Auto) Neut # (Auto) Lymph # (Auto) [place] # (Auto) Eos # (Auto) Baso # (Auto) WBC Differential Differential Comment Puncture Site Left radial Patient Temperature 98.6 O2 Saturation 89 L* ABG pH 7.48 H ABG pCO2 44 H ABG pO2 64 ABG HCO3 32 H ABG O2 Content 12.9 ABG Base Excess 7.9 H ABG Methemoglobin 1.4 Tyshawn Test Present Hemoglobin 10.3 L Carboxyhemoglobin 1.4 O2 Delivery Device Nasal cannula Liter Flow 2.00 Critical Value Yes Sodium Potassium Chloride Carbon Dioxide Anion Gap BUN Creatinine Estimated GFR POC Glucose Random Glucose Calcium Total Bilirubin AST ALT Alkaline Phosphatase Total Protein Albumin Microbiology 12/21/17 17:07 Urine - Catheterized Urine Legionella Antigen - Final Presumptive negative for Legionella pneumophila serogroup 1 antigen in urine, suggesting no recent or recurrent infection. Infection due to Legionella cannot be ruled out since other serogroups and species may cause disease, antigen may not be present in urine in early infection, and the level of antigen present in the urine may be below the detection limit of the test. 12/21/17 17:07 Urine - Catheterized Urine Streptococcus pneumoniae Antigen ( M - Final Presumptive negative for streptococcus pneumoniae antigen, suggesting no current or recent infection. Infection due to Streptococcus pneumoniae cannot be ruled out since the antigen present in the sample may be below the detection limit of the test. - Imaging Impressions Chest X-Ray 12/23/17 07:03 CONCLUSION: Slight interval increase in bibasilar opacities. Prominent interstitial markings bilaterally.
[2017-12-23] MEDS ORDERED: Magnesium Oxide 400 MG Tablet PO ONE (08:50)
[2017-12-23] MEDS: Hydrocortisone Sod Succinate 100 MG Vial IV.PUSH SCH (09:15)
[2017-12-23] MEDS: azaTHIOprine 50 MG Tablet PO SCH ×2 (09:16→22:55)
[2017-12-23] MEDS: Carvedilol 6.25 MG Tablet PO SCH ×2 (09:17→22:56)
[2017-12-23] MEDS: Digoxin 125 MCG Tablet PO SCH (09:17)
[2017-12-23] MEDS: amLODIPine 5 MG Tablet PO SCH ×2 (09:17→22:55)
[2017-12-23] MEDS: Sertraline 100 MG Tablet PO SCH (09:17)
[2017-12-23] MEDS: Pregabalin 75 MG Capsule PO SCH (09:18)
[2017-12-23] MEDS: Azithromycin 250 MG Tablet PO SCH (09:18)
[2017-12-23] MEDS: Senna/Docusate Sodium 8.6/50 MG Tablet PO SCH ×2 (11:46→20:24)
--- NOTE | 2017-12-23 11:48 | P.PNNP ---
Subjective Interval history: Pt s/p Halicat this AM for pulmonary edema. Placed on BiPAP temporarily and now on NC. Given IV Lasix. Verduzco placed with brisk 1L output and with continued UOP post Verduzco. She is laying in bed in NAD. She is very drowsy, however. <Kayla Razo - Last Filed: 12/23/17 11:48> Physical Exam Vital signs: Vital Signs 12/22/17 11:44 12/22/17 13:36 12/22/17 15:20 Temperature 99.9 F H 98.1 F Pulse Rate 67 71 69 Respiratory Rate 16 16 16 Blood Pressure 125/72 123/57 L Pulse Oximetry 91 L 12/22/17 19:52 12/22/17 20:00 12/23/17 00:00 Temperature 97.9 F 97.9 F Pulse Rate 70 65 68 Respiratory Rate 16 16 16 Blood Pressure 135/64 126/62 Pulse Oximetry 97 97 100 12/23/17 04:00 12/23/17 07:00 12/23/17 07:52 Temperature 98.2 F Pulse Rate 73 81 Respiratory Rate 16 23 Blood Pressure 125/69 Pulse Oximetry 96 98 100 12/23/17 08:00 12/23/17 08:16 Temperature 97.6 F Pulse Rate 105 H Respiratory Rate 18 Blood Pressure 176/94 H Pulse Oximetry 93 L 99 Intake & Output 12/22/17 12/23/17 12/23/17 18:59 06:59 18:59 Intake Total 1572 / 1572 480 / 480 Output Total 500 / 500 400 / 400 Balance 1072 / 1072 80 / 80 Weight 57.7 kg 57.5 kg Intake: IV 1052 / 1052 NS Inj 1,000 ML @ 50 mls/hr IV. 1052 / 1052 CONT .Q20H [facility] Rx#:[id number] Oral 520 / 520 480 / 480 Output: Urine 400 / 400 Urine Amount (Catheter) 500 / 500 Female External 500 / 500 Other: # Incontinent Voids 2 Date of Last Bowel Movement 12/22/17 12/23/17 # Incontinent Bowel Movements 1 - Constitutional no acute distress - Routine Respiratory Exam Present: decreased breath sounds, diminished air movement - Routine Cardiovascular Exam Present: RRR, S1, S2 - Routine Extremities Exam Present: edema (much improved, but still present in thighs and hips.) - Routine Skin Exam Present: intact - Urinary Catheter Management Indwelling Urethral Catheter Cath placed during this visit: yes, but has since been removed by the nurse Urethral indwelling: Yes Reason for continuing: Acute urinary retention Insertion date: 12/16/17 Insertion time: 12:15 Removal date: 12/19/17 Removal time: 20:00 Female External Cath placed during this visit: yes Insertion date: 12/21/17 Insertion time: 04:00 <Kayla Razo - Last Filed: 12/23/17 11:48> Vital signs: Vital Signs 12/22/17 15:20 12/22/17 19:52 12/22/17 20:00 Temperature 98.1 F 97.9 F Pulse Rate 69 70 65 Respiratory Rate 16 16 16 Blood Pressure 123/57 L 135/64 Pulse Oximetry 91 L 97 97 12/23/17 00:00 12/23/17 04:00 12/23/17 07:00 Temperature 97.9 F 98.2 F Pulse Rate 68 73 Respiratory Rate 16 16 Blood Pressure 126/62 125/69 Pulse Oximetry 100 96 98 12/23/17 07:52 12/23/17 08:00 12/23/17 08:16 Temperature 97.6 F Pulse Rate 81 105 H Respiratory Rate 23 18 Blood Pressure 176/94 H Pulse Oximetry 100 93 L 99 12/23/17 12:00 12/23/17 12:30 12/23/17 13:00 Temperature 98.6 F Pulse Rate 71 68 67 Respiratory Rate 16 Blood Pressure 108/52 L Pulse Oximetry 98 Intake & Output 12/22/17 12/23/17 12/23/17 18:59 06:59 18:59 Intake Total 1672 / 1672 480 / 480 Output Total 500 / 500 400 / 400 Balance 1172 / 1172 80 / 80 Weight 57.7 kg 57.5 kg Intake: IV 1152 / 1152 NS Inj 1,000 ML @ 50 mls/hr IV. 1052 / 1052 CONT .Q20H [facility] Rx#:[id number] Rocephin Inj 1,000 MG In NS Inj 100 / 100 100 ML @ 200 mls/hr IV.SIG Q24H [facility] Rx#:[id number] Oral 520 / 520 480 / 480 Output: Urine 400 / 400 Urine Amount (Catheter) 500 / 500 Female External 500 / 500 Other: # Incontinent Voids 2 Date of Last Bowel Movement 12/22/17 12/23/17 # Incontinent Bowel Movements 1 - Urinary Catheter Management Indwelling Urethral Catheter Cath placed during this visit: no Female External Cath placed during this visit: no <Berry Francis - Last Filed: 12/23/17 13:42> Assessment and Plan - Assessment (1) VITALIY (acute kidney injury) Code(s): N17.9 - Acute kidney failure, unspecified Status: Acute Plan: Patient may have developed acute renal insufficiency secondary to acute tubular necrosis related to recent bout of sepsis and hypotension. She also has a history of lupus but unsure if this is playing any role in her acute renal insufficiency currently. Renal functions improving and apparently some urinary retention today. Continue Verduzco for the present. Noted overnight events with acute decompensation. Cardiology ordered Lasix 60mg IVP x1. Agree with another 40mg IV dose tonight with potential resumption of po tomorrow if she is doing better. KCl repletion has been ordered. Medications should be adjusted for the patient's estimated GFR if clinically indicated. Avoid agents with significant potential for nephrotoxicity possible including NSAIDs for analgesia, iodine contrast agents. Gadolinium is contraindicated if the GFR is below 30. (2) Chronic kidney disease Code(s): N18.9 - Chronic kidney disease, unspecified Status: Chronic Plan: Suggested by renal ultrasound. May be related to hypertensive nephrosclerosis. Records are required from rheumatology to determine if there is any history of previous renal involvement as far as the lupus is concerned. (3) Congestive heart failure Code(s): I50.9 - Heart failure, unspecified Status: Acute Qualifiers: Heart failure chronicity: acute Plan: DARYN done 12/19 which show moderate mitral valve disease with right sided heart failure. Mention of right heart cath upcoming. Will defer to cardiology in regards to urgency of this. In regards to her relative risk for renal insufficiency related to iodine exposure with current labs, she has a 26% chance of sustaining contrast nephropathy that would likely be reversible. She has a 1.1% change of sustaining injury to her kidneys that would require dialytic intervention. That may or may not be reversible. The patient and her family would have to be made aware of these risks prior to proceeding and assume these risks. Hydration is the only measure that may help prevent contrast injury, but her edema and pulmonary congestion preclude IV hydration. (4) Edema extremities Code(s): R60.0 - Localized edema Status: Acute Plan: Secondary to fluid overload. Improving - Plan Total time spent: 35 mins <Kalya Razo - Last Filed: 12/23/17 11:48> - Assessment (1) VITALIY (acute kidney injury) Code(s): N17.9 - Acute kidney failure, unspecified Status: Acute (2) Chronic kidney disease Code(s): N18.9 - Chronic kidney disease, unspecified Status: Chronic (3) Congestive heart failure Code(s): I50.9 - Heart failure, unspecified Status: Acute Qualifiers: Heart failure chronicity: acute (4) Edema extremities Code(s): R60.0 - Localized edema Status: Acute - Attending Attestation Events this a.m. noted. Patient currently lying in bed without signs of respiratory distress post furosemide administration. Risk of acute renal insufficiency associated with contrast nephrotoxicity as indicated above. We will defer to cardiology regarding discussing risk-benefit ratio of cardiac catheterization prior to proceeding with catheterization however. Ideally renal indices should be at steady state baseline level. Renal indices may continue to improve now that Verduzco is in place. The exam, history, and the medical decision-making described in the above note were completed with the assistance of the PASunni. I reviewed and agree with the findings presented. I attest that I had a [id number] encounter with the patient on the same day, and personally performed and documented my assessment and findings in the medical record. <Berry Francis - Last Filed: 12/23/17 13:42>
--- NOTE | 2017-12-23 20:25 | ECG ---
Date Performed: 12/23/2017 Time Performed: 07:06:44 PTAGE: 67 years EKG: Sinus tachycardia. Extensive ST-T changes may be due to myocardial ischemia Abnormal ECG Pr ior ekg shows Rapid sinus tachycardia of 12/14/17 DOCTOR: Yazmin Ortiz Interpretating Date/Time 12/23/2017 20:23:29
[2017-12-23] MEDS: Famotidine 20 MG Tablet PO SCH (22:56)
[2017-12-24 05:46] LABS: Baso % (Auto) 0.4 % (0.0-2.0); Eos # (Auto) 0.2 th/mm3 (0.0-0.4); Eos % (Auto) 2.7 % (0.0-4.0); Hematocrit 32.9 % (35.0-46.0); Hemoglobin 10.3 gm/dL (11.6-15.3); Lymph # (Auto) 1.5 th/mm3 (1.0-4.8); Lymph % (Auto) 17.1 % (9.0-44.0); Mean Corpuscular HGB Conc 31.3 % (32.0-36.0); Mean Corpuscular Hemoglobin 25.6 pg (27.0-34.0); Mean Corpuscular Volume 81.9 fL (80.0-100.0); Mean Platelet Volume 9.2 fL (7.0-11.0); Mono # (Auto) 0.6 th/mm3 (0.0-0.9); Mono % (Auto) 7.2 % (0.0-8.0); Neut # (Auto) 6.5 th/mm3 (1.8-7.7); Neut % (Auto) 72.6 % (16.0-70.0); Platelet Count 283 th/mm3 (150-450); Red Blood Count 4.01 mil/mm3 (4.00-5.30); Red Cell Distribution Width 21.5 % (11.6-17.2)
[2017-12-24 06:06] LABS: Albumin 2.4 g/dL (3.4-5.0); Calcium 7.9 mg/dL (8.5-10.1); Carbon Dioxide 35.5 meq/L (21.0-32.0); Magnesium 1.2 mg/dL (1.5-2.5); Phosphorus 2.4 mg/dL (2.5-4.9)
--- NOTE | 2017-12-24 08:04 | P.PNCA ---
Subjective Interval history: Patient seen and examined. Feeling much better today. Breathing is improved after lasix 60IV am, 40iv pm with net neg 2500cc Uo and machado cath in place. Physical Exam Vital signs: Vital Signs 12/23/17 08:00 12/23/17 08:16 12/23/17 12:00 Temperature 97.6 F 98.6 F Pulse Rate 105 H 71 Respiratory Rate 18 16 Blood Pressure 176/94 H 108/52 L Pulse Oximetry 93 L 99 98 12/23/17 12:30 12/23/17 13:00 12/23/17 13:50 Temperature Pulse Rate 68 67 67 Respiratory Rate 16 Blood Pressure Pulse Oximetry 12/23/17 13:51 12/23/17 14:00 12/23/17 15:00 Temperature Pulse Rate 68 65 Respiratory Rate Blood Pressure Pulse Oximetry 99 12/23/17 16:00 12/23/17 17:00 12/23/17 18:11 Temperature 98.5 F Pulse Rate 68 72 72 Respiratory Rate 16 Blood Pressure 100/57 L Pulse Oximetry 94 L 12/23/17 19:00 12/23/17 19:18 12/23/17 20:00 Temperature 97.8 F Pulse Rate 64 64 65 Respiratory Rate 18 18 Blood Pressure 122/60 Pulse Oximetry 98 97 12/23/17 21:00 12/23/17 22:00 12/23/17 23:00 Temperature Pulse Rate 62 64 68 Respiratory Rate Blood Pressure Pulse Oximetry 12/24/17 00:00 12/24/17 01:00 12/24/17 02:00 Temperature Pulse Rate 65 68 86 Respiratory Rate 16 Blood Pressure 138/65 Pulse Oximetry 99 12/24/17 03:00 12/24/17 04:00 12/24/17 05:00 Temperature Pulse Rate 84 69 68 Respiratory Rate 18 Blood Pressure 130/64 Pulse Oximetry 98 12/24/17 06:00 12/24/17 07:00 12/24/17 07:42 Temperature Pulse Rate 65 67 74 Respiratory Rate 14 Blood Pressure Pulse Oximetry 95 Intake & Output 12/23/17 12/24/17 12/24/17 18:59 06:59 18:59 Intake Total 880 / 880 360 / 360 Output Total 3125 / 3125 700 / 700 Balance -2245 / -2245 -340 / -340 Weight 55.4 kg Intake: IV 100 / 100 Rocephin Inj 1,000 MG In NS Inj 100 / 100 100 ML @ 200 mls/hr IV.SIG Q24H [facility] Rx#:[id number] Oral 780 / 780 360 / 360 Output: Urine 700 / 700 Urine Amount (Catheter) 3125 / 3125 Indwelling Urethral Catheter 3125 / 3125 Other: Date of Last Bowel Movement 12/23/17 12/24/17 # Bowel Movements 1 GENERAL: Well-developed well-nourished. No respiratory distress, breathing comfortably with supplemental O2 via NC NECK: No carotid bruits. JVD 10cm. CARDIOVASCULAR: Regular rate and rhythm. 2/6sem RESPIRATORY: faint crackles present at bases MUSCULOSKELETAL: No clubbing or cyanosis. No edema. NEUROLOGICAL: Responds to stimuli. - Urinary Catheter Management Indwelling Urethral Catheter Cath placed during this visit: yes, but has since been removed by the nurse Urethral indwelling: Yes Reason for continuing: Not indwelling catheter Insertion date: 12/16/17 Insertion time: 12:15 Removal date: 12/19/17 Removal time: 20:00 Female External Cath placed during this visit: yes Reason for continuing: Not indwelling catheter Insertion date: 12/21/17 Insertion time: 04:00 Assessment and Plan - Plan 67-year-old female with a past medical history of COPD, lupus, fibromyalgia, HTN , PTSD. Patient initially presented 12/11 for nausea, vomiting, abdominal pain, diarrhea with septic shock requiring pressors. The patient is has had issues with renal failure during admission, creatinine 2.2->0.91->3, now improving. The patient was having issues with fluid retention and had an echocardiogram done which showed EF 3540% which is a new finding this admission and severe MR which is an old finding. Echocardiogram previously done 12/02/15 showed EF 5560 % and moderate-severe MR. New onset cardiomyopathy: Biventricular failure. Would need to consider ischemic when more euvolemic and stable. Continue carvedilol 6.25 mg bid, digoxin 125mcg daily, start spironolactone 25mg daily, furosemide 40mg po daily, reduce amlodipine to 5mg daily, CXR today. May require right heart cath. Maintain potassium greater than 4. Will start low-dose COLTEN inhibitor in next few days if Cr continues to down trend and if okay with nephrology. Severe mitral regurgitation: DARYN done 12/19 which showed only moderate MR worse, and signs of significant right heart failure. Diuresis recommended and may consider repeat limited transthoracic echo when volume status improved. Acute renal failure: Likely due to ATN. Creatinine has been trending down. Nephrology on board. Urinary retention: machado cath for now Pneumonia: Antibiotics per primary team.
[2017-12-24] MEDS: Heparin - SQ 10,000 UNITS/ML Vial SQ SCH ×2 (08:24→18:25)
[2017-12-24] MEDS: Hydrocortisone Sod Succinate 100 MG Vial IV.PUSH SCH (08:24)
[2017-12-24] MEDS: Spironolactone 25 MG Tablet PO SCH (08:25)
[2017-12-24] MEDS: azaTHIOprine 50 MG Tablet PO SCH (08:25)
[2017-12-24] MEDS: Sertraline 100 MG Tablet PO SCH (08:26)
[2017-12-24] MEDS: Pregabalin 75 MG Capsule PO SCH (08:26)
[2017-12-24] MEDS: Carvedilol 6.25 MG Tablet PO SCH ×2 (08:26→22:04)
[2017-12-24] MEDS: Azithromycin 250 MG Tablet PO SCH (08:26)
[2017-12-24] MEDS: Digoxin 125 MCG Tablet PO SCH (08:27)
[2017-12-24] MEDS ORDERED: amLODIPine 5 MG Tablet PO SCH (09:00)
[2017-12-24] MEDS ORDERED: Furosemide 40 MG Tablet PO SCH (09:00)
[2017-12-24] MEDS: Senna/Docusate Sodium 8.6/50 MG Tablet PO SCH (11:23)
--- NOTE | 2017-12-24 11:34 | P.PN ---
Physical Exam Vital signs: Vital Signs 12/23/17 12:00 12/23/17 12:30 12/23/17 13:00 Temperature 98.6 F Pulse Rate 71 68 67 Respiratory Rate 16 Blood Pressure 108/52 L Pulse Oximetry 98 12/23/17 13:50 12/23/17 13:51 12/23/17 14:00 Temperature Pulse Rate 67 68 Respiratory Rate 16 Blood Pressure Pulse Oximetry 99 12/23/17 15:00 12/23/17 16:00 12/23/17 17:00 Temperature 98.5 F Pulse Rate 65 68 72 Respiratory Rate 16 Blood Pressure 100/57 L Pulse Oximetry 94 L 12/23/17 18:11 12/23/17 19:00 12/23/17 19:18 Temperature Pulse Rate 72 64 64 Respiratory Rate 18 Blood Pressure Pulse Oximetry 98 12/23/17 20:00 12/23/17 21:00 12/23/17 22:00 Temperature 97.8 F Pulse Rate 65 62 64 Respiratory Rate 18 Blood Pressure 122/60 Pulse Oximetry 97 12/23/17 23:00 12/24/17 00:00 12/24/17 01:00 Temperature Pulse Rate 68 65 68 Respiratory Rate 16 Blood Pressure 138/65 Pulse Oximetry 99 12/24/17 02:00 12/24/17 03:00 12/24/17 04:00 Temperature Pulse Rate 86 84 69 Respiratory Rate 18 Blood Pressure 130/64 Pulse Oximetry 98 12/24/17 05:00 12/24/17 06:00 12/24/17 07:00 Temperature Pulse Rate 68 65 67 Respiratory Rate Blood Pressure Pulse Oximetry 12/24/17 07:42 12/24/17 08:00 12/24/17 09:00 Temperature 98.9 F Pulse Rate 74 72 67 Respiratory Rate 14 16 Blood Pressure 123/65 Pulse Oximetry 95 96 12/24/17 10:00 12/24/17 11:21 Temperature 99.0 F Pulse Rate 69 67 Respiratory Rate 16 Blood Pressure 121/64 Pulse Oximetry 96 Intake & Output 12/23/17 12/24/17 12/24/17 18:59 06:59 18:59 Intake Total 880 / 880 360 / 360 Output Total 3125 / 3125 700 / 700 Balance -2245 / -2245 -340 / -340 Weight 55.4 kg Intake: IV 100 / 100 Rocephin Inj 1,000 MG In NS Inj 100 / 100 100 ML @ 200 mls/hr IV.SIG Q24H [facility] Rx#:[id number] Oral 780 / 780 360 / 360 Output: Urine 700 / 700 Urine Amount (Catheter) 3125 / 3125 Indwelling Urethral Catheter 312 / 312 Other: Date of Last Bowel Movement 12/23/17 12/24/17 12/24/17 # Bowel Movements 1 Narrative: Subjective Interval history: Patient is saturating well while on 2 L by nasal cannula. Says she feels very tired. Has decreased appetite however able to eat something some nausea but no vomiting. No chest pain at this time. Since she is very sleepy. Potassium is low replaced Physical Exam GENERAL: WN, WD female resting in bed in NAD. SKIN: Warm and dry. HEART: RRR with 1/6 RADHA. LUNGS: Diminished breath sounds with bibasilar crackles. ABDOMEN: +BS, soft, NT, ND. EXTREMITIES: No LE edema. NEURO: Confused. Assessment and Plan 67 YOWF with HTN, COPD, and lupus admitted 12/11 with gastroenteritis and septic shock requiring ICU admission and vasopressors. She was initially hospitalized in the [facility] but was transferred to [facility] for DARYN. Septic shock- Resolved - Afebrile - Blood cultures and urine cultures no growth - Tapering IV steroids slowly VITALIY -Patient may have developed acute renal insufficiency secondary to acute tubular necrosis related to recent bout of sepsis and hypotension. - She also has a history of lupus that might contribute to her acute renal insufficiency currently. -Renal functions improving and apparently some urinary retention today. - Continue Verduzco for the present. - Creatinine continues to trend down - Nephrology following - Renal U/S suggestive of medical renal disease - Avoid nephrotoxic agents and renally dose meds - PNA, hypoxia - Patient with cough, bibasilar crackles, O2 desaturation, and elevated white count though trending down - CXR showing bibasilar airspace disease - Negative urine legionella and pneumococcal Ag - Check sputum culture - Continue Rocephin and Azithromycin - Supplemental O2 - DuoNeb Q6H scheduled Cardiomyopathy, HTN - TTE done on 12/18 showed moderate to severely reduced LV systolic function with EF 35-40% and severe mitral valve regurg - Cardiology was consulted and patient transferred to [facility] 12/19 to undergo DARYN - DARYN done 12/19 showing moderate mitral valve disease with right sided heart failure - Cardiology following; recommend medical management and to consider repeat TTE when volume status improves - Continue Lasix, Carvedilol, Digoxin, Amlodipine - May have R heart cath done this admission - ACEI when cleared by nephro Gastroenteritis - Resolved - Stool studies returned negative - Antibiotics discontinued Lupus/adrenal insufficiency - Continue home meds - Tapering IV steroids slowly, IV Solucortef 25 mg daily - Monitor renal function Anemia - Likely anemia of chronic disease given lupus and possible CKD - Hemodynamically stable - Continue to monitor Fibromyalgia - Continue home Cymbalta and Lyrica Hypokalemia - K continues to be low though improved -Continue KCl 20 daily. Give 40 mg extra KCl today. - Continue monitor Vitamin D deficiency - Vit D3 2000 units daily DVT prophylaxis: Heparin Discharge Planning: Pending improvement. Treating patient for PNA and VITALIY. Can be discharged when clinically improved and once clearance from nephrology and cardiology. - Urinary Catheter Management Indwelling Urethral Catheter Cath placed during this visit: yes, but has since been removed by the nurse Urethral indwelling: Yes Reason for continuing: Hourly intake/output Insertion date: 12/16/17 Insertion time: 12:15 Removal date: 12/19/17 Removal time: 20:00 Female External Cath placed during this visit: yes Reason for continuing: Hourly intake/output Insertion date: 12/21/17 Insertion time: 04:00 Results - Labs CBC & Chem 7: 12/24/17 04:40 12/24/17 04:40 Laboratory Results - last 24 hr 12/18/17 12/23/17 12/24/17 18:50 07:55 04:40 WBC 9.0 RBC 4.01 Hgb 10.3 L Hct 32.9 L MCV 81.9 MCH 25.6 L MCHC 31.3 L RDW 21.5 H Plt Count 283 MPV 9.2 Neut % (Auto) 72.6 H Lymph % (Auto) 17.1 [place] % (Auto) 7.2 Eos % (Auto) 2.7 Baso % (Auto) 0.4 Neut # (Auto) 6.5 Lymph # (Auto) 1.5 [place] # (Auto) 0.6 Eos # (Auto) 0.2 Baso # (Auto) 0.0 WBC Differential . Differential Comment Auto diff final Inspired O2 Not Reportable Sodium Potassium Chloride Carbon Dioxide Anion Gap BUN Creatinine Estimated GFR Random Glucose Calcium Phosphorus Magnesium Albumin Urine Immunofixation 12/24/17 04:40 WBC RBC Hgb Hct MCV MCH MCHC RDW Plt Count MPV Neut % (Auto) Lymph % (Auto) [place] % (Auto) Eos % (Auto) Baso % (Auto) Neut # (Auto) Lymph # (Auto) [place] # (Auto) Eos # (Auto) Baso # (Auto) WBC Differential Differential Comment Inspired O2 Sodium 142 Potassium 3.0 L Chloride 97 L Carbon Dioxide 35.5 H Anion Gap 10 BUN 23 H Creatinine 1.23 H Estimated GFR 44 L Random Glucose 85 Calcium 7.9 L Phosphorus 2.4 L Magnesium 1.2 L Albumin 2.4 L Urine Immunofixation Microbiology 12/22/17 11:10 Sputum - Oral Tracheal Aspirate Gram Stain - Final 12/22/17 11:10 Sputum - Oral Tracheal Aspirate Sputum Culture - Final Heavy growth normal respiratory oren
--- NOTE | 2017-12-24 18:18 | P.PNNP ---
Subjective Interval history: Pt much more alert today. Feeling better. <Kayla Razo R - Last Filed: 12/24/17 18:14> Physical Exam Vital signs: Vital Signs 12/23/17 19:00 12/23/17 19:18 12/23/17 20:00 Temperature 97.8 F Pulse Rate 64 64 65 Respiratory Rate 18 18 Blood Pressure 122/60 Pulse Oximetry 98 97 12/23/17 21:00 12/23/17 22:00 12/23/17 23:00 Temperature Pulse Rate 62 64 68 Respiratory Rate Blood Pressure Pulse Oximetry 12/24/17 00:00 12/24/17 01:00 12/24/17 02:00 Temperature Pulse Rate 65 68 86 Respiratory Rate 16 Blood Pressure 138/65 Pulse Oximetry 99 12/24/17 03:00 12/24/17 04:00 12/24/17 05:00 Temperature Pulse Rate 84 69 68 Respiratory Rate 18 Blood Pressure 130/64 Pulse Oximetry 98 12/24/17 06:00 12/24/17 07:00 12/24/17 07:42 Temperature Pulse Rate 65 67 74 Respiratory Rate 14 Blood Pressure Pulse Oximetry 95 12/24/17 08:00 12/24/17 09:00 12/24/17 10:00 Temperature 98.9 F Pulse Rate 72 67 69 Respiratory Rate 16 Blood Pressure 123/65 Pulse Oximetry 96 12/24/17 11:00 12/24/17 11:21 12/24/17 12:00 Temperature 99.0 F Pulse Rate 67 67 65 Respiratory Rate 16 Blood Pressure 121/64 Pulse Oximetry 96 12/24/17 13:00 12/24/17 13:45 12/24/17 14:00 Temperature Pulse Rate 63 64 64 Respiratory Rate 20 Blood Pressure Pulse Oximetry 12/24/17 15:00 12/24/17 16:00 12/24/17 17:00 Temperature 98.9 F Pulse Rate 65 68 67 Respiratory Rate 16 Blood Pressure 108/56 L Pulse Oximetry 93 L Intake & Output 12/23/17 12/24/17 12/24/17 18:59 06:59 18:59 Intake Total 880 / 880 360 / 360 1300 / 1300 Output Total 3125 / 3125 700 / 700 1000 / 1000 Balance -2245 / -2245 -340 / -340 300 / 300 Weight 55.4 kg Intake: IV 100 / 100 Rocephin Inj 1,000 MG In NS Inj 100 / 100 100 ML @ 200 mls/hr IV.SIG Q24H [facility] Rx#:[id number] Oral 780 / 780 360 / 360 1300 / 1300 Output: Urine 700 / 700 Urine Amount (Catheter) 3125 / 3125 1000 / 1000 Indwelling Urethral Catheter 3125 / 3125 1000 / 1000 Other: Date of Last Bowel Movement 12/23/17 12/24/17 12/24/17 # Bowel Movements 1 - Constitutional no acute distress - Routine HEENT Exam Head: Present: normocephalic - Routine Respiratory Exam Present: CTA bilaterally - Routine Cardiovascular Exam Present: RRR, S1, S2 - Routine Abdominal Exam Present: soft - Routine Extremities Exam Present: edema (trace BLE) - Routine Skin Exam Present: intact - Routine Neurological Exam Present: alert, oriented X3 - Routine Psychiatric Exam Present: normal affect - Urinary Catheter Management Indwelling Urethral Catheter Cath placed during this visit: yes, but has since been removed by the nurse Urethral indwelling: Yes Reason for continuing: Hourly intake/output Insertion date: 12/16/17 Insertion time: 12:15 Removal date: 12/19/17 Removal time: 20:00 Female External Cath placed during this visit: yes Reason for continuing: Hourly intake/output Insertion date: 12/21/17 Insertion time: 04:00 <Kayla Razo - Last Filed: 12/24/17 18:14> Vital signs: Vital Signs 12/24/17 15:00 12/24/17 16:00 12/24/17 17:00 Temperature 98.9 F Pulse Rate 65 68 67 Respiratory Rate 16 Blood Pressure 108/56 L Pulse Oximetry 93 L 12/24/17 18:00 12/24/17 19:00 12/24/17 20:00 Temperature Pulse Rate 77 75 75 Respiratory Rate 16 Blood Pressure 105/55 L Pulse Oximetry 99 12/24/17 21:00 12/24/17 21:18 12/24/17 22:00 Temperature Pulse Rate 70 75 74 Respiratory Rate 18 Blood Pressure Pulse Oximetry 99 12/24/17 23:00 12/25/17 00:00 12/25/17 01:00 Temperature 98.7 F Pulse Rate 74 76 76 Respiratory Rate 20 Blood Pressure 129/64 Pulse Oximetry 95 12/25/17 02:00 12/25/17 03:00 12/25/17 04:00 Temperature Pulse Rate 71 69 72 Respiratory Rate 18 Blood Pressure Pulse Oximetry 91 L 12/25/17 05:00 12/25/17 06:00 12/25/17 08:16 Temperature 98 F Pulse Rate 68 68 75 Respiratory Rate 16 Blood Pressure 137/61 Pulse Oximetry 94 L 12/25/17 08:23 12/25/17 08:24 12/25/17 12:03 Temperature Pulse Rate 70 70 Respiratory Rate 16 14 Blood Pressure Pulse Oximetry 97 Intake & Output 12/24/17 12/25/17 12/25/17 18:59 06:59 18:59 Intake Total 1300 / 1300 340 / 340 Output Total 1000 / 1000 550 / 550 Balance 300 / 300 -210 / -210 Weight 55.4 kg Intake: IV 100 / 100 Rocephin Inj 1,000 MG In NS Inj 100 / 100 100 ML @ 200 mls/hr IV.SIG Q24H [facility] Rx#:[id number] Oral 1300 / 1300 240 / 240 Output: Urine 550 / 550 Urine Amount (Catheter) 1000 / 1000 Indwelling Urethral Catheter 1000 / 1000 Other: Date of Last Bowel Movement 12/24/17 12/24/17 # Bowel Movements 1 - Urinary Catheter Management Indwelling Urethral Catheter Cath placed during this visit: no Female External Cath placed during this visit: no <Berry Francis - Last Filed: 12/25/17 14:43> Assessment and Plan - Assessment (1) VITALIY (acute kidney injury) Code(s): N17.9 - Acute kidney failure, unspecified Status: Acute Plan: Patient may have developed acute renal insufficiency secondary to acute tubular necrosis related to recent bout of sepsis and hypotension. She also has a history of lupus but unsure if this is playing any role in her acute renal insufficiency currently. Renal functions improving quite nicely. UOP good. Recommend continuation of po Lasix. OK to resume ACEi if cardiology wishes. Will see the patient on PRN basis at this point. Please call if needed. Medications should be adjusted for the patient's estimated GFR if clinically indicated. Avoid agents with significant potential for nephrotoxicity possible including NSAIDs for analgesia, iodine contrast agents. Gadolinium is contraindicated if the GFR is below 30. (2) Chronic kidney disease Code(s): N18.9 - Chronic kidney disease, unspecified Status: Chronic Plan: Suggested by renal ultrasound. May be related to hypertensive nephrosclerosis. Records are required from rheumatology to determine if there is any history of previous renal involvement as far as the lupus is concerned. (3) Congestive heart failure Code(s): I50.9 - Heart failure, unspecified Status: Acute Qualifiers: Heart failure chronicity: acute Plan: DARYN done 12/19 which show moderate mitral valve disease with right sided heart failure. Mention of right heart cath upcoming. Will defer to cardiology in regards to urgency of this. In regards to her relative risk for renal insufficiency related to iodine exposure with current labs, she has a 26% chance of sustaining contrast nephropathy that would likely be reversible. She has a 1.1% change of sustaining injury to her kidneys that would require dialytic intervention. That may or may not be reversible. The patient and her family would have to be made aware of these risks prior to proceeding and assume these risks. Hydration is the only measure that may help prevent contrast injury, but her edema and pulmonary congestion preclude IV hydration. (4) Edema extremities Code(s): R60.0 - Localized edema Status: Acute Plan: Secondary to fluid overload. Improving <Kayla Razo - Last Filed: 12/24/17 18:14> - Assessment (1) VITALIY (acute kidney injury) Code(s): N17.9 - Acute kidney failure, unspecified Status: Acute (2) Chronic kidney disease Code(s): N18.9 - Chronic kidney disease, unspecified Status: Chronic (3) Congestive heart failure Code(s): I50.9 - Heart failure, unspecified Status: Acute (4) Edema extremities Code(s): R60.0 - Localized edema Status: Acute - Attending Attestation The exam, history, and the medical decision-making described in the above note were completed with the assistance of the PASunni. I reviewed and agree with the findings presented. I attest that I had a [id number] encounter with the patient and personally performed and documented my assessment and findings in the medical record. As indicated above patient will be seen as needed. Please call with any questions. <Berry Francis - Last Filed: 12/25/17 14:43>
[2017-12-24] MEDS: Famotidine 20 MG Tablet PO SCH (22:04)
[2017-12-25] MEDS: Senna/Docusate Sodium 8.6/50 MG Tablet PO SCH ×3 (00:27→21:16)
[2017-12-25] MEDS: azaTHIOprine 50 MG Tablet PO SCH ×3 (00:27→21:16)
[2017-12-25] MEDS: Heparin - SQ 10,000 UNITS/ML Vial SQ SCH ×3 (01:06→16:48)
[2017-12-25 06:05] LABS: Baso # (Auto) 0.1 th/mm3 (0.0-0.2); Baso % (Auto) 0.6 % (0.0-2.0); Eos # (Auto) 0.3 th/mm3 (0.0-0.4); Eos % (Auto) 3.3 % (0.0-4.0); Hematocrit 28.6 % (35.0-46.0); Hemoglobin 9.3 gm/dL (11.6-15.3); Lymph # (Auto) 1.9 th/mm3 (1.0-4.8); Lymph % (Auto) 21.4 % (9.0-44.0); Mean Corpuscular HGB Conc 32.4 % (32.0-36.0); Mean Corpuscular Hemoglobin 26.1 pg (27.0-34.0); Mean Corpuscular Volume 80.6 fL (80.0-100.0); Mean Platelet Volume 9.2 fL (7.0-11.0); Mono # (Auto) 0.9 th/mm3 (0.0-0.9); Mono % (Auto) 10.3 % (0.0-8.0); Neut # (Auto) 5.9 th/mm3 (1.8-7.7); Neut % (Auto) 64.4 % (16.0-70.0); Platelet Count 279 th/mm3 (150-450); Red Blood Count 3.55 mil/mm3 (4.00-5.30); Red Cell Distribution Width 21.4 % (11.6-17.2); White Blood Count 9.1 th/mm3 (4.0-11.0)
[2017-12-25 06:37] LABS: Carbon Dioxide 33.7 meq/L (21.0-32.0); Potassium 3.1 meq/L (3.5-5.1)
[2017-12-25 07:01] LABS: Total Protein 6.3 g/dL (6.4-8.2)
--- NOTE | 2017-12-25 07:48 | P.PNCA ---
<Robbin Lewis - Last Filed: 12/25/17 07:45> Subjective Interval history: Patient reports breathing is improving. No chest pain. Neutral fluid balance overnight. Physical Exam Vital signs: Vital Signs 12/24/17 08:00 12/24/17 09:00 12/24/17 10:00 Temperature 98.9 F Pulse Rate 72 67 69 Respiratory Rate 16 Blood Pressure 123/65 Pulse Oximetry 96 12/24/17 11:00 12/24/17 11:21 12/24/17 12:00 Temperature 99.0 F Pulse Rate 67 67 65 Respiratory Rate 16 Blood Pressure 121/64 Pulse Oximetry 96 12/24/17 13:00 12/24/17 13:45 12/24/17 14:00 Temperature Pulse Rate 63 64 64 Respiratory Rate 20 Blood Pressure Pulse Oximetry 12/24/17 15:00 12/24/17 16:00 12/24/17 17:00 Temperature 98.9 F Pulse Rate 65 68 67 Respiratory Rate 16 Blood Pressure 108/56 L Pulse Oximetry 93 L 12/24/17 18:00 12/24/17 19:00 12/24/17 20:00 Temperature Pulse Rate 77 75 75 Respiratory Rate 16 Blood Pressure 105/55 L Pulse Oximetry 99 12/24/17 21:00 12/24/17 21:18 12/24/17 22:00 Temperature Pulse Rate 70 75 74 Respiratory Rate 18 Blood Pressure Pulse Oximetry 99 12/24/17 23:00 12/25/17 00:00 12/25/17 01:00 Temperature 98.7 F Pulse Rate 74 76 76 Respiratory Rate 20 Blood Pressure 129/64 Pulse Oximetry 95 12/25/17 02:00 12/25/17 03:00 12/25/17 04:00 Temperature Pulse Rate 71 69 72 Respiratory Rate 18 Blood Pressure Pulse Oximetry 91 L 12/25/17 05:00 12/25/17 06:00 Temperature Pulse Rate 68 68 Respiratory Rate Blood Pressure Pulse Oximetry Intake & Output 12/24/17 12/25/17 12/25/17 18:59 06:59 18:59 Intake Total 1300 / 1300 340 / 340 Output Total 1000 / 1000 550 / 550 Balance 300 / 300 -210 / -210 Weight 122 lb 2.177 oz Intake: IV 100 / 100 Rocephin Inj 1,000 MG In NS Inj 100 / 100 100 ML @ 200 mls/hr IV.SIG Q[facility]H [facility] Rx#:[id number] Oral 1300 / 1300 240 / 240 Output: Urine 550 / 550 Urine Amount (Catheter) 1000 / 1000 Indwelling Urethral Catheter 1000 / 1000 Other: Date of Last Bowel Movement 12/24/17 12/24/17 # Bowel Movements 1 Narrative: GENERAL: Well-developed well-nourished. In no acute distress. NECK: No carotid bruits. No JVD. CARDIOVASCULAR: Regular rate and rhythm. No murmur appreciated. RESPIRATORY: No accessory muscle use. Coarse expiratory rhonchi. MUSCULOSKELETAL: No clubbing or cyanosis. No edema. NEUROLOGICAL: Awake and alert. Normal speech. - Urinary Catheter Management Indwelling Urethral Catheter Cath placed during this visit: yes, but has since been removed by the nurse Urethral indwelling: Yes Reason for continuing: Hourly intake/output Insertion date: 12/16/17 Insertion time: 12:15 Removal date: 12/19/17 Removal time: 20:00 Female External Cath placed during this visit: yes Reason for continuing: Hourly intake/output Insertion date: 12/21/17 Insertion time: 04:00 Assessment and Plan - Plan 67-year-old female with a past medical history of COPD, lupus, fibromyalgia, HTN , PTSD. Patient initially presented 12/11 for nausea, vomiting, abdominal pain, diarrhea with septic shock requiring pressors. The patient is has had issues with renal failure during admission, creatinine 2.2->0.91->3, now improving. The patient was having issues with fluid retention and had an echocardiogram done which showed EF 3540% which is a new finding this admission and severe MR which is an old finding. Echocardiogram previously done 12/02/15 showed EF 5560 % and moderate-severe MR. New onset cardiomyopathy: Biventricular failure. Would need to consider ischemic when more euvolemic and stable. May require right heart cath as well. Continue carvedilol 6.25 mg bid, digoxin 125mcg daily, spironolactone 25mg daily. Increase furosemide 40mg po to twice daily. Maintain potassium greater than 4. Okay to start COLTEN inhibitor per nephrology, hold amlodipine 5 mg and start lisinopril 10 mg. Severe mitral regurgitation: DARYN done 12/19 which showed only moderate MR worse, and signs of significant right heart failure. Diuresis recommended and may consider repeat limited transthoracic echo when volume status improved. Acute renal failure: Likely due to ATN. Creatinine has been trending down. Nephrology on board. Urinary retention: machado cath for now Pneumonia: Antibiotics per primary team. Add Acapella. <Brendon Ribeiro - Last Filed: 12/25/17 08:30> Physical Exam Vital signs: Vital Signs 12/24/17 09:00 12/24/17 10:00 12/24/17 11:00 Temperature Pulse Rate 67 69 67 Respiratory Rate Blood Pressure Pulse Oximetry 12/24/17 11:21 12/24/17 12:00 12/24/17 13:00 Temperature 99.0 F Pulse Rate 67 65 63 Respiratory Rate 16 Blood Pressure 121/64 Pulse Oximetry 96 12/24/17 13:45 12/24/17 14:00 12/24/17 15:00 Temperature Pulse Rate 64 64 65 Respiratory Rate 20 Blood Pressure Pulse Oximetry 12/24/17 16:00 12/24/17 17:00 12/24/17 18:00 Temperature 98.9 F Pulse Rate 68 67 77 Respiratory Rate 16 Blood Pressure 108/56 L Pulse Oximetry 93 L 12/24/17 19:00 12/24/17 20:00 12/24/17 21:00 Temperature Pulse Rate 75 75 70 Respiratory Rate 16 Blood Pressure 105/55 L Pulse Oximetry 99 12/24/17 21:18 12/24/17 22:00 12/24/17 23:00 Temperature Pulse Rate 75 74 74 Respiratory Rate 18 Blood Pressure Pulse Oximetry 99 12/25/17 00:00 12/25/17 01:00 12/25/17 02:00 Temperature 98.7 F Pulse Rate 76 76 71 Respiratory Rate 20 Blood Pressure 129/64 Pulse Oximetry 95 12/25/17 03:00 12/25/17 04:00 12/25/17 05:00 Temperature Pulse Rate 69 72 68 Respiratory Rate 18 Blood Pressure Pulse Oximetry 91 L 12/25/17 06:00 12/25/17 08:23 12/25/17 08:24 Temperature Pulse Rate 68 70 Respiratory Rate 16 Blood Pressure Pulse Oximetry 97 Intake & Output 12/24/17 12/25/17 12/25/17 18:59 06:59 18:59 Intake Total 1300 / 1300 340 / 340 Output Total 1000 / 1000 550 / 550 Balance 300 / 300 -210 / -210 Weight 55.4 kg Intake: IV 100 / 100 Rocephin Inj 1,000 MG In NS Inj 100 / 100 100 ML @ 200 mls/hr IV.SIG Q24H [facility] Rx#:[id number] Oral 1300 / 1300 240 / 240 Output: Urine 550 / 550 Urine Amount (Catheter) 1000 / 1000 Indwelling Urethral Catheter 1000 / 1000 Other: Date of Last Bowel Movement 12/24/17 12/24/17 # Bowel Movements 1 - Urinary Catheter Management Indwelling Urethral Catheter Cath placed during this visit: no Female External Cath placed during this visit: no Assessment and Plan - Plan agree with above. feeling better today. Creatinine continues to improve. would increase furosemide to 40mg bid. Please provide appropriate K+ repletion to maintain K+> 4 plan for d/c in next 1-2 days I suspect.
[2017-12-25] MEDS ORDERED: Magnesium Oxide 400 MG Tablet PO ONE (07:54)
[2017-12-25] MEDS: Pregabalin 75 MG Capsule PO SCH (08:10)
[2017-12-25] MEDS: Spironolactone 25 MG Tablet PO SCH (08:10)
[2017-12-25] MEDS: Azithromycin 250 MG Tablet PO SCH (08:10)
[2017-12-25] MEDS: Sertraline 100 MG Tablet PO SCH (08:11)
[2017-12-25] MEDS: Digoxin 125 MCG Tablet PO SCH (08:11)
[2017-12-25] MEDS: Hydrocortisone Sod Succinate 100 MG Vial IV.PUSH SCH (08:12)
[2017-12-25] MEDS: Carvedilol 6.25 MG Tablet PO SCH ×2 (08:12→21:19)
[2017-12-25] MEDS ORDERED: CALCIUM CHLORIDE IV.SIG SCH (11:00)
[2017-12-25] MEDS ORDERED: SODIUM CHLOR 0.9% IV.SIG SCH (11:00)
--- NOTE | 2017-12-25 13:04 | XR ---
EXAM DATE: 12/25/2017 1:01 PM EDT AGE/SEX: 67 years / Female INDICATIONS: . Evaluate pleural effusion CLINICAL DATA: This is the patient's subsequent encounter. Patient reports that signs and symptoms h ave been present for 2 weeks and indicates a pain score of 0/10. MEDICAL/SURGICAL HISTORY: Lupus. None. [place] [facility] [place]. . FINDINGS: AP and lateral views the chest were obtained and demonstrate blunting of the left lateral costophreni c angle and both posterior costophrenic angles consistent with small effusions. There is no focal con solidation. The heart size remains within normal limits with no perihilar edema. The previously noted opacities in the lung bases have cleared. CONCLUSION: 1. Interval improvement with resolution of bibasilar opacities. 2. Mild blunting of the costophrenic angles consistent with small effusions. Electronically signed by: Gary Staples MD 12/25/2017 1:03 PM EDT
[2017-12-25] MEDS: Furosemide 40 MG Tablet PO SCH ×2 (14:31→21:58)
[2017-12-25] MEDS: Lisinopril 10 MG Tablet PO SCH (14:31)
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
[2017-12-25] MEDS: Famotidine 20 MG Tablet PO SCH (21:16)
[2017-12-26] MEDS: Heparin - SQ 10,000 UNITS/ML Vial SQ SCH ×3 (01:48→20:35)
--- NOTE | 2017-12-26 07:39 | P.PNCA ---
<JoshuaDonavanRobbin - Last Filed: 12/26/17 07:41> Subjective Interval history: No shortness of breath today. No chest pain. Still with nagging cough. -725 mL fluid balance since yesterday. Physical Exam Vital signs: Vital Signs 12/25/17 08:00 12/25/17 08:16 12/25/17 08:23 Temperature 98 F Pulse Rate 70 75 70 Respiratory Rate 16 16 Blood Pressure 137/61 Pulse Oximetry 94 L 12/25/17 08:24 12/25/17 09:00 12/25/17 10:00 Temperature Pulse Rate 74 72 Respiratory Rate Blood Pressure Pulse Oximetry 97 12/25/17 11:00 12/25/17 12:00 12/25/17 12:03 Temperature 98.6 F Pulse Rate 68 72 70 Respiratory Rate 18 14 Blood Pressure 97/43 L Pulse Oximetry 96 12/25/17 13:00 12/25/17 14:00 12/25/17 15:00 Temperature Pulse Rate 70 64 70 Respiratory Rate Blood Pressure Pulse Oximetry 12/25/17 16:00 12/25/17 17:00 12/25/17 18:00 Temperature 98.3 F Pulse Rate 66 64 70 Respiratory Rate 16 Blood Pressure 112/63 Pulse Oximetry 94 L 12/25/17 19:00 12/25/17 19:51 12/25/17 20:00 Temperature 98.1 F Pulse Rate 72 72 Respiratory Rate 18 Blood Pressure 117/53 L Pulse Oximetry 93 L 100 12/25/17 21:00 12/25/17 22:00 12/25/17 23:00 Temperature Pulse Rate 72 79 77 Respiratory Rate Blood Pressure Pulse Oximetry 12/26/17 00:00 12/26/17 04:00 Temperature 98.1 F 98.9 F Pulse Rate 83 80 Respiratory Rate 18 18 Blood Pressure 140/69 138/78 Pulse Oximetry 96 100 Intake & Output 12/25/17 12/26/17 12/26/17 18:59 06:59 18:59 Intake Total 780 / 780 120 / 120 Output Total 1000 / 1000 625 / 625 Balance -220 / -220 -505 / -505 Weight 121 lb 7.595 oz Intake: Oral 780 / 780 120 / 120 Output: Urine 1000 / 1000 Urine Amount (Catheter) 625 / 625 Indwelling Urethral Catheter 625 / 625 Other: Date of Last Bowel Movement 12/25/17 12/25/17 Narrative: GENERAL: Well-developed well-nourished. In no acute distress. NECK: No carotid bruits. No JVD. CARDIOVASCULAR: Regular rate and rhythm. No murmur appreciated. RESPIRATORY: No accessory muscle use. Coarse rhonchi present. MUSCULOSKELETAL: No clubbing or cyanosis. No edema. NEUROLOGICAL: Awake and alert. Normal speech. - Urinary Catheter Management Indwelling Urethral Catheter Cath placed during this visit: yes, but has since been removed by the nurse Urethral indwelling: Yes Reason for continuing: Hourly intake/output Insertion date: 12/16/17 Insertion time: 12:15 Removal date: 12/19/17 Removal time: 20:00 Female External Cath placed during this visit: yes Reason for continuing: Hourly intake/output Insertion date: 12/21/17 Insertion time: 04:00 Assessment and Plan - Plan 67-year-old female with a past medical history of COPD, lupus, fibromyalgia, HTN , PTSD. Patient initially presented 12/11 for nausea, vomiting, abdominal pain, diarrhea with septic shock requiring pressors. The patient is has had issues with renal failure during admission, creatinine 2.2->0.91->3, now improving. The patient was having issues with fluid retention and had an echocardiogram done which showed EF 3540% which is a new finding this admission and severe MR which is an old finding. Echocardiogram previously done 12/02/15 showed EF 5560 % and moderate-severe MR. New onset cardiomyopathy: Biventricular failure. Likely due to bowel disease. Would need to consider ischemic when more euvolemic and stable. May require right heart cath as well. Further workup as outpatient. Continue carvedilol 6.25 mg bid, digoxin 125mcg daily, spironolactone 25mg daily , lisinopril 10 mg. Good diuresis overnight on furosemide 40mg po twice daily. Maintain potassium greater than 4. Monitor I's and O's. Severe mitral regurgitation: DARYN done 12/19 which showed only moderate MR worse, and signs of significant right heart failure. Diuresis recommended and may consider repeat limited transthoracic echo when volume status improved. Acute renal failure: Likely due to ATN. Creatinine has been trending down. Nephrology on board. Urinary retention: Machado cath for now Pneumonia: Antibiotics per primary team. Acapella. Discussed Condition With: Patient, Dr. Ribeiro <Brendon Ribeiro - Last Filed: 12/26/17 08:22> Physical Exam Vital signs: Vital Signs 12/25/17 08:16 12/25/17 08:23 12/25/17 08:24 Temperature 98 F Pulse Rate 75 70 Respiratory Rate 16 16 Blood Pressure 137/61 Pulse Oximetry 94 L 97 12/25/17 09:00 12/25/17 10:00 12/25/17 11:00 Temperature Pulse Rate 74 72 68 Respiratory Rate Blood Pressure Pulse Oximetry 12/25/17 12:00 12/25/17 12:03 12/25/17 13:00 Temperature 98.6 F Pulse Rate 72 70 70 Respiratory Rate 18 14 Blood Pressure 97/43 L Pulse Oximetry 96 12/25/17 14:00 12/25/17 15:00 12/25/17 16:00 Temperature 98.3 F Pulse Rate 64 70 66 Respiratory Rate 16 Blood Pressure 112/63 Pulse Oximetry 94 L 12/25/17 17:00 12/25/17 18:00 12/25/17 19:00 Temperature Pulse Rate 64 70 72 Respiratory Rate Blood Pressure Pulse Oximetry 12/25/17 19:51 12/25/17 20:00 12/25/17 21:00 Temperature 98.1 F Pulse Rate 72 72 Respiratory Rate 18 Blood Pressure 117/53 L Pulse Oximetry 93 L 100 12/25/17 22:00 12/25/17 23:00 12/26/17 00:00 Temperature 98.1 F Pulse Rate 79 77 83 Respiratory Rate 18 Blood Pressure 140/69 Pulse Oximetry 96 12/26/17 04:00 Temperature 98.9 F Pulse Rate 80 Respiratory Rate 18 Blood Pressure 138/78 Pulse Oximetry 100 Intake & Output 12/25/17 12/26/17 12/26/17 18:59 06:59 18:59 Intake Total 780 / 780 120 / 120 Output Total 1000 / 1000 625 / 625 Balance -220 / -220 -505 / -505 Weight 55.1 kg Intake: Oral 780 / 780 120 / 120 Output: Urine 1000 / 1000 Urine Amount (Catheter) 625 / 625 Indwelling Urethral Catheter 625 / 625 Other: Date of Last Bowel Movement 12/25/17 12/25/17 - Urinary Catheter Management Indwelling Urethral Catheter Cath placed during this visit: no Female External Cath placed during this visit: no Assessment and Plan - Plan Agree with above. She has biventricular failure likely due to valvular heart disease. She may benefit at some point from placement of a mitral clip for moderate-severe MR. She appears euvolemic at this juncture. Would continue current diuretic regimen until Cr bumps slightly and then change Lasix to 40mg daily and continue remainder of cardiac meds without change. f/u pending labs from today. Urinary retention issue leading to severe VITALIY will need to be managed once machado cath is removed. She represents a high risk patient for readmission. As an outpatient would recommend referral to a tertiary center for NYHA class 3/4, stage D heart failure management. She is likely not a good candidate for LVAD at this juncture due to her right heart failure, however a MitraClip and/or evaluation for heart transplantation should be considered. Will sign off. Please contact with any further questions.
[2017-12-26 07:57] LABS: Baso # (Auto) 0.1 th/mm3 (0.0-0.2); Baso % (Auto) 0.6 % (0.0-2.0); Eos # (Auto) 0.2 th/mm3 (0.0-0.4); Eos % (Auto) 1.9 % (0.0-4.0); Hematocrit 30.8 % (35.0-46.0); Hemoglobin 9.7 gm/dL (11.6-15.3); Lymph # (Auto) 1.1 th/mm3 (1.0-4.8); Lymph % (Auto) 8.9 % (9.0-44.0); Mean Corpuscular HGB Conc 31.6 % (32.0-36.0); Mean Corpuscular Hemoglobin 25.5 pg (27.0-34.0); Mean Corpuscular Volume 80.8 fL (80.0-100.0); Mean Platelet Volume 8.6 fL (7.0-11.0); Mono # (Auto) 0.7 th/mm3 (0.0-0.9); Mono % (Auto) 5.5 % (0.0-8.0); Neut # (Auto) 10.4 th/mm3 (1.8-7.7); Neut % (Auto) 83.1 % (16.0-70.0); Platelet Count 298 th/mm3 (150-450); Red Blood Count 3.81 mil/mm3 (4.00-5.30); Red Cell Distribution Width 21.2 % (11.6-17.2); White Blood Count 12.5 th/mm3 (4.0-11.0)
[2017-12-26 08:14] LABS: Calcium 7.8 mg/dL (8.5-10.1); Carbon Dioxide 32.9 meq/L (21.0-32.0); Magnesium 1.1 mg/dL (1.5-2.5); Potassium 3.6 meq/L (3.5-5.1)
[2017-12-26] MEDS: Azithromycin 250 MG Tablet PO SCH (10:05)
[2017-12-26] MEDS: Hydrocortisone Sod Succinate 100 MG Vial IV.PUSH SCH (10:06)
[2017-12-26] MEDS: Digoxin 125 MCG Tablet PO SCH (10:06)
[2017-12-26] MEDS: Pregabalin 75 MG Capsule PO SCH (10:06)
[2017-12-26] MEDS: azaTHIOprine 50 MG Tablet PO SCH ×2 (10:07→20:40)
[2017-12-26] MEDS: Spironolactone 25 MG Tablet PO SCH (10:07)
[2017-12-26] MEDS: Senna/Docusate Sodium 8.6/50 MG Tablet PO SCH ×2 (10:08→20:41)
[2017-12-26] MEDS: Lisinopril 10 MG Tablet PO SCH (10:08)
[2017-12-26] MEDS: Carvedilol 6.25 MG Tablet PO SCH ×2 (10:09→20:40)
[2017-12-26] MEDS: Furosemide 40 MG Tablet PO SCH ×2 (10:09→20:35)
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
[2017-12-26] MEDS: Sertraline 100 MG Tablet PO SCH (20:35)
[2017-12-26] MEDS: Famotidine 20 MG Tablet PO SCH (20:40)
[2017-12-27] MEDS: Heparin - SQ 10,000 UNITS/ML Vial SQ SCH ×3 (02:00→17:30)
[2017-12-27 05:08] LABS: Baso # (Auto) 0.1 th/mm3 (0.0-0.2); Baso % (Auto) 0.8 % (0.0-2.0); Eos # (Auto) 0.3 th/mm3 (0.0-0.4); Eos % (Auto) 3.8 % (0.0-4.0); Hematocrit 31.6 % (35.0-46.0); Hemoglobin 10.1 gm/dL (11.6-15.3); Lymph # (Auto) 1.3 th/mm3 (1.0-4.8); Lymph % (Auto) 17.3 % (9.0-44.0); Mean Corpuscular HGB Conc 31.9 % (32.0-36.0); Mean Corpuscular Hemoglobin 25.8 pg (27.0-34.0); Mean Platelet Volume 8.5 fL (7.0-11.0); Mono # (Auto) 0.7 th/mm3 (0.0-0.9); Mono % (Auto) 8.9 % (0.0-8.0); Neut # (Auto) 5.4 th/mm3 (1.8-7.7); Neut % (Auto) 69.2 % (16.0-70.0); Platelet Count 251 th/mm3 (150-450); Red Cell Distribution Width 21.2 % (11.6-17.2); White Blood Count 7.7 th/mm3 (4.0-11.0)
[2017-12-27 05:23] LABS: Calcium 8.1 mg/dL (8.5-10.1); Carbon Dioxide 29.6 meq/L (21.0-32.0)
[2017-12-27 05:24] LABS: Potassium 4.4 meq/L (3.5-5.1)
[2017-12-27] MEDS: Digoxin 125 MCG Tablet PO SCH (08:18)
[2017-12-27] MEDS: azaTHIOprine 50 MG Tablet PO SCH ×2 (08:19→21:16)
[2017-12-27] MEDS: Sertraline 100 MG Tablet PO SCH (08:19)
[2017-12-27] MEDS: Pregabalin 75 MG Capsule PO SCH (08:19)
[2017-12-27] MEDS: Lisinopril 10 MG Tablet PO SCH (08:19)
[2017-12-27] MEDS: Azithromycin 250 MG Tablet PO SCH (08:20)
[2017-12-27] MEDS: Senna/Docusate Sodium 8.6/50 MG Tablet PO SCH ×2 (08:20→21:17)
[2017-12-27] MEDS: Carvedilol 6.25 MG Tablet PO SCH ×2 (08:20→21:16)
[2017-12-27] MEDS: Hydrocortisone Sod Succinate 100 MG Vial IV.PUSH SCH (08:20)
[2017-12-27] MEDS: Spironolactone 25 MG Tablet PO SCH (08:21)
[2017-12-27] MEDS: Furosemide 40 MG Tablet PO SCH ×2 (08:27→17:30)
[2017-12-27] MEDS: Magnesium Oxide 400 MG Tablet PO SCH (11:18)
--- NOTE | 2017-12-27 15:32 | P.CONPSY ---
Provisional Diagnosis Admission Date: December 11, 2017 21:29 [place] I.: 1. Major depressive disorder, in remission [place] II.: Deferred History of Present Illness Service: Psychiatry Consult date: 12/27/17 Requesting Physician: Tiara Powers Reason for Consult: Depression/anxiety Primary Care Provider: Janeen Guzman DO Family Provider: Janeen Guzman DO Chief Complaint: diarrhea History of Present Illness: Ms. Monteiro is a 67-year-old female with a history of major depression who presented to the emergency department complaining of weakness, found to have septic shock. Patient is receiving ongoing treatment for PNA and VITALIY. Reviewing the electronic medical record, I note that the patient was admitted under my care to the inpatient psychiatric unit in 2017 with a discharge diagnosis of major depression. Patient seen and examined. Chart reviewed. Case discussed with nurse on the floor. Per nursing staff, the patient has been no behavioral problem. Nurse has not noted any particular issues with depression or anxiety. On my examination today, the patient feels like she is doing fairly well. She says that she stopped her psychotropic medications at home because she felt like she did not need to take them anymore. When I ask if she is feeling depressed she tells me "I do good. Everybody going to have a little feeling like that" from time to time. She denies any persistent low mood and likewise denies any hopeless or worthless feelings. I can elicit no other depressive symptoms. She does not describe any significant issue with anxiety. She denies any suicidal or homicidal ideation, intent or plan. She denies any audiovisual hallucinations. I can elicit no delusions. No hypomanic or manic symptoms. She is alert and oriented 3, and there is no evidence of delirium on exam. She does say that she feels a little stressed out because her "is a slob." Remainder of the psychiatric ROS is negative. No acute physical complaints. Past psychiatric history: The patient reports a history of depression but says that this is "all gone." She is not presently following on an outpatient basis with psychiatry. She denies any interval psychiatric admissions since she was hospitalized under my care. She denies a history of suicide attempts. Family history: Patient reports "my family is crazy." She cannot describe any particular diagnoses in the family. Chemical dependency history: No reported history of abuse of drugs or alcohol. Social history: The patient lives with her . She has children, all grown. She says that she got "not far" in her education, completing 2-1/2 years of formal schooling. She says that her mother when she was young, and patient had to raise her siblings. Review of Systems All other systems reviewed negative except as stated in HPI [facility] - History History Provided By: Patient, Medical Record - Medical History Medical History: Medical History (Last Reviewed 12/25/17 @ 08:52 by Eulalio Baer) COPD (chronic obstructive pulmonary disease) Fibromyalgia Hypertension Lupus Posttraumatic stress disorder - Tobacco History Second Hand Smoke Exposure: No Tobacco Use In Past 30 Days: No Smoking Status: Current some day smoker Tobacco Type: E-Cigarettes - Alcohol History How Often Do You Have a Drink Containing Alcohol: Monthly or less - Substance Use History Substance History: No History of Abuse - Travel History Recent Travel in the [place] Within the Last 8 Weeks: No Recent Travel Out of the Country Within the Last 8 Weeks: No - Immunization History Tetanus Immunization: Unable to Assess Hx Influenza Vaccine This Season: Unable to Assess Medications and Allergies Active Medications: Active Medications Acetaminophen (Tylenol) 650 mg PO Q6H PRN PRN Reason: PAIN 1-10 AND/OR FEVER >101F Last Admin: 12/22/17 09:00 Dose: 650 mg Al Hydroxide/Mg Hydroxide (Milk Of Davion Bunch) 30 ml PO Q12H PRN PRN Reason: Mild Constipation Albuterol (Duoneb Neb (Prn)) 1 ampul NEB Q2HR NEB PRN PRN Reason: WHEEZING Last Admin: 12/26/17 12:40 Dose: 1 ampul Alprazolam (Xanax) 0.5 mg PO BID PRN PRN Reason: Abdominal Pain Amlodipine Besylate (Norvasc) 5 mg PO DAILY ON LICENSE OF [facility] Last Admin: 12/24/17 08:26 Dose: 5 mg Azathioprine (Imuran) 25 mg PO BID ON LICENSE OF [facility] Last Admin: 12/27/17 08:19 Dose: 25 mg Azithromycin (Zithromax) 500 mg PO DAILY ON LICENSE OF [facility] Last Admin: 12/27/17 08:20 Dose: 500 mg Baclofen (Lioresal) 10 mg PO TID ON LICENSE OF [facility] Last Admin: 12/12/17 12:59 Dose: Not Given Bisacodyl (Dulcolax Supp) 10 mg RECTAL DAILY PRN PRN Reason: SEVERE CONSITIPATION Carvedilol (Coreg) 6.25 mg PO BID ON LICENSE OF [facility] Last Admin: 12/27/17 08:20 Dose: 6.25 mg Digoxin (Lanoxin) 125 mcg PO DAILY ON LICENSE OF [facility] Last Admin: 12/27/17 08:18 Dose: 125 mcg Duloxetine HCl (Cymbalta) 30 mg PO DAILY ON LICENSE OF [facility] Last Admin: 12/27/17 08:19 Dose: 30 mg Famotidine (Pepcid) 20 mg PO HS ON LICENSE OF [facility] Last Admin: 12/26/17 20:40 Dose: 20 mg Furosemide (Lasix) 40 mg PO BID@0900,1800 ON LICENSE OF [facility] Last Admin: 12/27/17 08:27 Dose: 40 mg Heparin Sodium (Porcine) (Heparin Inj) 5,000 units SQ Q8H ON LICENSE OF [facility] Last Admin: 12/27/17 08:20 Dose: 5,000 units Hydrocortisone Sodium Succinate (Solucortef Inj) 25 mg IV.PUSH DAILY ON LICENSE OF [facility] Last Admin: 12/27/17 08:20 Dose: 25 mg Pharmacy Profile Note ([facility]) 0 mls @ 0 mls/hr OTHER UNSCH ON LICENSE OF [facility] Ceftriaxone Sodium 1,000 mg/ (Sodium Chloride) 100 mls @ 200 mls/hr IV.SIG Q24H ON LICENSE OF [facility] Last Infusion: 12/27/17 12:01 Dose: Infused Lactulose (Lactulose Liq) 30 ml PO DAILY PRN PRN Reason: SEVERE CONSITIPATION Lisinopril (Prinivil) 10 mg PO DAILY ON LICENSE OF [facility] Last Admin: 12/27/17 08:19 Dose: 10 mg Lorazepam (Ativan Inj) 2 mg IV.PUSH Q4H PRN PRN Reason: ANXIETY AND/OR AGITATION Last Admin: 12/14/17 01:39 Dose: 2 mg Magnesium Oxide (Mag-Ox) 400 mg PO DAILY@1100 ON LICENSE OF [facility] Stop: 12/29/17 11:01 Last Admin: 12/27/17 11:18 Dose: 400 mg Miscellaneous (Pill Splitter) 1 each OTHER UNSCH PRN PRN Reason: SEE LABEL COMMENTS Morphine Sulfate (Morphine Inj) 2 mg IV.PUSH Q2H PRN PRN Reason: PAIN SCALE 6 TO 10 Ondansetron HCl (Zofran Inj) 4 mg IV.PUSH Q6H PRN PRN Reason: NAUSEA OR VOMITING Potassium Chloride (K-Dur) 20 meq PO DAILY ON LICENSE OF [facility] Last Admin: 12/27/17 08:19 Dose: 20 meq Pregabalin (Lyrica) 75 mg PO DAILY ON LICENSE OF [facility] Last Admin: 12/27/17 08:19 Dose: 75 mg Senna/Docusate Sodium (Valentina-Colace) 1 tab PO BID ON LICENSE OF [facility] Last Admin: 12/27/17 08:20 Dose: Not Given Sennosides (Senokot) 17.2 mg PO Q12H PRN PRN Reason: Moderate Constipation Sertraline HCl (Zoloft) 100 mg PO DAILY ON LICENSE OF [facility] Last Admin: 12/27/17 08:19 Dose: 100 mg Sodium Chloride (Ns Flush) 2 ml IV.FLUSH BID ON LICENSE OF [facility] Last Admin: 12/27/17 08:21 Dose: 2 ml Sodium Chloride (Ns Flush) 2 ml IV.FLUSH PRN PRN PRN Reason: FLUSH AFTER USING IV ACCESS Spironolactone (Aldactone) 25 mg PO DAILY ON LICENSE OF [facility] Last Admin: 12/27/17 08:21 Dose: 25 mg Temazepam (Restoril) 15 mg PO HS PRN PRN Reason: INSOMNIA Last Admin: 12/12/17 21:26 Dose: 15 mg Trazodone HCl (Desyrel) 50 mg PO DAILY ON LICENSE OF [facility] Last Admin: 12/17/17 11:16 Dose: Not Given Vitamin D (Vitamin D3) 2,000 unit PO DAILY ON LICENSE OF [facility] Last Admin: 12/27/17 08:19 Dose: 2,000 unit Allergies Allergy/AdvReac Type Severity Reaction Status Date / Time No Known Allergies Allergy Unknown Altered Uncoded 12/11/17 18:39 Sense of Taste Home Medications Medication Instructions Recorded Confirmed Type albuterol sulfate 2.5 mg INHALATION QID 12/11/17 12/11/17 History alprazolam 0.5 mg PO BID PRN 12/11/17 12/11/17 History baclofen 10 mg PO DAILY 12/11/17 12/12/17 History carisoprodol 350 mg PO QID 12/11/17 12/11/17 History diazepam 0.1 mg/kg PO TID-QID PRN 12/11/17 12/11/17 History hydrochlorothiazide 50 mg PO DAILY 12/11/17 12/11/17 History ipratropium bromide 1 puff INHALATION Q6H 12/11/17 12/11/17 History metoprolol succinate 25 mg PO DAILY 12/11/17 12/11/17 History omeprazole 20 mg PO DAILY 12/11/17 12/11/17 History pregabalin 75 mg PO TID 12/11/17 12/11/17 History trazodone 50 mg PO DAILY 12/11/17 12/11/17 History amoxicillin 500 mg PO Q6H 12/12/17 12/12/17 History azathioprine [Imuran] 50 mg PO BID 12/12/17 12/12/17 History duloxetine [Cymbalta] 30 mg PO DAILY 12/12/17 12/12/17 History hydrocodone-acetaminophen [Morrow] 1 tab PO Q4-6H PRN 12/12/17 12/12/17 History ipratropium bromide [Atrovent HFA] 1 puff INHALATION QID 12/12/17 12/12/17 History methotrexate sodium 15 mg PO QWEEK 12/12/17 12/12/17 History metoprolol tartrate 25 mg PO DAILY 12/12/17 12/12/17 History omeprazole 20 mg PO DAILY 12/12/17 12/12/17 History prednisone 5 mg PO DAILY 12/12/17 12/12/17 History sertraline [Zoloft] 100 mg PO DAILY 12/12/17 12/12/17 History Exam Vital signs: Vital Signs 12/26/17 16:00 12/26/17 17:00 12/26/17 18:00 Temperature Pulse Rate 72 72 68 Respiratory Rate Blood Pressure Pulse Oximetry 12/26/17 19:00 12/26/17 20:00 12/26/17 21:00 Temperature 97.9 F Pulse Rate 69 68 72 Respiratory Rate 20 Blood Pressure 148/64 H Pulse Oximetry 100 12/26/17 21:01 12/26/17 22:00 12/26/17 23:00 Temperature Pulse Rate 74 80 Respiratory Rate Blood Pressure Pulse Oximetry 97 12/27/17 00:00 12/27/17 01:00 12/27/17 02:00 Temperature 99.2 F Pulse Rate 70 70 70 Respiratory Rate 20 Blood Pressure 107/52 L Pulse Oximetry 96 12/27/17 03:00 12/27/17 04:00 12/27/17 05:00 Temperature 98.8 F Pulse Rate 72 68 64 Respiratory Rate 18 Blood Pressure 122/55 L Pulse Oximetry 98 12/27/17 06:00 12/27/17 07:00 12/27/17 08:00 Temperature 98.4 F Pulse Rate 68 71 80 Respiratory Rate 18 Blood Pressure 136/66 Pulse Oximetry 97 12/27/17 09:00 12/27/17 09:06 12/27/17 10:00 Temperature Pulse Rate 72 75 Respiratory Rate Blood Pressure Pulse Oximetry 96 12/27/17 11:00 12/27/17 11:49 12/27/17 12:00 Temperature 97.9 F Pulse Rate 72 68 70 Respiratory Rate 19 Blood Pressure 97/46 L Pulse Oximetry 100 12/27/17 13:00 12/27/17 14:00 Temperature Pulse Rate 72 73 Respiratory Rate Blood Pressure Pulse Oximetry Intake & Output 12/26/17 12/27/17 12/27/17 18:59 06:59 18:59 Intake Total 100 / 100 720 / 720 100 / 100 Output Total 1000 / 1000 Balance 100 / 100 -280 / -280 100 / 100 Weight 55.8 kg Intake: IV 100 / 100 100 / 100 Rocephin Inj 1,000 MG In NS Inj 100 / 100 100 / 100 100 ML @ 200 mls/hr IV.SIG Q24H ON LICENSE OF [facility] Rx#:[id number] Oral 720 / 720 Output: Urine Amount (Catheter) 1000 / 1000 Indwelling Urethral Catheter 1000 / 1000 Other: Date of Last Bowel Movement 12/26/17 12/27/17 12/27/17 Narrative: Physical examination completed by primary team. On my examination today, the patient appears to be in no acute physical distress. No motor abnormalities noted. Labs and vital signs reviewed: Laboratory Tests 12/23/17 12/27/17 12/27/17 07:52 04:06 04:06 WBC 7.7 Hgb 10.1 L Plt Count 251 Sodium 138 Potassium 4.4 D Chloride 102 Carbon Dioxide 29.6 BUN 9 Creatinine 1.07 H Estimated GFR 51 L AST 51 H ALT 58 H Alkaline Phosphatase 115 Mental Status Examination Appearance: Appropriate Consciousness: Alert Orientation: x4 Motor Activity: Other (No motor abnormalities noted) Speech: Unremarkable Language: Adequate Fund of Knowledge: Adequate Attention and Concentration: Adequate Memory: Unremarkable (Grossly intact on clinical exam) Mood: Appropriate Affect: Appropriate Thought Process & Associations: Intact, Logical, Linear Thought Content: Appropriate Hallucination Type: None Delusion Type: None Suicidal Ideation: No Suicidal Plan: No Suicidal Intention: No Homicidal Ideation: No Homicidal Plan: No Homicidal Intention: No Insight: Adequate Judgment: Adequate Assessment and Plan - Assessment (1) Major depressive disorder, recurrent, in remission Code(s): F33.40 - Major depressive disorder, recurrent, in remission, unspecified Status: Acute - Plan Plan: 67-year-old female with psychiatric history as detailed above who is presently admitted to the medical floor for management of pneumonia and VITALIY. Psychiatry is consulted for depression and anxiety. On my examination today, the patient does not display symptomatology of decompensated mood or anxiety disorder. She herself feels psychiatrically well. She denies any suicidal or homicidal ideation there is no evidence of delirium on exam. I recommend the following: --I note that the patient is on both Cymbalta and Zoloft. Given that her psychiatric symptoms are well controlled and given that she reports that she was on no medication for depression prior to admission, I think it is prudent to discontinue one of these agents to avoid unnecessary antidepressant polypharmacy and associated side effects. I would probably discontinue the Cymbalta and continue with the Zoloft as ordered for prophylaxis against future episodes of depression, so long as it remains well tolerated. --Patient is presently denying suicidal or homicidal ideation. There is no evidence of severely decompensated mental illness. There is no evidence of self -care deficit from mental illness. The patient does not meet the [place] act criteria. She does not require inpatient psychiatric admission at this time. --Patient should be referred for outpatient psychiatric services on discharge. Case discussed with RN. Thank you very much for this consultation. Please call or page [phone] with any questions. I am happy to follow up as needed but will not plan to make routine follow-up visits to this patient. Justification for Continued Inpatient Stay: Per primary team.
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
[2017-12-27] MEDS: Famotidine 20 MG Tablet PO SCH (21:17)
[2017-12-28] MEDS: Heparin - SQ 10,000 UNITS/ML Vial SQ SCH ×3 (00:11→17:35)
[2017-12-28] MEDS: Acetaminophen 325 MG Tablet PO PRN (04:01)
[2017-12-28 06:01] LABS: Baso # (Auto) 0.1 th/mm3 (0.0-0.2); Baso % (Auto) 0.8 % (0.0-2.0); Eos # (Auto) 0.3 th/mm3 (0.0-0.4); Eos % (Auto) 3.1 % (0.0-4.0); Hematocrit 28.2 % (35.0-46.0); Lymph # (Auto) 1.3 th/mm3 (1.0-4.8); Lymph % (Auto) 13.8 % (9.0-44.0); Mean Corpuscular Hemoglobin 25.6 pg (27.0-34.0); Mean Platelet Volume 8.5 fL (7.0-11.0); Mono # (Auto) 0.8 th/mm3 (0.0-0.9); Mono % (Auto) 8.8 % (0.0-8.0); Neut # (Auto) 7.1 th/mm3 (1.8-7.7); Neut % (Auto) 73.5 % (16.0-70.0); Platelet Count 314 th/mm3 (150-450); Red Blood Count 3.53 mil/mm3 (4.00-5.30); Red Cell Distribution Width 21.1 % (11.6-17.2); White Blood Count 9.7 th/mm3 (4.0-11.0)
[2017-12-28 06:19] LABS: Calcium 8.4 mg/dL (8.5-10.1); Carbon Dioxide 26.3 meq/L (21.0-32.0); Potassium 3.6 meq/L (3.5-5.1)
[2017-12-28] MEDS: azaTHIOprine 50 MG Tablet PO SCH ×2 (09:55→21:39)
[2017-12-28] MEDS: Digoxin 125 MCG Tablet PO SCH (09:55)
[2017-12-28] MEDS: Azithromycin 250 MG Tablet PO SCH (09:55)
[2017-12-28] MEDS: Carvedilol 6.25 MG Tablet PO SCH ×2 (09:55→21:39)
[2017-12-28] MEDS: Pregabalin 75 MG Capsule PO SCH (09:55)
[2017-12-28] MEDS: Lisinopril 10 MG Tablet PO SCH (09:55)
[2017-12-28] MEDS: Sertraline 100 MG Tablet PO SCH (09:55)
[2017-12-28] MEDS: Spironolactone 25 MG Tablet PO SCH (09:55)
[2017-12-28] MEDS: Hydrocortisone Sod Succinate 100 MG Vial IV.PUSH SCH (09:56)
[2017-12-28] MEDS: Senna/Docusate Sodium 8.6/50 MG Tablet PO SCH ×2 (09:56→21:40)
[2017-12-28] MEDS: Furosemide 40 MG Tablet PO SCH ×2 (09:58→17:34)
[2017-12-28] MEDS: Magnesium Oxide 400 MG Tablet PO SCH (12:06)
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
[2017-12-28] MEDS: Famotidine 20 MG Tablet PO SCH (21:39)
[2017-12-29] MEDS: Heparin - SQ 10,000 UNITS/ML Vial SQ SCH ×3 (00:11→16:19)
[2017-12-29] MEDS: Acetaminophen 325 MG Tablet PO PRN (03:35)
[2017-12-29 07:03] LABS: Baso # (Auto) 0.1 th/mm3 (0.0-0.2); Baso % (Auto) 0.9 % (0.0-2.0); Eos # (Auto) 0.3 th/mm3 (0.0-0.4); Eos % (Auto) 3.2 % (0.0-4.0); Hemoglobin 9.1 gm/dL (11.6-15.3); Lymph # (Auto) 1.6 th/mm3 (1.0-4.8); Lymph % (Auto) 19.2 % (9.0-44.0); Mean Corpuscular HGB Conc 32.3 % (32.0-36.0); Mean Corpuscular Volume 80.5 fL (80.0-100.0); Mono # (Auto) 0.8 th/mm3 (0.0-0.9); Mono % (Auto) 9.9 % (0.0-8.0); Neut # (Auto) 5.7 th/mm3 (1.8-7.7); Neut % (Auto) 66.8 % (16.0-70.0); Platelet Count 314 th/mm3 (150-450); Red Blood Count 3.48 mil/mm3 (4.00-5.30); Red Cell Distribution Width 21.5 % (11.6-17.2); White Blood Count 8.5 th/mm3 (4.0-11.0)
[2017-12-29 07:11] LABS: Calcium 8.4 mg/dL (8.5-10.1); Carbon Dioxide 27.3 meq/L (21.0-32.0); Potassium 3.6 meq/L (3.5-5.1)
[2017-12-29] MEDS: Hydrocortisone Sod Succinate 100 MG Vial IV.PUSH SCH (09:38)
[2017-12-29] MEDS: Sertraline 100 MG Tablet PO SCH (09:39)
[2017-12-29] MEDS: Lisinopril 10 MG Tablet PO SCH (09:40)
[2017-12-29] MEDS: Carvedilol 6.25 MG Tablet PO SCH ×2 (09:40→20:40)
[2017-12-29] MEDS: azaTHIOprine 50 MG Tablet PO SCH (09:40)
[2017-12-29] MEDS: Digoxin 125 MCG Tablet PO SCH (09:40)
[2017-12-29] MEDS: Pregabalin 75 MG Capsule PO SCH (09:40)
[2017-12-29] MEDS: Spironolactone 25 MG Tablet PO SCH (09:41)
[2017-12-29] MEDS: Senna/Docusate Sodium 8.6/50 MG Tablet PO SCH ×2 (09:59→20:40)
[2017-12-29] MEDS: Azithromycin 250 MG Tablet PO SCH (10:19)
[2017-12-29] MEDS: Magnesium Oxide 400 MG Tablet PO SCH (10:49)
[2017-12-29] MEDS: Furosemide 40 MG Tablet PO SCH ×2 (10:49→18:10)
--- NOTE | 2017-12-29 15:47 | P.PN ---
Physical Exam Vital signs: Vital Signs 12/28/17 16:00 12/28/17 20:00 12/28/17 23:20 Temperature 98.9 F 99 F 99.4 F Pulse Rate 73 87 78 Respiratory Rate 14 18 16 Blood Pressure 100/48 L 102/43 L 105/52 L Pulse Oximetry 100 93 L 90 L 12/29/17 04:00 12/29/17 08:00 12/29/17 12:00 Temperature 100.4 F H 98.3 F 98.1 F Pulse Rate 83 72 79 Respiratory Rate 16 15 16 Blood Pressure 116/56 L 108/56 L 102/60 Pulse Oximetry 93 L 98 94 L Intake & Output 12/28/17 12/29/17 12/29/17 18:59 06:59 18:59 Intake Total 1040 / 1040 480 / 480 Output Total 800 / 800 700 / 700 Balance 240 / 240 -220 / -220 Weight 53.9 kg Intake: IV 100 / 100 Rocephin Inj 1,000 MG In NS Inj 100 / 100 100 ML @ 200 mls/hr IV.SIG Q24H [facility] Rx#:[id number] Oral 940 / 940 480 / 480 Output: Urine Amount (Catheter) 800 / 800 700 / 700 Indwelling Urethral Catheter 800 / 800 700 / 700 Other: Date of Last Bowel Movement 12/28/17 12/28/17 12/29/17 # Bowel Movements 1 Narrative: Subjective Interval history: Follow-up multiple medical problems including septic shock, pneumonia with hypoxia, AK I, cardiomyopathy, electrolytes abnormalities, arrhythmia She was eating all her breakfast today. She is more awake and alert. Says she wants to go home however PT recommends [facility] facility. Says she does not have any [facility] involvement in her case. She has no chest pain or shortness of breath at this time. Physical Exam GENERAL: Cachectic female resting in bed, sleepy. SKIN: Warm and dry. HEART: RRR with 1/6 RADHA. LUNGS: Diminished breath sounds with bibasilar crackles. ABDOMEN: +BS, soft, NT, ND. EXTREMITIES: No LE edema. NEURO: Sudden depressed. Assessment and Plan 67 YOWF with HTN, COPD, and lupus admitted 12/11 with gastroenteritis and septic shock requiring ICU admission and vasopressors. She was initially hospitalized in the [facility] but was transferred to [facility] for DARYN. Septic shock- Resolved - Afebrile - Blood cultures and urine cultures no growth - Tapering IV steroids slowly VITALIY -Patient may have developed acute renal insufficiency secondary to acute tubular necrosis related to recent bout of sepsis and hypotension. - She also has a history of lupus that might contribute to her acute renal insufficiency currently. -Renal functions improving and apparently some urinary retention today. - Continue Verduzco for the present. - Creatinine continues to trend down - Nephrology following - Renal U/S suggestive of medical renal disease - Avoid nephrotoxic agents and renally dose meds PNA, hypoxia - Patient with cough, bibasilar crackles, O2 desaturation, and elevated white count though trending down - CXR showing bibasilar airspace disease - Negative urine legionella and pneumococcal Ag - Check sputum culture - Continue Rocephin and Azithromycin - Supplemental O2 - DuoNeb Q6H scheduled Cardiomyopathy, HTN - TTE done on 12/18 showed moderate to severely reduced LV systolic function with EF 35-40% and severe mitral valve regurg - Cardiology was consulted and patient transferred to [facility] 12/19 to undergo DARYN - DARYN done 12/19 showing moderate mitral valve disease with right sided heart failure - Cardiology following; recommend medical management and to consider repeat TTE when volume status improves - Continue Carvedilol, Digoxin, Amlodipine. Increase lasix - May have R heart cath done this admission - ACEI when cleared by nephro With persistent hypokalemia. Patient is on schedule potassium supplement. Will increase the dose. Also give extra potassium today. Gastroenteritis - Resolved - Stool studies returned negative - Antibiotics discontinued Lupus/adrenal insufficiency - Continue home meds - Tapering IV steroids slowly, IV Solucortef 25 mg daily - Monitor renal function Anemia - Likely anemia of chronic disease given lupus and possible CKD - Hemodynamically stable - Continue to monitor Fibromyalgia - Continue home Cymbalta and Lyrica Hypokalemia - K continues to be low though improved -Continue potasium supplement. give extra today. Ideally keep K above 4. - Continue monitor Vitamin D deficiency - Vit D3 2000 units daily Anxiety/depression. Continue home medications. Consult psychiatry. Patient is also depressed consult psychiatry, patient to [facility] as OP with her psych continue meds. Not a candidate for inpatient admission to psych. DVT prophylaxis: Heparin Discharge Planning: Pending improvement. Treating patient for PNA and VITALIY. Can be discharged to snf , clinically improved cleared by nephrology and cardiology. CM ff , looking if SNF can be arranged. - Urinary Catheter Management Indwelling Urethral Catheter Cath placed during this visit: yes, but has since been removed by the nurse Urethral indwelling: Yes Reason for continuing: Acute urinary retention Insertion date: 12/16/17 Insertion time: 12:15 Removal date: 12/19/17 Removal time: 20:00 Female External Cath placed during this visit: yes Reason for continuing: Hourly intake/output Insertion date: 12/21/17 Insertion time: 04:00 Results - Labs CBC & Chem 7: 12/29/17 04:47 12/29/17 04:47 Laboratory Results - last 24 hr 12/29/17 12/29/17 04:47 04:47 WBC 8.5 RBC 3.48 L Hgb 9.1 L Hct 28.0 L MCV 80.5 MCH 26.0 L MCHC 32.3 RDW 21.5 H Plt Count 314 MPV 9.0 Neut % (Auto) 66.8 Lymph % (Auto) 19.2 [place] % (Auto) 9.9 H Eos % (Auto) 3.2 Baso % (Auto) 0.9 Neut # (Auto) 5.7 Lymph # (Auto) 1.6 [place] # (Auto) 0.8 Eos # (Auto) 0.3 Baso # (Auto) 0.1 WBC Differential . Differential Comment Auto diff final Sodium 134 L Potassium 3.6 Chloride 97 L Carbon Dioxide 27.3 Anion Gap 10 BUN 12 Creatinine 1.20 H Estimated GFR 45 L Random Glucose 73 L Calcium 8.4 L
[2017-12-29] MEDS: Famotidine 20 MG Tablet PO SCH (20:42)
[2017-12-30] MEDS: azaTHIOprine 50 MG Tablet PO SCH ×2 (00:05→09:38)
[2017-12-30] MEDS: Heparin - SQ 10,000 UNITS/ML Vial SQ SCH ×2 (00:07→09:37)
[2017-12-30 07:19] LABS: Baso # (Auto) 0.1 th/mm3 (0.0-0.2); Baso % (Auto) 0.9 % (0.0-2.0); Eos # (Auto) 0.2 th/mm3 (0.0-0.4); Eos % (Auto) 2.8 % (0.0-4.0); Hematocrit 28.5 % (35.0-46.0); Hemoglobin 9.3 gm/dL (11.6-15.3); Lymph % (Auto) 24.9 % (9.0-44.0); Mean Corpuscular HGB Conc 32.7 % (32.0-36.0); Mean Corpuscular Hemoglobin 25.9 pg (27.0-34.0); Mean Corpuscular Volume 79.3 fL (80.0-100.0); Mono # (Auto) 1.1 th/mm3 (0.0-0.9); Neut # (Auto) 4.7 th/mm3 (1.8-7.7); Neut % (Auto) 57.4 % (16.0-70.0); Platelet Count 352 th/mm3 (150-450); Red Cell Distribution Width 21.3 % (11.6-17.2); White Blood Count 8.1 th/mm3 (4.0-11.0)
[2017-12-30 07:37] LABS: Carbon Dioxide 29.2 meq/L (21.0-32.0); Potassium 3.6 meq/L (3.5-5.1)
[2017-12-30] MEDS: Hydrocortisone Sod Succinate 100 MG Vial IV.PUSH SCH (09:34)
[2017-12-30] MEDS: Sertraline 100 MG Tablet PO SCH (09:35)
[2017-12-30] MEDS: Digoxin 125 MCG Tablet PO SCH (09:36)
[2017-12-30] MEDS: Senna/Docusate Sodium 8.6/50 MG Tablet PO SCH (09:36)
[2017-12-30] MEDS: Pregabalin 75 MG Capsule PO SCH (09:37)
[2017-12-30] MEDS: Carvedilol 6.25 MG Tablet PO SCH (09:37)
[2017-12-30] MEDS: Spironolactone 25 MG Tablet PO SCH (09:37)
[2017-12-30] MEDS: Lisinopril 10 MG Tablet PO SCH (09:39)
[2017-12-30] MEDS: Furosemide 40 MG Tablet PO SCH (09:47)
--- NOTE | 2017-12-30 13:03 | P.DS ---
Date of admission: 12/11/17 21:29 Primary care physician: Janeen Guzman DO Anticipated date of discharge: 12/30/17 Brief History from admission: 67yF presented to the ER with n/v abdominal pain which started yesterday. denies blood in stool or dark tarry stools. states she has had some improvements in abdominal pain and diarrhea. in the ER, was severely hypotensive with elevated lactate. received ivf boluses and started on vasopressors. remains on vasopressors on my evaluation. somewhat somnolent but arousable. of note, has a history of lupus and takes daily steroids: prednisone 10mg daily. remainder of ROS is negative. DS: Diagnosis - Discharge Diagnosis (1) Sepsis Status: Acute (2) Dehydration Status: Acute (3) VITALIY (acute kidney injury) Status: Acute (4) Gastroenteritis Status: Acute (5) Lupus Status: Chronic (6) Septic shock Status: Acute (7) Acute kidney injury Status: Acute (8) Congestive heart failure Status: Acute (9) Pneumonia Status: Acute (10) Major depressive disorder, recurrent, in remission Status: Acute DS: Medications - Discharge Medications Prescriptions: amlodipine [Norvasc] 5 mg PO DAILY #30 tab carvedilol [Coreg] 6.25 mg PO BID #60 tab cholecalciferol (vitamin D3) [Vitamin D3] 2,000 unit PO DAILY #60 tab digoxin 125 mcg PO DAILY #30 tab furosemide [Lasix] 40 mg PO DAILY #30 tab lisinopril 10 mg PO DAILY #30 tab spironolactone [Aldactone] 25 mg PO DAILY #30 tab DS: Summary Hospital Course: 67 YOWF with HTN, COPD, and lupus admitted 12/11 with gastroenteritis and septic shock requiring ICU admission and vasopressors. She was initially hospitalized in the [facility] but was transferred to [facility] for DARYN. Treatment course detailed below. Septic shock- Resolved - Afebrile - Blood cultures and urine cultures no growth -Patient treated with broad-spectrum IV antibiotics. There were concerns for pneumonia. VITALIY -Patient may have developed acute renal insufficiency secondary to acute tubular necrosis related to recent bout of sepsis and hypotension. - She also has a history of lupus that might contribute to her acute renal insufficiency currently. -Renal functions improved. She had some urinary retention requiring Verduzco. Voiding trial prior to discharge. - Renal U/S suggestive of medical renal disease - Avoid nephrotoxic agents and renally dose meds PNA, hypoxia - Patient with cough, bibasilar crackles, O2 desaturation, and elevated white count though trending down - CXR showing bibasilar airspace disease - Negative urine legionella and pneumococcal Ag -Treated with Rocephin and azithromycin. Cardiomyopathy, HTN - TTE done on 12/18 showed moderate to severely reduced LV systolic function with EF 35-40% and severe mitral valve regurg - Cardiology was consulted and patient transferred to [facility] 12/19 to undergo DARYN - DARYN done 12/19 showing moderate mitral valve disease with right sided heart failure - Cardiology following; recommend medical management - Continue Carvedilol, Digoxin, Amlodipine, lisinopril. Increase Lasix -Per cardiology, the patient does to follow-up outpatient and be considered for evaluation at a tertiary care center. Outpatient follow-up with Dr. castro. Gastroenteritis - Resolved - Stool studies returned negative - Antibiotics discontinued Lupus/adrenal insufficiency - Continue home meds -IV steroids T.. Patient is to continue on home dose prednisone 5 mg daily. Anemia - Likely anemia of chronic disease given lupus and possible CKD - Hemodynamically stable - Continue to monitor Fibromyalgia - Continue home dose Lyrica Vitamin D deficiency - Vit D3 2000 units daily Anxiety/depression. Psychiatry consulted on the patient. Recommendation to continue on Zoloft. - Time Spent with Patient Total time spent providing and/or coordinating discharge services: Greater than 30 minutes - Quality: VTE Deep Vein Thrombosis/Pulmonary Embolism Present on Admission: No Exam Vital signs: Vital Signs 12/29/17 16:00 12/29/17 20:00 12/30/17 00:00 Temperature 98.5 F 97.9 F 97.7 F Pulse Rate 75 72 71 Respiratory Rate 16 17 17 Blood Pressure 103/47 L 100/64 112/61 Pulse Oximetry 99 94 L 94 L 12/30/17 08:00 12/30/17 11:04 12/30/17 12:00 Temperature 98.4 F 97.8 F Pulse Rate 72 84 Respiratory Rate 17 16 Blood Pressure 106/54 L 118/56 L Pulse Oximetry 100 95 95 Intake & Output 12/29/17 12/30/17 12/30/17 18:59 06:59 18:59 Intake Total 240 / 240 Output Total 750 / 750 1850 / 1850 Balance -750 / -750 -1610 / -1610 Intake: Oral 240 / 240 Output: Urine Amount (Catheter) 750 / 750 1850 / 1850 Indwelling Urethral Catheter 750 / 750 1849 / 185 Other: Date of Last Bowel Movement 12/29/17 # Bowel Movements 1 Narrative: GENERAL: Cachectic female resting in bed, no acute distress. SKIN: Warm and dry. HEART: RRR with 1/6 RADHA. LUNGS: Clear to auscultation bilaterally. ABDOMEN: +BS, soft, NT, ND. EXTREMITIES: No LE edema. Results Procedures completed during hospitalization: None Labs on day of discharge: Labs from last 24 hours 12/30/17 12/30/17 06:49 06:49 WBC 8.1 RBC 3.60 L Hgb 9.3 L Hct 28.5 L MCV 79.3 L MCH 25.9 L MCHC 32.7 RDW 21.3 H Plt Count 352 MPV 8.0 Neut % (Auto) 57.4 Lymph % (Auto) 24.9 [place] % (Auto) 14.0 H Eos % (Auto) 2.8 Baso % (Auto) 0.9 Neut # (Auto) 4.7 Lymph # (Auto) 2.0 [place] # (Auto) 1.1 H Eos # (Auto) 0.2 Baso # (Auto) 0.1 WBC Differential . Differential Comment Auto diff final Sodium 138 Potassium 3.6 Chloride 99 Carbon Dioxide 29.2 Anion Gap 10 BUN 12 Creatinine 1.24 H Estimated GFR 43 L Random Glucose 78 Calcium 9.0 - Impressions ITS Impressions Abdomen/Pelvis CT 12/11/17 19:06 CONCLUSION: No acute CT findings in the abdomen or pelvis. Head CT 12/13/17 00:00 CONCLUSION: 1. No acute intracranial findings. 2. Bilateral temporal lobe atrophy noted. Abdomen/Bladder Ultrasound 12/17/17 00:00 CONCLUSION: 1. Increased renal echogenicity characteristic of medical renal disease. Small left renal cyst measuring about 1.4 cm in diameter. Chest X-Ray 12/25/17 00:00 CONCLUSION: 1. Interval improvement with resolution of bibasilar opacities. 2. Mild blunting of the costophrenic angles consistent with small effusions. Discharge Plan - Discharge Disposition Patient Disposition: Discharge to SNF - Discharge Condition Condition: Stable - Discharge Order Discharge Orders: Discharge Order (Routine); Ordered 12/30/17 Ordered By: Marisabel Luna - Physicians Team Primary Care Provider: Janeen Guzman Attending Provider: Marisabel Luna Other Providers: Berry Francis MD ; Tremayne Castro MD ; Brooke Cox ; Jj Ramachandran MD ; [facility] ; [facility]
== END 2017-12-30 17:05 ==
LOC: PHED 18:02 → PHEDA 21:29 → PHICU 12-12 01:10 → PH3 12-17 19:16 → HDIC 12-19 15:56 → HCIS 12-19 19:05 → N07 12-29 17:43
PROVIDERS: ADMIT Family Medicine; ATTEND Family Medicine

== ENCOUNTER 2018-03-10 13:30 | Inpatient (IN) ==
--- NOTE | 2018-03-10 13:59 | ED ---
HPI General Chief complaint: Recheck/Abnormal Lab/Rx Stated complaint: toxic level digoxin Time Seen by Provider: 03/10/18 13:43 History of Present Illness HPI narrative: The patient was seen and examined in the presence of the nurse. This patient complains of altered mental status and confusion. Duration 1 week. Severity is moderate. She was on a lot of sedating medication including benzodiazepines and aquatics which were stopped last week according to the significant other. Lab studies from the primary care physician revealed elevated digoxin level. They do not know how elevated it was. She denies alcohol or drug use. She did fall and hit the back of her head a couple of days ago. She does complain of some headache. She feels tired and confused. Denies fever. No alleviating factors. Symptoms exacerbated by polypharmacy Related Data Home Medications Medication Instructions Recorded Confirmed albuterol sulfate 2.5 mg INHALATION QID 12/11/17 03/10/18 ipratropium bromide 2 puff INHALATION Q6H 12/11/17 03/10/18 omeprazole 20 mg PO BID 12/11/17 03/10/18 sertraline [Zoloft] 1.5 tab PO DAILY 12/12/17 03/10/18 carvedilol [Coreg] 0.5 tab PO BID 03/10/18 03/10/18 fluticasone 1 spray INHALATION DAILY 03/10/18 03/10/18 hydroxychloroquine 1 tab PO BID 03/10/18 03/10/18 lisinopril 5 mg PO DAILY 03/10/18 03/10/18 prednisolone 10 mg PO DAILY 03/10/18 03/10/18 trazodone 1 tab PO HS 03/10/18 03/10/18 Previous Rx's Medication Instructions Recorded digoxin 125 mcg PO DAILY #30 tab 12/29/17 furosemide [Lasix] 40 mg PO DAILY #30 tab 12/29/17 spironolactone [Aldactone] 25 mg PO DAILY #30 tab 12/29/17 Allergies Allergy/AdvReac Type Severity Reaction Status Date / Time No Known Allergies Allergy Unknown Altered Uncoded 12/11/17 18:39 Sense of Taste Review of Systems ROS: all other systems reviewed are [facility] Social History Social History Substance History: No History of Abuse Second Hand Smoke Exposure: Yes Smoking Status: Current every day smoker Tobacco Type: Cigarettes How Often Do You Have a Drink Containing Alcohol: Never Recent Travel in [facility] within the Last 8 Weeks: No Recent Out of Country Travel within the Last 8 Weeks: No Exam Narrative Exam Narrative: GENERAL: Well-nourished, well-developed patient in no apparent distress. SKIN: Focused skin assessment reveals no rash and nodules. Skin is Warm and dry. HEAD: Atraumatic. Normocephalic. EYES: Pupils equal and round. No scleral icterus. No injection or drainage. ENT: No nasal bleeding or discharge. Mucous membranes pink and moist. NECK: Trachea midline. No JVD. No meningeal signs CARDIOVASCULAR: Regular rate and rhythm. No murmur appreciated. RESPIRATORY: No accessory muscle use. Clear to auscultation. Breath sounds equal bilaterally. GASTROINTESTINAL: Abdomen soft, non-tender, nondistended. Hepatic and splenic margins not palpable. MUSCULOSKELETAL: No obvious deformities. No clubbing. No cyanosis. No edema. NEUROLOGICAL: Awake but drowsy . No obvious cranial nerve deficits. Motor grossly within normal limits. Slight slurring of speech. PSYCHIATRIC: Drowsy/lethargic mood and affect; insight and judgment reduced. Course Initial Documented Vital Signs Temperature 97.5 F L 03/10/18 13:32 Pulse Rate 68 03/10/18 13:32 Respiratory Rate 20 03/10/18 13:32 Blood Pressure 90/53 L 03/10/18 13:32 Pulse Oximetry 97 03/10/18 13:32 Last Documented Vital Signs Temperature 97.5 F L 03/10/18 13:32 Pulse Rate 60 03/10/18 15:31 Respiratory Rate 17 03/10/18 15:31 Blood Pressure 117/45 L 03/10/18 15:31 Pulse Oximetry 100 03/10/18 15:31 Medical Decision Making [facility] Narrative Medical decision making narrative: Extensive altered mental status workup is ordered including digoxin level amongst many other things. Dig level turns out to be normal. She is hyponatremic and confused and lethargic. She will require admission. I think she is over diuresed and has polypharmacy contributing. There is a question of whether the patient has been sneaking Soma. Boyfriend had thought he had gotten rid of all her sedating medications but she had stashed some Soma. Case reviewed with hospitalist will admit. Medical Screen Exam Complete: Yes Emergency Medical Condition: Yes Differential Diagnosis Differential Diagnosis: Supratherapeutic digoxin level, intracranial hemorrhage , electrolyte abnormality, medication side effect Medical Records Medical records reviewed: Yes I reviewed the patient's medical records. Lab Data Lab results reviewed: Yes I reviewed the patient's lab results. Lab results narrative: Metabolic studies reveal hyponatremia which is worse than prior. Digoxin level is 1.7 which is in the normal range. Result diagrams: 03/10/18 14:00 03/10/18 14:00 Lab Results 03/10/18 03/10/18 03/10/18 Range/Units 14:00 14:00 14:30 CBC w Diff Slide review pending WBC 5.8 (4.0-11.0) th/mm3 RBC 4.10 (4.00-5.30) mil/mm3 Hgb 11.7 (11.6-15.3) gm/dL Hct 34.2 L (35.0-46.0) % MCV 83.4 (80.0-100.0) fL MCH 28.6 (27.0-34.0) pg MCHC 34.3 (32.0-36.0) % RDW 24.9 H (11.6-17.2) % Plt Count 394 (150-450) th/mm3 MPV 7.0 (7.0-11.0) fL WBC Differential Manual diff final Seg Neuts % (Manual) 58 (16-70) % Lymphocytes % (Manual) 31 (9-44) % Monocytes % (Manual) 10 H (0-8) % Eosinophils % (Manual) 1 (0-4) % Abs Neuts (Manual) 3.4 (1.8-7.7) th/mm3 Differential Comment . Platelet Estimate Normal (Normal) Platelet Morphology Normal (Normal) Tear Drop Cells 1+ H (None) Ovalocytes 2+ H (None) Keratocytes Occ H (None) Sodium 127 L (136-145) meq/L Potassium 3.4 L (3.5-5.1) meq/L Chloride 88 L (98-107) meq/L Carbon Dioxide 27.4 (21.0-32.0) meq/L Anion Gap 12 (5-15) meq/L BUN 9 (7-18) mg/dL Creatinine 0.95 (0.50-1.00) mg/dL Estimated GFR 59 L (>89) mL/min Random Glucose 120 H (74-106) mg/dL Calcium 8.7 (8.5-10.1) mg/dL Total Bilirubin 0.3 (0.2-1.0) mg/dL AST 33 (15-37) U/L ALT 24 (10-53) U/L Alkaline Phosphatase 109 (45-117) U/L Total Protein 6.9 (6.4-8.2) g/dL Albumin 3.3 L (3.4-5.0) g/dL TSH 0.633 (0.358-3.740) uIU/mL Ur Collection Type Urine Color (Yellw/Straw) Urine Clarity (Clear) Urine pH (5.0-8.5) Ur Specific [place] (1.002-1.035) Urine Protein (Neg-Trace) mg/dL Urine Glucose (UA) (Negative) mg/dL Urine Ketones (Negative) mg/dL Urine Occult Blood (Negative) Urine Nitrate (Negative) Urine Bilirubin (Negative) Urine Urobilinogen (Less than 2) mg/dL Ur Leukocyte Esterase (Negative) Urine WBC (0-5) /hpf Ur Squamous Epith Cells (0-5) /hpf Ur Microscopic Review Digoxin 1.7 (0.8-2.0) ng/mL Urine Opiates Screen Neg (Neg) Ur Barbiturates Screen Neg (Neg) Ur Amphetamines Screen Neg (Neg) U Benzodiazepines Scrn Pos H (Neg) Urine Cocaine Screen Neg (Neg) U Cannabinoids Screen Neg (Neg) Serum Alcohol Less than 3 (0-5) mg/dL 03/10/18 Range/Units 14:30 CBC w Diff WBC (4.0-11.0) th/mm3 RBC (4.00-5.30) mil/mm3 Hgb (11.6-15.3) gm/dL Hct (35.0-46.0) % MCV (80.0-100.0) fL MCH (27.0-34.0) pg MCHC (32.0-36.0) % RDW (11.6-17.2) % Plt Count (150-450) th/mm3 MPV (7.0-11.0) fL WBC Differential Seg Neuts % (Manual) (16-70) % Lymphocytes % (Manual) (9-44) % Monocytes % (Manual) (0-8) % Eosinophils % (Manual) (0-4) % Abs Neuts (Manual) (1.8-7.7) th/mm3 Differential Comment Platelet Estimate (Normal) Platelet Morphology (Normal) Tear Drop Cells (None) Ovalocytes (None) Keratocytes (None) Sodium (136-145) meq/L Potassium (3.5-5.1) meq/L Chloride (98-107) meq/L Carbon Dioxide (21.0-32.0) meq/L Anion Gap (5-15) meq/L BUN (7-18) mg/dL Creatinine (0.50-1.00) mg/dL Estimated GFR (>89) mL/min Random Glucose (74-106) mg/dL Calcium (8.5-10.1) mg/dL Total Bilirubin (0.2-1.0) mg/dL AST (15-37) U/L ALT (10-53) U/L Alkaline Phosphatase (45-117) U/L Total Protein (6.4-8.2) g/dL Albumin (3.4-5.0) g/dL TSH (0.358-3.740) uIU/mL Ur Collection Type Clean catch Urine Color Yellow (Yellw/Straw) Urine Clarity Clear (Clear) Urine pH 5.5 (5.0-8.5) Ur Specific [place] Less/equal 1.005 (1.002-1.035) Urine Protein Negative (Neg-Trace) mg/dL Urine Glucose (UA) Negative (Negative) mg/dL Urine Ketones Negative (Negative) mg/dL Urine Occult Blood Negative (Negative) Urine Nitrate Negative (Negative) Urine Bilirubin Negative (Negative) Urine Urobilinogen 0.2 (Less than 2) mg/dL Ur Leukocyte Esterase Negative (Negative) Urine WBC 0-5 (0-5) /hpf Ur Squamous Epith Cells 0-5 (0-5) /hpf Ur Microscopic Review Microscopic reviewed Digoxin (0.8-2.0) ng/mL Urine Opiates Screen (Neg) Ur Barbiturates Screen (Neg) Ur Amphetamines Screen (Neg) U Benzodiazepines Scrn (Neg) Urine Cocaine Screen (Neg) U Cannabinoids Screen (Neg) Serum Alcohol (0-5) mg/dL Imaging Data Attestation: I personally reviewed and interpreted this imaging study as follows : My impression: Brain CT is reviewed and shows cerebral laxity versus hydrocephalus. No intracranial hemorrhage. Radiologist's impression: Head CT 03/10/18 13:49 CONCLUSION: 1. Ventriculomegaly suggestive of central cerebral laxity versus hydrocephalus. Clinical correlation is recommended. 2. Moderate periventricular and subcortical white matter small vessel ischemic changes bilaterally. 3. No acute infarct, acute hemorrhage, midline shift or extra-axial bleed. . Discharge Plan Discharge Disposition Patient Disposition: 30 Still Patient Discharge Details Diagnosis: Acute alteration in mental status, Acute hyponatremia Physicians Team ED Provider: Ned Real Primary Care Provider: Karen Abel Rxs /Orders / Referrals /Forms Prescriptions: No Action trazodone 100 mg Tablet 1 tab PO HS RF: 0 carvedilol [Coreg] 6.25 mg tablet 0.5 tab PO BID RF: 0 lisinopril 10 mg tablet 5 mg PO DAILY RF: 0 fluticasone 50 mcg/actuation Blister With Device 1 spray Inhalation DAILY RF: 0 hydroxychloroquine 200 mg Tablet 1 tab PO BID RF: 0 prednisolone 10 mg PO DAILY RF: 0 albuterol sulfate 2.5 mg /3 mL (0.083 %) Solution For Nebulization 2.5 mg INHALATION QID RF: 0 omeprazole 20 mg Capsule,Delayed Release(Dr/Ec) 20 mg PO BID RF: 0 ipratropium bromide 17 mcg/actuation Hfa Aerosol Inhaler 2 puff INHALATION Q6H RF: 0 sertraline [Zoloft] 100 mg Tablet 1.5 tab PO DAILY RF: 0 spironolactone [Aldactone] 25 mg Tablet 25 mg PO DAILY Qty: 30 RF: 0 digoxin 125 mcg Tablet 125 mcg PO DAILY Qty: 30 RF: 0 furosemide [Lasix] 20 mg Tablet 40 mg PO DAILY Qty: 30 RF: 0 Discharge Interventions Interventions: Vital Signs Last Done: 03/10/18 15:31 Status ED Status: Admitted Patient
[2018-03-10 14:03] LABS: Hematocrit 34.2 % (35.0-46.0); Hemoglobin 11.7 gm/dL (11.6-15.3); Mean Corpuscular HGB Conc 34.3 % (32.0-36.0); Mean Corpuscular Hemoglobin 28.6 pg (27.0-34.0); Mean Corpuscular Volume 83.4 fL (80.0-100.0); Platelet Count 394 th/mm3 (150-450); Red Cell Distribution Width 24.9 % (11.6-17.2); White Blood Count 5.8 th/mm3 (4.0-11.0)
[2018-03-10 14:12] LABS: Chloride 88 meq/L (98-107); Potassium 3.4 meq/L (3.5-5.1); Sodium 127 meq/L (136-145)
[2018-03-10 14:15] LABS: Albumin 3.3 g/dL (3.4-5.0); Calcium 8.7 mg/dL (8.5-10.1)
[2018-03-10 14:16] LABS: Anion Gap 12 meq/L (5-15); Blood Urea Nitrogen 9 mg/dL (7-18); Carbon Dioxide 27.4 meq/L (21.0-32.0); Glucose,Random 120 mg/dL (74-106)
[2018-03-10 14:18] LABS: Alanine Aminotransferase 24 U/L (10-53)
[2018-03-10 14:19] LABS: Aspartate Aminotransferase 33 U/L (15-37); Glomerular Filtration Rate 59 mL/min (>89)
[2018-03-10 14:20] LABS: Total Protein 6.9 g/dL (6.4-8.2)
[2018-03-10 14:21] LABS: Alkaline Phosphatase 109 U/L (45-117)
[2018-03-10 14:29] LABS: Thyroid Stimulating Hormone 0.633 uIU/mL (0.358-3.740)
[2018-03-10 14:29] LABS: Bilirubin,Urine Negative (Negative); Clarity,Urine Clear (Clear); Color,Urine Yellow (Yellw/Straw); Glucose,Urine (UA) Negative (Negative); Leukocyte Esterase,Urine Negative (Negative); Nitrite,Urine Negative (Negative); PH,Urine 5.5 (5.0-8.5); Specific Gravity,Urine Less/Equal 1.005 (1.002-1.035); Urobilinogen,Urine 0.2 mg/dL (Less than 2)
[2018-03-10 14:33] LABS: Squamous Epithelial Cell,Urine 0-5 /hpf (0-5); WBC,Urine 0-5 /hpf (0-5)
[2018-03-10 14:40] LABS: Amphetamine Screen,Urine Neg (Neg)
[2018-03-10 14:41] LABS: Barbiturate Screen,Urine Neg (Neg); Cannabinoid Screen,Urine Neg (Neg); Cocaine Screen,Urine Neg (Neg)
[2018-03-10 14:42] LABS: Eosinophils 1 % (0-4); Lymphocytes 31 % (9-44); Monocytes 10 % (0-8)
[2018-03-10 14:43] LABS: Ovalocytes 2+
[2018-03-10 14:44] LABS: Platelet Estimate Normal (Normal); Platelet Morphology Normal (Normal); Tear Drop Cells 1+
--- NOTE | 2018-03-10 14:47 | CT ---
EXAM DATE: 03/10/2018 2:11 PM EDT AGE/SEX: 68 years / Female INDICATIONS: Confusion. CLINICAL DATA: This is the patient's initial encounter. Patient reports that signs and symptoms have been present for 1 week and indicates a pain score of 0/10. MEDICAL/SURGICAL HISTORY: Chronic obstructive pulmonary disease. Lupus. Hypertension. None. RADIATION DOSE: 54.35 CTDI (mGy) COMPARISON: [facility], CT HEAD W/O CONTRAST, 12/13/2017. [facility], CT BRAIN W/O CONTRAST, 11/02/2017. . TECHNIQUE: CT of the head without contrast. Using automated exposure control and adjustment of the mA and/or kV according to patient size, radiation dose was kept as low as reasonably achievable to ob tain optimal diagnostic quality images. DICOM format image data is available electronically for revi ew and comparison. FINDINGS: Cerebrum: The ventricles are prominent suggestive of central cerebral atrophy versus hydrocephalus. Clinical correlation is recommended. Moderate periventricular and subcortical white matter small vess el ischemic changes are noted bilaterally. No acute infarct, acute hemorrhage or midline shift is not ed. No extra-axial bleed is noted. Posterior Fossa: The cerebellum and brainstem are intact. The 4th ventricle is midline. The cerebe llopontine angle is unremarkable. Extracranial: The visualized portion of the orbits is intact. Skull: The calvaria is intact. No evidence of skull fracture. CONCLUSION: 1. Ventriculomegaly suggestive of central cerebral laxity versus hydrocephalus. Clinical correlation is recommended. 2. Moderate periventricular and subcortical white matter small vessel ischemic changes bilaterally. 3. No acute infarct, acute hemorrhage, midline shift or extra-axial bleed. . Electronically signed by: Christopher Camejo MD 03/10/2018 2:45 PM EDT
[2018-03-10 14:49] LABS: Opiate Screen,Urine Neg (Neg)
[2018-03-10 14:57] LABS: Digoxin 1.7 ng/mL (0.8-2.0)
[2018-03-10] MEDS ORDERED: Sod Chloride 0.9% Inj 1,000 ML IV.CONT SCH (15:45)
--- NOTE | 2018-03-10 18:31 | P.HPIM ---
History of Present Illness Primary Care Physician: Karen Abel MD History of Present Illness: Mrs. Monteiro is a 68-year-old female. She is brought in by her significant other secondary to lethargy. She has had altered mental status in the last 24 hours. Patient also reports that she has been weak and tired for about the past 3 months. Findings in the ER are hypo-natremia and hypokalemia. She was also reported as an outpatient to have an elevated digoxin level. This may be secondary to dehydration related to lethargy due to decreased p.o. intake. No pain reported. No other complaints at this time. Patient denies any substance abuse including alcohol. She does have benzodiazepines on UDS. Benzodiazepines could be contributory to an altered mental status. No other complaints. Lupus is also present at baseline and could be contributory. - Diagnosis (1) Hypokalemia (2) Acute alteration in mental status (3) Acute hyponatremia Inpatient Certification: I certify that the inpatient services were ordered in accordance with Medicare regulations governing the order. This includes certification that hospital inpatient services are reasonable and necessary and in the case of services not specified as inpatient-only under 42 CFR 419.22(n), that they are appropriately provided as inpatient services in accordance to with the 2-midnight benchmark under 43 CFR 412.3(e) Estimated Total Length of Stay (Days): 3 Plans for Post Hospital Care: Home Review of Systems Constitutional: No fevers, no chills no night sweats, no fatigue, weakness Eyes: No eye pain, no blurry vision, no loss of vision ENT: No sore throat, no ear pain, no rhinorrhea Cardiovascular: No chest pain, no tachycardia, no palpitations, no shortness of breath, no syncope Respiratory: No wheezing, no cough, no shortness of breath Gastrointestinal: No abdominal pain, no black tarry stools, no bright red blood per rectum, no vomiting, no diarrhea Musculoskeletal: No joint pain, no muscle cramps, no stiffness Integumentary: No rash, no ulcers, no drainage Neurologic: No sensory loss, no loss of motor function, no dizziness Psychiatric: No behavioral changes, no hallucinations, no suicidal ideations [facility] - History History Provided By: Patient, Family Member - Medical History Medical History: Medical History (Last Reviewed 12/29/17 @ 09:18 by Heena Mojica) COPD (chronic obstructive pulmonary disease) Fibromyalgia Hypertension Lupus Posttraumatic stress disorder - Family History Family History: Family History (Last Updated 03/10/18 @ 18:27 by Luis Campos MD) Other Osteoarthritis - Tobacco History Second Hand Smoke Exposure: Yes Tobacco Use In Past 30 Days: Yes Smoking Status: Current every day smoker Tobacco Type: Cigarettes - Alcohol History How Often Do You Have a Drink Containing Alcohol: Never - Substance Use History Substance History: No History of Abuse - Travel History Recent Travel in the [place] Within the Last 8 Weeks: No Recent Travel Out of the Country Within the Last 8 Weeks: No - Immunization History Tetanus Immunization: Unsure Hx Influenza Vaccine This Season: Yes Medications and Allergies Active Medications: Active Medications Al Hydroxide/Mg Hydroxide (Milk Of Davion Bunch) 30 ml PO Q12H PRN PRN Reason: Mild Constipation Albuterol (Albuterol Neb (Indra)) 2.5 mg INH QID NEB [facility]A Last Admin: 03/10/18 17:56 Dose: Not Given Carvedilol (Coreg) 3.125 mg PO BID [facility] Digoxin (Lanoxin) 125 mcg PO DAILY [facility] Fluticasone Propionate (Flonase Nasal [place]) 1 spray NASAL DAILY [facility] Hydroxychloroquine Sulfate (Plaquenil) 200 mg PO BID [facility] Potassium Chloride/Sodium Chloride (Ns + Kcl 20 Meq Inj) 1,000 mls @ 150 mls/ hr IV.CONT .Q6H40M INDRA Last Infusion: 03/10/18 17:26 Dose: 150 mls/hr Sodium Chloride (Ns Inj) 1,000 mls @ 100 mls/hr IV.CONT .Q10H [facility] Lisinopril (Prinivil) 5 mg PO DAILY [facility] Ondansetron HCl (Zofran Inj) 4 mg IV.PUSH Q6H PRN PRN Reason: NAUSEA OR VOMITING Pantoprazole Sodium (Protonix) 20 mg PO BID [facility] Prednisone (Deltasone) 10 mg PO DAILY [facility] Sertraline HCl (Zoloft) 150 mg PO DAILY [facility] Tiotropium [place] (Spiriva 18 Mcg Inh) 18 mcg INH DAILY [facility] Trazodone HCl (Desyrel) 100 mg PO HS [facility] Allergies Allergy/AdvReac Type Severity Reaction Status Date / Time No Known Allergies Allergy Unknown Altered Uncoded 12/11/17 18:39 Sense of Taste Home Medications Medication Instructions Recorded Confirmed Type albuterol sulfate 2.5 mg INHALATION QID 12/11/17 03/10/18 History ipratropium bromide 2 puff INHALATION Q6H 12/11/17 03/10/18 History omeprazole 20 mg PO BID 12/11/17 03/10/18 History sertraline [Zoloft] 1.5 tab PO DAILY 12/12/17 03/10/18 History carvedilol [Coreg] 0.5 tab PO BID 03/10/18 03/10/18 History fluticasone 1 spray INHALATION DAILY 03/10/18 03/10/18 History hydroxychloroquine 1 tab PO BID 03/10/18 03/10/18 History lisinopril 5 mg PO DAILY 03/10/18 03/10/18 History prednisolone 10 mg PO DAILY 03/10/18 03/10/18 History trazodone 1 tab PO HS 03/10/18 03/10/18 History Exam Vital signs: Vital Signs 03/10/18 13:32 03/10/18 13:55 03/10/18 15:31 Temperature 97.5 F L Pulse Rate 68 66 60 Respiratory Rate 20 18 17 Blood Pressure 90/53 L 107/62 117/45 L Pulse Oximetry 97 98 100 03/10/18 17:00 Temperature Pulse Rate 61 Respiratory Rate 18 Blood Pressure 105/49 L Pulse Oximetry 96 Intake & Output 03/09/18 03/10/18 03/10/18 18:59 06:59 18:59 Intake Total 288 / 288 Balance 288 / 288 Weight 50 kg Intake: IV 288 / 288 NS + KCl 20 mEq Inj 1,000 ML @ 288 / 288 150 mls/hr IV.CONT .Q6H40M [facility] Rx#:[id number] Narrative: GENERAL: NAD, A&Ox3 HEAD: Normocephalic. NECK: Supple, trachea midline. No lymphadenopathy. EYES: No scleral icterus. No injection or drainage. CARDIOVASCULAR: Regular rate and rhythm without murmurs, gallops, or rubs. RESPIRATORY: Breath sounds equal bilaterally. No accessory muscle use. GASTROINTESTINAL: Abdomen soft, non-tender, nondistended. MUSCULOSKELETAL: No cyanosis, or edema. SKIN: Warm and dry. NEURO: No focal neurological deficits. Results - Labs CBC & Chem 7: 03/10/18 14:00 03/10/18 14:00 Labs: Short CBC 03/10/18 Range/Units 14:00 WBC 5.8 (4.0-11.0) th/mm3 Hgb 11.7 (11.6-15.3) gm/dL Hct 34.2 L (35.0-46.0) % Plt Count 394 (150-450) th/mm3 BMP 03/10/18 14:00 Sodium 127 L Potassium 3.4 L Chloride 88 L Carbon Dioxide 27.4 BUN 9 Creatinine 0.95 Calcium 8.7 Liver Function 03/10/18 Range/Units 14:00 Total Bilirubin 0.3 (0.2-1.0) mg/dL AST 33 (15-37) U/L ALT 24 (10-53) U/L Alkaline Phosphatase 109 (45-117) U/L Albumin 3.3 L (3.4-5.0) g/dL Urine 03/10/18 Range/Units 14:30 Urine Color Yellow (Yellw/Straw) Urine Clarity Clear (Clear) Urine pH 5.5 (5.0-8.5) Ur Specific [place] Less/equal 1.005 (1.002-1.035) Urine Protein Negative (Neg-Trace) mg/dL Urine Glucose (UA) Negative (Negative) mg/dL - Imaging Impressions Head CT 03/10/18 13:49 CONCLUSION: 1. Ventriculomegaly suggestive of central cerebral laxity versus hydrocephalus. Clinical correlation is recommended. 2. Moderate periventricular and subcortical white matter small vessel ischemic changes bilaterally. 3. No acute infarct, acute hemorrhage, midline shift or extra-axial bleed. . Caprini VTE Risk Assessment Caprini VTE Risk Assessment: No/Low Risk (score <= 1) Caprini Risk Assessment Model: Point Value = 1 Point Value = 2 Point Value = 3 Point Value = 5 Age 41-60 Minor surgery BMI > 25 kg/m2 Swollen legs Varicose veins or History of unexplained or recurrent spontaneous Oral contraceptives or hormone replacement Sepsis (< 1 month) Serious lung disease, including pneumonia (< 1 month) Abnormal pulmonary function Acute myocardial infarction Congestive heart failure (< 1 month) History of inflammatory bowel disease Medical patient at bed rest Age 61-74 Arthroscopic surgery Major open surgery (> 45 min) Laparoscopic surgery (> 45 min) Malignancy Confined to bed (> 72 hours) Immobilizing plaster cast Central venous access Age >= 75 History of VTE Family history of VTE Factor V Leiden Prothrombin [id number] Lupus anticoagulant Anticardiolipin antibodies Elevated serum homocysteine Heparin-induced thrombocytopenia Other congenital or acquired thrombophilia Stroke (< 1 month) Elective arthroplasty Hip, pelvis, or leg fracture Acute spinal cord injury (< 1 month) Prophylaxis Regimen: Total Risk Factor Score Risk Level Prophylaxis Regimen 0-1 Low Early ambulation 2 Moderate Order ONE of the following: *Sequential Compression Device (SCD) *Heparin 5000 units SQ BID 3-4 Higher Order ONE of the following medications: *Heparin 5000 units SQ TID *Enoxaparin/Lovenox 40 mg SQ daily (WT < 150 kg, CrCl > 30 mL/min) *Enoxaparin/Lovenox 30 mg SQ daily (WT < 150 kg, CrCl > 10-29 mL/min) *Enoxaparin/Lovenox 30 mg SQ BID (WT < 150 kg, CrCl > 30 mL/min) AND/OR *Sequential Compression Device (SCD) 5 or more Highest Order ONE of the following medications: *Heparin 5000 units SQ TID (Preferred with Epidurals) *Enoxaparin/Lovenox 40 mg SQ daily (WT < 150 kg, CrCl > 30 mL/min) *Enoxaparin/Lovenox 30 mg SQ daily (WT < 150 kg, CrCl > 10-29 mL/min) *Enoxaparin/Lovenox 30 mg SQ BID (WT < 150 kg, CrCl > 30 mL/min) AND *Sequential Compression Device (SCD) Assessment and Plan - Assessment (1) Hypokalemia Code(s): E87.6 - Hypokalemia Status: Acute (2) Acute alteration in mental status Code(s): R41.82 - Altered mental status, unspecified Status: Acute (3) Acute hyponatremia Code(s): E87.1 - Hypo-osmolality and hyponatremia Status: Acute - Plan 68-year-old female admitted secondary to altered mental status with hyponatremia and hypokalemia Altered mental status Avoid benzodiazepines for now Follow clinically Patient's mental status is improving when I saw her. Check TSH, T3, T4 Hyponatremia Hypokalemia Replace and monitor IV hydration for now Lupus Follow clinically This may be contributory Check ESR and CRP for evaluation of possible exacerbation Hypertension Continue baseline treatment Follow blood pressures Adjust treatments as needed COPD No exacerbation Continue baseline treatments DVT prophylaxis SCDs
[2018-03-10] MEDS: Tiotropium Bromide 18 MCG/ACT Inhaler INH SCH (18:41)
--- NOTE | 2018-03-10 20:14 | P.PN ---
Subjective Interval history: NOT SEEN Physical Exam Vital signs: Vital Signs 03/10/18 13:32 03/10/18 13:55 03/10/18 15:31 Temperature 97.5 F L Pulse Rate 68 66 60 Respiratory Rate 20 18 17 Blood Pressure 90/53 L 107/62 117/45 L Pulse Oximetry 97 98 100 03/10/18 17:00 Temperature Pulse Rate 61 Respiratory Rate 18 Blood Pressure 105/49 L Pulse Oximetry 96 Intake & Output 03/10/18 03/10/18 03/11/18 06:59 18:59 06:59 Intake Total 288 / 288 Balance 288 / 288 Weight 50 kg Intake: IV 288 / 288 NS + KCl 20 mEq Inj 1,000 ML @ 288 / 288 150 mls/hr IV.CONT .Q6H40M [facility] Rx#:[id number] Other: Date of Last Bowel Movement 03/09/18 Narrative: GENERAL: NAD, A&Ox3 HEAD: Normocephalic. NECK: Supple, trachea midline. No lymphadenopathy. EYES: No scleral icterus. No injection or drainage. CARDIOVASCULAR: Regular rate and rhythm without murmurs, gallops, or rubs. RESPIRATORY: Breath sounds equal bilaterally. No accessory muscle use. GASTROINTESTINAL: Abdomen soft, non-tender, nondistended. MUSCULOSKELETAL: No cyanosis, or edema. SKIN: Warm and dry. NEURO: No focal neurological deficits. Results - Labs CBC & Chem 7: 03/10/18 14:00 03/10/18 14:00 Laboratory Results - last 24 hr 03/10/18 03/10/18 03/10/18 14:00 14:00 14:30 CBC w Diff Slide review pending WBC 5.8 RBC 4.10 Hgb 11.7 Hct 34.2 L MCV 83.4 MCH 28.6 MCHC 34.3 RDW 24.9 H Plt Count 394 MPV 7.0 WBC Differential Manual diff final Seg Neuts % (Manual) 58 Lymphocytes % (Manual) 31 Monocytes % (Manual) 10 H Eosinophils % (Manual) 1 Abs Neuts (Manual) 3.4 Differential Comment . Platelet Estimate Normal Platelet Morphology Normal Tear Drop Cells 1+ H Ovalocytes 2+ H Keratocytes Occ H Sodium 127 L Potassium 3.4 L Chloride 88 L Carbon Dioxide 27.4 Anion Gap 12 BUN 9 Creatinine 0.95 Estimated GFR 59 L Random Glucose 120 H Calcium 8.7 Total Bilirubin 0.3 AST 33 ALT 24 Alkaline Phosphatase 109 Total Protein 6.9 Albumin 3.3 L TSH 0.633 Ur Collection Type Urine Color Urine Clarity Urine pH Ur Specific [place] Urine Protein Urine Glucose (UA) Urine Ketones Urine Occult Blood Urine Nitrate Urine Bilirubin Urine Urobilinogen Ur Leukocyte Esterase Urine WBC Ur Squamous Epith Cells Ur Microscopic Review Digoxin 1.7 Urine Opiates Screen Neg Ur Barbiturates Screen Neg Ur Amphetamines Screen Neg U Benzodiazepines Scrn Pos H Urine Cocaine Screen Neg U Cannabinoids Screen Neg Serum Alcohol Less than 3 03/10/18 14:30 CBC w Diff WBC RBC Hgb Hct MCV MCH MCHC RDW Plt Count MPV WBC Differential Seg Neuts % (Manual) Lymphocytes % (Manual) Monocytes % (Manual) Eosinophils % (Manual) Abs Neuts (Manual) Differential Comment Platelet Estimate Platelet Morphology Tear Drop Cells Ovalocytes Keratocytes Sodium Potassium Chloride Carbon Dioxide Anion Gap BUN Creatinine Estimated GFR Random Glucose Calcium Total Bilirubin AST ALT Alkaline Phosphatase Total Protein Albumin TSH Ur Collection Type Clean catch Urine Color Yellow Urine Clarity Clear Urine pH 5.5 Ur Specific [place] Less/equal 1.005 Urine Protein Negative Urine Glucose (UA) Negative Urine Ketones Negative Urine Occult Blood Negative Urine Nitrate Negative Urine Bilirubin Negative Urine Urobilinogen 0.2 Ur Leukocyte Esterase Negative Urine WBC 0-5 Ur Squamous Epith Cells 0-5 Ur Microscopic Review Microscopic reviewed Digoxin Urine Opiates Screen Ur Barbiturates Screen Ur Amphetamines Screen U Benzodiazepines Scrn Urine Cocaine Screen U Cannabinoids Screen Serum Alcohol - Imaging Impressions Head CT 03/10/18 13:49 CONCLUSION: 1. Ventriculomegaly suggestive of central cerebral laxity versus hydrocephalus. Clinical correlation is recommended. 2. Moderate periventricular and subcortical white matter small vessel ischemic changes bilaterally. 3. No acute infarct, acute hemorrhage, midline shift or extra-axial bleed. . - Procedures none Assessment and Plan - Assessment (1) Hypokalemia Code(s): E87.6 - Hypokalemia Status: Acute (2) Acute alteration in mental status Code(s): R41.82 - Altered mental status, unspecified Status: Acute (3) Acute hyponatremia Code(s): E87.1 - Hypo-osmolality and hyponatremia Status: Acute - Plan 68-year-old female admitted secondary to altered mental status with hyponatremia and hypokalemia Encephalopathy , multifactorial(metabolic, toxic Avoid benzodiazepines for now Follow clinically Patient's mental status is improving when I saw her. Check TSH, T3, T4 Hyponatremia Hypokalemia Replace and monitor IV hydration for now Lupus Follow clinically This may be contributory Check ESR and CRP for evaluation of possible exacerbation Hypertension Continue baseline treatment Follow blood pressures Adjust treatments as needed COPD No exacerbation Continue baseline treatments DVT prophylaxis SCDs
[2018-03-10] MEDS ORDERED: traZODone 50 MG Tablet PO SCH (21:00)
[2018-03-10] MEDS: Carvedilol 6.25 MG Tablet PO SCH (21:28)
[2018-03-10] MEDS: Pantoprazole Sodium 20 MG DR Tablet PO SCH (21:30)
[2018-03-10] MEDS: Hydroxychloroquine 200 MG Tablet PO SCH (21:30)
--- NOTE | 2018-03-10 22:15 | ECG ---
Date Performed: 03/10/2018 Time Performed: 13:44:47 PTAGE: 68 years EKG: Sinus rhythm WITH FIRST DEGREE AV BLOCK NONSPECIFIC ST & T-WAVE ABNORMALITY ABNORMAL ECG PREVIOUS TRACING : 12/23/2017 07.06 Compared to previous tracing, ST-T changes more prominent DOCTOR: Leida Gamble Interpretating Date/Time 03/10/2018 22:13:55
[2018-03-11 05:30] VITALS: O2SAT 97
[2018-03-11 06:56] LABS: Hematocrit 28.7 % (35.0-46.0); Hemoglobin 9.9 gm/dL (11.6-15.3); Mean Corpuscular HGB Conc 34.3 % (32.0-36.0); Mean Corpuscular Hemoglobin 28.8 pg (27.0-34.0); Mean Corpuscular Volume 83.9 fL (80.0-100.0); Mean Platelet Volume 7.5 fL (7.0-11.0); Platelet Count 305 th/mm3 (150-450); Red Blood Count 3.42 mil/mm3 (4.00-5.30); Red Cell Distribution Width 24.8 % (11.6-17.2); White Blood Count 5.5 th/mm3 (4.0-11.0)
[2018-03-11 07:38] LABS: Alanine Aminotransferase 20 U/L (10-53); Albumin 2.7 g/dL (3.4-5.0); Alkaline Phosphatase 84 U/L (45-117); Anion Gap 8 meq/L (5-15); Aspartate Aminotransferase 24 U/L (15-37); Blood Urea Nitrogen 6 mg/dL (7-18); Calcium 7.9 mg/dL (8.5-10.1); Carbon Dioxide 26.4 meq/L (21.0-32.0); Chloride 109 meq/L (98-107); Glomerular Filtration Rate 76 mL/min (>89); Glucose,Random 68 mg/dL (74-106); Potassium 4.1 meq/L (3.5-5.1); Sodium 143 meq/L (136-145); Total Protein 5.5 g/dL (6.4-8.2)
[2018-03-11 07:51] LABS: Eosinophils 1 % (0-4); Lymphocytes 35 % (9-44); Monocytes 10 % (0-8)
[2018-03-11 07:52] LABS: Erythrocyte Sedimentation Rate 1 mm/hr (0-30); Ovalocytes 2+; Platelet Estimate Normal (Normal); Platelet Morphology Normal (Normal); Target Cells 1+
[2018-03-11 08:12] VITALS: BP 118/55; RESP 18; TEMP 97.5
[2018-03-11] MEDS ORDERED: predniSONE 10 MG Tablet PO SCH (09:00)
[2018-03-11] MEDS ORDERED: Lisinopril 5 MG Tablet PO SCH (09:00)
[2018-03-11] MEDS ORDERED: Sertraline 100 MG Tablet PO SCH (09:00)
[2018-03-11] MEDS ORDERED: Digoxin 125 MCG Tablet PO SCH (09:00)
[2018-03-11] MEDS: Carvedilol 6.25 MG Tablet PO SCH (09:09)
[2018-03-11] MEDS: Pantoprazole Sodium 20 MG DR Tablet PO SCH (09:09)
[2018-03-11] MEDS: Tiotropium Bromide 18 MCG/ACT Inhaler INH SCH (09:17)
[2018-03-11] MEDS: Hydroxychloroquine 200 MG Tablet PO SCH (09:18)
[2018-03-11 10:10] VITALS: PULSE 53
[2018-03-11 10:19] LABS: T4 (Thyroxine) 7.5 mcg/dL (4.8-13.9)
[2018-03-11 10:28] LABS: Triiodothyronine (T3) Free 2.25 pg/mL (2.18-3.98)
--- NOTE | 2018-03-11 11:37 | P.PN ---
Subjective Interval history: Follow-up encephalopathy. She is alert and oriented. She feels great. States she is taking too much medication her physician already discontinued how all of her medications. Discussed with significant other who prepares her medicines. He told me that patient tried to order Soma. UDS positive for benzo patient is not on benzodiazepine based on med list. Denies withdrawal symptoms Physical Exam Vital signs: Vital Signs 03/10/18 13:32 03/10/18 13:55 03/10/18 15:31 Temperature 97.5 F L Pulse Rate 68 66 60 Respiratory Rate 20 18 17 Blood Pressure 90/53 L 107/62 117/45 L Pulse Oximetry 97 98 100 03/10/18 17:00 03/10/18 19:25 03/10/18 20:00 Temperature 98.0 F Pulse Rate 61 64 73 Respiratory Rate 18 18 16 Blood Pressure 105/49 L 117/57 L Pulse Oximetry 96 98 03/11/18 00:00 03/11/18 04:00 03/11/18 08:00 Temperature 97.8 F 97.1 F L 97.5 F L Pulse Rate 59 L 55 L 53 L Respiratory Rate 16 16 18 Blood Pressure 106/55 L 98/49 L 118/55 L Pulse Oximetry 96 97 97 Intake & Output 03/10/18 03/11/18 03/11/18 18:59 06:59 18:59 Intake Total 288 / 288 2380 / 2380 700 / 700 Balance 288 / 288 2380 / 2380 700 / 700 Weight 50 kg 50 kg Intake: IV 288 / 288 2180 / 2180 700 / 700 NS + KCl 20 mEq Inj 1,000 ML @ 288 / 288 2180 / 2180 700 / 700 100 mls/hr IV.CONT .Q10H [facility] Rx #:[id number] Oral 200 / 200 Other: # Voids 2 Date of Last Bowel Movement 03/09/18 03/11/18 Narrative: GENERAL: NAD, A&Ox3 CARDIOVASCULAR: Regular rate and rhythm without murmurs, gallops, or rubs. RESPIRATORY: Breath sounds equal bilaterally. No accessory muscle use. GASTROINTESTINAL: Abdomen soft, non-tender, nondistended. MUSCULOSKELETAL: No cyanosis, or edema. SKIN: Warm and dry. NEURO: No focal neurological deficits. Results - Labs CBC & Chem 7: 03/11/18 05:50 03/11/18 05:50 Laboratory Results - last 24 hr 03/10/18 03/10/18 03/10/18 14:00 14:00 14:30 CBC w Diff Slide review pending WBC 5.8 RBC 4.10 Hgb 11.7 Hct 34.2 L MCV 83.4 MCH 28.6 MCHC 34.3 RDW 24.9 H Plt Count 394 MPV 7.0 WBC Differential Manual diff final Seg Neuts % (Manual) 58 Lymphocytes % (Manual) 31 Monocytes % (Manual) 10 H Eosinophils % (Manual) 1 Abs Neuts (Manual) 3.4 Differential Comment . Platelet Estimate Normal Platelet Morphology Normal Target Cells Tear Drop Cells 1+ H Ovalocytes 2+ H Keratocytes Occ H ESR Sodium 127 L Potassium 3.4 L Chloride 88 L Carbon Dioxide 27.4 Anion Gap 12 BUN 9 Creatinine 0.95 Estimated GFR 59 L Random Glucose 120 H Calcium 8.7 Total Bilirubin 0.3 AST 33 ALT 24 Alkaline Phosphatase 109 C-Reactive Protein Total Protein 6.9 Albumin 3.3 L TSH 0.633 Thyroxine (T4) Free T3 Ur Collection Type Urine Color Urine Clarity Urine pH Ur Specific [place] Urine Protein Urine Glucose (UA) Urine Ketones Urine Occult Blood Urine Nitrate Urine Bilirubin Urine Urobilinogen Ur Leukocyte Esterase Urine WBC Ur Squamous Epith Cells Ur Microscopic Review Digoxin 1.7 Urine Opiates Screen Neg Ur Barbiturates Screen Neg Ur Amphetamines Screen Neg U Benzodiazepines Scrn Pos H Urine Cocaine Screen Neg U Cannabinoids Screen Neg Serum Alcohol Less than 3 03/10/18 03/11/18 03/11/18 14:30 05:50 05:50 CBC w Diff Slide review pending WBC 5.5 RBC 3.42 L Hgb 9.9 L Hct 28.7 L MCV 83.9 MCH 28.8 MCHC 34.3 RDW 24.8 H Plt Count 305 MPV 7.5 WBC Differential Manual diff final Seg Neuts % (Manual) 54 Lymphocytes % (Manual) 35 Monocytes % (Manual) 10 H Eosinophils % (Manual) 1 Abs Neuts (Manual) 3.0 Differential Comment . Platelet Estimate Normal Platelet Morphology Normal Target Cells 1+ H Tear Drop Cells Ovalocytes 2+ H Keratocytes Occ H ESR 1 Sodium 143 D Potassium 4.1 Chloride 109 H D Carbon Dioxide 26.4 Anion Gap 8 BUN 6 L Creatinine 0.76 Estimated GFR 76 L Random Glucose 68 L Calcium 7.9 L D Total Bilirubin 0.4 AST 24 ALT 20 Alkaline Phosphatase 84 C-Reactive Protein Less than 0.29 Total Protein 5.5 L D Albumin 2.7 L D TSH 0.220 L Thyroxine (T4) 7.5 Free T3 2.25 Ur Collection Type Clean catch Urine Color Yellow Urine Clarity Clear Urine pH 5.5 Ur Specific [place] Less/equal 1.005 Urine Protein Negative Urine Glucose (UA) Negative Urine Ketones Negative Urine Occult Blood Negative Urine Nitrate Negative Urine Bilirubin Negative Urine Urobilinogen 0.2 Ur Leukocyte Esterase Negative Urine WBC 0-5 Ur Squamous Epith Cells 0-5 Ur Microscopic Review Microscopic reviewed Digoxin Urine Opiates Screen Ur Barbiturates Screen Ur Amphetamines Screen U Benzodiazepines Scrn Urine Cocaine Screen U Cannabinoids Screen Serum Alcohol - Imaging Impressions Head CT 03/10/18 13:49 CONCLUSION: 1. Ventriculomegaly suggestive of central cerebral laxity versus hydrocephalus. Clinical correlation is recommended. 2. Moderate periventricular and subcortical white matter small vessel ischemic changes bilaterally. 3. No acute infarct, acute hemorrhage, midline shift or extra-axial bleed. . - Procedures none Assessment and Plan - Assessment (1) Hypokalemia Code(s): E87.6 - Hypokalemia Status: Acute (2) Acute alteration in mental status Code(s): R41.82 - Altered mental status, unspecified Status: Acute (3) Acute hyponatremia Code(s): E87.1 - Hypo-osmolality and hyponatremia Status: Acute - Plan 68-year-old female admitted secondary to altered mental status with hyponatremia and hypokalemia Encephalopathy , multifactorial(metabolic, toxic). Resolved Avoid benzodiazepines for now Follow clinically Patient's mental status is at baseline Low TSH not suppressed (of note it was therapeutic yesterday), normal T3 and T4 Hyponatremia Hypokalemia Improved discontinue IV hydration. Lupus Follow clinically ESR and CRP within normal limits Hypertension Continue baseline treatment Follow blood pressures Adjust treatments as needed COPD No exacerbation Continue baseline treatments Anemia likely dilutional. No acute blood loss. Monitor DVT prophylaxis SCDs Discharge Planning: Discharge patient to home to the care of significant other who will continue to monitor patient's medications Condition on discharge: Improved Regular Diet as tolerated Ad Barb activity Rx written: None Follow-up with primary care physician
--- NOTE | 2018-03-11 12:02 | P.DCO ---
- Physical Therapy Order: Evaluate and treat, Improve ambulation, Strength and gait training - Case Management Consult Yes - Certification I have seen patient Darien Monteiro on 03/11/18. My clinical findings support the need for the requested home health care services because: Deconditioned with increased weakness I certify that my clinical findings support that this patient is homebound because: Unsteady gait/balance, Unsafe to leave home unassisted
--- NOTE | 2018-03-11 20:54 | ECG ---
Date Performed: 03/11/2018 Time Performed: 08:28:21 PTAGE: 68 years EKG: SINUS BRADYCARDIA WITH FIRST DEGREE AV BLOCK NONSPECIFIC ST & T-WAVE ABNORMALITY ABNORMAL E CG PREVIOUS TRACING : 03/10/2018 13.44 Since the previous tracing, no significant change noted DOCTOR: Leida Gamble Interpretating Date/Time 03/11/2018 20:53:38
== END 2018-03-11 12:17 | disposition home health service (06) ==
LOC: PHED 13:30 → PHEDA 15:23 → PH3 17:36
PROVIDERS: ADMIT Internal Medicine; ATTEND Internal Medicine